=== PATIENT | male | born 1940 | race Caucasian/White ===

== ENCOUNTER 2023-06-26 19:33 | Inpatient (IN) | payer MEDICARE, SELFPAY ==
[2023-06-26] VITALS (10 sets, daily range): BP systolic 122–145; BP diastolic 71–90; BMI 22.6
--- NOTE | 2023-06-26 15:16 | ED.GENMED ---
History of Present Illness
General
Chief Complaint: Weakness
Source: patient
Exam Limitations: none
Time Seen by Provider: 06/26/23 15:05
Travel History
Have you had any contact with someone who has COVID-19?: No
Do you have any symptoms of coronavirus? Fever > 100 degrees, chills, cough, shortness of breath, sore throat, loss of taste or smell, muscle aches, or headache?: No
History of Present Illness
History of Present Illness:
83-year-old male presents from [facility] with generalized weakness. He has chronic indwelling Torres catheter. He is prone to UTIs. He notes some cough as well. No measurable fever. No vomiting. He notes some abdominal pain. No other
complaints at this time
Past History
Past History
ED Past Medical History: HTN
Social History
Tobacco: Non-smoker
Alcohol: None
Drug: None
Phy Exam
Physical Exam
Physical Exam:
General: Well-appearing male no acute respiratory distress
HEENT: Normocephalic atraumatic mucosa moist neck is supple
Heart: Regular rate and rhythm no murmurs
Lungs: Clear no wheeze or rales
Abdomen is somewhat firm tender to the lower abdomen mildly distended no guarding or rebound normal bowel sounds
Extremities: No cyanosis or edema
Course
Orders/Labs/Results
Orders:
Orders
06/26/23 14:49
Electrocardiogram (*1) Urgent
Reason for Study: Fatigue / Weakness
06/26/23 14:50
EKG- Treatment ONCE
06/26/23 15:11
Complete Blood Count/With Diff Urgent
Comprehensive Metabolic Panel Urgent
Creatine Phosphokinase Urgent
Comment: ADD ON
Urinalysis Reflex To Culture Urgent
Date Specimen was Collected: 06/26/23
Time Specimen was Collected: 15:03
Urine Microscopic Reflex Cult Urgent
Urine Culture Urgent
YAQUELIN Source: U
Specimen Description:
Date Specimen was Collected: 06/26/23
Time Specimen was Collected: 15:03
06/26/23 15:52
CT Abd/pel Without Iv Or Oral Urgent
Comment:
Reason For Exam: distended, painful abdomen
Bladder Scan- Treatment ONCE
06/26/23 16:26
Add On- LAB Urgent
Tests Added?: cpk
06/26/23 17:56
Piperacillin/Tazo 3.375 Gram [Zosyn] 3.375 gram in 50 ml IV NOW
Vancomycin [Vancocin] 1,500 mg 0.9% Sodium Chloride [Nss] 20 ml 0.9% Sodium Chloride 250 ml [Nss] 250 ml IV NOW
06/26/23 18:04
0.9% Sodium Chloride 1000 ml [Nss] 1,000 ml IV BOLUS
06/26/23 18:15
Lactic Acid Q4H
Comment: CANCEL 2nd LACTIC ACID IF 1st LACTIC ACID IS LESS THAN 2
Blood Culture Q30M
YAQUELIN Source: Blood/Venous
Specimen Description:
06/26/23 18:45
Blood Culture Q30M
YAQUELIN Source: Blood/Venous
Specimen Description:
06/26/23 22:15
Lactic Acid Q4H
Comment: CANCEL 2nd LACTIC ACID IF 1st LACTIC ACID IS LESS THAN 2
Abnormal Lab Results
06/26/23
15:11
RBC 4.12 L 10^6/uL
(4.70-6.10)
Hgb 11.7 L g/dL
(13.0-18.0)
Hct 35.7 L %
(39.0-52.0)
MCHC 32.8 L g/dL
(33.0-37.0)
Absolute Neuts (auto) 9.8 H 10^3/uL
(1.4-6.5)
Absolute Lymphs (auto) 0.3 L 10^3/uL
(1.2-3.4)
Neutrophils % 93.4 H %
(42.2-75.2)
Lymphocytes % 3.0 L %
(20.5-51.1)
BUN 113 H* mg/dl
(9-20)
Creatinine 3.7 H mg/dL
(0.7-1.3)
Glucose 164 H mg/dl
(70-99)
AST 98 H U/L
(17-59)
ALT 52 H U/L
(0-50)
Ur Occult Blood Reflex 4+ A
(Negative)
Leukocyte Esterase Rfl 2+ A
(Negative)
Urine WBC (Reflex) >100 A /HPF
(0-5)
Urine Albumin (Reflex) 2+ A
(Neg - Trace)
06/26/23 15:11
06/26/23 15:11
Vital Signs
Initial and Last Documented VS:
Initial Vital Signs
Temp Pulse Resp BP
97.8 F 102 22 127/82
06/26/23 14:50 06/26/23 14:50 06/26/23 14:50 06/26/23 14:50
Last Documented Vital Signs
Temp Pulse Resp BP Pulse Ox
97.8 F 98 24 129/83 92
06/26/23 14:50 06/26/23 16:15 06/26/23 16:15 06/26/23 16:00 06/26/23 16:15
MDM/Problems Addressed
Differential Diagnosis Includes:
Generalized weakness abdominal tenderness. Chronic indwelling Torres catheter. Urine looks dirty. Vital signs are stable. Will check labs. Given tenderness and firmness on abdomen, will CT the abdomen
*Critical Care Note
Total Time (30-74mins, 75-104mins- exclusive of procedures): Not Applicable
Update Note
Update Note:
Patient reexamined. Vital signs are still stable. Patient has acute kidney injury with a BUN of 113 creatinine 3.7. Potassium is 3.8. Urinalysis suspicious for UTI. CT reviewed which shows multiple positive findings including inflammation
around the bladder to suggest cystitis, either ileus versus developing small bowel obstruction and bibasilar pneumonia. Fluids ordered vancomycin Zosyn ordered. Will admit to hospital
ED Attending Note
-
Portions of this chart may have been created with voice recognition software.� Occasional wrong word or��sound alike� substitutions may have occurred due to the inherent limitations of voice recognition software.
Discharge Plan
Departure
Patient Disposition: Admit
Date of Disposition: 06/26/23
Time of Disposition: 18:12
Admit to: Telemetry
Presentation/result/management discussed w/ accepting MD/DO: Hospitalist
Discharge Problem:
Cystitis, NABEEL (acute kidney injury)
Prescriptions:
No Action
sennosides [senna] 8.6 mg Tablet
17.2 mg PO DAILY
acetaminophen [Tylenol] 325 mg Tablet
650 mg PO Q4H MDD 3000 mg PRN (Reason: mild pain/temp>100F)
polyethylene glycol 3350 17 gram Powder In Packet
17 g PO DAILY
atorvastatin 10 mg Tablet
10 mg PO HS
thiamine HCl (vitamin B1) 100 mg Tablet
100 mg PO DAILY
magnesium hydroxide [Milk of Magnesia] 400 mg/5 mL Suspension
30 ml PO DAILY PRN (Reason: if no BM in 3 days)
tamsulosin 0.4 mg Capsule
0.4 mg PO DAILY
bisacodyl [Dulcolax (bisacodyl)] 10 mg Suppository
10 mg NH DAILY PRN (Reason: if MOM ineffective after 24 hrs)
Fleet Enema 19-7 gram/118 mL Enema
118 ml NH DAILYPRN PRN (Reason: if dulcolax ineffective after 24 hrs)
folic acid 1 mg Tablet
1 mg PO DAILY
midodrine 2.5 mg Tablet
2.5 mg PO BID
Referrals:
Marquise Youssef I., DO [Family Provider] -
Interventions
Interventions:
*Risk Screen - Suicide Last Done: 06/26/23 14:50
*General Assessment Last Done: 06/26/23 14:50
*Neglect/Abuse Screening Last Done: 06/26/23 14:50
ED- Pulmonary Assessment Last Done: 06/26/23 16:12
ED- Neurological Assessment Last Done: 06/26/23 16:12
ED- Cardiac Assessment Last Done: 06/26/23 16:12
Discharge Date and Time
Print Language: ROMANIAN
[2023-06-26 15:21] LABS: % Basophils 0.3 % (0-2); % Immature Granulocytes 0.4 % (0-0.5); % Monocytes 2.9 % (1.7-9.3); % Neutrophils 93.4 % (42.2-75.2); Absolute Lymphocytes 0.3 10^3/uL (1.2-3.4); Absolute Monocytes 0.3 10^3/uL (0.1-0.6); Absolute Neutrophils 9.8 10^3/uL (1.4-6.5); Hematocrit 35.7 % (39.0-52.0); Hemoglobin 11.7 g/dL (13.0-18.0); Mean Corp Hgb Conc. 32.8 g/dL (33.0-37.0); Mean Corpuscular Hgb 28.4 pg (27.0-31.0); Mean Corpuscular Volume 86.7 fL (80.0-94.0); Mean Platelet Volume 9.9 fL (7.4-10.4); Nucleated Red Blood Cells % 0 % (-); Platelet Count 322 10^3/uL (130-400); Red Blood Cell Count 4.12 10^6/uL (4.70-6.10); Red Cell Dist. Width 13.2 % (11.5-14.5); White Blood Cell Count 10.5 10^3/uL (4.8-10.8)
[2023-06-26 15:24] LABS: Urine Albumin 2+ (Neg - Trace); Urine Bilirubin Negative (Negative); Urine Character Clear (Clear); Urine Color Yellow; Urine Glucose Negative (Negative); Urine Ketone Negative (Negative); Urine Leukocyte 2+ (Negative); Urine Nitrite Negative (Negative); Urine Occult Blood 4+ (Negative); Urine Specific Gravity 1.015 (<1.030); Urine Urobilinogen Negative (Neg - 1+)
[2023-06-26 15:37] LABS: Urine White Cell >100 /HPF (0-5)
[2023-06-26 15:44] LABS: ALT (SGPT) 52 U/L (0-50); AST (SGOT) 98 U/L (17-59); Albumin 3.5 g/dl (3.5-5.0); Alkaline Phosphatase 101 U/L (38-126); Blood Urea Nitrogen 113 mg/dl (9-20); Calcium 9.9 mg/dl (8.4-10.2); Chloride 103 mmol/L (98-107); Glucose 164 mg/dl (70-99); Potassium 3.8 mmol/L (3.5-5.1); Sodium 138 mmol/L (135-145); Total Bilirubin 1.2 mg/dl (0.2-1.3); Total Protein 7.2 g/dl (6.3-8.2); eGFR 15.54
[2023-06-26 15:52] LABS: Carbon Dioxide 22 mmol/L (22-30)
[2023-06-26 18:12] LABS: Creatine Phosphokinase 776 U/L (55-170)
[2023-06-26] MEDS: NSS 1000 IV ×2 (18:18→21:32)
[2023-06-26] MEDS: ZOSYN 50 IV (18:18)
[2023-06-26 18:57] LABS: Lactic Acid 1.1 mmol/L (0.7-2.0)
--- NOTE | 2023-06-26 18:57 | HPS.HSE ---
Addendum entered and electronically signed by Pattie Castro MD 06/26/23 21:11:
Posada catheter to be exchanged, okay with urology.
Original Note:
Family Physician
-
Family Physician: Marquise Youssef
Chief Complaint
-
cough
History of Present Illness
83-year-old male past medical history of hypertension, chronic indwelling Posada catheter, UTIs, presenting from [facility] for generalized weakness. Patient is mediocre historian. He has cough symptoms productive for the past 6 days. He also
complains of intermittent abdominal pain for the past 6 days. He has not had a bowel movement in 6 days. He denies any fevers or chills. No nausea or vomiting. He states he had Posada catheter placed a few months ago but he is not sure about any
further details.
He denies smoking or alcohol use.
Medical History
Past Medical History
Past Medical History: Reports Other (hypertension, chronic indwelling Posada catheter, UTIs)
Past Surgical History: Reports None
Social History
Tobacco: Non-smoker
Alcohol: None
Drug: None
Family History
Family History: Not pertinent
Allergies / Home Medications
Allergies reflects when Allergies were last updated in [employer].
Home Medications with original date entered in [employer]
Allergy/Medication List:
Allergies
Allergy/AdvReac Type Severity Reaction Status Date / Time
Penicillins Allergy Unknown Verified 06/26/23 14:50
Home Medications
acetaminophen 325 mg tablet (Tylenol) 650 mg PO Q4H PRN mild pain/temp>100F 06/26/23
atorvastatin 10 mg tablet 10 mg PO HS 06/26/23
bisacodyl 10 mg rectal suppository (Dulcolax (bisacodyl)) 10 mg WI DAILY PRN if MOM ineffective after 24 hrs 06/26/23
folic acid 1 mg tablet 1 mg PO DAILY 06/26/23
magnesium hydroxide 400 mg/5 mL oral suspension (Milk of Magnesia) 30 ml PO DAILY PRN if no BM in 3 days 06/26/23
midodrine 2.5 mg tablet 2.5 mg PO BID 06/26/23
polyethylene glycol 3350 17 gram oral powder packet 17 g PO DAILY 06/26/23
sennosides 8.6 mg tablet (senna) 17.2 mg PO DAILY 06/26/23
sodium phosphates 19 gram-7 gram/118 mL enema (Fleet Enema) 118 ml WI DAILYPRN PRN if dulcolax ineffective after 24 hrs 06/26/23
tamsulosin 0.4 mg capsule 0.4 mg PO DAILY 06/26/23
thiamine HCl (vitamin B1) 100 mg tablet 100 mg PO DAILY 06/26/23
Review of Systems
-
History Source: Patient
A 12 point ROS was completed and negative except as noted: Yes
Constitutional: Reports No Symptoms
EENT: Reports No Symptoms
Respiratory: Reports See HPI
Cardiac: Reports No Symptoms
Abdomen/GI: Reports See HPI
: Reports No Symptoms
Musculoskeletal: Reports No Symptoms
Skin: Reports No Symptoms
Neurological: Reports No Symptoms
Endocrine: Reports No Symptoms
Hematologic/Lymphatic: Reports No Symptoms
Psych: Reports No Symptoms
Physical Exam
Vital Signs
Vital Signs
Temp Pulse Resp BP Pulse Ox
97.8 F 98 24 129/83 92
06/26/23 14:50 06/26/23 16:15 06/26/23 16:15 06/26/23 16:00 06/26/23 16:15
Physical Exam
General: Well Developed, Well Nourished and No Apparent Distress
HEENT: NormoCephalic, Moist mucous membranes and Atraumatic
Respiratory: Clear
Cardiac: S1/S2 and Regular Rhythm; No Murmur or Rub
GI: Soft, Normal Bowel Sounds, Tender and Distended; No Organomegaly
Rectal: Deferred by Provider
Musculoskeletal: No Clubbing, No Cyanosis and No Edema
Skin: No Rash
Neuro: Nonfocal/grossly intact
Laboratory Results
-
06/26/23 15:11
06/26/23 15:11
Laboratory Results
Lactic Acid 1.1 mmol/L (0.7-2.0) 06/26/23 18:20
Total Bilirubin 1.2 mg/dl (0.2-1.3) 06/26/23 15:11
AST 98 U/L (17-59) H 06/26/23 15:11
ALT 52 U/L (0-50) H 06/26/23 15:11
Alkaline Phosphatase 101 U/L (38-126) 06/26/23 15:11
Data Reviewed
-
Lab Data: Labs Reviewed by me
Old Records: Reviewed
Impression/Plan
-
IMPRESSION:
PLAN:
# Catheter associated urinary tract infection, potential hemorrhage/perforation cannot be excluded
# Chronic Posdaa catheter
-UA shows greater than 100 WBC, +2 leukocyte esterase
-CT scan shows findings concerning for bladder infection, hemorrhagic products cannot be excluded. Bladder perforation cannot be excluded. Mild bilateral hydronephrosis
-Check urine, blood cultures
-Continue tamsulosin
-Urology consulted and recommended to Flush posada to make sure draining
-Unable to reach son to get further history
# Small bowel ileus likely reactive from bladder infection
# History of constipation
-N.p.o.
-IV fluids
-Continue MiraLAX, senna
# Developing pneumonia right lower lung jolley
-check COVID and influenza
-Check sputum culture
-Check strep antigen, Legionella, MRSA
-Vancomycin/cefepime
# Acute kidney injury, likely prerenal
# Uremia
-Posada catheter draining appropriately, then etiology would be prerenal
-IV fluids
-Check I's and O's
# Transaminitis
-Continue to monitor
-Hold statin
Essential hypertension
Full code
DVT prophylaxis-heparin
NPO
--- NOTE | 2023-06-26 20:50 | PTCARENOTE ---
Pt arrived to unit from ED and was a pullover assist x3 from stretcher to bed. Pt is AAOx3 but forgetful - bed alarm in place. VS on admission stable. Pt's Torres catheter is draining cloudy yellow urine. Pt oriented to room, call sol within
reach.
[2023-06-26] MEDS: ProAmatine 2.5 MG PO (21:36)
--- NOTE | 2023-06-26 21:36 | PHA.VAN.IN ---
Assessment
- Assessment
Renal Function: Appears elevated from baseline (06/16/15 SCR = 0.9)
Concomitant Antimicrobials: CEFEPIME
- Previous Dosing Experience
Previous Regimen: NONE
Plan
- Plan
Initial / Loading Dose: 1500MG
Maintenance Regimen: DOSING BY RANDOM LEVELS
Monitoring: RANDOM VANCOMYCIN LEVEL 06/27/23 AM
Pharmacokinetics Vancomycin I
- -
Patient Age: 83
Patient Sex: Male
Vancomycin Day #: 1
Indication: Pulmonary/Respiratory
Requesting Provider: SELINA
Pertinent Antimicrobial Allergies:
Allergies
Penicillins Allergy (Verified 06/26/23 14:50)
Unknown
Height / Weight:
Height 6 ft 1 in
Actual Weight 77.621 kg
Pertinent Past Medical History: CHRONIC WILLS
- Vital Signs / Lab Results
Temp Pulse Resp BP Pulse Ox
99.2 F 98 18 128/85 97
06/26/23 20:50 06/26/23 20:50 06/26/23 20:50 06/26/23 20:50 06/26/23 20:50
Lab Results - Hematology
06/26/23
15:11
WBC 10.5
Lab Results - Chemistry
06/26/23
15:11
BUN 113 H*
Creatinine 3.7 H
Albumin 3.5
06/26/23 06/26/23
18:20 22:15
Lactic Acid 1.1 Cancelled
Lab Results - Urine
06/26/23
15:11
Urine Nitrite (Reflex) Negative
Leukocyte Esterase Rfl 2+ A
Urine WBC (Reflex) >100 A
Microbiology Results
06/26/23 15:11 Legionella Urinary Antigen - Final
Urine Negative for Legionella pneumophila Serogroup 1 antigen.
A negative result does not rule out the possiblity of
Legionella infection due to other serogroups or species of
Legionella. Clinical correlation is recommended.
Streptococcus pneumoniae Antigen (M - Final
Negative for Streptococcus pneumoniae antigen.
A negative result does not exclude infection with
Streptococcus pneumoniae. Clinical correlation is
recommended.
[2023-06-26] MEDS: HEPARIN 5000 UNITS SC (21:42)
[2023-06-26] MEDS: MAXIPIME 1000 MG IV (22:12)
[2023-06-26] MEDS: STERILE WATER FOR INJECTION 10 ML IV (22:13)
[2023-06-26] MEDS: VANCOCIN 300 MG IV (22:42)
[2023-06-26] MEDS: VANCOCIN 300 ML IV (22:42)
--- NOTE | 2023-06-27 01:50 | PTCARENOTE ---
This RN attempted to place 18 Syrian Torres catheter twice with no urine output. Pt agitated but easily calmed and cooperative. 18 Syrian Torres placed a third time, balloon inflated and still no urine output. This RN rechecked Torres catheter one
hour later and found 200 mL of cloudy yellow urine in Torres drainage bag. Pt sleeping without issue. Will continue to monitor.
[2023-06-27 07:55] VITALS: BP 135/72
[2023-06-27] MEDS: NSS 1000 IV (07:57)
[2023-06-27] MEDS: HEPARIN 5000 UNITS SC ×2 (07:58→19:38)
[2023-06-27] MEDS: ProAmatine 2.5 MG PO ×2 (07:59→17:13)
[2023-06-27] MEDS: FOLVITE 1 MG PO (08:00)
[2023-06-27] MEDS: SENOKOT PO ×2 (08:00→08:11)
[2023-06-27] MEDS: VITAMIN B1 100 MG PO (08:00)
[2023-06-27] MEDS: FLOMAX 0.400000000000000022 MG PO (08:00)
[2023-06-27 08:01] LABS: Vancomycin Random 13.9 ug/ml
[2023-06-27] MEDS: MIRALAX PO ×2 (08:01→08:04)
[2023-06-27 08:07] LABS: % Basophils 0.2 % (0-2); % Immature Granulocytes 0.5 % (0-0.5); % Lymphocytes 3.7 % (20.5-51.1); % Monocytes 3.4 % (1.7-9.3); % Neutrophils 92.2 % (42.2-75.2); Absolute Immature Granulocytes 0.1 10^3/uL (0-0.05); Absolute Lymphocytes 0.4 10^3/uL (1.2-3.4); Absolute Monocytes 0.4 10^3/uL (0.1-0.6); Absolute Neutrophils 9.5 10^3/uL (1.4-6.5); Hematocrit 29.6 % (39.0-52.0); Hemoglobin 9.9 g/dL (13.0-18.0); Mean Corp Hgb Conc. 33.4 g/dL (33.0-37.0); Mean Corpuscular Hgb 28.8 pg (27.0-31.0); Mean Platelet Volume 10.3 fL (7.4-10.4); Nucleated Red Blood Cells % 0 % (-); Platelet Count 292 10^3/uL (130-400); Red Blood Cell Count 3.44 10^6/uL (4.70-6.10); Red Cell Dist. Width 13.5 % (11.5-14.5); White Blood Cell Count 10.3 10^3/uL (4.8-10.8)
--- NOTE | 2023-06-27 08:27 | W.PN.HOSP.TC ---
Today's Communication/Plan
-
see bold
Assessment / Plan
Assessment / Plan
HPI: 83-year-old male past medical history of hypertension, chronic indwelling Posada catheter, UTIs, presenting from [facility] for generalized weakness. Patient is mediocre historian. He has cough symptoms productive for the past 6 days. He
also complains of intermittent abdominal pain for the past 6 days. He has not had a bowel movement in 6 days. He denies any fevers or chills. No nausea or vomiting. He states he had Posada catheter placed a few months ago but he is not sure about
any further details.
He denies smoking or alcohol use.
#Gram-negative bacteremia
From UTI, continue IV cefepime, follow-up on cultures
From [facility]
# Catheter associated urinary tract infection, potential hemorrhage/perforation cannot be excluded
# Chronic Posada catheter
UA shows greater than 100 WBC, +[address] scan shows findings concerning for bladder infection, hemorrhagic products cannot be excluded. Bladder perforation cannot be excluded. Mild bilateral hydronephrosis
Appreciate urology input, Posada catheter exchanged on admission, consider CT cystogram
Continue IV cefepime, follow-up on cultures
#Acute kidney injury
Possibly from infection versus obstructive uropathy
Creatinine trending down, continue IV fluids, make sure Posada is draining
# Small bowel ileus likely reactive from bladder infection
# History of constipation
Patient having diarrhea overnight and this morning
Check KUB to assess for fecal impaction causing overflow diarrhea
Possible enema if needed, continue laxatives
# Developing pneumonia right lower lung jolley
Patient is not short of breath, he is not coughing, he is not hypoxic
Monitor
# Transaminitis
Continue to monitor-Hold statin
#History of orthostasis
Continue midodrine
DVT prophylaxis�subcu heparin
Full code
Total time spent to see the patient on the floor, examine the patient, review data and lab results, discuss treatment plan with patient, nursing staff around 51 minutes.
Physical Exam
General: Appears chronically debilitated, no acute distress
HEENT: Normocephalic, Atraumatic, EOMI, MMM
Respiratory: Clear to Auscultation bilaterally
Cardiac: Normal S1/S2, Regular Rate and Rhythm
GI: Soft, Nontender, Nondistended, Normal Bowel Sounds
: +posada
Extremities: No Clubbing, Cyanosis, or Edema
Anticipated Discharge: 24 - 48 hours
Subjective/Interval History
-
Date of Service: June 27, 2023
Patient and nursing reports diarrhea. No fever. No vomiting. No pain.
Objective Data
-
Labs:
Laboratory Results
06/27/23
06:34
WBC 10.3
Hgb 9.9 L
Hct 29.6 L
Plt Count 292
Sodium Pending
Potassium Pending
Chloride Pending
Carbon Dioxide Pending
BUN Pending
Creatinine Pending
Glucose Pending
Calcium Pending
Total Bilirubin Pending
AST Pending
ALT Pending
Alkaline Phosphatase Pending
Vital Signs:
Vital Signs
Temp Pulse Resp BP Pulse Ox
97.5 F 76 16 135/72 95
06/27/23 07:55 06/27/23 07:59 06/27/23 07:55 06/27/23 07:59 06/27/23 07:55
I&O
06/26/23 06/27/23 06/28/23
06:59 06:59 06:59
Intake Total 1240 / 1240
Output Total 1300 / 1300
Balance -60 / -60
--- NOTE | 2023-06-27 08:47 | W.PN.UPDATE ---
Update Note
Progress Note Update
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
Of note, patient was scheduled for outpatient Urology office visit 06/27/23 for 'TURP consultation.'
No prior urologic records or history available.
Has chronic indwelling Torres catheter - placed 'few months ago' but unsure why.
No recent visits to [facility].
Intermittent abdominal pain x6 days.
No bowel movements x6 days.
Denies F/C.
Denies N/V.
CTAP w/o IV contrast => findings concerning for cystitis with air in bladder, infection cannot be excluded, moderate free fluid in pelvis, mild small bowel dilatation, no overt bilateral hydronephrosis noted.
UA => significant WBCs
WBC wnl
Cr 3.7
Torres catheter draining well in ER w/o obvious hematuria
A/P:
cUTI
Chronic urinary retention of unknown etiology
- Torres catheter exchanged on admission
- Maintain Torres catheter to drainage
- IV antibiotics pending UCx S/S
- Trend Cr
- Consider CT cystogram today
D/w Hospitalist
[2023-06-27 09:02] LABS: ALT (SGPT) 45 U/L (0-50); AST (SGOT) 81 U/L (17-59); Albumin 2.7 g/dl (3.5-5.0); Alkaline Phosphatase 92 U/L (38-126); Blood Urea Nitrogen 108 mg/dl (9-20); Calcium 8.7 mg/dl (8.4-10.2); Carbon Dioxide 23 mmol/L (22-30); Chloride 108 mmol/L (98-107); Estimated Creatinine Clearance 21 ml/min; Glucose 120 mg/dl (70-99); Potassium 3.5 mmol/L (3.5-5.1); Sodium 143 mmol/L (135-145); Total Bilirubin 0.9 mg/dl (0.2-1.3); Total Protein 5.7 g/dl (6.3-8.2); eGFR 20.81
[2023-06-27] MEDS: MAXIPIME 1000 MG IV ×2 (10:39→21:50)
[2023-06-27] MEDS: STERILE WATER FOR INJECTION 10 ML IV ×2 (10:39→21:51)
[2023-06-27] MEDS: 0.45% NACL with KCL 20 MEQ 1000 IV (11:46)
--- NOTE | 2023-06-27 15:08 | CM ---
Patient seen bedside, initial assessment completed. Patient confirms he is from [facility], reports he does not think he uses anything to get around. Patient reports his friend was here visiting him earlier, cannot remember if he has family
local to him. CM spoke with admissions at [facility], confirmed patient is LTC resident on a bed hold. Patient ambulates independently. Patients PCP Dr. Youssef, pharmacy [facility] pharmacy. CM will continue to follow for discharge planning
needs.
Plan; Return to [facility] when stable.
--- NOTE | 2023-06-27 15:21 | W.PN.UPDATE ---
Update Note
Progress Note Update
Torres catheter exchanged on admission (06/25).
Urine draining clear yellow today @noon.
NO gross hematuria.
Torres draining well w/o obstruction.
Cr downtrending - 2.9 from 3.7
- Continue IV abx pending Cx S/S
- Maintain Torres catheter to drainage
[2023-06-27 15:28] VITALS: BP 135/60
[2023-06-27 23:25] VITALS: BP 157/80
[2023-06-28] MEDS: 0.45% NACL with KCL 20 MEQ 1000 IV (01:25)
[2023-06-28 07:15] VITALS: BP 153/84
[2023-06-28 07:57] LABS: Hematocrit 32.1 % (39.0-52.0); Hemoglobin 10.7 g/dL (13.0-18.0); Mean Corp Hgb Conc. 33.3 g/dL (33.0-37.0); Mean Corpuscular Hgb 28.5 pg (27.0-31.0); Mean Corpuscular Volume 85.6 fL (80.0-94.0); Mean Platelet Volume 10.1 fL (7.4-10.4); Platelet Count 271 10^3/uL (130-400); Red Blood Cell Count 3.75 10^6/uL (4.70-6.10); Red Cell Dist. Width 13.5 % (11.5-14.5); White Blood Cell Count 9.9 10^3/uL (4.8-10.8)
[2023-06-28 08:35] LABS: ALT (SGPT) 54 U/L (0-50); AST (SGOT) 73 U/L (17-59); Albumin 2.8 g/dl (3.5-5.0); Alkaline Phosphatase 113 U/L (38-126); Blood Urea Nitrogen 94 mg/dl (9-20); Calcium 8.9 mg/dl (8.4-10.2); Carbon Dioxide 23 mmol/L (22-30); Chloride 117 mmol/L (98-107); Estimated Creatinine Clearance 29 ml/min; Glucose 121 mg/dl (70-99); Magnesium 2.3 mg/dl (1.6-2.3); Phosphorus 3.5 mg/dl (2.5-4.5); Potassium 3.4 mmol/L (3.5-5.1); Sodium 146 mmol/L (135-145); Total Protein 6.1 g/dl (6.3-8.2); eGFR 30.66
--- NOTE | 2023-06-28 08:49 | W.PN.HOSP.TC ---
Addendum entered and electronically signed by Zac Saab MD 06/28/23 16:33:
#Sepsis due to Klebsiella UTI and bacteremia
Original Note:
Today's Communication/Plan
-
see bold
Assessment / Plan
Assessment / Plan
HPI: 83-year-old male past medical history of hypertension, chronic indwelling Posada catheter, UTIs, presenting from [facility] for generalized weakness. Patient is mediocre historian. He has cough symptoms productive for the past 6 days. He
also complains of intermittent abdominal pain for the past 6 days. He has not had a bowel movement in 6 days. He denies any fevers or chills. No nausea or vomiting. He states he had Posada catheter placed a few months ago but he is not sure about
any further details.
He denies smoking or alcohol use.
#Klebsiella bacteremia
From UTI, continue IV cefepime, follow-up on cultures
From [facility]
# Catheter associated urinary tract infection, potential hemorrhage/perforation cannot be excluded
# Chronic Posada catheter
UA shows greater than 100 WBC, +[address] scan shows findings concerning for bladder infection, hemorrhagic products cannot be excluded. Bladder perforation cannot be excluded. Mild bilateral hydronephrosis
Appreciate urology input, Posada catheter exchanged on admission, consider CT cystogram
Continue IV cefepime, follow-up on cultures
#Acute kidney injury
Possibly from infection versus obstructive uropathy
Creatinine 2.1 today, was 2.9 yesterday, was 3.7 upon admission
Creatinine trending down, continue IV fluids, make sure Posada is draining
#Hypernatremia
Change IV fluids to D5W with KCl
#Hypokalemia
Replete by p.o.
# Small bowel ileus likely reactive from bladder infection
# History of constipation
KUB negative for fecal impaction, confirms ileus
Tolerating full liquids, repeat KUB today, continue laxatives
# Developing pneumonia right lower lung jolley
Patient is not short of breath, he is not coughing, he is not hypoxic
Monitor
# Transaminitis
Improving, can resume statin
#History of orthostasis
Continue midodrine
DVT prophylaxis�subcu heparin
Full code
Total time spent to see the patient on the floor, examine the patient, review data and lab results, discuss treatment plan with patient, nursing staff around 50 minutes.
Physical Exam
General: Appears chronically debilitated, no acute distress
HEENT: Normocephalic, Atraumatic, EOMI, MMM
Respiratory: Clear to Auscultation bilaterally
Cardiac: Normal S1/S2, Regular Rate and Rhythm
GI: Soft, Nontender, Nondistended, Normal Bowel Sounds
: +posada
Extremities: No Clubbing, Cyanosis, or Edema
Anticipated Discharge: 24 - 48 hours
Subjective/Interval History
-
Date of Service: June 28, 2023
Patient is tolerating his full liquid diet. He is having bowel movements. No fever, no vomiting.
Objective Data
-
Labs:
Laboratory Results
06/28/23 06/28/23
07:05 07:06
WBC 9.9
Hgb 10.7 L
Hct 32.1 L
Plt Count 271
Sodium 146 H
Potassium 3.4 L
Chloride 117 H
Carbon Dioxide 23
BUN 94 H
Creatinine 2.1 H
Glucose 121 H
Calcium 8.9
Total Bilirubin 1.0
AST 73 H
ALT 54 H
Alkaline Phosphatase 113
Vital Signs:
Vital Signs
Temp Pulse Resp BP Pulse Ox
97.8 F 70 16 153/84 97
06/28/23 07:15 06/28/23 07:15 06/28/23 07:15 06/28/23 07:15 06/28/23 07:15
I&O
06/27/23 06/28/23 06/29/23
06:59 06:59 06:59
Intake Total 1240 / 1240 2220 / 2220
Output Total 1300 / 1300 2850 / 2850
Balance -60 / -60 -630 / -630
[2023-06-28] MEDS: FLOMAX 0.400000000000000022 MG PO (09:35)
[2023-06-28] MEDS: HEPARIN 5000 UNITS SC ×2 (09:35→19:30)
[2023-06-28] MEDS: FOLVITE 1 MG PO (09:35)
[2023-06-28] MEDS: MIRALAX 17 GRAMS PO (09:39)
[2023-06-28] MEDS: ProAmatine 2.5 MG PO (09:39)
[2023-06-28] MEDS: VITAMIN B1 100 MG PO (09:44)
[2023-06-28] MEDS: SENOKOT 17.1999999999999993 MG PO (09:44)
[2023-06-28] MEDS: MAXIPIME 1000 MG IV ×2 (09:45→22:25)
[2023-06-28] MEDS: STERILE WATER FOR INJECTION 10 ML IV ×2 (09:45→22:25)
[2023-06-28] MEDS: KCL 40 MEQ PO (11:13)
[2023-06-28] MEDS: D5W with KCL 20 MEQ 1000 IV (11:13)
--- NOTE | 2023-06-28 11:20 | PN.CDI ---
CDI
- -
CDI:
Physician Documentation Request
Admit Date: 06/26/23 19:33
Dear Doctor Do,
Please review the following and provide your response in the progress notes.
Clinical Indicators:
- On 06/25 admission: HR 90-100's, RR 20's
- 5L IVF given
- IV abx Cefepime, Vancocin, Zosyn
- 06/26 PN 'Acute kidney injury'
Please clarify which most accurately describes the patient:
Sepsis due to Klebsiella UTI and bacteremia
Systemic manifestations of infection, with 2 or more SIRS criteria which include:
Fever > 100.4 degrees F or hypothermia < 96.8 degrees F
Leukocytosis - WBC > 12,000 or leukopenia, WBC < 4,000 or > 10% bands
Tachycardia - > 90 beats per minute
Tachypnea - RR > 20 breaths per minute or PaCO2 < 32 mmHg
Source: Merck Manual 2013
SIRS due to a non-infectious source with acute organ dysfunction - NABEEL
Other
Use of terms such as suspected, likely, concern for, or probable (associated with a specific diagnosis that is being evaluated, monitored, or treated as if it exists) are acceptable and can be coded in the inpatient setting, when documented at the
time of discharge.
Thank you,
Chilo Burnham RN
CDI Specialist
Please use your independent medical judgment in providing your response.
--- NOTE | 2023-06-28 12:50 | CM ---
Patient continues on IV anbx.
Await TCB from [facility] status and needs.
Plan: back to [facility] when stable.
[facility]
Report# [phone]
[2023-06-28 15:30] VITALS: BP 157/86
[2023-06-28 16:23] VITALS: BP 155/82; PULSE 80; O2SAT 98
[2023-06-28] MEDS: ProAmatine PO (17:17)
--- NOTE | 2023-06-28 23:00 | PTCARENOTE ---
Pt refused VS to be taken at this time.
[2023-06-29] MEDS: D5W with KCL 20 MEQ 1000 IV (02:59)
[2023-06-29 07:30] VITALS: BP 166/88
--- NOTE | 2023-06-29 07:31 | W.PN.HOSP.TC ---
Addendum entered and electronically signed by Zac Saab MD 06/29/23 11:38:
Chart reports penicillin allergy, will change IV cefepime to Keflex 500 mg 4 times daily instead of augmentin.
Original Note:
Today's Communication/Plan
-
see bold
Assessment / Plan
Assessment / Plan
HPI: 83-year-old male past medical history of hypertension, chronic indwelling Posada catheter, UTIs, presenting from [facility] for generalized weakness. Patient is mediocre historian. He has cough symptoms productive for the past 6 days. He
also complains of intermittent abdominal pain for the past 6 days. He has not had a bowel movement in 6 days. He denies any fevers or chills. No nausea or vomiting. He states he had Posada catheter placed a few months ago but he is not sure about
any further details.
He denies smoking or alcohol use.
#Sepsis due to Klebsiella UTI and bacteremia
#Klebsiella bacteremia
From UTI, sensitivities reviewed, sensitive to Augmentin
Will change from cefepime to Augmentin to complete a 10-day course
From [facility]
# Catheter associated urinary tract infection, potential hemorrhage/perforation cannot be excluded
# Chronic Posada catheter
UA shows greater than 100 WBC, +[address] scan shows findings concerning for bladder infection, hemorrhagic products cannot be excluded. Bladder perforation cannot be excluded. Mild bilateral hydronephrosis
Appreciate urology input, Posada catheter exchanged on admission, consider CT cystogram
Continue IV cefepime, follow-up on cultures
#Acute kidney injury
Possibly from infection versus obstructive uropathy
Creatinine 1.9 today, was 2.1, was 2.9 yesterday, was 3.7 upon admission
Creatinine trending down, continue IV fluids, make sure Posada is draining
#Hypernatremia
Sodium 148 today, was 146
Increase IV fluid rate of D5W to 100 cc/h
#Hypokalemia
Repleted and resolved
# Small bowel ileus likely reactive from bladder infection
# History of constipation
KUB negative for fecal impaction, confirms ileus
Tolerating full liquids, repeat KUB 06/27 shows persistent ileus
Increase MiraLAX to twice a day, sennosides to twice a day
#Chronic anemia
Check iron studies, B12/folic acid
# Developing pneumonia right lower lung jolley
Patient is not short of breath, he is not coughing, he is not hypoxic
Monitor
# Transaminitis
Improving, can resume statin
#History of orthostasis
Continue midodrine with hold parameters
DVT prophylaxis�subcu heparin
Full code
Total time spent to see the patient on the floor, examine the patient, review data and lab results, discuss treatment plan with patient, nursing staff around 51 minutes.
Physical Exam
General: Appears chronically debilitated, no acute distress
HEENT: Normocephalic, Atraumatic, EOMI, MMM
Respiratory: Clear to Auscultation bilaterally
Cardiac: Normal S1/S2, Regular Rate and Rhythm
GI: Soft, Nontender, Nondistended, Normal Bowel Sounds
: +posada
Extremities: No Clubbing, Cyanosis, or Edema
Anticipated Discharge: 24 - 48 hours
Subjective/Interval History
-
Date of Service: June 28, 2023
Patient reports feeling well. No chest pain, no shortness of breath. No nausea, no vomiting. No fever.
Objective Data
-
Labs:
Laboratory Results
06/28/23 06/28/23
07:05 07:06
WBC 9.9
Hgb 10.7 L
Hct 32.1 L
Plt Count 271
Sodium 146 H
Potassium 3.4 L
Chloride 117 H
Carbon Dioxide 23
BUN 94 H
Creatinine 2.1 H
Glucose 121 H
Calcium 8.9
Total Bilirubin 1.0
AST 73 H
ALT 54 H
Alkaline Phosphatase 113
Vital Signs:
Vital Signs
Temp Pulse Resp BP Pulse Ox
97.8 F 70 16 153/84 97
06/28/23 07:15 06/28/23 09:39 06/28/23 07:15 06/28/23 09:39 06/28/23 07:15
I&O
06/27/23 06/28/23 06/29/23
06:59 06:59 06:59
Intake Total 1240 / 1240 2220 / 2220
Output Total 1300 / 1300 2850 / 2850
Balance -60 / -60 -630 / -630
[2023-06-29 08:40] LABS: Hematocrit 33.9 % (39.0-52.0); Hemoglobin 11.1 g/dL (13.0-18.0); Mean Corp Hgb Conc. 32.7 g/dL (33.0-37.0); Mean Corpuscular Hgb 28.5 pg (27.0-31.0); Mean Corpuscular Volume 86.9 fL (80.0-94.0); Platelet Count 301 10^3/uL (130-400); Red Cell Dist. Width 13.8 % (11.5-14.5); White Blood Cell Count 10.3 10^3/uL (4.8-10.8)
[2023-06-29] MEDS: VITAMIN B1 100 MG PO (08:44)
[2023-06-29] MEDS: FLOMAX 0.400000000000000022 MG PO (08:44)
[2023-06-29] MEDS: ProAmatine PO (08:44)
[2023-06-29] MEDS: FOLVITE 1 MG PO (08:45)
[2023-06-29] MEDS: HEPARIN 5000 UNITS SC (08:45)
[2023-06-29] MEDS: SENOKOT 17.1999999999999993 MG PO ×2 (08:45→19:48)
[2023-06-29] MEDS: MIRALAX 17 GRAMS PO ×2 (08:45→19:48)
[2023-06-29 09:18] LABS: ALT (SGPT) 49 U/L (0-50); AST (SGOT) 52 U/L (17-59); Albumin 2.8 g/dl (3.5-5.0); Alkaline Phosphatase 114 U/L (38-126); Blood Urea Nitrogen 80 mg/dl (9-20); Carbon Dioxide 23 mmol/L (22-30); Chloride 118 mmol/L (98-107); Estimated Creatinine Clearance 32 ml/min; Glucose 130 mg/dl (70-99); Magnesium 2.1 mg/dl (1.6-2.3); Sodium 148 mmol/L (135-145); Total Bilirubin 0.9 mg/dl (0.2-1.3); Total Protein 6.2 g/dl (6.3-8.2); eGFR 34.57
[2023-06-29] MEDS: STERILE WATER FOR INJECTION 10 ML IV (09:39)
[2023-06-29] MEDS: MAXIPIME 1000 MG IV (09:39)
[2023-06-29] MEDS: D5W 1000 IV (11:15)
[2023-06-29] MEDS: KEFLEX 500 MG PO ×3 (13:12→19:48)
--- NOTE | 2023-06-29 13:28 | PTCARENOTE ---
06/28- Patient has had 4 episodes of incontinent loose brown-green stools today. Papular rash along feet, lower extremities and lower trunk area/buttox has spread into a maculopapular rash up trunk further. Patient now c/o soreness in the groin and
buttox areas which are red. No open areas or drainage noted. Patient's respirations are WNL with stable vitals; No angioedema or orofacial abnormalities currently observed. No peripheral edema currently observed. Notified Physician. See
further orders.
[2023-06-29 13:30] VITALS: BP 147/94; PULSE 99
[2023-06-29] MEDS: ARISTOCORT/TRIAMCINOLONE 0.1% CREAM 1 APPLIC TOPICAL ×2 (13:55→19:55)
--- NOTE | 2023-06-29 15:05 | CM ---
Patient seen in chair, per chart, now on PO antibiotics. CM will continue to follow for discharge planning needs.
Plan: back to [facility] when stable.
[facility]
Report# [phone]
[2023-06-29] MEDS: ProAmatine 2.5 MG PO (16:55)
[2023-06-29] MEDS: HEPARIN SC ×2 (19:47→19:55)
[2023-06-29 23:33] VITALS: BP 147/78
[2023-06-30] MEDS: D5W 1000 IV (04:58)
[2023-06-30 07:30] VITALS: BP 165/69
[2023-06-30 07:42] LABS: Hematocrit 33.5 % (39.0-52.0); Hemoglobin 10.7 g/dL (13.0-18.0); Mean Corp Hgb Conc. 31.9 g/dL (33.0-37.0); Mean Corpuscular Hgb 28.2 pg (27.0-31.0); Mean Corpuscular Volume 88.2 fL (80.0-94.0); Mean Platelet Volume 10.2 fL (7.4-10.4); Platelet Count 281 10^3/uL (130-400)
--- NOTE | 2023-06-30 07:43 | W.PN.HOSP.TC ---
Today's Communication/Plan
-
see bold
Assessment / Plan
Assessment / Plan
HPI: 83-year-old male past medical history of hypertension, chronic indwelling Posada catheter, UTIs, presenting from [facility] for generalized weakness. Patient is mediocre historian. He has cough symptoms productive for the past 6 days. He
also complains of intermittent abdominal pain for the past 6 days. He has not had a bowel movement in 6 days. He denies any fevers or chills. No nausea or vomiting. He states he had Posada catheter placed a few months ago but he is not sure about
any further details.
He denies smoking or alcohol use.
#Sepsis due to Klebsiella UTI and bacteremia
#Klebsiella bacteremia
From UTI, sensitivities reviewed, sensitive to Augmentin
S/p cefepime, now on keflex to complete a 10-day course
From [facility]
#Catheter associated urinary tract infection, potential hemorrhage/perforation cannot be excluded
#Chronic Posada catheter
UA shows greater than 100 WBC, +[address] scan shows findings concerning for bladder infection, hemorrhagic products cannot be excluded. Bladder perforation cannot be excluded. Mild bilateral hydronephrosis
Appreciate urology input, Posada catheter exchanged on admission, consider CT cystogram
S/p cefepime, now on keflex to complete a 10-day course
#C Diff diarrhea
From antibiotics
Start vancomycin, consult ID
#Acute kidney injury
Possibly from infection versus obstructive uropathy
Creatinine 1.7 today, was 1.9, was 2.1, was 2.9 yesterday, was 3.7 upon admission
Creatinine trending down, continue IV fluids, make sure Posada is draining
#Groin rash
Suspect irritative dermatitis from diarrhea
Start Desitin, Desenex
#Purpura of nose and fingers
Platelet counts normal
Unclear etiology, monitor
#Hypernatremia
Resolved on D5W
#Hypokalemia
Repleted and resolved
# Small bowel ileus likely reactive from bladder infection
# History of constipation
KUB negative for fecal impaction, confirms ileus
Tolerating full liquids, repeat KUB 06/27 shows persistent ileus
Increase MiraLAX to twice a day, sennosides to twice a day
#Chronic anemia
Check iron studies, B12/folic acid
# Developing pneumonia right lower lung jolley
Patient is not short of breath, he is not coughing, he is not hypoxic
Monitor
# Transaminitis
Improving, can resume statin
#History of orthostasis
Continue midodrine with hold parameters
DVT prophylaxis�subcu heparin
Full code
Total time spent to see the patient on the floor, examine the patient, review data and lab results, discuss treatment plan with patient, nursing staff around 52 minutes.
Physical Exam
General: Appears chronically debilitated, no acute distress
HEENT: Normocephalic, Atraumatic, EOMI, MMM
Respiratory: Clear to Auscultation bilaterally
Cardiac: Normal S1/S2, Regular Rate and Rhythm
GI: Soft, Nontender, Nondistended, Normal Bowel Sounds
: +posada
Extremities: No Clubbing, Cyanosis, or Edema
Derm:
Purpura of nose and fingers
Maculopapular rash on groin extending up to lower back
Anticipated Discharge: > 48 hours
Subjective/Interval History
-
Date of Service: June 30, 2023
Patient continues to have diarrhea. No fever, no vomiting.
Objective Data
-
Labs:
Laboratory Results
06/30/23
07:11
WBC Pending
Hgb Pending
Hct Pending
Plt Count Pending
Sodium Pending
Potassium Pending
Chloride Pending
Carbon Dioxide Pending
BUN Pending
Creatinine Pending
Glucose Pending
Calcium Pending
Total Bilirubin Pending
AST Pending
ALT Pending
Alkaline Phosphatase Pending
Vital Signs:
Vital Signs
Temp Pulse Resp BP Pulse Ox
97.3 F 85 18 147/78 97
06/29/23 23:33 06/29/23 23:33 06/29/23 23:33 06/29/23 23:33 06/29/23 23:33
I&O
06/29/23 06/30/23 07/01/23
06:59 06:59 06:59
Intake Total 1460 / 1460 1220 / 1220
Output Total 2300 / 2300 2250 / 2250
Balance -840 / -840 -1030 / -1030
[2023-06-30 08:08] LABS: ALT (SGPT) 37 U/L (0-50); AST (SGOT) 31 U/L (17-59); Albumin 2.5 g/dl (3.5-5.0); Alkaline Phosphatase 92 U/L (38-126); Blood Urea Nitrogen 68 mg/dl (9-20); Calcium 8.5 mg/dl (8.4-10.2); Carbon Dioxide 24 mmol/L (22-30); Chloride 111 mmol/L (98-107); Estimated Creatinine Clearance 36 ml/min; Glucose 127 mg/dl (70-99); Magnesium 1.9 mg/dl (1.6-2.3); Sodium 140 mmol/L (135-145); Total Bilirubin 0.8 mg/dl (0.2-1.3); Total Protein 5.7 g/dl (6.3-8.2); eGFR 39.51
[2023-06-30 08:21] LABS: Potassium 3.8 mmol/L (3.5-5.1)
[2023-06-30] MEDS: SENOKOT PO ×2 (10:08→20:05)
[2023-06-30] MEDS: MIRALAX PO ×2 (10:08→20:05)
[2023-06-30] MEDS: ProAmatine 2.5 MG PO ×2 (10:10→17:04)
[2023-06-30] MEDS: FIRVANQ PO ×2 (10:10→10:13)
[2023-06-30] MEDS: HEPARIN 5000 UNITS SC ×2 (10:12→20:45)
[2023-06-30] MEDS: VITAMIN B1 100 MG PO (10:14)
[2023-06-30] MEDS: FLOMAX 0.400000000000000022 MG PO (10:14)
[2023-06-30] MEDS: KEFLEX 500 MG PO ×3 (10:23→17:04)
[2023-06-30] MEDS: FOLVITE 1 MG PO (10:23)
[2023-06-30] MEDS: ARISTOCORT/TRIAMCINOLONE 0.1% CREAM TOPICAL (10:31)
[2023-06-30] MEDS: FIRVANQ 125 MG PO ×3 (10:31→18:45)
[2023-06-30] MEDS: D5W IV (14:39)
--- NOTE | 2023-06-30 16:02 | CM ---
CM reviewed chart, per Hospitalist note, anticipated discharge >48 hours. CM spoke with Beatriz at [facility], if patient is clear over weekend, facility can accept back. CM will continue to follow for discharge planning needs.
Plan; Return to [facility] when stable.
[facility]
Report# [phone]
[2023-06-30 16:10] VITALS: BP 106/67; PULSE 65
--- NOTE | 2023-06-30 16:12 | CON.ID ---
Consultation
-
Date/Time Consultation Requested: 06/30/23 13:30
Date/Time Consultation Performed: 06/30/23 16:12
Requesting Provider: Dr Saab
Performing Provider: Dr Olson
Reason for Consultation: bacteremia, c diff
Chief Complaint / Past History
Chief Complaint
cough
History of Present Illness
Mr Dalal is an 83 year old male with history of chronic posada with recurrent UTIs who presented here for a productive cough, abdominal pain for 6 days. No BM x6 days. No fevers or chills, nausea or vomiting.
Since arrival here he has been afebrile, bp stable to hypertensive, wbc initially 10.3 now 12, hgb 10.7, plt 281, there was L shift on arrival, na 140, cr 1.7 baseline unknown it was 3.7 on arrival, t bili 0.8, ast 31, alt 37, alk phos 92, ua >100
wbc/hpf, vanc 13.9, ct a/p without IV or oral contrast: possible bladder infection, free fluid in pelvis - cannot rule out perforation, ileus, , bilateral hydronephrosis, C diff positive, 06/25 urine culture 100 K K pneumominae sensitive to
cefazolin. He was initially on cefepime and switched to kefelx 06/28. started oral vancomycin today.
Past History
Additional Past Medical History:
(hypertension, chronic indwelling Posada catheter, UTIs)
Past Surgical History: None
Allergy History:
Penicillins Allergy (Verified 06/26/23 14:50)
Unknown
Medications Reviewed: Yes
Social History
Tobacco: Non-Smoker
Alcohol: None
Drug: None
Family History
Family History: Not Pertinent
Review of Systems
Review of Systems
General: Negative Fever or Chills
All systems: All other systems were reviewed and were negative
Vital Signs
Temp Pulse Resp BP Pulse Ox
97.7 F 73 18 165/69 99
06/30/23 07:30 06/30/23 07:30 06/30/23 07:30 06/30/23 07:30 06/30/23 07:30
Physical Exam
Physical Exam
Constitutional: No Acute Distress
Cardiovascular: Regular Rate and S1/S2; Negative Murmur or Rub
Pulmonary: Clear and Symmetric; Negative Wheezes, Rales or Rhonchi
Gastrointestinal: Soft, Non Tender, Non Distended and Normal Bowel Sounds
Genito-Urinary: Negative Suprapubic Tenderness or CVA Tenderness
Skin: Warm, Dry and Rash (nonblanching purpura - fingers, toes nose; blanching rash on abdomen); Negative Jaundice
Lab / Diagnostic Study Results
06/30/23 07:11
06/30/23 07:11
Abs Immat Gran (auto) 0.1 10^3/uL (0-0.05) H 06/27/23 06:34
Absolute Neuts (auto) 9.5 10^3/uL (1.4-6.5) H 06/27/23 06:34
Absolute Lymphs (auto) 0.4 10^3/uL (1.2-3.4) L 06/27/23 06:34
Absolute Monos (auto) 0.4 10^3/uL (0.1-0.6) 06/27/23 06:34
Absolute Basos (auto) 0.0 10^3/uL (0-0.2) 06/27/23 06:34
Immature Gran % 0.5 % (0-0.5) 06/27/23 06:34
Neutrophils % 92.2 % (42.2-75.2) H 06/27/23 06:34
Lymphocytes % 3.7 % (20.5-51.1) L 06/27/23 06:34
Monocytes % 3.4 % (1.7-9.3) 06/27/23 06:34
Eosinophils % 0.0 % (0-6) 06/27/23 06:34
Basophils % 0.2 % (0-2) 06/27/23 06:34
Lactic Acid Cancelled 06/26/23 22:15
Microbiology Results
Micro:
06/30/23 06:38 Stool Leukocytes - Final
Feces/Stool
06/30/23 06:38 C. difficile GDH Antigen & Toxins - Final
Feces/Stool Toxigenic C.difficile Positive
06/26/23 18:20 Blood Culture - Preliminary
Blood/Venous No Growth in 72 hours- Final report to follow
06/26/23 18:20 Blood Culture - Final
Blood/Venous Klebsiella pneumoniae
Gram Stain - Final
06/26/23 15:11 Urine Culture - Final
Urine Klebsiella pneumoniae
06/27/23 05:28 MRSA Screen - Final
Nose No Methicillin Resistant Staphylococcus aureus isolated.
06/26/23 15:11 Legionella Urinary Antigen - Final
Urine Negative for Legionella pneumophila Serogroup 1 antigen.
A negative result does not rule out the possiblity of
Legionella infection due to other serogroups or species of
Legionella. Clinical correlation is recommended.
Streptococcus pneumoniae Antigen (M - Final
Negative for Streptococcus pneumoniae antigen.
A negative result does not exclude infection with
Streptococcus pneumoniae. Clinical correlation is
recommended.
Assessment / Plan
Leukocytosis
UTI due to Klebsiella
C diff
- follow WBC and renal function
- at some point would be helpful to rule out bladder perforation/developing abscess with the CT cystogram, this would become more urgent if there is progression of leukocytosis new fevers etc, however with renal dysfunction close clinical monitoring
may be prudent for the moment. Second diagnosis of C diff, and third diagnosis of drug rash does complicate assessment and will need to be taken into consideration.
- agree with oral vancomycin
- switched to ciprofloxacin with suspected drug rash
- lab will check sensi for doxycycline which would have less risk of C diff
- would maintain posada
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
- nonblanching rash - fingers, toes and nose; blanching rash on the abdomen; coming from a nursing facility
- most likely a drug reaction - recently had cephalosporins and bactrim - note that resolution is typically slow and can take weeks
- screen for hep C - no risk factors reported; less likely
[2023-06-30] MEDS: NSS with KCL 20 MEQ 1000 IV (16:52)
[2023-06-30] MEDS: DESENEX/MITRAZOL/ZEASORB 1 APPLIC TOPICAL ×2 (16:52→20:46)
[2023-06-30] MEDS: DESITIN MAXIMUM STRENGTH PASTE 1 APPLIC TOPICAL ×2 (16:53→20:46)
--- NOTE | 2023-06-30 16:58 | PTCARENOTE ---
pt transferred from 4w awake and alert, oriented x2-3. denies pain. LCTA on RA. RRR. abd soft nt hyperactive x4, frequent loose BM. IVF NS [id number] IV site left FA flushes with ease. skin intact although diffuse red rash on back and buttock. purple
and red petechia discoloration to finger tips. +PP B/L no edema.CB in reach.
[2023-06-30] MEDS: LIPITOR 10 MG PO (17:04)
[2023-06-30 17:05] VITALS: BP 128/87
[2023-06-30] MEDS: CIPRO 250 MG PO (20:45)
[2023-06-30 23:05] VITALS: BP 131/66
[2023-07-01] MEDS: FIRVANQ 125 MG PO ×4 (01:23→17:03)
[2023-07-01] MEDS: NSS with KCL 20 MEQ 1000 IV ×2 (06:04→18:22)
[2023-07-01 07:00] VITALS: BP 137/68
--- NOTE | 2023-07-01 07:55 | W.PN.HOSP.TC ---
Today's Communication/Plan
-
see bold
Assessment / Plan
Assessment / Plan
HPI: 83-year-old male past medical history of hypertension, chronic indwelling Posada catheter, UTIs, presenting from [facility] for generalized weakness. Patient is mediocre historian. He has cough symptoms productive for the past 6 days. He
also complains of intermittent abdominal pain for the past 6 days. He has not had a bowel movement in 6 days. He denies any fevers or chills. No nausea or vomiting. He states he had Posdaa catheter placed a few months ago but he is not sure about
any further details.
He denies smoking or alcohol use.
#Sepsis due to Klebsiella UTI and bacteremia
#Klebsiella bacteremia
From UTI, sensitivities reviewed, sensitive to Augmentin
Appreciate ID input, s/p cefepime, s/p keflex, now on cipro secondary to suspected drug rash
From [facility]
#Catheter associated urinary tract infection, potential hemorrhage/perforation cannot be excluded
#Chronic Posada catheter
UA shows greater than 100 WBC, +[address] scan shows findings concerning for bladder infection, hemorrhagic products cannot be excluded. Bladder perforation cannot be excluded. Mild bilateral hydronephrosis
Appreciate urology input, Posada catheter exchanged on admission, consider CT cystogram
Appreciate ID input, s/p cefepime, s/p keflex, now on cipro secondary to suspected drug rash
#C Diff diarrhea
From antibiotics
Appreciate ID input, continue p.o. vancomycin day 2
#Acute kidney injury
Possibly from infection versus obstructive uropathy
Creatinine 1.7 yesterday, was 1.9, was 2.1, was 2.9 yesterday, was 3.7 upon admission
Creatinine trending down, continue IV fluids, make sure Posada is draining
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
Purpura of nose and fingers, with diffuse macular papular rash
Appreciate ID, likely from drug reaction�recently has cephalosporins and Bactrim
Resolution is low, take weeks, continue supportive care
#Hypernatremia
Resolved on D5W
#Hypokalemia
Repleted and resolved
# Small bowel ileus likely reactive from bladder infection
# History of constipation
KUB negative for fecal impaction, confirms ileus
Increased MiraLAX to twice a day, sennosides to twice a day
Tolerating full liquids, advance to low residue 06/30, recheck KUB
#Chronic anemia
Ferritin 284, B12/folic acid normal
# Developing pneumonia right lower lung jolley
Patient is not short of breath, he is not coughing, he is not hypoxic
Monitor
# Transaminitis
Ressolved, resumed statin
#History of orthostasis
Continue midodrine with hold parameters
DVT prophylaxis�subcu heparin
Full code
Total time spent to see the patient on the floor, examine the patient, review data and lab results, discuss treatment plan with patient, nursing staff around 51 minutes.
Physical Exam
General: Appears chronically debilitated, no acute distress
HEENT: Normocephalic, Atraumatic, EOMI, MMM
Respiratory: Clear to Auscultation bilaterally
Cardiac: Normal S1/S2, Regular Rate and Rhythm
GI: Soft, Nontender, Nondistended, Normal Bowel Sounds
: +posada
Extremities: No Clubbing, Cyanosis, or Edema
Derm:
Purpura of nose and fingers
Maculopapular rash on groin extending up to lower back and abdomen
Anticipated Discharge: 24 - 48 hours
Subjective/Interval History
-
Date of Service: July 01, 2023
Patient continues to have diarrhea. He is asking for Ensure. No abdominal pain. No fever, no vomiting.
Objective Data
-
Labs:
Laboratory Results
07/01/23
06:00
WBC Pending
Hgb Pending
Hct Pending
Plt Count Pending
Sodium Pending
Potassium Pending
Chloride Pending
Carbon Dioxide Pending
BUN Pending
Creatinine Pending
Glucose Pending
Calcium Pending
Total Bilirubin Pending
AST Pending
ALT Pending
Alkaline Phosphatase Pending
Vital Signs:
Vital Signs
Temp Pulse Resp BP Pulse Ox
97.9 F 78 20 137/68 98
07/01/23 07:00 07/01/23 07:00 07/01/23 07:00 07/01/23 07:00 07/01/23 07:00
I&O
06/30/23 07/01/23 07/02/23
06:59 06:59 06:59
Intake Total 1220 / 1220 3260 / 3260
Output Total 2250 / 2250 2350 / 2350
Balance -1030 / -1030 910 / 910
[2023-07-01 08:07] LABS: Glucose - Point of Care 108 mg/dl (70-99)
[2023-07-01] MEDS: HEPARIN 5000 UNITS SC ×2 (08:45→21:43)
[2023-07-01] MEDS: CIPRO 250 MG PO ×2 (08:45→21:43)
[2023-07-01] MEDS: FOLVITE 1 MG PO (08:45)
[2023-07-01] MEDS: MIRALAX PO ×2 (08:45→21:44)
[2023-07-01 08:46] LABS: Hematocrit 33.5 % (39.0-52.0); Hemoglobin 11.1 g/dL (13.0-18.0); Mean Corp Hgb Conc. 33.1 g/dL (33.0-37.0); Mean Corpuscular Hgb 28.6 pg (27.0-31.0); Mean Corpuscular Volume 86.3 fL (80.0-94.0); Mean Platelet Volume 10.4 fL (7.4-10.4); Platelet Count 291 10^3/uL (130-400); Red Blood Cell Count 3.88 10^6/uL (4.70-6.10); Red Cell Dist. Width 13.7 % (11.5-14.5); White Blood Cell Count 15.5 10^3/uL (4.8-10.8)
[2023-07-01] MEDS: FLOMAX 0.400000000000000022 MG PO (08:46)
[2023-07-01] MEDS: ProAmatine 2.5 MG PO ×2 (08:46→17:04)
[2023-07-01] MEDS: VITAMIN B1 100 MG PO (08:46)
[2023-07-01] MEDS: DESENEX/MITRAZOL/ZEASORB 1 APPLIC TOPICAL ×2 (08:47→21:44)
[2023-07-01] MEDS: DESITIN MAXIMUM STRENGTH PASTE 1 APPLIC TOPICAL ×3 (08:47→21:44)
[2023-07-01] MEDS: SENOKOT PO ×2 (08:47→21:44)
[2023-07-01 10:07] LABS: Folate > 20.0 ng/ml (2.76-20); Vitamin B12 825 pg/ml (239-931)
[2023-07-01 12:26] LABS: Glucose - Point of Care 114 mg/dl (70-99)
[2023-07-01] MEDS: MYLICON 80 MG PO ×3 (14:49→21:43)
[2023-07-01 15:00] VITALS: BP 133/63
[2023-07-01 15:21] LABS: ALT (SGPT) 31 U/L (0-50); AST (SGOT) 35 U/L (17-59); Albumin 2.5 g/dl (3.5-5.0); Alkaline Phosphatase 109 U/L (38-126); Blood Urea Nitrogen 56 mg/dl (9-20); Calcium 8.7 mg/dl (8.4-10.2); Carbon Dioxide 17 mmol/L (22-30); Chloride 115 mmol/L (98-107); Estimated Creatinine Clearance 36 ml/min; Glucose 104 mg/dl (70-99); Iron 60 ug/dl (49-181); Phosphorus 3.6 mg/dl (2.5-4.5); Potassium 4.5 mmol/L (3.5-5.1); Sodium 140 mmol/L (135-145); Total Bilirubin 0.8 mg/dl (0.2-1.3); Total Protein 5.9 g/dl (6.3-8.2); eGFR 39.51
[2023-07-01 15:30] LABS: Percent Saturation 29 % (20-50); Total Iron Binding Capacity 206 ug/dl (261-462)
[2023-07-01 16:53] LABS: Glucose - Point of Care 126 mg/dl (70-99)
[2023-07-01] MEDS: LIPITOR 10 MG PO (17:03)
--- NOTE | 2023-07-01 17:03 | W.PN.ID1 ---
Date of Service
Date of Service: July 01, 2023
Today's Communication
continue current treatments
Assessment / Plan
Leukocytosis
UTI due to Klebsiella
C diff
- follow WBC and renal function
- at some point would be helpful to rule out bladder perforation/developing abscess with the CT cystogram, this would become more urgent if there is progression of leukocytosis new fevers etc, however with renal dysfunction close clinical monitoring
may be prudent for the moment. Second diagnosis of C diff, and third diagnosis of drug rash does complicate assessment and will need to be taken into consideration.
- agree with oral vancomycin
- switched to ciprofloxacin with suspected drug rash
- lab will check sensi for doxycycline which would have less risk of C diff
- would maintain posada
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
- nonblanching rash - fingers, toes and nose; blanching rash on the abdomen; coming from a nursing facility
- most likely a drug reaction - recently had cephalosporins and bactrim - note that resolution is typically slow and can take weeks
- screen for hep C - no risk factors reported; less likely
Chief Complaint
-: Leukocytosis and UTI
Subjective / Review of Systems
aferbile
bp stable
slight progression of leukocytosis
cr stable
awaiting additional sensi
Vital Signs / Physical Exam
Vital Signs
Vital Signs
Temp Pulse Resp BP Pulse Ox
98.0 F 86 16 133/63 99
07/01/23 15:00 07/01/23 15:00 07/01/23 15:00 07/01/23 15:00 07/01/23 15:00
Physical Exam
Constitutional: No Acute Distress
Cardiovascular: Regular Rate and S1/S2; Negative Murmur or Rub
Pulmonary: Clear and Symmetric; Negative Wheezes or Rales
Gastrointestinal: Soft, Non Tender, Non Distended and Normal Bowel Sounds
Skin: Warm and Dry; Negative Rash or Jaundice
Objective Data
Lab Data
Lab Results
07/01/23 08:04
07/01/23 08:04
Estimated Creat Clear 36 ml/min 07/01/23 08:04
Lactic Acid Cancelled 06/26/23 22:15
Total Bilirubin 0.8 mg/dl (0.2-1.3) 07/01/23 08:04
AST 35 U/L (17-59) 07/01/23 08:04
ALT 31 U/L (0-50) 07/01/23 08:04
Alkaline Phosphatase 109 U/L (38-126) 07/01/23 08:04
Most recent labs reviewed.
Micro Results:
06/26/23 18:20 Blood Culture - Preliminary
Blood/Venous No Growth in 4 days- Final report to follow
06/30/23 06:38 Stool Leukocytes - Final
Feces/Stool
06/30/23 06:38 C. difficile GDH Antigen & Toxins - Final
Feces/Stool Toxigenic C.difficile Positive
06/26/23 18:20 Blood Culture - Final
Blood/Venous Klebsiella pneumoniae
Gram Stain - Final
06/26/23 15:11 Urine Culture - Final
Urine Klebsiella pneumoniae
06/27/23 05:28 MRSA Screen - Final
Nose No Methicillin Resistant Staphylococcus aureus isolated.
06/26/23 15:11 Legionella Urinary Antigen - Final
Urine Negative for Legionella pneumophila Serogroup 1 antigen.
A negative result does not rule out the possiblity of
Legionella infection due to other serogroups or species of
Legionella. Clinical correlation is recommended.
Streptococcus pneumoniae Antigen (M - Final
Negative for Streptococcus pneumoniae antigen.
A negative result does not exclude infection with
Streptococcus pneumoniae. Clinical correlation is
recommended.
[2023-07-01 21:32] LABS: Glucose - Point of Care 155 mg/dl (70-99)
[2023-07-01 23:46] VITALS: BP 123/65
[2023-07-02] MEDS: FIRVANQ 125 MG PO ×5 (00:38→22:37)
[2023-07-02 07:00] VITALS: BP 105/52
--- NOTE | 2023-07-02 07:42 | W.PN.HOSP.TC ---
Today's Communication/Plan
-
see bold
Assessment / Plan
Assessment / Plan
HPI: 83-year-old male past medical history of hypertension, chronic indwelling Posada catheter, UTIs, presenting from [facility] for generalized weakness. Patient is mediocre historian. He has cough symptoms productive for the past 6 days. He
also complains of intermittent abdominal pain for the past 6 days. He has not had a bowel movement in 6 days. He denies any fevers or chills. No nausea or vomiting. He states he had Posada catheter placed a few months ago but he is not sure about
any further details.
He denies smoking or alcohol use.
#Sepsis due to Klebsiella UTI and bacteremia
#Klebsiella bacteremia
From UTI, sensitivities reviewed, pansensitive except to ampicillin
Appreciate ID input, s/p cefepime, s/p keflex, now on cipro secondary to suspected drug rash
From [facility]
#Catheter associated urinary tract infection, potential hemorrhage/perforation cannot be excluded
#Chronic Posada catheter
UA shows greater than 100 WBC, +[address] scan shows findings concerning for bladder infection, hemorrhagic products cannot be excluded. Bladder perforation cannot be excluded. Mild bilateral hydronephrosis
Appreciate urology input, Posada catheter exchanged on admission, consider CT cystogram
Appreciate ID input, s/p cefepime, s/p keflex, now on cipro secondary to suspected drug rash
#C Diff diarrhea
From antibiotics
Appreciate ID input, continue p.o. vancomycin day 3
#Acute kidney injury
Possibly from infection versus obstructive uropathy
Creatinine 1.6 today, was 1.7, was 1.9, was 2.1, was 2.9 yesterday, was 3.7 upon admission
Baseline creatinine 0.9 in 2016
Creatinine trending down, continue IV fluids, make sure Posada is draining
# Small bowel ileus likely reactive from bladder infection
# History of constipation
KUB negative for fecal impaction, confirms ileus
Tolerating low residue
Will need to be discharged on laxatives once his c diff diarrhea resolves due to history of constipation
He had no bowel movements for 6 days prior to admission
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
Purpura of nose and fingers, with diffuse macular papular rash
Appreciate ID, likely from drug reaction�recently had cephalosporins and Bactrim
Resolution is slow, takes weeks, continue supportive care
#Hypernatremia
Resolved on D5W
#Hypokalemia
Repleted and resolved
#Chronic anemia due to anemia of chronic disease
Iron studies reviewed
Ferritin 284, B12/folic acid normal
# Developing pneumonia right lower lung jolley
Patient is not short of breath, he is not coughing, he is not hypoxic
Monitor
# Transaminitis
Ressolved, resumed statin
#History of orthostasis
Continue midodrine with hold parameters
DVT prophylaxis�subcu heparin
Full code
Total time spent to see the patient on the floor, examine the patient, review data and lab results, discuss treatment plan with patient, nursing staff around 50 minutes.
Physical Exam
General: Appears chronically debilitated, no acute distress
HEENT: Normocephalic, Atraumatic, EOMI, MMM
Respiratory: Clear to Auscultation bilaterally
Cardiac: Normal S1/S2, Regular Rate and Rhythm
GI: Soft, Nontender, Nondistended, Normal Bowel Sounds
: +posada
Extremities: No Clubbing, Cyanosis, or Edema
Derm:
Purpura of nose and fingers
Maculopapular rash on groin extending up to lower back and abdomen
Anticipated Discharge: 24 - 48 hours
Subjective/Interval History
-
Date of Service: July 02, 2023
Diarrhea improved. Little appetite. No fever, no vomiting. Denies abdominal pain. No chest pain, no shortness of breath.
Objective Data
-
Labs:
Laboratory Results
07/02/23
07:41
WBC Pending
Hgb Pending
Hct Pending
Plt Count Pending
Sodium Pending
Potassium Pending
Chloride Pending
Carbon Dioxide Pending
BUN Pending
Creatinine Pending
Glucose Pending
Calcium Pending
Total Bilirubin Pending
AST Pending
ALT Pending
Alkaline Phosphatase Pending
Vital Signs:
Vital Signs
Temp Pulse Resp BP Pulse Ox
98.0 F 79 16 105/52 97
07/02/23 07:00 07/02/23 07:00 07/02/23 07:00 07/02/23 07:00 07/02/23 07:00
I&O
07/01/23 07/02/23 07/03/23
06:59 06:59 06:59
Intake Total 3260 / 3260 900 / 900
Output Total 2350 / 2350 2200 / 2200
Balance 910 / 910 -1300 / -1300
[2023-07-02 08:19] LABS: Hematocrit 33.3 % (39.0-52.0); Hemoglobin 10.7 g/dL (13.0-18.0); Mean Corp Hgb Conc. 32.1 g/dL (33.0-37.0); Mean Corpuscular Hgb 28.5 pg (27.0-31.0); Mean Corpuscular Volume 88.6 fL (80.0-94.0); Mean Platelet Volume 11.1 fL (7.4-10.4); Platelet Count 272 10^3/uL (130-400); Red Blood Cell Count 3.76 10^6/uL (4.70-6.10); White Blood Cell Count 20.3 10^3/uL (4.8-10.8)
[2023-07-02] MEDS: NSS with KCL 20 MEQ 1000 IV (08:31)
[2023-07-02 09:18] LABS: ALT (SGPT) 29 U/L (0-50); AST (SGOT) 30 U/L (17-59); Albumin 2.3 g/dl (3.5-5.0); Alkaline Phosphatase 114 U/L (38-126); Blood Urea Nitrogen 48 mg/dl (9-20); Calcium 8.6 mg/dl (8.4-10.2); Carbon Dioxide 22 mmol/L (22-30); Chloride 110 mmol/L (98-107); Estimated Creatinine Clearance 38 ml/min; Glucose 109 mg/dl (70-99); Magnesium 1.9 mg/dl (1.6-2.3); Potassium 4.5 mmol/L (3.5-5.1); Sodium 140 mmol/L (135-145); Total Bilirubin 0.8 mg/dl (0.2-1.3); Total Protein 5.6 g/dl (6.3-8.2); eGFR 42.49
[2023-07-02] MEDS: ProAmatine 2.5 MG PO ×2 (09:57→18:31)
[2023-07-02] MEDS: HEPARIN 5000 UNITS SC ×2 (09:57→20:13)
[2023-07-02] MEDS: FLOMAX 0.400000000000000022 MG PO (09:57)
[2023-07-02] MEDS: FOLVITE 1 MG PO (09:57)
[2023-07-02] MEDS: VITAMIN B1 100 MG PO (09:58)
[2023-07-02] MEDS: MIRALAX PO (09:58)
[2023-07-02] MEDS: DESITIN MAXIMUM STRENGTH PASTE 1 APPLIC TOPICAL ×3 (09:58→23:06)
[2023-07-02] MEDS: DESENEX/MITRAZOL/ZEASORB 1 APPLIC TOPICAL ×2 (09:58→20:14)
[2023-07-02] MEDS: SENOKOT PO (09:58)
[2023-07-02] MEDS: CIPRO 250 MG PO ×2 (09:59→20:13)
[2023-07-02] MEDS: MYLICON 80 MG PO ×4 (10:00→22:35)
[2023-07-02 15:00] VITALS: BP 137/61
--- NOTE | 2023-07-02 16:31 | W.PN.ID1 ---
Date of Service
Date of Service: July 02, 2023
Today's Communication
awaiting additional sensitivities on K pneumoniae
Assessment / Plan
Leukocytosis
UTI due to Klebsiella
C diff
- follow WBC and renal function
- at some point would be helpful to rule out bladder perforation/developing abscess with the CT cystogram, this would become more urgent if there is progression of leukocytosis new fevers etc, however with renal dysfunction close clinical monitoring
may be prudent for the moment. Second diagnosis of C diff, and third diagnosis of drug rash does complicate assessment and will need to be taken into consideration.
- agree with oral vancomycin
- switched to ciprofloxacin with suspected drug rash
- lab will check sensi for doxycycline which would have less risk of C diff
- would maintain posada
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
- nonblanching rash - fingers, toes and nose; blanching rash on the abdomen; coming from a nursing facility
- most likely a drug reaction - recently had cephalosporins and bactrim - note that resolution is typically slow and can take weeks
- screen for hep C - no risk factors reported; less likely
Chief Complaint
-: Leukocytosis and UTI
Subjective / Review of Systems
afebrile
bp stable
still with lots of loose stools
increasing leukocytosis
cr stable
additional sensi not yet back
Vital Signs / Physical Exam
Vital Signs
Vital Signs
Temp Pulse Resp BP Pulse Ox
97.9 F 81 16 137/61 99
07/02/23 15:00 07/02/23 15:00 07/02/23 15:00 07/02/23 15:00 07/02/23 15:00
Physical Exam
Constitutional: No Acute Distress
Cardiovascular: Regular Rate and S1/S2; Negative Murmur or Rub
Pulmonary: Clear and Symmetric; Negative Wheezes or Rales
Gastrointestinal: Soft, Non Tender, Non Distended and Other (hyperactive bowel sounds)
Genito-Urinary: Negative Suprapubic Tenderness
Skin: Warm and Dry; Negative Rash or Jaundice
Objective Data
Lab Data
Lab Results
07/02/23 07:41
07/02/23 07:41
Estimated Creat Clear 38 ml/min 07/02/23 07:41
Lactic Acid Cancelled 06/26/23 22:15
Total Bilirubin 0.8 mg/dl (0.2-1.3) 07/02/23 07:41
AST 30 U/L (17-59) 07/02/23 07:41
ALT 29 U/L (0-50) 07/02/23 07:41
Alkaline Phosphatase 114 U/L (38-126) 07/02/23 07:41
Most recent labs reviewed.
Micro Results:
06/26/23 18:20 Blood Culture - Preliminary
Blood/Venous Klebsiella pneumoniae
Gram Stain - Final
06/26/23 18:20 Blood Culture - Final
Blood/Venous No Growth - Final Report
06/30/23 06:38 Stool Leukocytes - Final
Feces/Stool
06/30/23 06:38 C. difficile GDH Antigen & Toxins - Final
Feces/Stool Toxigenic C.difficile Positive
06/26/23 15:11 Urine Culture - Final
Urine Klebsiella pneumoniae
06/27/23 05:28 MRSA Screen - Final
Nose No Methicillin Resistant Staphylococcus aureus isolated.
06/26/23 15:11 Legionella Urinary Antigen - Final
Urine Negative for Legionella pneumophila Serogroup 1 antigen.
A negative result does not rule out the possiblity of
Legionella infection due to other serogroups or species of
Legionella. Clinical correlation is recommended.
Streptococcus pneumoniae Antigen (M - Final
Negative for Streptococcus pneumoniae antigen.
A negative result does not exclude infection with
Streptococcus pneumoniae. Clinical correlation is
recommended.
[2023-07-02] MEDS: 0.45%NACL 1000 IV (17:08)
[2023-07-02] MEDS: FLAGYL 500 MG 100 IV ×2 (17:09→22:34)
[2023-07-02] MEDS: LIPITOR 10 MG PO (18:31)
[2023-07-02 23:00] VITALS: BP 120/68
[2023-07-03 02:06] LABS: Transferrin 133 mg/dL (200-360)
[2023-07-03 05:21] LABS: Hepatitis C Antibody Negative (Negative)
[2023-07-03 05:59] LABS: Hematocrit 31.1 % (39.0-52.0); Hemoglobin 10.2 g/dL (13.0-18.0); Mean Corp Hgb Conc. 32.8 g/dL (33.0-37.0); Mean Corpuscular Hgb 28.3 pg (27.0-31.0); Mean Corpuscular Volume 86.1 fL (80.0-94.0); Mean Platelet Volume 9.9 fL (7.4-10.4); Platelet Count 333 10^3/uL (130-400); Red Blood Cell Count 3.61 10^6/uL (4.70-6.10); Red Cell Dist. Width 13.9 % (11.5-14.5); White Blood Cell Count 21.2 10^3/uL (4.8-10.8)
[2023-07-03] MEDS: FIRVANQ 125 MG PO ×3 (05:59→17:25)
[2023-07-03 07:00] VITALS: BP 109/64
[2023-07-03 07:13] LABS: Blood Urea Nitrogen 42 mg/dl (9-20); Calcium 8.5 mg/dl (8.4-10.2); Carbon Dioxide 22 mmol/L (22-30); Chloride 108 mmol/L (98-107); Estimated Creatinine Clearance 38 ml/min; Glucose 104 mg/dl (70-99); Magnesium 1.8 mg/dl (1.6-2.3); Phosphorus 4.1 mg/dl (2.5-4.5); Potassium 4.4 mmol/L (3.5-5.1); Sodium 138 mmol/L (135-145); eGFR 42.49
[2023-07-03] MEDS: CIPRO 250 MG PO (08:39)
[2023-07-03] MEDS: FLAGYL 500 MG 100 IV ×2 (08:39→16:42)
[2023-07-03] MEDS: FLOMAX 0.400000000000000022 MG PO (08:39)
[2023-07-03] MEDS: ProAmatine 2.5 MG PO ×2 (08:39→17:23)
[2023-07-03] MEDS: FOLVITE 1 MG PO (08:41)
[2023-07-03] MEDS: HEPARIN 5000 UNITS SC ×2 (08:41→19:59)
[2023-07-03] MEDS: VITAMIN B1 100 MG PO (08:41)
[2023-07-03] MEDS: MYLICON 80 MG PO ×4 (08:41→22:04)
[2023-07-03] MEDS: DESENEX/MITRAZOL/ZEASORB 1 APPLIC TOPICAL ×2 (08:46→20:00)
[2023-07-03] MEDS: DESITIN MAXIMUM STRENGTH PASTE 1 APPLIC TOPICAL ×3 (08:47→22:04)
--- NOTE | 2023-07-03 11:06 | W.PN.HOSP.TC ---
Today's Communication/Plan
-
see A/P
Assessment / Plan
Assessment / Plan
HPI: 83-year-old male past medical history of hypertension, chronic indwelling Torres catheter, UTIs, presented from [facility] for generalized weakness. Patient is mediocre historian. He has cough symptoms productive for the past 6 days. He
also complained of intermittent abdominal pain for the past 6 days. He has not had a bowel movement in 6 days. He denies any fevers or chills. No nausea or vomiting. He states he had Torres catheter placed a few months ago but he was not sure about
any further details.
A/P:
# Sepsis POA due to complicated UTI with Klebsiella and Klebsiella bacteremia
# Catheter associated urinary tract infection, potential hemorrhage/perforation cannot be excluded
# Chronic Torres catheter
s/p cefepime, s/p keflex, now on cipro secondary to suspected drug rash
CT scan shows findings concerning for bladder infection, hemorrhagic products cannot be excluded. Bladder perforation cannot be excluded. Mild bilateral hydronephrosis
Torres catheter exchanged on admission
Urology consulted. NO gross hematuria. Torres draining well w/o obstruction. Maintain Torres catheter to drainage
Appreciate ID input, recc CT cystogram to rule out bladder perforation/developing abscess
# C Diff diarrhea, from antibiotics
Appreciate ID input, continue p.o. vancomycin
# Acute kidney injury
Possibly from infection versus obstructive uropathy
Creatinine 1.6 today, was 3.7 upon admission; Baseline creatinine 0.9 in 2016
Creatinine trending down, continue gentle IV fluids, Torres is draining
# Small bowel ileus likely reactive from bladder infection
# History of constipation
KUB negative for fecal impaction, confirmed ileus
Tolerating low residue
Will need to be discharged on laxatives once his C diff diarrhea resolves due to history of constipation
He had no bowel movements for 6 days prior to admission
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
Purpura of nose and fingers, with diffuse macular papular rash
Appreciate ID, likely from drug reaction�recently had cephalosporins and Bactrim
Resolution is slow, takes weeks, continue supportive care
# Hypernatremia
Resolved on D5W
# Hypokalemia
Repleted and resolved
# Chronic anemia due to anemia of chronic disease
Iron studies reviewed
Ferritin 284, B12/folic acid normal
# Developing pneumonia right lower lung jolley
Patient is not short of breath, he is not coughing, he is not hypoxic
Monitor
# Transaminitis
Resolved, resumed statin
# History of orthostasis
Continue midodrine with hold parameters
DVT prophylaxis�subcu heparin
Full code
Total time spent to see the patient on the floor, examine the patient, review data and lab results, discuss treatment plan with patient, nursing staff around 50 minutes.
Anticipated Discharge: 24 - 48 hours
Subjective/Interval History
-
Date of Service: July 03, 2023
Objective Data
-
Labs:
Laboratory Results
07/03/23
05:48
WBC 21.2 H
Hgb 10.2 L
Hct 31.1 L
Plt Count 333 D
Sodium 138
Potassium 4.4
Chloride 108 H
Carbon Dioxide 22
BUN 42 H
Creatinine 1.6 H
Glucose 104 H
Calcium 8.5
Vital Signs:
Vital Signs
Temp Pulse Resp BP Pulse Ox
36.8 C 84 19 109/64 97
07/03/23 07:00 07/03/23 08:39 07/03/23 07:00 07/03/23 08:39 07/03/23 09:43
I&O
07/02/23 07/03/23 07/04/23
06:59 06:59 06:59
Intake Total 900 / 900 600 / 600
Output Total 2200 / 2200 1800 / 1800
Balance -1300 / -1300 -1200 / -1200
Review of Systems
-
All other systems: Reviewed and negative
Physical Exam
-
General: Well Developed, Well Nourished, No Apparent Distress, Comfortable, Conversant and Appears Chronically Ill; Negative Respiratory Distress
HEENT: Normocephalic, Atraumatic, Nose Appears Normal and Ears Appear Normal; Negative Oxygen
Respiratory: Clear to Auscultation and Non Labored Respirations; Negative Accessory Resp Muscle Use
Cardiac: Regular Rhythm and S1/S2
GI: Soft, Nontender, Nondistended and Normal Bowel Sounds
Skin: Warm, Dry and Rash (macular-papular rash finger tips, chest wall, nose )
Neuro: Awake, Alert, Oriented and AO x 3
Psych: Calm and Intact Judgement/Insight
Data Reviewed
-
Labs: Labs Reviewed by me
[2023-07-03] MEDS: NSS 1000 IV (12:13)
[2023-07-03 12:48] VITALS: BMI 22.6
[2023-07-03 14:50] VITALS: BP 128/63; BP 87/53; BP 88/60; PULSE 88
[2023-07-03 15:00] VITALS: BP 128/63
[2023-07-03 15:01] LABS: Glucose - Point of Care 211 mg/dl (70-99)
[2023-07-03 15:08] VITALS: BP 120/50; BP 88/57
--- NOTE | 2023-07-03 15:42 | W.PN.ID1 ---
Date of Service
Date of Service: July 03, 2023
Today's Communication
CT
Assessment / Plan
Leukocytosis
C diff
- continue with oral vancomycin and IV metronidazole
- CT abd with oral contrast and CT cystogram
- would maintain posada
UTI due to Klebsiella
Possible Bladder Perforation
- start doxycycline
- has posada
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
- nonblanching rash - fingers, toes and nose
- most likely to cefepime - improving
- screen for hep C - negative
Chief Complaint
-: Leukocytosis and UTI
Subjective / Review of Systems
afebrile
bp stable
stable leukocytosis
still with abdominal pain
stool becoming formed
rash fading
Vital Signs / Physical Exam
Vital Signs
Vital Signs
Temp Pulse Resp BP Pulse Ox
98.1 F 101 17 128/63 96
07/03/23 15:00 07/03/23 15:00 07/03/23 15:00 07/03/23 15:00 07/03/23 15:00
Physical Exam
Constitutional: No Acute Distress
Cardiovascular: Regular Rate and S1/S2; Negative Murmur or Rub
Pulmonary: Clear and Symmetric; Negative Wheezes or Rales
Gastrointestinal: Soft, Non Tender, Non Distended and Normal Bowel Sounds
Skin: Warm, Dry and Rash (rash fading); Negative Jaundice
Objective Data
Lab Data
Lab Results
07/03/23 05:48
07/03/23 05:48
Estimated Creat Clear 38 ml/min 07/03/23 05:48
Lactic Acid Cancelled 06/26/23 22:15
Total Bilirubin 0.8 mg/dl (0.2-1.3) 07/02/23 07:41
AST 30 U/L (17-59) 07/02/23 07:41
ALT 29 U/L (0-50) 07/02/23 07:41
Alkaline Phosphatase 114 U/L (38-126) 07/02/23 07:41
Most recent labs reviewed.
Micro Results:
06/26/23 18:20 Blood Culture - Final
Blood/Venous Klebsiella pneumoniae
Klebsiella pneumoniae#2
Gram Stain - Final
06/26/23 18:20 Blood Culture - Final
Blood/Venous No Growth - Final Report
06/30/23 06:38 Stool Leukocytes - Final
Feces/Stool
06/30/23 06:38 C. difficile GDH Antigen & Toxins - Final
Feces/Stool Toxigenic C.difficile Positive
06/26/23 15:11 Urine Culture - Final
Urine Klebsiella pneumoniae
06/27/23 05:28 MRSA Screen - Final
Nose No Methicillin Resistant Staphylococcus aureus isolated.
06/26/23 15:11 Legionella Urinary Antigen - Final
Urine Negative for Legionella pneumophila Serogroup 1 antigen.
A negative result does not rule out the possiblity of
Legionella infection due to other serogroups or species of
Legionella. Clinical correlation is recommended.
Streptococcus pneumoniae Antigen (M - Final
Negative for Streptococcus pneumoniae antigen.
A negative result does not exclude infection with
Streptococcus pneumoniae. Clinical correlation is
recommended.
--- NOTE | 2023-07-03 16:18 | CM ---
Patient not medically cleared for discharge. Plan remains back to [facility] when stable.
Plan: Case management will continue to follow and assist with discharge planning. Back to [facility] upon medical clearance.
[2023-07-03] MEDS: LIPITOR 10 MG PO (17:23)
--- NOTE | 2023-07-03 18:16 | PTCARENOTE ---
Pt. worked with PT this afternoon and PT got him in the chair. Pt. When pt. was ready to go back into bed, pt. stood up, said he felt dizzy and fell back into the chair. Pt. never lost consciousness however stated he was dizzy and felt 'wiped out'.
Pt. Bp was 69/40. Got pt. back into bed and took a manual pressure and got 110/60. Pt. stated he felt better laying down. made aware, no new orders at this time. Will continue to monitor patient and maintain safe environment.
[2023-07-03] MEDS: VIBRAMYCIN 100 MG PO (19:59)
[2023-07-03 23:00] VITALS: BP 120/59
[2023-07-04] MEDS: FLAGYL 500 MG 100 IV ×4 (00:57→23:30)
[2023-07-04] MEDS: FIRVANQ 125 MG PO ×5 (00:57→23:30)
[2023-07-04] MEDS: NSS 1000 IV ×2 (03:18→22:15)
[2023-07-04 06:41] LABS: % Basophils 0.2 % (0-2); % Eosinophils 1.8 % (0-6); % Immature Granulocytes 2.6 % (0-0.5); % Lymphocytes 7.7 % (20.5-51.1); % Monocytes 1.5 % (1.7-9.3); % Neutrophils 86.2 % (42.2-75.2); Absolute Basophils 0.1 10^3/uL (0-0.2); Absolute Eosinophils 0.5 10^3/uL (0-0.7); Absolute Immature Granulocytes 0.6 10^3/uL (0-0.05); Absolute Lymphocytes 1.9 10^3/uL (1.2-3.4); Absolute Monocytes 0.4 10^3/uL (0.1-0.6); Absolute Neutrophils 21.5 10^3/uL (1.4-6.5); Hemoglobin 10.2 g/dL (13.0-18.0); Mean Corp Hgb Conc. 31.9 g/dL (33.0-37.0); Mean Corpuscular Hgb 28.3 pg (27.0-31.0); Mean Corpuscular Volume 88.6 fL (80.0-94.0); Mean Platelet Volume 10.2 fL (7.4-10.4); Nucleated Red Blood Cells % 0 % (-); Platelet Count 365 10^3/uL (130-400); Red Blood Cell Count 3.61 10^6/uL (4.70-6.10); Red Cell Dist. Width 14.3 % (11.5-14.5)
[2023-07-04 07:00] VITALS: BP 105/56
[2023-07-04 07:04] LABS: Blood Urea Nitrogen 41 mg/dl (9-20); Calcium 8.1 mg/dl (8.4-10.2); Carbon Dioxide 21 mmol/L (22-30); Chloride 108 mmol/L (98-107); Estimated Creatinine Clearance 36 ml/min; Glucose 106 mg/dl (70-99); Magnesium 1.8 mg/dl (1.6-2.3); Phosphorus 4.2 mg/dl (2.5-4.5); Potassium 4.4 mmol/L (3.5-5.1); Sodium 134 mmol/L (135-145); eGFR 39.51
[2023-07-04] MEDS: OMNIPAQUE 50 ML PO (07:38)
[2023-07-04] MEDS: DESITIN MAXIMUM STRENGTH PASTE 1 APPLIC TOPICAL ×3 (07:39→22:16)
[2023-07-04] MEDS: DESENEX/MITRAZOL/ZEASORB 1 APPLIC TOPICAL ×2 (07:39→19:35)
[2023-07-04] MEDS: VIBRAMYCIN 100 MG PO ×2 (07:40→19:35)
[2023-07-04] MEDS: FLOMAX 0.400000000000000022 MG PO (07:40)
[2023-07-04] MEDS: ProAmatine 2.5 MG PO ×2 (07:40→17:03)
[2023-07-04] MEDS: VITAMIN B1 100 MG PO (07:40)
[2023-07-04] MEDS: HEPARIN 5000 UNITS SC ×2 (07:41→19:34)
[2023-07-04] MEDS: FOLVITE 1 MG PO (07:41)
[2023-07-04] MEDS: MYLICON 80 MG PO ×4 (07:41→22:15)
--- NOTE | 2023-07-04 10:17 | W.PN.HOSP.TC ---
Addendum entered and electronically signed by Diane August MD 07/04/23 11:55:
d/w Uro. Pt will most likely need bladder repair. Keep NPO and timing of surgery TBD
Original Note:
Today's Communication/Plan
-
see A/P
Assessment / Plan
Assessment / Plan
HPI: 83-year-old male past medical history of hypertension, chronic indwelling Torres catheter, UTIs, presented from [facility] for generalized weakness. Patient is mediocre historian. He has cough symptoms productive for the past 6 days. He
also complained of intermittent abdominal pain for the past 6 days. He has not had a bowel movement in 6 days. He denies any fevers or chills. No nausea or vomiting. He states he had Torres catheter placed a few months ago but he was not sure about
any further details.
A/P:
# Sepsis POA due to complicated UTI with Klebsiella and Klebsiella bacteremia
# Catheter associated urinary tract infection, potential hemorrhage/perforation cannot be excluded
# Chronic Torres catheter
s/p cefepime, s/p keflex, now on cipro secondary to suspected drug rash
CT scan shows findings concerning for bladder infection, hemorrhagic products cannot be excluded. Bladder perforation cannot be excluded. Mild bilateral hydronephrosis
Torres catheter exchanged on admission
Urology consulted. NO gross hematuria. Torres draining well w/o obstruction. Maintain Torres catheter to drainage
CT AP noted intraperitoneal bladder rupture, defect in L posterolateral urinary bladder- informed Uro immediately
NPO for now
Appreciate ID input
Uro on board
# C Diff diarrhea, from antibiotics
Appreciate ID input, continue p.o. vancomycin
# Acute kidney injury
Possibly from infection versus obstructive uropathy
Creatinine 1.7 today, was 3.7 upon admission; Baseline creatinine 0.9 in 2016
Creatinine trending down, continue gentle IV fluids, Torres is draining
# Small bowel ileus likely reactive from bladder infection
# History of constipation
KUB negative for fecal impaction, confirmed ileus
Tolerating low residue
Will need to be discharged on laxatives once his C diff diarrhea resolves due to history of constipation
He had no bowel movements for 6 days prior to admission
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
Purpura of nose and fingers, with diffuse macular papular rash
Appreciate ID, likely from drug reaction�recently had cephalosporins and Bactrim
Resolution is slow, takes weeks, continue supportive care
# Hypernatremia
Resolved on D5W
# Hypokalemia
Repleted and resolved
# Chronic anemia due to anemia of chronic disease
Iron studies reviewed
Ferritin 284, B12/folic acid normal
# Developing pneumonia right lower lung jolley
Patient is not short of breath, he is not coughing, he is not hypoxic
Monitor
# Transaminitis
Resolved, resumed statin
# History of orthostasis
Continue midodrine with hold parameters
DVT prophylaxis�subcu heparin
Full code
updated son on the phone
critical care for bladder rupture Mx
Anticipated Discharge: > 48 hours
Subjective/Interval History
-
Date of Service: July 04, 2023
Objective Data
-
Labs:
Laboratory Results
07/04/23
06:14
WBC 25.0 H
Hgb 10.2 L
Hct 32.0 L
Plt Count 365
Sodium 134 L
Potassium 4.4
Chloride 108 H
Carbon Dioxide 21 L
BUN 41 H
Creatinine 1.7 H
Glucose 106 H
Calcium 8.1 L
Vital Signs:
Vital Signs
Temp Pulse Resp BP Pulse Ox
36.5 C 76 17 105/56 99
07/04/23 07:00 07/04/23 07:00 07/04/23 07:00 07/04/23 07:00 07/04/23 07:00
I&O
07/03/23 07/04/23 07/05/23
06:59 06:59 06:59
Intake Total 600 / 600 1450 / 1450
Output Total 1800 / 1800 1225 / 1225
Balance -1200 / -1200 225 / 225
Review of Systems
-
All other systems: Reviewed and negative
Physical Exam
-
General: Well Developed, Well Nourished, No Apparent Distress, Comfortable, Conversant and Appears Chronically Ill; Negative Respiratory Distress
HEENT: Normocephalic, Atraumatic, Nose Appears Normal and Ears Appear Normal; Negative Oxygen
Respiratory: Clear to Auscultation and Non Labored Respirations; Negative Accessory Resp Muscle Use
Cardiac: Regular Rhythm and S1/S2
GI: Soft, Nontender, Nondistended and Normal Bowel Sounds
Skin: Warm, Dry and Rash (macular-papular rash finger tips, chest wall, nose )
Neuro: Awake, Alert, Oriented and AO x 3
Psych: Calm and Intact Judgement/Insight
Data Reviewed
-
Labs: Labs Reviewed by me
--- NOTE | 2023-07-04 11:45 | W.PN.URO.CBU ---
Today's Communication / Plan
-
- CT cystogram reviewed w/ patient
- advised need for urgent cystorrhaphy for repair for intraperitoneal bladder perforation
- NPO now
- Hold SQH after midnight
- To OR tomorrow for robotic (vs. open) cystorrhaphy, pelvic drain placement
- Son informed by hospitalist - will call to discuss surgical plan this afternoon
Reviewed risks, benefits, alternatives, and potential complications of robotic vs. open cystorrhaphy including but not limited to urosepsis, bleeding, damage to bladder/ureters, damage to surrounding nerves/vascular structures/organs, bowel
perforation, DVT/PE, CVA, NE, and .
Discussed w/ patient.
Discussed w/ Hospitalist.
Assessment / Plan
-
Intraperitoneal bladder perforation
Klebsiella cUTI
Klebsiella bacteremia
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
NABEEL - improved since admission
Ileus - likely secondary to intraperitoneal urinoma
06/26: CTAP w/o IV contrast demonstrated air in bladder and cystitis, moderate free fluid in pelvis w/o overt evidence of bladder rupture
CT cystogram initially advised to patient, but deferred at that time
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
07/03: CT cystogram => intraperitoneal bladder rupture with defect in left posterolateral urinary bladder wall, extravasation of instilled contrast
Diagnosis
-
Date of Service: July 04, 2023
-
Patient Diagnosis:
Intraperitoneal bladder perforation
Klebsiella cUTI
Klebsiella bacteremia
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
NABEEL
Ileus
Subjective
-
Ate lunch today.
Torres catheter draining yellow urine - no hematuria since admission.
Denies N/V.
Denies abdominal/suprapubic pain or distention.
Objective
-
Vital Signs
Temp Pulse Resp BP Pulse Ox
97.7 F 76 17 105/56 99
07/04/23 07:00 07/04/23 07:00 07/04/23 07:00 07/04/23 07:00 07/04/23 07:00
Intake and Output
07/03/23 07/04/23 07/05/23
06:59 06:59 06:59
Intake Total 600 / 600 1450 / 1450
Output Total 1800 / 1800 1225 / 1225
Balance -1200 / -1200 225 / 225
Intake:
Oral fluids 600 / 600 730 / 730
IV fluids (Total) 720 / 720
Output:
Urine, Torres 1800 / 1800 1225 / 1225
Other:
Number of unmeasured liquid
stools
Rectum 1
Laboratory Results
07/04/23 06:14
07/04/23 06:14
Physical Exam
-
General - well developed, well nourished, no acute distress
Abdomen - soft, no abdominal/suprapubic distention/tenderness
Genitalia - normal, Torres catheter w/ yellow UOP
Skin - warm & dry with no rash
Neuro - AOx3, no motor deficits
Extremities - no clubbing, no cyanosis, no edema
Care Review
Data Reviewed
Discussed with: Infectious Disease, Hospitalist and Family
CT Scan: Report Pers Reviewed and Image Pers Reviewed
Total Time Spent with Patient (in minutes): 45
--- NOTE | 2023-07-04 11:57 | PN.CDI ---
CDI
- -
CDI:
Physician Documentation Request
Admit Date: 06/26/23 19:33
Dear Doctor Mariangel,
Please review the following and provide your response in the progress notes.
Clinical Indicators:
- RN skin assessments indicate Stage 1 sacrum pressure injury, POA
Physician documentation of the type and location of wounds is required for compliant documentation. Based on the above clinical findings and your assessment, please provide the following in your progress note:
1. Location of the ulcer/wound, including laterality.
2. Type (etiology) of ulcer/wound:
- Diabetic ulcer
- Arterial (ischemic) ulcer
- Traumatic wound
- Venous stasis ulcer
- Pressure (decubitus) ulcer
- Non-healing surgical wound
- Other
- Unable to determine
Use of terms such as suspected, likely, concern for, or probable (associated with a specific diagnosis that is being evaluated, monitored, or treated as if it exists) are acceptable and can be coded in the inpatient setting, when documented at the
time of discharge.
Thank you,
Chilo Burnham RN
CDI Specialist
Please use your independent medical judgment in providing your response.
*Source: National Pressure Ulcer Advisory Panel (NPUAP)
--- NOTE | 2023-07-04 13:02 | W.PN.ID1 ---
Date of Service
Date of Service: July 04, 2023
Today's Communication
see plan
Assessment / Plan
Leukocytosis
C diff
- continue with oral vancomycin and IV metronidazole
- CT cystogram minimal swelling per discussion with reading radiologist
UTI due to Klebsiella
Possible Bladder Perforation
- CT cystogram only done - my order was modified by radiology dept; asked for comments on colon and minimal stranding reported
- for return to the OR
- has posada
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
- nonblanching rash - fingers, toes and nose - markedly improved
- most likely to cefepime - improving
- screen for hep C - negative
Additional Blanching rash
- abdomen and now also arms
- cetirizine and famotidine
Chief Complaint
-: Leukocytosis and UTI
Subjective / Review of Systems
afebrile
bp stable
progression of leukocytosis
some abdominal pain
Vital Signs / Physical Exam
Vital Signs
Vital Signs
Temp Pulse Resp BP Pulse Ox
97.7 F 76 17 105/56 99
07/04/23 07:00 07/04/23 07:00 07/04/23 07:00 07/04/23 07:00 07/04/23 07:00
Physical Exam
Constitutional: No Acute Distress
Cardiovascular: Regular Rate and S1/S2; Negative Murmur or Rub
Pulmonary: Clear and Symmetric; Negative Wheezes or Rales
Gastrointestinal: Soft, Tender (mild), Non Distended and Normal Bowel Sounds
Skin: Warm, Dry and Rash (nonblanching rash nose/fingers/toe markedly improved - fading; blanching coalescing, nonpuritic erythema on abd and arms); Negative Jaundice
Objective Data
Lab Data
Lab Results
07/04/23 06:14
04/16/24 06:14
Estimated Creat Clear 36 ml/min 07/04/23 06:14
Lactic Acid Cancelled 06/26/23 22:15
Total Bilirubin 0.8 mg/dl (0.2-1.3) 07/02/23 07:41
AST 30 U/L (17-59) 07/02/23 07:41
ALT 29 U/L (0-50) 07/02/23 07:41
Alkaline Phosphatase 114 U/L (38-126) 07/02/23 07:41
Most recent labs reviewed.
Micro Results:
06/26/23 18:20 Blood Culture - Final
Blood/Venous Klebsiella pneumoniae
Klebsiella pneumoniae#2
Gram Stain - Final
06/26/23 18:20 Blood Culture - Final
Blood/Venous No Growth - Final Report
06/30/23 06:38 Stool Leukocytes - Final
Feces/Stool
06/30/23 06:38 C. difficile GDH Antigen & Toxins - Final
Feces/Stool Toxigenic C.difficile Positive
06/26/23 15:11 Urine Culture - Final
Urine Klebsiella pneumoniae
06/27/23 05:28 MRSA Screen - Final
Nose No Methicillin Resistant Staphylococcus aureus isolated.
06/26/23 15:11 Legionella Urinary Antigen - Final
Urine Negative for Legionella pneumophila Serogroup 1 antigen.
A negative result does not rule out the possiblity of
Legionella infection due to other serogroups or species of
Legionella. Clinical correlation is recommended.
Streptococcus pneumoniae Antigen (M - Final
Negative for Streptococcus pneumoniae antigen.
A negative result does not exclude infection with
Streptococcus pneumoniae. Clinical correlation is
recommended.
Care Review
Plan reviewed with: Physician (Dr Jarquin - OR)
[2023-07-04 15:18] VITALS: BP 122/58
[2023-07-04] MEDS: LIPITOR 10 MG PO (17:02)
[2023-07-04] MEDS: PEPCID 20 MG PO (17:02)
[2023-07-04] MEDS: ZYRTEC 10 MG PO (17:02)
[2023-07-04 23:02] VITALS: BP 113/51
[2023-07-05] VITALS (13 sets, daily range): BP systolic 40–126; BP diastolic 49–70
--- NOTE | 2023-07-05 04:46 | DOWNTIME ---
There was a [employer] Downtime on 07/05/2023 from 0100 to 07/05/2023 at 0439. Downtime documentation of patient's care, including medication administrations, has been reconciled in the electronic record per guidelines. Refer to the
patient's paper chart under the miscellaneous tab to see printed paper medication records and downtime forms.
[2023-07-05] MEDS: FIRVANQ 125 MG PO ×3 (05:43→19:23)
--- NOTE | 2023-07-05 07:10 | W.SUR.PREOP ---
Pre-Operative Surgical Note
-
I have examined this patient prior to the performance of the scheduled procedure.
The patient's condition is unchanged from the time of the current History and
Physical and the patient is able to undergo the scheduled procedure.
Reviewed risks, benefits, alternatives, and potential complications of planned surgical intervention (robotic cystorrhaphy/possible excision of bladder diverticulum vs. open approach).
These include but not limited to: urosepsis, bleeding, damage to bladder/ureters, damage to surrounding nerves/vascular structures/organs, bowel perforation, DVT/PE, CVA, PR, and .
Plan:
- Continue NPO status
- SQH held last evening
- T+C available for OR
- Surgical/blood consents signed and on chart
- To OR today for robotic cystorrhaphy/possible excision of bladder diverticulum w/ Dr. Villegas/Milka
- Continue IV abx per ID
D/w patient this AM.
Multiple attempts (x3) to reach son (Noble) over last 24 hrs - left detailed VM re: plan.
[2023-07-05 07:15] LABS: % Basophils 0.2 % (0-2); % Eosinophils 1.9 % (0-6); % Immature Granulocytes 2.1 % (0-0.5); % Lymphocytes 9.3 % (20.5-51.1); % Neutrophils 84.5 % (42.2-75.2); Absolute Basophils 0.1 10^3/uL (0-0.2); Absolute Eosinophils 0.4 10^3/uL (0-0.7); Absolute Immature Granulocytes 0.5 10^3/uL (0-0.05); Absolute Lymphocytes 2.1 10^3/uL (1.2-3.4); Absolute Monocytes 0.5 10^3/uL (0.1-0.6); Absolute Neutrophils 19.2 10^3/uL (1.4-6.5); Hematocrit 32.5 % (39.0-52.0); Hemoglobin 10.2 g/dL (13.0-18.0); Mean Corp Hgb Conc. 31.4 g/dL (33.0-37.0); Mean Corpuscular Hgb 28.1 pg (27.0-31.0); Mean Corpuscular Volume 89.5 fL (80.0-94.0); Mean Platelet Volume 10.1 fL (7.4-10.4); Nucleated Red Blood Cells % 0 % (-); Platelet Count 380 10^3/uL (130-400); Red Blood Cell Count 3.63 10^6/uL (4.70-6.10); Red Cell Dist. Width 14.3 % (11.5-14.5); White Blood Cell Count 22.7 10^3/uL (4.8-10.8)
[2023-07-05 07:39] LABS: Blood Urea Nitrogen 37 mg/dl (9-20); Calcium 7.8 mg/dl (8.4-10.2); Carbon Dioxide 19 mmol/L (22-30); Chloride 112 mmol/L (98-107); Estimated Creatinine Clearance 36 ml/min; Glucose 88 mg/dl (70-99); Magnesium 1.7 mg/dl (1.6-2.3); Phosphorus 4.2 mg/dl (2.5-4.5); Potassium 4.2 mmol/L (3.5-5.1); Sodium 135 mmol/L (135-145); eGFR 39.51
[2023-07-05] MEDS: VITAMIN B1 100 MG PO (08:09)
[2023-07-05] MEDS: MYLICON 80 MG PO ×3 (08:09→21:45)
[2023-07-05] MEDS: PEPCID 20 MG PO (08:10)
[2023-07-05] MEDS: ProAmatine 2.5 MG PO ×2 (08:10→18:48)
[2023-07-05] MEDS: FLOMAX 0.400000000000000022 MG PO (08:10)
[2023-07-05] MEDS: VIBRAMYCIN 100 MG PO ×2 (08:10→19:57)
[2023-07-05] MEDS: FOLVITE 1 MG PO (08:10)
[2023-07-05] MEDS: ZYRTEC 10 MG PO (08:11)
[2023-07-05] MEDS: FLAGYL 500 MG 100 IV (08:11)
[2023-07-05] MEDS: DESITIN MAXIMUM STRENGTH PASTE 1 APPLIC TOPICAL ×2 (08:12→21:45)
[2023-07-05] MEDS: DESENEX/MITRAZOL/ZEASORB 1 APPLIC TOPICAL ×2 (08:12→19:58)
--- NOTE | 2023-07-05 12:20 | W.PN.HOSP.TC ---
Addendum entered and electronically signed by Diane August MD 07/05/23 12:26:
correction to below: pt's Abx has been transitioned to IV Flagyl from Cipro
Cont PO Vanc for C diff
Original Note:
Today's Communication/Plan
-
see A/P
for bladder perf repair today
Assessment / Plan
Assessment / Plan
HPI: 83-year-old male past medical history of hypertension, chronic indwelling Torres catheter, UTIs, presented from [facility] for generalized weakness. Patient is mediocre historian. He has cough symptoms productive for the past 6 days. He
also complained of intermittent abdominal pain for the past 6 days. He has not had a bowel movement in 6 days. He denies any fevers or chills. No nausea or vomiting. He states he had Torres catheter placed a few months ago but he was not sure about
any further details.
A/P:
# Sepsis POA due to complicated UTI with Klebsiella and Klebsiella bacteremia
# Catheter associated urinary tract infection, potential hemorrhage/perforation cannot be excluded
# Chronic Torres catheter
s/p cefepime, s/p keflex, now on cipro secondary to suspected drug rash
CT scan shows findings concerning for bladder infection, hemorrhagic products cannot be excluded. Bladder perforation cannot be excluded. Mild bilateral hydronephrosis
Torres catheter exchanged on admission
Urology consulted. NO gross hematuria. Torres draining well w/o obstruction. Maintain Torres catheter to drainage
CT AP noted intraperitoneal bladder rupture, defect in L posterolateral urinary bladder
Uro plan for bladder repair 07/04
Appreciate ID input
Uro on board
# C Diff diarrhea, from antibiotics
Appreciate ID input, continue p.o. vancomycin
# Acute kidney injury
Possibly from infection versus obstructive uropathy
Creatinine 1.7 today, was 3.7 upon admission; Baseline creatinine 0.9 in 2015
Creatinine trending down, continue gentle IV fluids, Torres is draining
# Small bowel ileus likely reactive from bladder infection
# History of constipation
KUB negative for fecal impaction, confirmed ileus
Tolerating low residue
Will need to be discharged on laxatives once his C diff diarrhea resolves due to history of constipation
He had no bowel movements for 6 days prior to admission
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
Purpura of nose and fingers, with diffuse macular papular rash
Appreciate ID, likely from drug reaction�recently had cephalosporins and Bactrim
Resolution is slow, takes weeks, continue supportive care
# Hypernatremia
Resolved on D5W
# Hypokalemia
Repleted and resolved
# Chronic anemia due to anemia of chronic disease
Iron studies reviewed
Ferritin 284, B12/folic acid normal
# Developing pneumonia right lower lung jolley
Patient is not short of breath, he is not coughing, he is not hypoxic
Monitor
# Transaminitis
Resolved, resumed statin
# History of orthostasis
Continue midodrine with hold parameters
DVT prophylaxis�subcu heparin
Full code
DW Uro today
Anticipated Discharge: > 48 hours
Subjective/Interval History
-
Date of Service: July 05, 2023
Objective Data
-
Labs:
Laboratory Results
07/05/23
06:42
WBC 22.7 H
Hgb 10.2 L
Hct 32.5 L
Plt Count 380
Sodium 135
Potassium 4.2
Chloride 112 H
Carbon Dioxide 19 L
BUN 37 H
Creatinine 1.7 H
Glucose 88
Calcium 7.8 L
Vital Signs:
Vital Signs
Temp Pulse Resp BP Pulse Ox
36.4 C 78 18 119/61 99
07/05/23 07:00 07/05/23 07:00 07/05/23 07:00 07/05/23 07:00 07/05/23 07:00
I&O
07/04/23 07/05/23 07/06/23
06:59 06:59 06:59
Intake Total 1450 / 1450 1360 / 1360
Output Total 1225 / 1225 1425 / 1425
Balance 225 / 225 -65 / -65
Review of Systems
-
All other systems: Reviewed and negative
Physical Exam
-
General: Well Developed, Well Nourished, No Apparent Distress, Comfortable, Conversant and Appears Chronically Ill; Negative Respiratory Distress
HEENT: Normocephalic, Atraumatic, Nose Appears Normal and Ears Appear Normal; Negative Oxygen
Respiratory: Clear to Auscultation and Non Labored Respirations; Negative Accessory Resp Muscle Use
Cardiac: Regular Rhythm and S1/S2
GI: Soft, Nontender, Nondistended and Normal Bowel Sounds
Skin: Warm, Dry and Rash (macular-papular rash finger tips, chest wall, nose )
Neuro: Awake, Alert, Oriented and AO x 3
Psych: Calm and Intact Judgement/Insight
Data Reviewed
-
CT Scan: Report Reviewed by me, Discussed with Physician, Discussed with Patient and Discussed with Family
Labs: Labs Reviewed by me
--- NOTE | 2023-07-05 15:48 | W.PN.ID1 ---
Date of Service
Date of Service: July 05, 2023
Today's Communication
continue doxy (kelbsiella)
continue with oral vancomycin and IV metronidazole (C diff)
- hopefully for deescalation in the near futre
rashes also improving
Assessment / Plan
Purulent Peritonitis
UTI due to Klebsiella
Bladder Perforation
repair 07/04: OR findings notable for purulence, s/p washout
- source: bladder rupture, s/p repair 07/04
- 07/04: cultures in progress from the OR: gram stain rare wbcs/no organisms
- continue doxycycline - narrowed the spectrum to target known klebsiella from urine cultures 06/25 given concomittent C diff
- day 10 of at least 15 days of rx
- has posada
C diff
- diagnosed 06/29
- continue with oral vancomycin (day 7) and IV metronidazole (day 5)
- may be able to stop metronidazole in the near future
- would continue oral vancomycin at least 10 days and possibly longer pending course
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
- nonblanching rash - fingers, toes and nose - markedly improved
- most likely to cefepime - improving
Additional Blanching rash
- cetirizine and famotidine
Chief Complaint
-: Leukocytosis and UTI
Subjective / Review of Systems
afebrile
bp stable
declining wbc count
cr stable
OR findings: 'significant bowel adhesions w/ purulence, thickened bladder wall with large-mouthed left posterior wall bladder diverticulum'
cultures sent from the prostate - will follow ; I do not see cultures of the puss however would suspect the kleb pneumoniae from previous cultures as the cause
Vital Signs / Physical Exam
Vital Signs
Vital Signs
Temp Pulse Resp BP Pulse Ox
97.6 F 78 18 119/61 99
07/05/23 07:00 07/05/23 07:00 07/05/23 07:00 07/05/23 07:00 07/05/23 07:00
Physical Exam
Constitutional: No Acute Distress
Cardiovascular: Regular Rate and S1/S2; Negative Murmur or Rub
Pulmonary: Clear and Symmetric; Negative Wheezes or Rales
Gastrointestinal: Soft, Non Tender, Non Distended and Normal Bowel Sounds
Skin: Warm, Dry and Rash (both blanching and nonblanching rashes improving); Negative Jaundice
Objective Data
Lab Data
Lab Results
07/05/23 06:42
07/05/23 06:42
Estimated Creat Clear 36 ml/min 07/05/23 06:42
Lactic Acid Cancelled 06/26/23 22:15
Total Bilirubin 0.8 mg/dl (0.2-1.3) 07/02/23 07:41
AST 30 U/L (17-59) 07/02/23 07:41
ALT 29 U/L (0-50) 07/02/23 07:41
Alkaline Phosphatase 114 U/L (38-126) 07/02/23 07:41
Most recent labs reviewed.
Micro Results:
06/26/23 18:20 Blood Culture - Final
Blood/Venous Klebsiella pneumoniae
Klebsiella pneumoniae#2
Gram Stain - Final
06/26/23 18:20 Blood Culture - Final
Blood/Venous No Growth - Final Report
06/30/23 06:38 Stool Leukocytes - Final
Feces/Stool
06/30/23 06:38 C. difficile GDH Antigen & Toxins - Final
Feces/Stool Toxigenic C.difficile Positive
06/26/23 15:11 Urine Culture - Final
Urine Klebsiella pneumoniae
06/27/23 05:28 MRSA Screen - Final
Nose No Methicillin Resistant Staphylococcus aureus isolated.
06/26/23 15:11 Legionella Urinary Antigen - Final
Urine Negative for Legionella pneumophila Serogroup 1 antigen.
A negative result does not rule out the possiblity of
Legionella infection due to other serogroups or species of
Legionella. Clinical correlation is recommended.
Streptococcus pneumoniae Antigen (M - Final
Negative for Streptococcus pneumoniae antigen.
A negative result does not exclude infection with
Streptococcus pneumoniae. Clinical correlation is
recommended.
Care Review
Plan reviewed with: Physician (Dr Jarquin - yelena)
--- NOTE | 2023-07-05 16:19 | W.IMMPOSTOP ---
Surgical Immed Post Op Note
-
Primary Surgeon: Bakari
Assisting Surgeon: Milka
Pre-op Diagnosis:
1. Intraperitoneal perforation of left posterior bladder wall
2. Bladder diverticulum
Post-op Diagnosis: Same + intraperitoneal adhesions and abscess
Procedure Performed: robotic cystorrhaphy + partial prostatectomy + SEN
Anesthesia Type: GETA
Specimen / Cultures: prostatic median lobe/anaerobic + aerobic fluid cultures
Estimated Blood Loss: 75 cc.
Complications: None
Operative Findings: significant bowel adhesions w/ purulence, thickened bladder wall with large-mouthed left posterior wall bladder diverticulum
[2023-07-05 16:52] LABS: Glucose - Point of Care 115 mg/dl (70-99)
[2023-07-05] MEDS: FLAGYL 500 MG IV (17:02)
[2023-07-05] MEDS: NSS IV (17:10)
[2023-07-05] MEDS: DESITIN MAXIMUM STRENGTH PASTE TOPICAL (17:10)
[2023-07-05] MEDS: NSS 1000 IV (17:57)
[2023-07-05] MEDS: FIRVANQ PO (18:46)
[2023-07-05] MEDS: LIPITOR PO (18:47)
[2023-07-05] MEDS: MYLICON PO ×2 (18:47→19:23)
[2023-07-05] MEDS: LIPITOR 10 MG PO (19:23)
[2023-07-05 19:54] LABS: % Basophils 0.2 % (0-2); % Eosinophils 0.1 % (0-6); % Immature Granulocytes 1.6 % (0-0.5); % Lymphocytes 3.3 % (20.5-51.1); % Monocytes 1.4 % (1.7-9.3); % Neutrophils 93.4 % (42.2-75.2); Absolute Basophils 0.1 10^3/uL (0-0.2); Absolute Immature Granulocytes 0.4 10^3/uL (0-0.05); Absolute Lymphocytes 0.8 10^3/uL (1.2-3.4); Absolute Monocytes 0.4 10^3/uL (0.1-0.6); Hematocrit 33.8 % (39.0-52.0); Hemoglobin 10.5 g/dL (13.0-18.0); Mean Corp Hgb Conc. 31.1 g/dL (33.0-37.0); Mean Corpuscular Hgb 28.4 pg (27.0-31.0); Mean Corpuscular Volume 91.4 fL (80.0-94.0); Mean Platelet Volume 9.7 fL (7.4-10.4); Nucleated Red Blood Cells % 0 % (-); Platelet Count 365 10^3/uL (130-400); Red Cell Dist. Width 14.5 % (11.5-14.5); White Blood Cell Count 25.6 10^3/uL (4.8-10.8)
[2023-07-05 20:14] LABS: Blood Urea Nitrogen 38 mg/dl (9-20); Calcium 7.9 mg/dl (8.4-10.2); Carbon Dioxide 16 mmol/L (22-30); Chloride 106 mmol/L (98-107); Estimated Creatinine Clearance 36 ml/min; Glucose 136 mg/dl (70-99); Potassium 4.5 mmol/L (3.5-5.1); Sodium 135 mmol/L (135-145); eGFR 39.51
[2023-07-06] VITALS (8 sets, daily range): BP systolic 113–135; BP diastolic 55–78; PULSE 85–106; O2SAT 98
[2023-07-06] MEDS: FLAGYL 500 MG 100 IV ×4 (00:59→23:13)
[2023-07-06] MEDS: FIRVANQ 125 MG PO ×5 (00:59→23:14)
[2023-07-06] MEDS: NSS 1000 IV ×2 (04:50→13:00)
[2023-07-06] MEDS: NSS IV (06:24)
[2023-07-06 07:09] LABS: % Basophils 0.1 % (0-2); % Immature Granulocytes 1.4 % (0-0.5); % Lymphocytes 6.7 % (20.5-51.1); % Monocytes 2.1 % (1.7-9.3); % Neutrophils 89.7 % (42.2-75.2); Absolute Immature Granulocytes 0.3 10^3/uL (0-0.05); Absolute Lymphocytes 1.4 10^3/uL (1.2-3.4); Absolute Monocytes 0.4 10^3/uL (0.1-0.6); Absolute Neutrophils 18.1 10^3/uL (1.4-6.5); Hematocrit 26.8 % (39.0-52.0); Hemoglobin 8.6 g/dL (13.0-18.0); Mean Corp Hgb Conc. 32.1 g/dL (33.0-37.0); Mean Corpuscular Hgb 28.1 pg (27.0-31.0); Mean Corpuscular Volume 87.6 fL (80.0-94.0); Nucleated Red Blood Cells % 0 % (-); Platelet Count 394 10^3/uL (130-400); Red Blood Cell Count 3.06 10^6/uL (4.70-6.10); Red Cell Dist. Width 14.6 % (11.5-14.5); White Blood Cell Count 20.2 10^3/uL (4.8-10.8)
[2023-07-06 07:42] LABS: Blood Urea Nitrogen 43 mg/dl (9-20); Calcium 7.7 mg/dl (8.4-10.2); Carbon Dioxide 17 mmol/L (22-30); Chloride 108 mmol/L (98-107); Estimated Creatinine Clearance 32 ml/min; Glucose 157 mg/dl (70-99); Potassium 4.5 mmol/L (3.5-5.1); Sodium 136 mmol/L (135-145); eGFR 34.57
--- NOTE | 2023-07-06 07:55 | W.PN.URO.CBU ---
Today's Communication / Plan
-
Wean CBI today as urine remains clear
OOB and ambulating
Regular diet
Maintain JERICA drain today
Maintain Torres catheter on discharge
Trend AM labs
F/U fluid cultures per ID
Assessment / Plan
-
Intraperitoneal bladder perforation
Left posterior bladder wall diverticulum
BPH w/ obstructing median lobe
Klebsiella cUTI
Klebsiella bacteremia
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
NABEEL on CKD
06/26: CTAP w/o IV contrast demonstrated air in bladder and cystitis, moderate free fluid in pelvis w/o overt evidence of bladder rupture
CT cystogram initially advised to patient, but deferred at that time
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
07/03: CT cystogram => intraperitoneal bladder rupture with defect in left posterolateral urinary bladder wall, extravasation of instilled contrast
07/04: s/p robotic cystorrhaphy + partial prostatectomy
WBC 25.6 => 20.2
Hgb 10.2 => 10.5 (post-op) => 8.6
Cr 1.7 => 1.9
Diagnosis
-
Date of Service: July 06, 2023
-
Patient Diagnosis:
Intraperitoneal bladder perforation
Left posterior bladder wall diverticulum
BPH w/ obstructing median lobe
Klebsiella cUTI
Klebsiella bacteremia
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
NABEEL on CKD
Subjective
-
More alert today and in good spirits.
Tolerating diet.
Notes primarily RLQ abdominal pain.
Urine clear in tubing.
Objective
-
Vital Signs
Temp Pulse Resp BP Pulse Ox
98.2 F 86 18 113/56 99
07/06/23 07:00 07/06/23 07:00 07/06/23 07:00 07/06/23 07:00 07/06/23 07:00
Intake and Output
07/05/23 07/06/23 07/07/23
06:59 06:59 06:59
Intake Total 1360 / 1360 1320 / 1320
Output Total 1425 / 1425 235 / 235 1030 / 1030
Balance -65 / -65 1085 / 1085 -1030 / -1030
Intake:
Oral fluids 600 / 600 120 / 120
IV fluids (Total) 660 / 660 1100 / 1100
Normosol 200 / 200
IV piggybacks 100 / 100 100 / 100
Output:
Drain Output (Total) 385 / 385 180 / 180
Right John-Marroquin 385 / 385 180 / 180
Urine, Torres 1425 / 1425
True Urine Output from CBI -150 / -150 850 / 850
Laboratory Results
07/06/23 06:22
07/06/23 06:22
Physical Exam
-
General - well developed, well nourished, no acute distress
Abdomen - soft, non-distended, mildly tender over trocar incisions, RLQ JERICA drain w/o significant SSF output
Genitalia - normal, 24Fr 3-way catheter w/ clear UOP
Skin - warm & dry with no rash
Neuro - AOx3, no motor deficits
Extremities - no clubbing, no cyanosis, no edema
Incision - clean, dry
Dressing - clean, dry, intact
Counseling
-
D/w patient and son (Noble, via telephone).
Care Review
Data Reviewed
Discussed with: Hospitalist and Family
CT Scan: Report Pers Reviewed and Image Pers Reviewed
Total Time Spent with Patient (in minutes): 35
[2023-07-06] MEDS: PEPCID 20 MG PO (08:28)
[2023-07-06] MEDS: FLOMAX 0.400000000000000022 MG PO (08:28)
[2023-07-06] MEDS: VITAMIN B1 100 MG PO (08:28)
[2023-07-06] MEDS: ZYRTEC 10 MG PO (08:28)
[2023-07-06] MEDS: ProAmatine 2.5 MG PO ×2 (08:28→17:46)
[2023-07-06] MEDS: FOLVITE 1 MG PO (08:28)
[2023-07-06] MEDS: VIBRAMYCIN 100 MG PO ×2 (08:29→20:25)
[2023-07-06] MEDS: MYLICON 80 MG PO ×4 (08:29→23:08)
[2023-07-06] MEDS: ULTRAM 50 MG PO (08:35)
[2023-07-06] MEDS: DESENEX/MITRAZOL/ZEASORB 1 APPLIC TOPICAL ×2 (08:58→20:26)
[2023-07-06] MEDS: DESITIN MAXIMUM STRENGTH PASTE 1 APPLIC TOPICAL ×3 (08:58→23:08)
--- NOTE | 2023-07-06 11:01 | W.PN.HOSP.TC ---
Today's Communication/Plan
-
see A/P
Assessment / Plan
Assessment / Plan
HPI: 83-year-old male past medical history of hypertension, chronic indwelling Torres catheter, UTIs, presented from [facility] for generalized weakness. Patient is mediocre historian. He has cough symptoms productive for the past 6 days. He
also complained of intermittent abdominal pain for the past 6 days. He has not had a bowel movement in 6 days. He denies any fevers or chills. No nausea or vomiting. He states he had Torres catheter placed a few months ago but he was not sure about
any further details.
A/P:
# Sepsis POA due to complicated UTI with Klebsiella and Klebsiella bacteremia
# Catheter associated urinary tract infection, potential hemorrhage/perforation cannot be excluded
# Chronic Torres catheter
s/p cefepime, s/p keflex, then Cipro, now on Flagyl and doxycycline (for possible infected urinomas)
Torres catheter exchanged on admission
Urology consulted. NO gross hematuria. Torres draining well w/o obstruction. Maintain Torres catheter to drainage
repeat CT AP 07/03 noted intraperitoneal bladder rupture, defect in L posterolateral urinary bladder
s/p bladder repair 07/04, cont abdominal drain
Appreciate ID input
Uro on board
# C Diff diarrhea, from antibiotics
Appreciate ID input, continue p.o. vancomycin
# Acute kidney injury
Possibly from infection versus obstructive uropathy
Creatinine 1.9 today, was 3.7 upon admission; Baseline creatinine 0.9 in 2016
Cont gentle IV fluids
Torres is draining
# Small bowel ileus likely reactive from bladder infection
# History of constipation
KUB negative for fecal impaction, confirmed ileus
Tolerating low residue
Will need to be discharged on laxatives once his C diff diarrhea resolves due to history of constipation
He had no bowel movements for 6 days prior to admission
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
Purpura of nose and fingers, with diffuse macular papular rash
Appreciate ID, likely from drug reaction�recently had cephalosporins and Bactrim
Resolution is slow, takes weeks, continue supportive care
# Hypernatremia
Resolved on D5W
# Hypokalemia
Repleted and resolved
# Chronic anemia due to anemia of chronic disease
Iron studies reviewed
Ferritin 284, B12/folic acid normal
# Developing pneumonia right lower lung jolley
Patient is not short of breath, he is not coughing, he is not hypoxic
Monitor
# Transaminitis
Resolved, resumed statin
# History of orthostasis
Continue midodrine with hold parameters
DVT prophylaxis�subcu heparin
Full code
DW ID
Anticipated Discharge: 24 - 48 hours
Subjective/Interval History
-
Date of Service: July 06, 2023
Objective Data
-
Labs:
Laboratory Results
07/06/23
06:22
WBC 20.2 H
Hgb 8.6 L
Hct 26.8 L
Plt Count 394
Sodium 136
Potassium 4.5
Chloride 108 H
Carbon Dioxide 17 L
BUN 43 H
Creatinine 1.9 H
Glucose 157 H
Calcium 7.7 L
Vital Signs:
Vital Signs
Temp Pulse Resp BP Pulse Ox
36.8 C 86 18 113/56 99
07/06/23 07:00 07/06/23 07:00 07/06/23 07:00 07/06/23 07:00 07/06/23 07:00
I&O
07/05/23 07/06/23 07/07/23
06:59 06:59 06:59
Intake Total 1360 / 1360 1320 / 1320
Output Total 1425 / 1425 235 / 235 1030 / 1030
Balance -65 / -65 1085 / 1085 -1030 / -1030
Review of Systems
-
All other systems: Reviewed and negative
Physical Exam
-
General: Well Developed, Well Nourished, No Apparent Distress, Comfortable, Conversant and Appears Chronically Ill; Negative Respiratory Distress
HEENT: Normocephalic, Atraumatic, Nose Appears Normal and Ears Appear Normal; Negative Oxygen
Respiratory: Clear to Auscultation and Non Labored Respirations; Negative Accessory Resp Muscle Use
Cardiac: Regular Rhythm and S1/S2
GI: Soft, Nontender, Nondistended and Normal Bowel Sounds
Skin: Warm, Dry and Rash (macular-papular rash finger tips, chest wall, nose )
Neuro: Awake and Alert
Psych: Calm and Intact Judgement/Insight (somewhat)
Data Reviewed
-
CT Scan: Report Reviewed by me, Discussed with Physician, Discussed with Patient and Discussed with Family
Labs: Labs Reviewed by me
--- NOTE | 2023-07-06 13:48 | WOUNDNOTE ---
[facility] RN NOTE: Reviewed chart, met with patient and RN Markus. Patients sacrum was reported at time of prevalence study. Patient was admitted with stage 1 to sacrum. On assessment, sacral area has friction appearing skin that is dry. Some areas around
sacrum and blanchable and some are not. No open areas noted. Barrier ointment applied and bed tech called for air bed, as patient has poor intake and poor mobility. Heels off-loaded with pillows under calves. Adhesive foam applied to heels during
prevalence assessment today. Will continue to follow as needed.
--- NOTE | 2023-07-06 13:57 | WOUNDNOTE ---
[facility] RN NOTE: Reviewed chart, met with patient and RN Markus. Patients sacrum was reported at time of prevalence study. Patient was admitted with stage 1 to sacrum. Silicone border foam removed and a small amount of sacral skin peeled away with removal
. Please avoid use of silicone dressings on patient. On assessment, sacral area has friction appearing skin that is dry. Some areas around sacrum and blanchable and some are not. No open areas noted. Barrier ointment applied and bed tech called for
air bed, as patient has poor intake and poor mobility. Heels off-loaded with pillows under calves. Adhesive foam applied to heels during prevalence assessment today. Will continue to follow as needed.
[2023-07-06] MEDS: ROXICODONE 5 MG PO (16:34)
[2023-07-06] MEDS: LIPITOR 10 MG PO (17:46)
[2023-07-07 00:26] VITALS: BP 115/55
[2023-07-07] MEDS: NSS 1000 IV ×2 (03:11→20:33)
[2023-07-07] MEDS: FIRVANQ 125 MG PO ×3 (05:50→17:03)
[2023-07-07 06:05] LABS: % Basophils 0.2 % (0-2); % Eosinophils 1.2 % (0-6); % Immature Granulocytes 0.9 % (0-0.5); % Lymphocytes 11.4 % (20.5-51.1); % Monocytes 4.3 % (1.7-9.3); Absolute Eosinophils 0.2 10^3/uL (0-0.7); Absolute Immature Granulocytes 0.1 10^3/uL (0-0.05); Absolute Lymphocytes 1.5 10^3/uL (1.2-3.4); Absolute Monocytes 0.6 10^3/uL (0.1-0.6); Absolute Neutrophils 10.6 10^3/uL (1.4-6.5); Hematocrit 26.6 % (39.0-52.0); Hemoglobin 8.6 g/dL (13.0-18.0); Mean Corp Hgb Conc. 32.3 g/dL (33.0-37.0); Mean Corpuscular Hgb 28.6 pg (27.0-31.0); Mean Corpuscular Volume 88.4 fL (80.0-94.0); Mean Platelet Volume 9.7 fL (7.4-10.4); Nucleated Red Blood Cells % 0 % (-); Platelet Count 308 10^3/uL (130-400); Red Blood Cell Count 3.01 10^6/uL (4.70-6.10); Red Cell Dist. Width 14.7 % (11.5-14.5); White Blood Cell Count 12.9 10^3/uL (4.8-10.8)
[2023-07-07 06:59] LABS: Blood Urea Nitrogen 42 mg/dl (9-20); Calcium 7.8 mg/dl (8.4-10.2); Carbon Dioxide 17 mmol/L (22-30); Chloride 111 mmol/L (98-107); Estimated Creatinine Clearance 28 ml/min; Glucose 104 mg/dl (70-99); Potassium 4.1 mmol/L (3.5-5.1); Sodium 137 mmol/L (135-145); eGFR 28.99
[2023-07-07 07:37] VITALS: BP 121/66
[2023-07-07] MEDS: VIBRAMYCIN 100 MG PO ×2 (07:37→20:32)
[2023-07-07] MEDS: MYLICON 80 MG PO ×4 (07:37→20:32)
[2023-07-07] MEDS: FOLVITE 1 MG PO (07:38)
[2023-07-07] MEDS: ZYRTEC 10 MG PO (07:38)
[2023-07-07] MEDS: ProAmatine 2.5 MG PO (07:38)
[2023-07-07] MEDS: FLAGYL 500 MG 100 IV (07:38)
[2023-07-07] MEDS: PEPCID 20 MG PO (07:38)
[2023-07-07] MEDS: VITAMIN B1 100 MG PO (07:38)
[2023-07-07] MEDS: FLOMAX 0.400000000000000022 MG PO (07:38)
[2023-07-07] MEDS: DESENEX/MITRAZOL/ZEASORB 1 APPLIC TOPICAL ×2 (07:40→20:34)
[2023-07-07] MEDS: DESITIN MAXIMUM STRENGTH PASTE 1 APPLIC TOPICAL ×3 (07:40→20:33)
--- NOTE | 2023-07-07 09:25 | W.PN.UPDATE ---
Update Note
Progress Note Update
Intraperitoneal bladder perforation
Left posterior bladder wall diverticulum
BPH w/ obstructing median lobe
Klebsiella cUTI
Klebsiella bacteremia
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
NABEEL on CKD
06/26: CTAP w/o IV contrast demonstrated air in bladder and cystitis, moderate free fluid in pelvis w/o overt evidence of bladder rupture
CT cystogram initially advised to patient, but deferred at that time
07/03: CT cystogram => intraperitoneal bladder rupture with defect in left posterolateral urinary bladder wall, extravasation of instilled contrast
07/04: s/p robotic cystorrhaphy + partial prostatectomy
WBC 25.6 => 20.2 => 12.9
Hgb 10.2 => 10.5 (post-op) => 8.6 => 8.6
Cr 1.7 => 1.9 => 2.2
- Maintain Torres to catheter drainage
- Send JERICA fluid Cr (ordered)
- CTAP w/o IV contrast this AM (ordered) to assess upper tracts
D/w Hospitalist.
--- NOTE | 2023-07-07 10:05 | PTCARENOTE ---
CBI clamped per Dr. Jarquin. will continue to monitor
[2023-07-07 10:10] LABS: Body Fluid Creatinine 2.4 mg/dl
--- NOTE | 2023-07-07 10:51 | WOUNDNOTE ---
[facility] RN NOTE: Confirmed patient is on a [facility] Air bed.
--- NOTE | 2023-07-07 11:10 | W.PN.HOSP.TC ---
Today's Communication/Plan
-
see A/P
Assessment / Plan
Assessment / Plan
HPI: 83-year-old male past medical history of hypertension, chronic indwelling Torres catheter, UTIs, presented from [facility] for generalized weakness. Patient is mediocre historian. He has cough symptoms productive for the past 6 days. He
also complained of intermittent abdominal pain for the past 6 days. He has not had a bowel movement in 6 days. He denies any fevers or chills. No nausea or vomiting. He states he had Torres catheter placed a few months ago but he was not sure about
any further details.
A/P:
# Sepsis POA due to complicated UTI with Klebsiella and Klebsiella bacteremia
# Catheter associated urinary tract infection, potential hemorrhage/perforation cannot be excluded
# Chronic Torres catheter
s/p cefepime, s/p keflex, then Cipro, now on Flagyl and doxycycline (for possible infected urinomas)
Torres catheter exchanged on admission
Urology consulted. NO gross hematuria. Torres draining well w/o obstruction. Maintain Torres catheter to drainage
repeat CT AP 07/03 noted intraperitoneal bladder rupture, defect in L posterolateral urinary bladder
s/p bladder repair 07/04, cont abdominal drain
Check repeat CT AP ordered today 07/06 to r/o hydro
Appreciate ID input
Uro on board
# C Diff diarrhea, from antibiotics
Appreciate ID input, continue p.o. vancomycin
# Acute kidney injury
Possibly from infection versus obstructive uropathy
Creatinine 2.2 today, was 1.9 yesterday; and at 3.7 upon admission; Baseline creatinine 0.9 in 2016
Cont gentle IV fluids
Torres is draining
Check repeat CT AP ordered today 07/06 to r/o hydro
Uro following
# Small bowel ileus likely reactive from bladder infection
# History of constipation
KUB negative for fecal impaction, confirmed ileus
Tolerating low residue
Will need to be discharged on laxatives once his C diff diarrhea resolves due to history of constipation
He had no bowel movements for 6 days prior to admission
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
Purpura of nose and fingers, with diffuse macular papular rash
Appreciate ID, likely from drug reaction�recently had cephalosporins and Bactrim
Resolution is slow, takes weeks, continue supportive care
# Hypernatremia
Resolved on D5W
# Hypokalemia
Repleted and resolved
# Chronic anemia due to anemia of chronic disease
Iron studies reviewed. Ferritin 284, B12/folic acid normal
# Developing pneumonia right lower lung jolley
Patient is not short of breath, he is not coughing, he is not hypoxic
Monitor clinically
# Transaminitis
Resolved, resumed statin
# History of orthostasis
Continue midodrine with hold parameters
DVT prophylaxis�subcu heparin
Full code
Dispo: PT recc SNF
DW Uro
Anticipated Discharge: 24 - 48 hours
Subjective/Interval History
-
Date of Service: July 07, 2023
Objective Data
-
Labs:
Laboratory Results
07/07/23
05:57
WBC 12.9 H
Hgb 8.6 L
Hct 26.6 L
Plt Count 308 D
Sodium 137
Potassium 4.1
Chloride 111 H
Carbon Dioxide 17 L
BUN 42 H
Creatinine 2.2 H
Glucose 104 H
Calcium 7.8 L
Vital Signs:
Vital Signs
Temp Pulse Resp BP Pulse Ox
36.4 C 78 16 121/66 98
07/07/23 07:37 07/07/23 07:37 07/07/23 07:37 07/07/23 07:37 07/07/23 07:37
I&O
07/06/23 07/07/23 07/08/23
06:59 06:59 06:59
Intake Total 1320 / 1320 240 / 240 880 / 880
Output Total 235 / 235 1103 / 1103 830 / 830
Balance 1085 / 1085 -863 / -863 50 / 50
Review of Systems
-
All other systems: Reviewed and negative
Physical Exam
-
General: Well Developed, No Apparent Distress, Comfortable, Conversant and Appears Chronically Ill; Negative Respiratory Distress
HEENT: Normocephalic, Atraumatic, Nose Appears Normal and Ears Appear Normal; Negative Oxygen
Respiratory: Clear to Auscultation and Non Labored Respirations; Negative Accessory Resp Muscle Use
Cardiac: Regular Rhythm and S1/S2
GI: Soft, Nontender and Other (abdominal drain)
Genito-urinary: Torres
Skin: Warm, Dry and Rash (macular-papular rash finger tips, chest wall, nose )
Neuro: Awake and Alert
Psych: Calm and Intact Judgement/Insight (somewhat)
Data Reviewed
-
CT Scan: Report Reviewed by me, Discussed with Physician, Discussed with Patient and Discussed with Family
Labs: Labs Reviewed by me
--- NOTE | 2023-07-07 13:00 | W.PN.UPDATE ---
Addendum entered and electronically signed by Boaz Jarquin MD 07/07/23 15:43:
D/w Dr. Villegas - given recent closure of diverticulum neck 07/04 w/ healing site and isolated (known) bladder diverticulum, will defer on interrogation/drainage.
JERICA drain Cr nearly seroequivalent (2.4 vs. 2.2).
Plan:
- No plans for IR drain placement
- Maintain pelvic JERICA drain
- Maintain Torres catheter (CBI d/c'd)
- Trend Cr
- Pending progression of NABEEL, will consider bilateral PCN placement in 24-48 hrs
D/w IR.
D/w Hospitalist.
Will touch base w/ son (Noble) to update on plan of care.
Original Note:
Update Note
Progress Note Update
CTAP w/o IV contrast reviewed w/ Dr. Wing (IR)
- severe left hydroureteronephrosis w/ extrinsic compression by pelvic fluid collection vs. urinoma vs. bladder diverticulum.
- Torres catheter within decompressed bladder and post-op changes
- Despite bladder decompression, fluid collection still present => this points to likelihood of isolated bladder diverticulum (known from intraop findings)
Plan:
- IR percutaneous aspiration + drain placement into isolated diverticulum
- Trend Cr post-drainage
- If Cr does not improve, will plan for left PCN placement early next week
- IV abx per ID
D/w Dr. Wing.
D/w Hospitalist.
--- NOTE | 2023-07-07 13:09 | W.PN.ID1 ---
Date of Service
Date of Service: July 07, 2023
Today's Communication
DC metronidazole.
Continue doxy and po Vanco.
Send pelvic fluid collection for culture.
Assessment / Plan
Purulent Peritonitis - source: bladder rupture, s/p repair 07/04
UTI/Bacteremia due to Klebsiella
Bladder Perforation
repair 07/04: OR findings notable for purulence, s/p washout
New severe left >R hydroureteronephrosis with extrinsic compression by fluid collection vs. urinoma vs bladder divericulum
-Leukocytosis trending down
- 07/04: cultures negative to date from the OR: gram stain rare wbcs/no organisms
- continue doxycycline (PCN/cephalosporin allergy)
- Per Urology, plan for IR drainage of fluid collection. Pls send culture.
May need perc neph next week.
- has posada
C diff, improving
- diagnosed 06/29
- continue with oral vancomycin (day 8)
- DC IV metronidazole (day 5)
- would continue oral vancomycin at least 10 days and possibly longer pending course
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
- nonblanching rash - fingers, toes and nose - markedly improved
- most likely to cefepime - improving
Additional Blanching rash
- cetirizine and famotidine
Chief Complaint
-: Leukocytosis, UTI and C-diff
Subjective / Review of Systems
No BM today yet.
Lower abd pain increased today.
Vital Signs / Physical Exam
Vital Signs
Vital Signs
Temp Pulse Resp BP Pulse Ox
97.6 F 78 16 121/66 98
07/07/23 07:37 07/07/23 07:37 07/07/23 07:37 07/07/23 07:37 07/07/23 07:37
Physical Exam
Constitutional: Acutely Ill
Eyes: Sclera Anicteric
Cardiovascular: Regular Rate and S1/S2
Pulmonary: Clear
Gastrointestinal: Soft and Tender (lower abdomen across)
Genito-Urinary: Posada and Clear Urine
Neurological: AO x 3
Objective Data
Lab Data
Lab Results
07/07/23 05:57
07/07/23 05:57
Estimated Creat Clear 28 ml/min 07/07/23 05:57
Lactic Acid Cancelled 06/26/23 22:15
Total Bilirubin 0.8 mg/dl (0.2-1.3) 07/02/23 07:41
AST 30 U/L (17-59) 07/02/23 07:41
ALT 29 U/L (0-50) 07/02/23 07:41
Alkaline Phosphatase 114 U/L (38-126) 07/02/23 07:41
Most recent labs reviewed.
Micro Results:
07/05/23 16:42 Anaerobic Culture - Preliminary
Fistula Culture pending. Anaerobic cultures are examined after 3
days incubation. Additional information to follow.
07/05/23 16:42 Wound Culture - Preliminary
Fistula No growth
Gram Stain - Preliminary
06/26/23 18:20 Blood Culture - Final
Blood/Venous Klebsiella pneumoniae
Klebsiella pneumoniae#2
Gram Stain - Final
06/26/23 18:20 Blood Culture - Final
Blood/Venous No Growth - Final Report
06/30/23 06:38 Stool Leukocytes - Final
Feces/Stool
06/30/23 06:38 C. difficile GDH Antigen & Toxins - Final
Feces/Stool Toxigenic C.difficile Positive
06/26/23 15:11 Urine Culture - Final
Urine Klebsiella pneumoniae
06/27/23 05:28 MRSA Screen - Final
Nose No Methicillin Resistant Staphylococcus aureus isolated.
06/26/23 15:11 Legionella Urinary Antigen - Final
Urine Negative for Legionella pneumophila Serogroup 1 antigen.
A negative result does not rule out the possiblity of
Legionella infection due to other serogroups or species of
Legionella. Clinical correlation is recommended.
Streptococcus pneumoniae Antigen (M - Final
Negative for Streptococcus pneumoniae antigen.
A negative result does not exclude infection with
Streptococcus pneumoniae. Clinical correlation is
recommended.
07/07/23 CT a/p: Severe left greater than right bilateral hydronephrosis and hydroureter. The left ureter may be obstructed by a recurrent/enlarged fluid collection within the left pelvis measuring 5.2 x 5.7 cm in cross-sectional diameter abutting
the bladder, suspicious for urinoma. Bladder decompressed with Posada catheter in place. Surgical drain terminates within the anterior pelvis within the extraperitoneal space. Small amount of ill-defined fluid and gas seen along the superior and
anterior margins of the bladder.
[2023-07-07 15:00] VITALS: BP 152/66
[2023-07-07] MEDS: ProAmatine PO (17:03)
[2023-07-07] MEDS: LIPITOR 10 MG PO (17:03)
--- NOTE | 2023-07-07 17:12 | CM ---
Reviewed chart, patient now being recommended for skilled rehab. WIll f/u with patient and family.
Plan: Case management will continue to follow and assist with discharge planning. SNF is patient agreeable.
[2023-07-07 23:30] VITALS: BP 125/72
[2023-07-08] MEDS: FIRVANQ 125 MG PO ×4 (00:18→17:09)
[2023-07-08 00:30] VITALS: BP 125/72
[2023-07-08 06:37] LABS: % Basophils 0.2 % (0-2); % Eosinophils 2.1 % (0-6); % Immature Granulocytes 0.5 % (0-0.5); % Lymphocytes 10.3 % (20.5-51.1); % Monocytes 6.5 % (1.7-9.3); % Neutrophils 80.4 % (42.2-75.2); Absolute Eosinophils 0.2 10^3/uL (0-0.7); Absolute Immature Granulocytes 0.1 10^3/uL (0-0.05); Absolute Lymphocytes 1.2 10^3/uL (1.2-3.4); Absolute Monocytes 0.8 10^3/uL (0.1-0.6); Absolute Neutrophils 9.4 10^3/uL (1.4-6.5); Hematocrit 27.8 % (39.0-52.0); Mean Corp Hgb Conc. 32.4 g/dL (33.0-37.0); Mean Corpuscular Hgb 28.6 pg (27.0-31.0); Mean Corpuscular Volume 88.3 fL (80.0-94.0); Mean Platelet Volume 9.6 fL (7.4-10.4); Nucleated Red Blood Cells % 0 % (-); Platelet Count 353 10^3/uL (130-400); Red Blood Cell Count 3.15 10^6/uL (4.70-6.10); Red Cell Dist. Width 14.7 % (11.5-14.5); White Blood Cell Count 11.7 10^3/uL (4.8-10.8)
[2023-07-08 07:02] LABS: Blood Urea Nitrogen 39 mg/dl (9-20); Carbon Dioxide 16 mmol/L (22-30); Chloride 114 mmol/L (98-107); Estimated Creatinine Clearance 29 ml/min; Glucose 94 mg/dl (70-99); Potassium 4.1 mmol/L (3.5-5.1); Sodium 137 mmol/L (135-145); eGFR 30.66
[2023-07-08 08:00] VITALS: BP 154/81
[2023-07-08] MEDS: VIBRAMYCIN 100 MG PO ×2 (08:51→21:01)
[2023-07-08] MEDS: PEPCID 20 MG PO (08:51)
[2023-07-08] MEDS: FOLVITE 1 MG PO (08:51)
[2023-07-08] MEDS: VITAMIN B1 100 MG PO (08:51)
[2023-07-08] MEDS: FLOMAX 0.400000000000000022 MG PO (08:52)
[2023-07-08] MEDS: MYLICON 80 MG PO ×4 (08:52→21:01)
[2023-07-08] MEDS: ZYRTEC 10 MG PO (08:52)
--- NOTE | 2023-07-08 09:13 | W.PN.URO.CBU ---
Today's Communication / Plan
-
contiue tonya and posada
UOOB
dulcolax to try and stimulate bowel function
Assessment / Plan
-
Intraperitoneal bladder perforation
Left posterior bladder wall diverticulum
BPH w/ obstructing median lobe
Klebsiella cUTI
Klebsiella bacteremia
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
NABEEL on CKD
now s/p robotic exploration- closure of tic (believed to be source of leak) /resection of median lobe
high drain output and rising cr yesterday prompted check of fluid for cr level (c/w serum) and CT- walled of tic- no sig pelvic fluid collection- increased hydro
pt stable and wbc declining
cr stable- had preop hydro likely from chronic outet obstruction- worse on CT 07/06- but this was believed secondary to edema from surgery and there was not obvious evid of ongoing bladder leak (by cr and tonya fluid cr level)
reviewed with med team
try UOOB/ dulcolax to stimulate bowel activity
observe cr level and tonya output for now- will recheck fluid cr level in am
continue posada
if cr level does not improve or any evid of ongoing bladder leak- plan would be for bilateral nephrostomy tubes
reviewed with med team and nursing
Diagnosis
-
Date of Service: July 08, 2023
-
Patient Diagnosis:
Intraperitoneal bladder perforation
Left posterior bladder wall diverticulum
BPH w/ obstructing median lobe
Klebsiella cUTI
Klebsiella bacteremia
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
NABEEL on CKD
POD#3- robotic SEN, closure of bladder tic median lobectomy
CT scan 07/06 showed persistent bladder tic- did not appear to be communicating with bladder
bilateral hydro progressed
CR sent from high outpt TONYA drainage- c/w serum
Subjective
-
my first time seeing patient
by report- no sig change
? return of bowel function- abd is somewhat distended- but CT showed only bowel dilation- no other sig findings
TONYA remains high output- but cr check yesterday c/w serum- does not appear to be urine
cr stable today
wbc continues to decline
urine is yellow with good output
Objective
-
Vital Signs
Temp Pulse Resp BP Pulse Ox
98.0 F 93 17 125/72 97
07/07/23 23:30 07/07/23 23:30 07/07/23 23:30 07/07/23 23:30 07/07/23 23:30
Intake and Output
07/07/23 07/08/23 07/09/23
06:59 06:59 06:59
Intake Total 240 / 240 1600 / 1600
Output Total 1103 / 1103 3076 / 3076
Balance -863 / -863 -1476 / -1476
Intake:
Oral fluids 240 / 240 120 / 120
IV fluids (Total) 1380 / 1380
IV piggybacks 100 / 100
Output:
Drain Output (Total) 303 / 303 576 / 576
Right John-Marroquin 303 / 303 576 / 576
Urine, Posada 1400 / 1400
True Urine Output from CBI 800 / 800 1100 / 1100
Laboratory Results
07/08/23 06:15
07/08/23 06:15
Review of Systems
-
Respiratory: No Symptoms
Cardiac: No Symptoms
Abdomen/GI: Abdominal Pain
: Other (posada)
Physical Exam
-
General - no acute distress
Abdomen - distended- minimally tender
Genitalia - normal- posada in place
Skin - warm & dry with no rash
Neuro - AOx3, no motor deficits
Incision - clean, dry
[2023-07-08] MEDS: DESITIN MAXIMUM STRENGTH PASTE 1 APPLIC TOPICAL ×3 (09:41→21:02)
[2023-07-08] MEDS: ProAmatine PO (09:41)
[2023-07-08] MEDS: DESENEX/MITRAZOL/ZEASORB 1 APPLIC TOPICAL ×2 (09:42→21:01)
--- NOTE | 2023-07-08 09:51 | W.PN.HOSP.TC ---
Today's Communication/Plan
-
see A/P
Assessment / Plan
Assessment / Plan
HPI: 83-year-old male past medical history of hypertension, chronic indwelling Torres catheter, UTIs, presented from [facility] for generalized weakness. Patient is mediocre historian. He has cough symptoms productive for the past 6 days. He
also complained of intermittent abdominal pain for the past 6 days. He has not had a bowel movement in 6 days. He denies any fevers or chills. No nausea or vomiting. He states he had Torres catheter placed a few months ago but he was not sure about
any further details.
A/P:
# Sepsis POA due to complicated UTI with Klebsiella and Klebsiella bacteremia
# Catheter associated urinary tract infection, potential hemorrhage/perforation cannot be excluded
# Chronic Torres catheter
s/p cefepime, s/p keflex, then Cipro, then Flagyl and doxycycline (for possible infected urinomas), now off metronidazole and on doxy
Torres catheter exchanged on admission
Urology consulted. NO gross hematuria. Torres draining well w/o obstruction. Maintain Torres catheter to drainage
Repeat CT AP 07/03 noted intraperitoneal bladder rupture, defect in L posterolateral urinary bladder
s/p bladder repair 07/04, cont abdominal drain
JERICA drain Cr level was sent, seroequivalent (2.4 vs. 2.2).
Repeat CT AP 07/06 noted Severe left greater than right bilateral hydronephrosis and hydroureter. 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
Uro on board, recc to observe for now given SCr relatively stable (at 2.1), i.e. NO plan for BL PCN yet
ID on board
# C Diff diarrhea, from antibiotics
Appreciate ID input, continue p.o. vancomycin
# Acute kidney injury
Possibly from infection versus obstructive uropathy
Creatinine 2.1 today, stable; was at 3.7 upon admission; Baseline creatinine 0.9 in 2016
observe off gentle IV fluids
Torres is draining
Repeat CT AP 07/06 noted Severe left greater than right bilateral hydronephrosis and hydroureter. 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
Uro following
# Small bowel ileus
# History of constipation
KUB negative for fecal impaction, confirmed ileus
Tolerating low residue
Will need to be discharged on laxatives once his C diff diarrhea resolves due to history of constipation
He had no bowel movements for 6 days prior to admission
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
Purpura of nose and fingers, with diffuse macular papular rash
Appreciate ID, likely from drug reaction�recently had cephalosporins and Bactrim
Resolution is slow, takes weeks, continue supportive care
# Hypernatremia
Resolved on D5W
# Hypokalemia
Repleted and resolved
# Chronic anemia due to anemia of chronic disease
Iron studies reviewed. Ferritin 284, B12/folic acid normal
# Developing pneumonia right lower lung jolley
Patient is not short of breath, he is not coughing, he is not hypoxic
Monitor clinically
# Transaminitis
Resolved, resumed statin
# History of orthostasis
Continue midodrine with hold parameters
DVT prophylaxis�subcu heparin
Full code
Dispo: PT recc SNF
DW Uro
total time spent 51 min
Anticipated Discharge: > 48 hours
Subjective/Interval History
-
Date of Service: July 08, 2023
Objective Data
-
Labs:
Laboratory Results
07/08/23
06:15
WBC 11.7 H
Hgb 9.0 L
Hct 27.8 L
Plt Count 353
Sodium 137
Potassium 4.1
Chloride 114 H
Carbon Dioxide 16 L
BUN 39 H
Creatinine 2.1 H
Glucose 94
Calcium 8.0 L
Vital Signs:
Vital Signs
Temp Pulse Resp BP Pulse Ox
36.9 C 82 20 154/81 99
07/08/23 08:00 07/08/23 08:00 07/08/23 08:00 07/08/23 08:00 07/08/23 08:00
I&O
07/07/23 07/08/23 07/09/23
06:59 06:59 06:59
Intake Total 240 / 240 1600 / 1600
Output Total 1103 / 1103 3076 / 3076
Balance -863 / -863 -1476 / -1476
Review of Systems
-
All other systems: Reviewed and negative
Physical Exam
-
General: Well Developed, No Apparent Distress, Comfortable, Conversant and Appears Chronically Ill; Negative Respiratory Distress
HEENT: Normocephalic, Atraumatic, Nose Appears Normal and Ears Appear Normal; Negative Oxygen
Respiratory: Clear to Auscultation and Non Labored Respirations; Negative Accessory Resp Muscle Use
Cardiac: Regular Rhythm and S1/S2
GI: Soft, Nontender and Other (abdominal drain)
Genito-urinary: Torres
Skin: Warm, Dry and Rash (macular-papular rash finger tips, chest wall, nose )
Neuro: Awake and Alert
Psych: Calm and Intact Judgement/Insight (somewhat)
Data Reviewed
-
CT Scan: Report Reviewed by me, Discussed with Physician, Discussed with Patient and Discussed with Family
Labs: Labs Reviewed by me
[2023-07-08] MEDS: Pyridium 200 MG PO (09:52)
[2023-07-08 15:20] VITALS: BP 134/64
[2023-07-08] MEDS: ProAmatine 2.5 MG PO (17:09)
[2023-07-08] MEDS: LIPITOR 10 MG PO (17:10)
[2023-07-08 23:00] VITALS: BP 121/64
[2023-07-09] MEDS: ULTRAM 50 MG PO (00:47)
[2023-07-09] MEDS: FIRVANQ 125 MG PO ×5 (00:47→23:58)
[2023-07-09 06:16] LABS: % Basophils 0.3 % (0-2); % Eosinophils 1.9 % (0-6); % Immature Granulocytes 0.6 % (0-0.5); % Lymphocytes 13.7 % (20.5-51.1); % Monocytes 7.8 % (1.7-9.3); % Neutrophils 75.7 % (42.2-75.2); Absolute Eosinophils 0.2 10^3/uL (0-0.7); Absolute Immature Granulocytes 0.1 10^3/uL (0-0.05); Absolute Lymphocytes 1.2 10^3/uL (1.2-3.4); Absolute Monocytes 0.7 10^3/uL (0.1-0.6); Absolute Neutrophils 6.6 10^3/uL (1.4-6.5); Hematocrit 25.8 % (39.0-52.0); Hemoglobin 8.4 g/dL (13.0-18.0); Mean Corp Hgb Conc. 32.6 g/dL (33.0-37.0); Mean Corpuscular Hgb 28.3 pg (27.0-31.0); Mean Corpuscular Volume 86.9 fL (80.0-94.0); Mean Platelet Volume 9.8 fL (7.4-10.4); Nucleated Red Blood Cells % 0 % (-); Platelet Count 354 10^3/uL (130-400); Red Blood Cell Count 2.97 10^6/uL (4.70-6.10); White Blood Cell Count 8.8 10^3/uL (4.8-10.8)
[2023-07-09 06:33] LABS: Body Fluid Creatinine 2.4 mg/dl
[2023-07-09 06:46] LABS: Blood Urea Nitrogen 34 mg/dl (9-20); Calcium 7.9 mg/dl (8.4-10.2); Carbon Dioxide 19 mmol/L (22-30); Chloride 115 mmol/L (98-107); Estimated Creatinine Clearance 29 ml/min; Glucose 93 mg/dl (70-99); Potassium 4.4 mmol/L (3.5-5.1); Sodium 137 mmol/L (135-145); eGFR 30.66
[2023-07-09 07:53] VITALS: BP 132/67
[2023-07-09] MEDS: FOLVITE 1 MG PO (08:30)
[2023-07-09] MEDS: VITAMIN B1 100 MG PO (08:30)
[2023-07-09] MEDS: ProAmatine 2.5 MG PO ×2 (08:30→17:18)
[2023-07-09] MEDS: PEPCID 20 MG PO (08:30)
[2023-07-09] MEDS: VIBRAMYCIN 100 MG PO ×2 (08:30→21:17)
[2023-07-09] MEDS: MYLICON 80 MG PO ×4 (08:30→21:17)
[2023-07-09] MEDS: DESITIN MAXIMUM STRENGTH PASTE 1 APPLIC TOPICAL ×3 (08:31→21:17)
[2023-07-09] MEDS: FLOMAX 0.400000000000000022 MG PO (08:31)
[2023-07-09] MEDS: ZYRTEC 10 MG PO (08:31)
[2023-07-09] MEDS: DESENEX/MITRAZOL/ZEASORB 1 APPLIC TOPICAL ×2 (08:31→21:16)
--- NOTE | 2023-07-09 09:35 | W.PN.URO.CBU ---
Today's Communication / Plan
-
continue posada and TONYA
UOOB
monitor renal function
Assessment / Plan
-
Intraperitoneal bladder perforation
Left posterior bladder wall diverticulum
BPH w/ obstructing median lobe
Klebsiella cUTI
Klebsiella bacteremia
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
NABEEL on CKD
now s/p robotic exploration- closure of tic (believed to be source of leak) /resection of median lobe
high drain output and rising cr yesterday prompted check of fluid for cr level (c/w serum) and CT- walled of tic- no sig pelvic fluid collection- increased hydro
pt stable and wbc declining
cr stable- had preop hydro likely from chronic outet obstruction- worse on CT 07/06- but this was believed secondary to edema from surgery and there was not obvious evid of ongoing bladder leak-TONYA OUPUT DECLINING AND RECHECK OF CR LEVEL AGAIN C/W
SERUM
continue to observe with good UO- hopefully will see cr level downtrend in next 24-48hrs- if it does not- then consider percs
continue UOOB/ambulate
abd distended but stable and no rebound are guarding
urine clear- continue posada and tonya
Diagnosis
-
Date of Service: July 09, 2023
-
Patient Diagnosis:
Intraperitoneal bladder perforation
Left posterior bladder wall diverticulum
BPH w/ obstructing median lobe
Klebsiella cUTI
Klebsiella bacteremia
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
NABEEL on CKD
POD#3- robotic SEN, closure of bladder tic median lobectomy
CT scan 07/06 showed persistent bladder tic- did not appear to be communicating with bladder
bilateral hydro progressed
Subjective
-
pt more alert and awkae today
still weak
c/o of abd pressure
drain output declining- again cr level checked- c/w serum
cr stable- wbc normalized
Objective
-
Vital Signs
Temp Pulse Resp BP Pulse Ox
98.6 F 75 16 132/67 99
07/09/23 07:53 07/09/23 08:30 07/09/23 07:53 07/09/23 08:30 07/09/23 07:53
Intake and Output
07/08/23 07/09/23 07/10/23
06:59 06:59 06:59
Intake Total 1600 / 1600 780 / 780 0 / 0
Output Total 3076 / 3076 1650 / 1650 735 / 735
Balance -1476 / -1476 -870 / -870 -735 / -735
Intake:
Oral fluids 120 / 120 780 / 780 0 / 0
IV fluids (Total) 1380 / 1380
IV piggybacks 100 / 100
Output:
Drain Output (Total) 576 / 576 180 / 180 60 / 60
Right John-Marroquin 576 / 576 180 / 180 60 / 60
Urine, Posada 1400 / 1400 1470 / 1470 675 / 675
True Urine Output from CBI 1100 / 1100
Laboratory Results
07/09/23 05:14
07/09/23 05:14
Review of Systems
-
Constitutional: Fatigue
Respiratory: No Symptoms
Cardiac: No Symptoms
Abdomen/GI: Other (abd discomfort)
Physical Exam
-
General - no acute distress
Abdomen - stable distension/ stable tenderness
Genitalia - normal- posada in place
Rectal - normal
Skin - warm & dry with no rash
Neuro - AOx3, no motor deficits
Incision - clean, dry
--- NOTE | 2023-07-09 10:43 | W.PN.ID1 ---
Date of Service
Date of Service: July 09, 2023
Today's Communication
Continue abx.
Assessment / Plan
Purulent Peritonitis - source: bladder rupture, s/p repair 07/04
UTI/Bacteremia due to Klebsiella
Bladder Perforation
repair 07/04: OR findings notable for purulence, s/p washout
New severe left >R hydroureteronephrosis with extrinsic compression by fluid collection vs. urinoma vs bladder divericulum
-Leukocytosis trending down
- 07/04: cultures negative to date from the OR: gram stain rare wbcs/no organisms
- continue doxycycline (PCN/cephalosporin allergy)
- Per Urology, plan for IR drainage of fluid collection. Pls send culture.
May need perc neph next week.
- has posada
C diff, improving
- diagnosed 06/29
- continue with oral vancomycin (day# 10)
- DC IV metronidazole (day 5)
- would continue oral vancomycin > 10 days pending course
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
- nonblanching rash - fingers, toes and nose - markedly improved
- most likely to cefepime - improving
Additional Blanching rash
- cetirizine and famotidine
Chief Complaint
-: Leukocytosis, UTI and C-diff
Subjective / Review of Systems
Review of Systems: No Fever and No Chills
Vital Signs / Physical Exam
Vital Signs
Vital Signs
Temp Pulse Resp BP Pulse Ox
98.6 F 75 16 132/67 99
07/09/23 07:53 07/09/23 08:30 07/09/23 07:53 07/09/23 08:30 07/09/23 07:53
Physical Exam
Constitutional: No Acute Distress, Comfortable, Chronically Ill and Non-toxic
Eyes: Sclera Anicteric
Cardiovascular: S1/S2; Negative S3/S4
Pulmonary: Non Labored
Gastrointestinal: Soft and Non Tender
Neurological: Awake and Alert
Psychological: Calm
Objective Data
Lab Data
Lab Results
07/09/23 05:14
07/09/23 05:14
Estimated Creat Clear 29 ml/min 07/09/23 05:14
Lactic Acid Cancelled 06/26/23 22:15
Total Bilirubin 0.8 mg/dl (0.2-1.3) 07/02/23 07:41
AST 30 U/L (17-59) 07/02/23 07:41
ALT 29 U/L (0-50) 07/02/23 07:41
Alkaline Phosphatase 114 U/L (38-126) 07/02/23 07:41
Most recent labs reviewed.
Micro Results:
07/05/23 16:42 Wound Culture - Preliminary
Fistula Gram negative bacilli
Gram Stain - Preliminary
07/05/23 16:42 Anaerobic Culture - Preliminary
Fistula Culture pending. Anaerobic cultures are examined after 3
days incubation. Additional information to follow.
07/08/23 06:15 Blood Culture - Preliminary
Blood/Venous No Growth in 24 hours- Final report to follow
07/09/23 05:14 Blood Culture - Pending
Blood/Venous
06/26/23 18:20 Blood Culture - Final
Blood/Venous Klebsiella pneumoniae
Klebsiella pneumoniae#2
Gram Stain - Final
06/26/23 18:20 Blood Culture - Final
Blood/Venous No Growth - Final Report
06/30/23 06:38 Stool Leukocytes - Final
Feces/Stool
06/30/23 06:38 C. difficile GDH Antigen & Toxins - Final
Feces/Stool Toxigenic C.difficile Positive
06/26/23 15:11 Urine Culture - Final
Urine Klebsiella pneumoniae
06/27/23 05:28 MRSA Screen - Final
Nose No Methicillin Resistant Staphylococcus aureus isolated.
06/26/23 15:11 Legionella Urinary Antigen - Final
Urine Negative for Legionella pneumophila Serogroup 1 antigen.
A negative result does not rule out the possiblity of
Legionella infection due to other serogroups or species of
Legionella. Clinical correlation is recommended.
Streptococcus pneumoniae Antigen (M - Final
Negative for Streptococcus pneumoniae antigen.
A negative result does not exclude infection with
Streptococcus pneumoniae. Clinical correlation is
recommended.
07/07/23 CT a/p: Severe left greater than right bilateral hydronephrosis and hydroureter. The left ureter may be obstructed by a recurrent/enlarged fluid collection within the left pelvis measuring 5.2 x 5.7 cm in cross-sectional diameter abutting
the bladder, suspicious for urinoma. Bladder decompressed with Posada catheter in place. Surgical drain terminates within the anterior pelvis within the extraperitoneal space. Small amount of ill-defined fluid and gas seen along the superior and
anterior margins of the bladder.
--- NOTE | 2023-07-09 11:15 | W.PN.HOSP.TC ---
Today's Communication/Plan
-
see A/ P
Assessment / Plan
Assessment / Plan
HPI: 83-year-old male past medical history of hypertension, chronic indwelling Torres catheter, UTIs, presented from [facility] for generalized weakness. Patient is mediocre historian. He has cough symptoms productive for the past 6 days. He
also complained of intermittent abdominal pain for the past 6 days. He has not had a bowel movement in 6 days. He denies any fevers or chills. No nausea or vomiting. He states he had Torres catheter placed a few months ago but he was not sure about
any further details.
A/P:
# Sepsis POA due to complicated UTI with Klebsiella and Klebsiella bacteremia
# Catheter associated urinary tract infection, potential hemorrhage/perforation cannot be excluded
# Chronic Torres catheter
s/p cefepime, s/p keflex, then Cipro, then Flagyl and doxycycline (for possible infected urinomas), now off metronidazole , cont doxy
Torres catheter exchanged on admission
Repeat CT AP 07/03 noted intraperitoneal bladder rupture, defect in L posterolateral urinary bladder
s/p bladder repair 07/04, cont abdominal drain
JERICA drain Cr level was sent, seroequivalent (2.4 vs. 2.2).
Repeat CT AP 07/06 noted Severe left greater than right bilateral hydronephrosis and hydroureter. 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
Uro on board, recc to observe for now given SCr relatively stable (at 2.1), i.e. NO plan for BL PCN yet
ID on board
# C Diff diarrhea, from antibiotics
Appreciate ID input, continue p.o. vancomycin
# Acute kidney injury
Possibly from infection versus obstructive uropathy
Creatinine 2.1 today, stable; was at 3.7 upon admission; Baseline creatinine 0.9 in 2015
off gentle IV fluids
Torres is draining
Repeat CT AP 07/06 noted Severe left greater than right bilateral hydronephrosis and hydroureter. 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
Uro following
# Small bowel ileus
# History of constipation
He had no bowel movements for 6 days prior to admission
Will need to be discharged on laxatives once his C diff diarrhea resolves due to history of constipation
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
Purpura of nose and fingers, with diffuse macular papular rash
Appreciate ID, likely from drug reaction�recently had cephalosporins and Bactrim
rash has markedly improved
# Hypernatremia
Resolved on D5W
# Hypokalemia
Repleted and resolved
# Chronic anemia due to anemia of chronic disease
Iron studies reviewed. Ferritin 284, B12/folic acid normal
# Developing pneumonia right lower lung jolley
Patient is not short of breath, he is not coughing, he is not hypoxic
Monitor clinically
# Transaminitis
Resolved, resumed statin
# History of orthostasis
Continue midodrine with hold parameters
DVT prophylaxis�subcu heparin
Full code
Dispo: PT recc SNF
DW Uro
Anticipated Discharge: 24 - 48 hours
Subjective/Interval History
-
Date of Service: July 09, 2023
Objective Data
-
Labs:
Laboratory Results
07/09/23
05:14
WBC 8.8
Hgb 8.4 L
Hct 25.8 L
Plt Count 354
Sodium 137
Potassium 4.4
Chloride 115 H
Carbon Dioxide 19 L
BUN 34 H
Creatinine 2.1 H
Glucose 93
Calcium 7.9 L
Vital Signs:
Vital Signs
Temp Pulse Resp BP Pulse Ox
37.0 C 75 16 132/67 99
07/09/23 07:53 07/09/23 08:30 07/09/23 07:53 07/09/23 08:30 07/09/23 07:53
I&O
07/08/23 07/09/23 07/10/23
06:59 06:59 06:59
Intake Total 1600 / 1600 780 / 780 0 / 0
Output Total 3076 / 3076 1650 / 1650 735 / 735
Balance -1476 / -1476 -870 / -870 -735 / -735
Review of Systems
-
All other systems: Reviewed and negative
Physical Exam
-
General: Well Developed, No Apparent Distress, Comfortable, Conversant and Appears Chronically Ill; Negative Respiratory Distress
HEENT: Normocephalic, Atraumatic, Nose Appears Normal and Ears Appear Normal; Negative Oxygen
Respiratory: Clear to Auscultation and Non Labored Respirations; Negative Accessory Resp Muscle Use
Cardiac: Regular Rhythm and S1/S2
GI: Soft, Nontender and Other (abdominal/pelvic drain)
Genito-urinary: Torres
Skin: Warm, Dry and Rash (macular-papular rash finger tips, chest wall, nose - improving)
Neuro: Awake and Alert
Psych: Calm and Intact Judgement/Insight (somewhat)
Data Reviewed
-
CT Scan: Report Reviewed by me, Discussed with Physician, Discussed with Patient and Discussed with Family
Labs: Labs Reviewed by me
[2023-07-09 15:38] VITALS: BP 129/81
[2023-07-09 16:04] VITALS: BP 129/81
[2023-07-09] MEDS: LIPITOR 10 MG PO (17:17)
[2023-07-09 23:51] VITALS: BP 126/69
[2023-07-10] MEDS: FIRVANQ 125 MG PO ×4 (05:36→23:16)
[2023-07-10 06:30] LABS: % Basophils 0.4 % (0-2); % Eosinophils 2.5 % (0-6); % Immature Granulocytes 0.7 % (0-0.5); % Lymphocytes 15.3 % (20.5-51.1); % Monocytes 5.9 % (1.7-9.3); % Neutrophils 75.2 % (42.2-75.2); Absolute Eosinophils 0.2 10^3/uL (0-0.7); Absolute Immature Granulocytes 0.1 10^3/uL (0-0.05); Absolute Lymphocytes 1.3 10^3/uL (1.2-3.4); Absolute Monocytes 0.5 10^3/uL (0.1-0.6); Absolute Neutrophils 6.4 10^3/uL (1.4-6.5); Hematocrit 29.3 % (39.0-52.0); Hemoglobin 9.4 g/dL (13.0-18.0); Mean Corp Hgb Conc. 32.1 g/dL (33.0-37.0); Mean Corpuscular Hgb 28.2 pg (27.0-31.0); Mean Platelet Volume 9.6 fL (7.4-10.4); Nucleated Red Blood Cells % 0 % (-); Platelet Count 320 10^3/uL (130-400); Red Blood Cell Count 3.33 10^6/uL (4.70-6.10); Red Cell Dist. Width 15.1 % (11.5-14.5); White Blood Cell Count 8.5 10^3/uL (4.8-10.8)
[2023-07-10 07:01] LABS: Blood Urea Nitrogen 32 mg/dl (9-20); Calcium 8.2 mg/dl (8.4-10.2); Carbon Dioxide 23 mmol/L (22-30); Chloride 112 mmol/L (98-107); Estimated Creatinine Clearance 28 ml/min; Glucose 96 mg/dl (70-99); Potassium 4.1 mmol/L (3.5-5.1); Sodium 137 mmol/L (135-145); eGFR 28.99
--- NOTE | 2023-07-10 07:10 | W.PN.URO.CBU ---
Today's Communication / Plan
-
continue posada and tonya
UOOB/PT
will discuss renal function- need for percs today
Assessment / Plan
-
Intraperitoneal bladder perforation
Left posterior bladder wall diverticulum
BPH w/ obstructing median lobe
Klebsiella cUTI
Klebsiella bacteremia
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
NABEEL on CKD
now s/p robotic exploration- closure of tic (believed to be source of leak) /resection of median lobe
high drain output and rising cr yesterday prompted check of fluid for cr level (c/w serum) and CT- walled of tic- no sig pelvic fluid collection- increased hydro
pt stable and wbc declining
cr stable- had preop hydro likely from chronic outet obstruction- worse on CT 07/06- but this was believed secondary to edema from surgery and there was not obvious evid of ongoing bladder leak-TONYA OUPUT DECLINING AND RECHECK OF CR LEVEL AGAIN C/W
SERUM
tonya output decreased sig- leave today- no evid of ongoing leak- continue posada
urine clear
intra-op cx's show gram neg rods- ID following
slow clinical progress- continue to increase activity/mobility/ observe bowel function
in terms of renal function- stable- but not improved- will discuss possible need for percs with dr kramer
Diagnosis
-
Date of Service: July 10, 2023
-
Patient Diagnosis:
Intraperitoneal bladder perforation
Left posterior bladder wall diverticulum
BPH w/ obstructing median lobe
Klebsiella cUTI
Klebsiella bacteremia
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
NABEEL on CKD
POD#3- robotic SEN, closure of bladder tic median lobectomy
CT scan 07/06 showed persistent bladder tic- did not appear to be communicating with bladder
bilateral hydro progressed
Subjective
-
p[t looks a little better today
abd less distended
urine clear
tonya output decreased significantly
cr remains elevated
Objective
-
Vital Signs
Temp Pulse Resp BP Pulse Ox
98.6 F 85 17 126/69 97
07/09/23 23:51 07/09/23 23:51 07/09/23 23:51 07/09/23 23:51 07/09/23 23:51
Intake and Output
07/09/23 07/10/23 07/11/23
06:59 06:59 06:59
Intake Total 780 / 780 1460 / 1460
Output Total 1650 / 1650 2019 / 2019
Balance -870 / -870 -560 / -560
Intake:
Oral fluids 780 / 780 1460 / 1460
Output:
Drain Output (Total) 180 / 180 145 / 145
Right John-Marroquin 180 / 180 145 / 145
Urine, Posada 1470 / 1470 675 / 675
Urine, Voided 1200 / 1200
Other:
Number of unmeasured liquid
stools
Rectum 1
Laboratory Results
07/10/23 06:13
07/10/23 06:13
Physical Exam
-
General - no acute distress
Abdomen - mildly distended- less tender
Genitalia - normal- posada in place
Skin - warm & dry with no rash
Neuro - AOx3, no motor deficits
Extremities - no clubbing, no cyanosis, no edema
Incision - clean, dry
[2023-07-10 07:37] VITALS: BP 153/74
--- NOTE | 2023-07-10 08:08 | W.PN.HOSP.TC ---
Today's Communication/Plan
-
For bilateral PCN placement by IR tomorrow
Assessment / Plan
Assessment / Plan
HPI: 83-year-old male past medical history of hypertension, chronic indwelling Posada catheter, UTIs, presented from [facility] for generalized weakness. Patient is mediocre historian. He has cough symptoms productive for the past 6 days. He
also complained of intermittent abdominal pain for the past 6 days. He has not had a bowel movement in 6 days. He denies any fevers or chills. No nausea or vomiting. He states he had Posada catheter placed a few months ago but he was not sure about
any further details.
A/P:
# Sepsis POA due to complicated UTI with Klebsiella and Klebsiella bacteremia
# Catheter associated urinary tract infection, potential hemorrhage/perforation cannot be excluded
# Chronic Posada catheter
S/p cefepime, s/p keflex, then Cipro, then Flagyl and doxycycline (for possible infected urinomas), now off metronidazole, cont doxycycline
Posada catheter exchanged on admission, Repeat CT AP 07/03 noted intraperitoneal bladder rupture, defect in L posterolateral urinary bladder
S/p bladder repair 07/04, continue abdominal drain
JERICA drain Cr level was sent, seroequivalent (2.4 vs. 2.2).
Repeat CT AP 07/06 noted Severe left greater than right bilateral hydronephrosis and hydroureter. 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
Urology recommends bilateral PCN placement by IR tomorrow
# C Diff diarrhea, from antibiotics
Appreciate ID input, continue p.o. vancomycin D11
# Acute kidney injury
Possibly from infection versus obstructive uropathy
Creatinine 2.2 today, stable; was at 3.7 upon admission; Baseline creatinine 0.9 in 2016
S/p IV fluids. Posada is draining
Repeat CT AP 07/06 noted Severe left greater than right bilateral hydronephrosis and hydroureter. 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
Urology recommends bilateral PCN placement by IR tomorrow
# Small bowel ileus
# History of constipation
He had no bowel movements for 6 days prior to admission
Will need to be discharged on laxatives once his C diff diarrhea resolves due to history of constipation
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
Purpura of nose and fingers, with diffuse macular papular rash
Appreciate ID, likely from drug reaction�recently had cephalosporins and Bactrim
rash has markedly improved
# Hypernatremia
Resolved on D5W
# Hypokalemia
Repleted and resolved
# Chronic anemia due to anemia of chronic disease
Iron studies reviewed. Ferritin 284, B12/folic acid normal
# Developing pneumonia right lower lung jolley
Patient is not short of breath, he is not coughing, he is not hypoxic
Monitor clinically
#Poor oral intake
Vanilla Ensure ordered twice a day, asked nurse to monitor intake
Consider remeron
# Transaminitis
Resolved, resumed statin
# History of orthostasis
Continue midodrine with hold parameters
DVT prophylaxis�subcu heparin
Full code
Dispo: PT recc SNF
Total time spent to see the patient on the floor, examine the patient, review data and lab results, discuss treatment plan with patient, nursing staff around 51 minutes.
Physical Exam
General: Appears chronically debilitated, no acute distress
HEENT: Normocephalic, Atraumatic, EOMI, MMM
Respiratory: Clear to Auscultation bilaterally
Cardiac: Normal S1/S2, Regular Rate and Rhythm
GI: Soft, appropriate yair-incisional tenderness, jamie intact, incisions clean/dry/intact, drain in place
: +posada
Extremities: No Clubbing, Cyanosis, or Edema
Derm:
Resolved purpura of nose and fingers
Resolved maculopapular rash on groin extending up to lower back and abdomen
Anticipated Discharge: > 48 hours
Subjective/Interval History
-
Date of Service: July 10, 2023
Patient reports his abdominal pain is tolerable. No shortness of breath, no chest pain, no coughing. No fever, no vomiting.
Objective Data
-
Labs:
Laboratory Results
07/10/23
06:13
WBC 8.5
Hgb 9.4 L
Hct 29.3 L
Plt Count 320
Sodium 137
Potassium 4.1
Chloride 112 H
Carbon Dioxide 23
BUN 32 H
Creatinine 2.2 H
Glucose 96
Calcium 8.2 L
Vital Signs:
Vital Signs
Temp Pulse Resp BP Pulse Ox
98.3 F 81 16 153/74 99
07/10/23 07:37 07/10/23 07:37 07/10/23 07:37 07/10/23 07:37 07/10/23 07:37
I&O
07/09/23 07/10/23 07/11/23
06:59 06:59 06:59
Intake Total 780 / 780 1460 / 1460
Output Total 1650 / 1650 2019 / 2019
Balance -870 / -870 -560 / -560
[2023-07-10] MEDS: ProAmatine PO (08:15)
[2023-07-10] MEDS: MYLICON 80 MG PO ×4 (08:15→21:03)
[2023-07-10] MEDS: FOLVITE 1 MG PO (08:16)
[2023-07-10] MEDS: ZYRTEC 10 MG PO (08:16)
[2023-07-10] MEDS: VIBRAMYCIN 100 MG PO ×2 (08:16→20:13)
[2023-07-10] MEDS: FLOMAX 0.400000000000000022 MG PO (08:16)
[2023-07-10] MEDS: VITAMIN B1 100 MG PO (08:16)
[2023-07-10] MEDS: PEPCID 20 MG PO (08:16)
[2023-07-10] MEDS: DESENEX/MITRAZOL/ZEASORB 1 APPLIC TOPICAL ×2 (08:21→20:13)
[2023-07-10] MEDS: DESITIN MAXIMUM STRENGTH PASTE 1 APPLIC TOPICAL ×3 (08:21→21:03)
--- NOTE | 2023-07-10 09:38 | W.PN.UPDATE ---
Update Note
Progress Note Update
Cr 2.2 over 48-72 hrs w/o improvement in renal function.
Cr 1.7 post-op.
Torres draining clear UOP (CBI discontinued 07/06).
JERICA output decreased over last 24-48 hrs.
Plan
- Trend Cr
- To IR tomorrow AM for bilateral PCNs/antegrade nephrostograms (d/w IR).
- NPO@[facility] (ordered)
D/w Dr. Hatch.
D/w Dr. Saab.
--- NOTE | 2023-07-10 12:25 | CM ---
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 Patient's son agreeable to that and would like for him to stay at [facility].
Plan: Case management will continue to follow and assist with discharge planning. SNF when stable.
--- NOTE | 2023-07-10 12:41 | CM ---
Reviewed chart, placed a call to patient's son to discuss indication of PT prior to patient returning back to his ltc. Patient's son answered and stated that the preference would be to keep patient at [facility] for SNF. Referral sent. Will await
determination.
Plan: Case management will continue to follow and assist with discharge planning . SNF hopefully at [facility] when stable. Will await determination.
--- NOTE | 2023-07-10 14:46 | W.PN.ID1 ---
Date of Service
Date of Service: July 10, 2023
Today's Communication
continue vancomycin and doxycycline
Assessment / Plan
Purulent Peritonitis - source: bladder rupture, s/p repair 07/04
UTI/Bacteremia due to Klebsiella
Bladder Perforation
repair 07/04: OR findings notable for purulence, s/p washout
New severe left >R hydroureteronephrosis with extrinsic compression by bladder divericulum
-Leukocytosis resolved
- 07/04: cultures k pneumoniae from broth only
- continue doxycycline (PCN/cephalosporin allergy) currently day 5 post op
- Per Urology, plan for IR PCN tubes tomorrow
- has posada
C diff, improving
- diagnosed 06/29
- continue with oral vancomycin (day# 11)
- will continue oral vancomycin while on doxycycline
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
- nonblanching rash - fingers, toes and nose - markedly improved
- most likely to cefepime - improving
Additional Blanching rash
- cetirizine and famotidine
Chief Complaint
-: Leukocytosis, UTI and C-diff
Subjective / Review of Systems
note addendum from 07/[address] 'Imaging reviewed with Dr. Wing of IR. Upon further review and comparison with a series from the CT cystogram from 07/04/23, the left pelvic collection is favored to represent a large bladder diverticulum rather
than a urinoma. Dr Beck'
afebrile
bp stable
leukocytosis resolved x48 hrs
L shift resolved today
cr 2.2
fistulae culture K pneumoniae
Vital Signs / Physical Exam
Vital Signs
Vital Signs
Temp Pulse Resp BP Pulse Ox
98.3 F 81 16 153/74 99
07/10/23 07:37 07/10/23 08:15 07/10/23 07:37 07/10/23 08:15 07/10/23 07:37
Physical Exam
Constitutional: No Acute Distress and Chronically Ill
Cardiovascular: Regular Rate and S1/S2; Negative Murmur or Rub
Pulmonary: Clear and Symmetric; Negative Wheezes or Rales
Gastrointestinal: Soft, Non Tender, Non Distended and Normal Bowel Sounds
Skin: Warm, Dry, Rash and Other (jamie in place - no erythema dehiscence or drainage); Negative Jaundice
Neurological: Awake
Objective Data
Lab Data
Lab Results
07/10/23 06:13
07/10/23 06:13
Estimated Creat Clear 28 ml/min 07/10/23 06:13
Lactic Acid Cancelled 06/26/23 22:15
Total Bilirubin 0.8 mg/dl (0.2-1.3) 07/02/23 07:41
AST 30 U/L (17-59) 07/02/23 07:41
ALT 29 U/L (0-50) 07/02/23 07:41
Alkaline Phosphatase 114 U/L (38-126) 07/02/23 07:41
Most recent labs reviewed.
Micro Results:
07/05/23 16:42 Wound Culture - Final
Fistula Klebsiella pneumoniae
Gram Stain - Final
07/05/23 16:42 Anaerobic Culture - Final
Fistula NO ANAEROBES ISOLATED
07/08/23 06:15 Blood Culture - Preliminary
Blood/Venous No Growth in 48 hours- Final report to follow
07/09/23 05:14 Blood Culture - Preliminary
Blood/Venous No Growth in 24 hours- Final report to follow
06/26/23 18:20 Blood Culture - Final
Blood/Venous Klebsiella pneumoniae
Klebsiella pneumoniae#2
Gram Stain - Final
06/26/23 18:20 Blood Culture - Final
Blood/Venous No Growth - Final Report
06/30/23 06:38 Stool Leukocytes - Final
Feces/Stool
06/30/23 06:38 C. difficile GDH Antigen & Toxins - Final
Feces/Stool Toxigenic C.difficile Positive
06/26/23 15:11 Urine Culture - Final
Urine Klebsiella pneumoniae
06/27/23 05:28 MRSA Screen - Final
Nose No Methicillin Resistant Staphylococcus aureus isolated.
06/26/23 15:11 Legionella Urinary Antigen - Final
Urine Negative for Legionella pneumophila Serogroup 1 antigen.
A negative result does not rule out the possiblity of
Legionella infection due to other serogroups or species of
Legionella. Clinical correlation is recommended.
Streptococcus pneumoniae Antigen (M - Final
Negative for Streptococcus pneumoniae antigen.
A negative result does not exclude infection with
Streptococcus pneumoniae. Clinical correlation is
recommended.
07/07/23 CT a/p: Severe left greater than right bilateral hydronephrosis and hydroureter. The left ureter may be obstructed by a recurrent/enlarged fluid collection within the left pelvis measuring 5.2 x 5.7 cm in cross-sectional diameter abutting
the bladder, suspicious for urinoma. Bladder decompressed with Posada catheter in place. Surgical drain terminates within the anterior pelvis within the extraperitoneal space. Small amount of ill-defined fluid and gas seen along the superior and
anterior margins of the bladder.
[2023-07-10 15:22] VITALS: BP 135/71
[2023-07-10] MEDS: LIPITOR 10 MG PO (17:29)
[2023-07-10] MEDS: ProAmatine 2.5 MG PO (17:33)
[2023-07-10 23:30] VITALS: BP 127/64
[2023-07-11] MEDS: FIRVANQ 125 MG PO ×4 (06:14→23:26)
[2023-07-11 06:26] LABS: Hematocrit 26.3 % (39.0-52.0); Hemoglobin 8.4 g/dL (13.0-18.0); Mean Corp Hgb Conc. 31.9 g/dL (33.0-37.0); Mean Corpuscular Hgb 27.8 pg (27.0-31.0); Mean Corpuscular Volume 87.1 fL (80.0-94.0); Mean Platelet Volume 9.6 fL (7.4-10.4); Platelet Count 354 10^3/uL (130-400); Red Blood Cell Count 3.02 10^6/uL (4.70-6.10); Red Cell Dist. Width 14.9 % (11.5-14.5)
[2023-07-11 06:47] LABS: INR 1.35; PT 16.5 Sec (11.4-14.6)
[2023-07-11 06:58] LABS: Blood Urea Nitrogen 34 mg/dl (9-20); Calcium 8.4 mg/dl (8.4-10.2); Carbon Dioxide 24 mmol/L (22-30); Chloride 111 mmol/L (98-107); Estimated Creatinine Clearance 28 ml/min; Glucose 111 mg/dl (70-99); Magnesium 1.8 mg/dl (1.6-2.3); Phosphorus 4.2 mg/dl (2.5-4.5); Potassium 4.1 mmol/L (3.5-5.1); Prealbumin (Transthyretin) 7.8 mg/dl (17.6-36.0); Sodium 138 mmol/L (135-145); eGFR 28.99
[2023-07-11 07:00] VITALS: BP 151/74
--- NOTE | 2023-07-11 08:16 | W.PN.HOSP.TC ---
Addendum entered and electronically signed by Zac Saab MD 07/11/23 14:09:
# Stage 1 sacrum pressure injury, POA
Wound care, turn every 2 hours
Original Note:
Today's Communication/Plan
-
For PCN tubes today
Check KUB
Assessment / Plan
Assessment / Plan
HPI: 83-year-old male past medical history of hypertension, chronic indwelling Posada catheter, UTIs, presented from [facility] for generalized weakness. Patient is mediocre historian. He has cough symptoms productive for the past 6 days. He
also complained of intermittent abdominal pain for the past 6 days. He has not had a bowel movement in 6 days. He denies any fevers or chills. No nausea or vomiting. He states he had Posada catheter placed a few months ago but he was not sure about
any further details.
A/P:
# Sepsis POA due to complicated UTI with Klebsiella and Klebsiella bacteremia
# Catheter associated urinary tract infection, potential hemorrhage/perforation cannot be excluded
# Chronic Posada catheter
S/p cefepime, s/p keflex, then Cipro, then Flagyl and doxycycline (for possible infected urinomas), now off metronidazole, continue doxycycline
Posada catheter exchanged on admission, Repeat CT AP 07/03 noted intraperitoneal bladder rupture, defect in L posterolateral urinary bladder
S/p bladder repair 07/04, continue abdominal drain
JERICA drain Cr level was sent, seroequivalent (2.4 vs. 2.2).
Repeat CT AP 07/06 noted Severe left greater than right bilateral hydronephrosis and hydroureter. 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
Urology recommends bilateral PCN placement by IR today
# C Diff diarrhea, from antibiotics
Appreciate ID input, continue p.o. vancomycin D12
# Acute kidney injury
Possibly from infection versus obstructive uropathy
Creatinine 2.2 today, stable; was at 3.7 upon admission; Baseline creatinine 0.9 in 2016
S/p IV fluids. Posada is draining
Repeat CT AP 07/06 noted Severe left greater than right bilateral hydronephrosis and hydroureter. 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
Urology recommends bilateral PCN placement by IR today
# Small bowel ileus
# History of constipation
He had no bowel movements for 6 days prior to admission
Will need to be discharged on laxatives once his C diff diarrhea resolves due to history of constipation
07/10 abdomen more distended, check KUB
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
Purpura of nose and fingers, with diffuse macular papular rash
Appreciate ID, likely from drug reaction�recently had cephalosporins and Bactrim
rash has markedly improved
# Hypernatremia
Resolved on D5W
# Hypokalemia
Repleted and resolved
# Chronic anemia due to anemia of chronic disease
Iron studies reviewed. Ferritin 284, B12/folic acid normal
# Developing pneumonia right lower lung jolley
Patient is not short of breath, he is not coughing, he is not hypoxic
Monitor clinically
#Poor oral intake
Vanilla Ensure ordered twice a day, asked nurse to monitor intake
Consider remeron
# Transaminitis
Resolved, resumed statin
# History of orthostasis
Continue midodrine with hold parameters
DVT prophylaxis�subcu heparin
Full code
Dispo: PT recc SNF
Total time spent to see the patient on the floor, examine the patient, review data and lab results, discuss treatment plan with patient, nursing staff around 51 minutes.
Physical Exam
General: Appears chronically debilitated, no acute distress
HEENT: Normocephalic, Atraumatic, EOMI, MMM
Respiratory: Clear to Auscultation bilaterally
Cardiac: Normal S1/S2, Regular Rate and Rhythm
GI: Soft, distended, tympanic, appropriate yair-incisional tenderness, jamie intact, incisions clean/dry/intact, drain in place
: +posada
Extremities: No Clubbing, Cyanosis, or Edema
Derm:
Resolved purpura of nose and fingers
Resolved maculopapular rash on groin extending up to lower back and abdomen
Anticipated Discharge: > 48 hours
Subjective/Interval History
-
Date of Service: July 11, 2023
Patient had 3 small loose stools overnight. No fever, no vomiting.
Objective Data
-
Labs:
Laboratory Results
07/11/23
05:46
WBC 8.0
Hgb 8.4 L
Hct 26.3 L
Plt Count 354
PT 16.5 H
INR 1.35
Sodium 138
Potassium 4.1
Chloride 111 H
Carbon Dioxide 24
BUN 34 H
Creatinine 2.2 H
Glucose 111 H
Calcium 8.4
Vital Signs:
Vital Signs
Temp Pulse Resp BP Pulse Ox
98.4 F 82 16 127/64 98
07/10/23 23:30 07/10/23 23:30 07/10/23 23:30 07/10/23 23:30 07/10/23 23:30
I&O
07/10/23 07/11/23 07/12/23
06:59 06:59 06:59
Intake Total 1460 / 1460
Output Total 2019 / 1764
Balance -560 / -560 -176 / -1764
[2023-07-11] MEDS: VITAMIN B1 100 MG PO (08:23)
[2023-07-11] MEDS: FLOMAX 0.400000000000000022 MG PO (08:23)
[2023-07-11] MEDS: VIBRAMYCIN 100 MG PO ×2 (08:23→19:18)
[2023-07-11] MEDS: ProAmatine PO ×2 (08:23→17:35)
[2023-07-11] MEDS: PEPCID 20 MG PO (08:24)
[2023-07-11] MEDS: MYLICON 80 MG PO ×4 (08:24→21:27)
[2023-07-11] MEDS: ZYRTEC 10 MG PO (08:24)
[2023-07-11] MEDS: FOLVITE 1 MG PO (08:24)
[2023-07-11] MEDS: DESITIN MAXIMUM STRENGTH PASTE 1 APPLIC TOPICAL ×2 (08:35→21:27)
[2023-07-11] MEDS: DESENEX/MITRAZOL/ZEASORB 1 APPLIC TOPICAL ×2 (08:36→19:18)
--- NOTE | 2023-07-11 12:06 | W.PN.ID1 ---
Date of Service
Date of Service: July 11, 2023
Today's Communication
for PCN tube placement today and culture
duration of antibiotics pending those cultures
Assessment / Plan
Purulent Peritonitis - source: bladder rupture, s/p repair 07/04
UTI/Bacteremia due to Klebsiella
Bladder Perforation
repair 07/04: OR findings notable for purulence, s/p washout
New severe left >R hydroureteronephrosis with extrinsic compression by bladder divericulum
- 07/04: cultures k pneumoniae from broth only
- continue doxycycline (PCN/cephalosporin allergy) currently day 6 post op - final duration pending culture results from PCN tubes
- plan for IR PCN tubes today
- cultures from both tube ordered
- has posada
C diff, improving
- diagnosed 06/29
- continue with oral vancomycin (day# 11)
- will continue oral vancomycin while on doxycycline
Resolved Leukocytoclastic Vasculitis
- most likely to cefepime - added to allergy list
Additional Blanching rash - resolved
- stopped cetirizine and famotidine
Chief Complaint
-: Leukocytosis, C-diff and Other (peritonitis)
Subjective / Review of Systems
remains afebrile
bp stable
without leukocytosis
cr stable
IR procedure pending
complaining of flank pain today - new
Vital Signs / Physical Exam
Vital Signs
Vital Signs
Temp Pulse Resp BP Pulse Ox
98.0 F 77 16 151/74 95
07/11/23 07:00 07/11/23 08:23 07/11/23 07:00 07/11/23 08:23 07/11/23 07:00
Physical Exam
Constitutional: No Acute Distress
Cardiovascular: Regular Rate and S1/S2; Negative Murmur or Rub
Pulmonary: Clear and Symmetric; Negative Wheezes or Rales
Gastrointestinal: Soft, Non Tender, Non Distended and Normal Bowel Sounds
Skin: Warm and Dry; Negative Rash or Jaundice
Objective Data
Lab Data
Lab Results
07/11/23 05:46
07/11/23 05:46
PT 16.5 Sec (11.4-14.6) H 07/11/23 05:46
INR 1.35 07/11/23 05:46
Estimated Creat Clear 28 ml/min 07/11/23 05:46
Lactic Acid Cancelled 06/26/23 22:15
Total Bilirubin 0.8 mg/dl (0.2-1.3) 07/02/23 07:41
AST 30 U/L (17-59) 07/02/23 07:41
ALT 29 U/L (0-50) 07/02/23 07:41
Alkaline Phosphatase 114 U/L (38-126) 07/02/23 07:41
Most recent labs reviewed.
Micro Results:
07/08/23 06:15 Blood Culture - Preliminary
Blood/Venous No Growth in 72 hours- Final report to follow
07/09/23 05:14 Blood Culture - Preliminary
Blood/Venous No Growth in 48 hours- Final report to follow
07/05/23 16:42 Wound Culture - Final
Fistula Klebsiella pneumoniae
Gram Stain - Final
07/05/23 16:42 Anaerobic Culture - Final
Fistula NO ANAEROBES ISOLATED
06/26/23 18:20 Blood Culture - Final
Blood/Venous Klebsiella pneumoniae
Klebsiella pneumoniae#2
Gram Stain - Final
06/26/23 18:20 Blood Culture - Final
Blood/Venous No Growth - Final Report
06/30/23 06:38 Stool Leukocytes - Final
Feces/Stool
06/30/23 06:38 C. difficile GDH Antigen & Toxins - Final
Feces/Stool Toxigenic C.difficile Positive
06/26/23 15:11 Urine Culture - Final
Urine Klebsiella pneumoniae
06/27/23 05:28 MRSA Screen - Final
Nose No Methicillin Resistant Staphylococcus aureus isolated.
06/26/23 15:11 Legionella Urinary Antigen - Final
Urine Negative for Legionella pneumophila Serogroup 1 antigen.
A negative result does not rule out the possiblity of
Legionella infection due to other serogroups or species of
Legionella. Clinical correlation is recommended.
Streptococcus pneumoniae Antigen (M - Final
Negative for Streptococcus pneumoniae antigen.
A negative result does not exclude infection with
Streptococcus pneumoniae. Clinical correlation is
recommended.
07/07/23 CT a/p: Severe left greater than right bilateral hydronephrosis and hydroureter. The left ureter may be obstructed by a recurrent/enlarged fluid collection within the left pelvis measuring 5.2 x 5.7 cm in cross-sectional diameter abutting
the bladder, suspicious for urinoma. Bladder decompressed with Posada catheter in place. Surgical drain terminates within the anterior pelvis within the extraperitoneal space. Small amount of ill-defined fluid and gas seen along the superior and
anterior margins of the bladder.
Care Review
Plan reviewed with: Physician (Dr Nicholson and Dr Wing - n culture)
--- NOTE | 2023-07-11 14:10 | W.PN.HOSP.TC ---
Today's Communication/Plan
-
see bold
Assessment / Plan
Assessment / Plan
HPI: 83-year-old male past medical history of hypertension, chronic indwelling Posada catheter, UTIs, presented from [facility] for generalized weakness. Patient is mediocre historian. He has cough symptoms productive for the past 6 days. He
also complained of intermittent abdominal pain for the past 6 days. He has not had a bowel movement in 6 days. He denies any fevers or chills. No nausea or vomiting. He states he had Posada catheter placed a few months ago but he was not sure about
any further details.
A/P:
# Sepsis POA due to complicated UTI with Klebsiella and Klebsiella bacteremia
# Catheter associated urinary tract infection, potential hemorrhage/perforation cannot be excluded
# Chronic Posada catheter
S/p cefepime, s/p keflex, then Cipro, then Flagyl and doxycycline (for possible infected urinomas), now off metronidazole, continue doxycycline
Posada catheter exchanged on admission, Repeat CT AP 07/03 noted intraperitoneal bladder rupture, defect in L posterolateral urinary bladder
S/p bladder repair 07/04, continue abdominal drain
JERICA drain Cr level was sent, seroequivalent (2.4 vs. 2.2).
Repeat CT AP 07/06 noted Severe left greater than right bilateral hydronephrosis and hydroureter. 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
S/p bilateral PCN placement by IR 07/10
Maintain bilateral PCNs + Posada catheter
Plan for outpatient antegrade nephrostograms + cystogram in ~2 weeks w/ IR
# C Diff diarrhea, from antibiotics
Appreciate ID input, continue p.o. vancomycin D12
# Acute kidney injury
Possibly from infection versus obstructive uropathy
Creatinine 2.2 today, stable; was at 3.7 upon admission; Baseline creatinine 0.9 in 2016
S/p IV fluids. Posada is draining
Repeat CT AP 07/06 noted Severe left greater than right bilateral hydronephrosis and hydroureter. 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
S/p bilateral PCN placement by IR 07/10
#Acute blood loss anemia from surgery superimposed on anemia of chronic disease
Monitor hemoglobin
# Small bowel ileus
# History of constipation
He had no bowel movements for 6 days prior to admission
Will need to be discharged on laxatives once his C diff diarrhea resolves due to history of constipation
07/10 KUB shows resolving ileus
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
Purpura of nose and fingers, with diffuse macular papular rash
Appreciate ID, likely from drug reaction w/ cefepime, not added to allergy list
rash has markedly improved
# Hypernatremia
Resolved on D5W
# Hypokalemia
Repleted and resolved
# Chronic anemia due to anemia of chronic disease
Iron studies reviewed. Ferritin 284, B12/folic acid normal
# Developing pneumonia right lower lung jolley
Patient is not short of breath, he is not coughing, he is not hypoxic
Monitor clinically
#Poor oral intake
Vanilla Ensure ordered twice a day, nurse reports patient is drinking
# Transaminitis
Resolved, resumed statin
# Stage 1 sacrum pressure injury, POA
Wound care, turn every 2 hours
# History of orthostasis
Continue midodrine with hold parameters
DVT prophylaxis�subcu heparin
Full code
Dispo: PT recc SNF
Physical Exam
General: Appears chronically debilitated, no acute distress
HEENT: Normocephalic, Atraumatic, EOMI, MMM
Respiratory: Clear to Auscultation bilaterally
Cardiac: Normal S1/S2, Regular Rate and Rhythm
GI: Soft, distended, tympanic, appropriate yair-incisional tenderness, jamie intact, incisions clean/dry/intact, drain in place
: +posada
Extremities: No Clubbing, Cyanosis, or Edema
Derm:
Resolved purpura of nose and fingers
Resolved maculopapular rash on groin extending up to lower back and abdomen
Anticipated Discharge: 24 - 48 hours
Subjective/Interval History
-
Date of Service: July 11, 2023
Patient having small amounts of loose stool. No fever, no vomiting.
Objective Data
-
Labs:
Laboratory Results
07/11/23
05:46
WBC 8.0
Hgb 8.4 L
Hct 26.3 L
Plt Count 354
PT 16.5 H
INR 1.35
Sodium 138
Potassium 4.1
Chloride 111 H
Carbon Dioxide 24
BUN 34 H
Creatinine 2.2 H
Glucose 111 H
Calcium 8.4
Vital Signs:
Vital Signs
Temp Pulse Resp BP Pulse Ox
98.0 F 77 16 151/74 95
07/11/23 07:00 07/11/23 08:23 07/11/23 07:00 07/11/23 08:23 07/11/23 07:00
I&O
07/10/23 07/11/23 07/12/23
06:59 06:59 06:59
Intake Total 1460 / 1460
Output Total 2019 1765 / 176
Balance -560 / -560 -1765 / -1765
[2023-07-11 15:19] VITALS: BP 147/77; BP_SYST 76
[2023-07-11] MEDS: DESITIN MAXIMUM STRENGTH PASTE TOPICAL (16:42)
[2023-07-11 17:00] VITALS: BP 142/77
[2023-07-11 17:28] VITALS: BP 153/74
--- NOTE | 2023-07-11 17:31 | PTCARENOTE ---
Pt returned from IR via stretcher and transfered to bed with assist of three staff. Left and right PC drain with dressing clean dry and intact Blood drainage drained from left PC tube. Right without any drainage at this time. Pt vss. Personal
items within reach. Bed in lowest position with call light in reach. All needs met.
[2023-07-11] MEDS: LIPITOR 10 MG PO (17:35)
[2023-07-11 23:00] VITALS: BP 115/63
[2023-07-12] VITALS (7 sets, daily range): BP systolic 85–138; BP diastolic 64–99; PULSE 90
--- NOTE | 2023-07-12 00:02 | PTCARENOTE ---
pt has b/l PCN placed 07/10 in IR. L draining blood tinged urine, R not draining. clots present in tubing with no drainage in PCN bag. Dr Wing notified of situation- converter operator IR , no new orders, dr stated he will be in tomorrow to see pt. pt has
no complaints of pain. call sol within reach.
[2023-07-12 05:50] LABS: Hematocrit 26.6 % (39.0-52.0); Hemoglobin 8.5 g/dL (13.0-18.0); Mean Corpuscular Hgb 28.1 pg (27.0-31.0); Mean Corpuscular Volume 87.8 fL (80.0-94.0); Mean Platelet Volume 9.4 fL (7.4-10.4); Platelet Count 331 10^3/uL (130-400); Red Blood Cell Count 3.03 10^6/uL (4.70-6.10); White Blood Cell Count 7.1 10^3/uL (4.8-10.8)
[2023-07-12 06:02] LABS: Blood Urea Nitrogen 29 mg/dl (9-20); Calcium 8.4 mg/dl (8.4-10.2); Carbon Dioxide 25 mmol/L (22-30); Chloride 111 mmol/L (98-107); Estimated Creatinine Clearance 31 ml/min; Glucose 98 mg/dl (70-99); Magnesium 1.7 mg/dl (1.6-2.3); Phosphorus 4.4 mg/dl (2.5-4.5); Potassium 4.1 mmol/L (3.5-5.1); Sodium 138 mmol/L (135-145); eGFR 32.51
[2023-07-12] MEDS: FIRVANQ 125 MG PO ×2 (06:07→11:43)
[2023-07-12] MEDS: VITAMIN B1 100 MG PO (07:55)
[2023-07-12] MEDS: FOLVITE 1 MG PO (07:56)
[2023-07-12] MEDS: ProAmatine 2.5 MG PO ×2 (07:56→17:44)
[2023-07-12] MEDS: VIBRAMYCIN 100 MG PO (07:57)
[2023-07-12] MEDS: MYLICON 80 MG PO ×4 (07:57→21:03)
[2023-07-12] MEDS: FLOMAX 0.400000000000000022 MG PO (07:57)
[2023-07-12] MEDS: DESITIN MAXIMUM STRENGTH PASTE 1 APPLIC TOPICAL ×3 (08:00→21:01)
[2023-07-12] MEDS: DESENEX/MITRAZOL/ZEASORB 1 APPLIC TOPICAL ×2 (08:01→21:00)
--- NOTE | 2023-07-12 08:08 | W.PN.UPDATE ---
Addendum entered and electronically signed by Boaz Jarquin MD 07/12/23 12:53:
Scant drain output per JERICA drain 48-72 hrs.
UCx left PCN =>NG
UCx right PCN => pending
Wound (intraop) Cx => Klebsiella
Will plan for potential JERICA drain removal prior to discharge to rehab
Maintain bilateral PCNs + Torres catheter
Plan for outpatient antegrade nephrostograms + cystogram in ~2 weeks w/ IR
D/w patient.
D/w patient's son via telephone (Noble Dalal).
Original Note:
Update Note
Progress Note Update
07/10: s/p bilateral PCN placement by IR
Of note - antegrade nephrostograms demonstrates hydroureteronephrosis down to bladder.
There is minimal contrast entering the bladder WITHOUT evidence of extraureteral/extravesical contrast.
Cr responsive to 2.0 (from 2.2 pre-PCN)
Plan:
- Maintain all drains
- Maintain bilateral PCNs to drainage
- Trend Cr
Will update son (Noble) today on plan.
--- NOTE | 2023-07-12 12:20 | CM ---
Reviewed chart, spoke with Beatriz in admissions at [facility] who confirmed bed availability for patient upon medical clearance.
Plan: Case management will continue to follow and assist with discharge planning. [facility] when patient is medically stable.
--- NOTE | 2023-07-12 12:20 | PTOTSP ---
Speech Therapy Swallowing Assessment
Oral/pharyngeal swallow deemed within functional limits without overt signs of aspiration. Mastication efforts successful though with increased processing time due to near-edentulous status. Patient reports preferance for soft foods.
Recommend
1. IDDSI Level 6 (soft/bite-sized) and Thin Liquids
2. Upright with intake
3. If patient has difficulty managing solids can further downgrade to IDDSI Level 5 (minced/moist) but this significantly restricts choices.
ST will follow briefly to ensure diet tolerance, and/or need for further modifications, or patient/family education.
--- NOTE | 2023-07-12 14:34 | W.PN.ID1 ---
Date of Service
Date of Service: July 12, 2023
Today's Communication
stop doxycycline and oral vancomycin
follow clinically
Assessment / Plan
Purulent Peritonitis - source: bladder rupture, s/p repair 07/04
UTI/Bacteremia due to Klebsiella
Bladder Perforation
repair 07/04: OR findings notable for purulence, s/p washout
- 07/10 urine cultures x2: no growth
- 07/04: cultures k pneumoniae from broth only
- stop doxycycline and follow clinically
- posada per urology
C diff, resolved
- diagnosed 06/29
- has completed adequate course of oral vancomycin - stopped
Chief Complaint
-: Leukocytosis, C-diff and Other (peritonitis)
Subjective / Review of Systems
afebrile
bp stable
without leukocytosis
cr small improvement
crcl now 31
urine culture x2 no growth
no complaints
Vital Signs / Physical Exam
Vital Signs
Vital Signs
Temp Pulse Resp BP Pulse Ox
98.2 F 91 20 138/99 99
07/12/23 14:02 07/12/23 14:33 07/12/23 14:33 07/12/23 14:33 07/12/23 14:02
Physical Exam
Constitutional: No Acute Distress
Cardiovascular: Regular Rate and S1/S2; Negative Murmur or Rub
Pulmonary: Clear and Symmetric; Negative Wheezes or Rales
Gastrointestinal: Soft, Non Tender, Non Distended and Normal Bowel Sounds
Skin: Warm and Dry; Negative Rash or Jaundice
Wound: Other (surgical sites clean, dry, no erythema, warth or drainage)
Objective Data
Lab Data
Lab Results
07/12/23 05:25
07/12/23 05:25
PT 16.5 Sec (11.4-14.6) H 07/11/23 05:46
INR 1.35 07/11/23 05:46
Estimated Creat Clear 31 ml/min 07/12/23 05:25
Lactic Acid Cancelled 06/26/23 22:15
Total Bilirubin 0.8 mg/dl (0.2-1.3) 07/02/23 07:41
AST 30 U/L (17-59) 07/02/23 07:41
ALT 29 U/L (0-50) 07/02/23 07:41
Alkaline Phosphatase 114 U/L (38-126) 07/02/23 07:41
Most recent labs reviewed.
Micro Results:
07/11/23 16:39 Urine Culture - Preliminary
Urine NO GROWTH
07/11/23 16:26 Urine Culture - Preliminary
Urine NO GROWTH
07/08/23 06:15 Blood Culture - Preliminary
Blood/Venous No Growth in 4 days- Final report to follow
07/09/23 05:14 Blood Culture - Preliminary
Blood/Venous No Growth in 72 hours- Final report to follow
07/05/23 16:42 Wound Culture - Final
Fistula Klebsiella pneumoniae
Gram Stain - Final
07/05/23 16:42 Anaerobic Culture - Final
Fistula NO ANAEROBES ISOLATED
06/26/23 18:20 Blood Culture - Final
Blood/Venous Klebsiella pneumoniae
Klebsiella pneumoniae#2
Gram Stain - Final
06/26/23 18:20 Blood Culture - Final
Blood/Venous No Growth - Final Report
06/30/23 06:38 Stool Leukocytes - Final
Feces/Stool
06/30/23 06:38 C. difficile GDH Antigen & Toxins - Final
Feces/Stool Toxigenic C.difficile Positive
06/26/23 15:11 Urine Culture - Final
Urine Klebsiella pneumoniae
06/27/23 05:28 MRSA Screen - Final
Nose No Methicillin Resistant Staphylococcus aureus isolated.
06/26/23 15:11 Legionella Urinary Antigen - Final
Urine Negative for Legionella pneumophila Serogroup 1 antigen.
A negative result does not rule out the possiblity of
Legionella infection due to other serogroups or species of
Legionella. Clinical correlation is recommended.
Streptococcus pneumoniae Antigen (M - Final
Negative for Streptococcus pneumoniae antigen.
A negative result does not exclude infection with
Streptococcus pneumoniae. Clinical correlation is
recommended.
07/07/23 CT a/p: Severe left greater than right bilateral hydronephrosis and hydroureter. The left ureter may be obstructed by a recurrent/enlarged fluid collection within the left pelvis measuring 5.2 x 5.7 cm in cross-sectional diameter abutting
the bladder, suspicious for urinoma. Bladder decompressed with Posada catheter in place. Surgical drain terminates within the anterior pelvis within the extraperitoneal space. Small amount of ill-defined fluid and gas seen along the superior and
anterior margins of the bladder.
Care Review
Plan reviewed with: Nurse (abx)
--- NOTE | 2023-07-12 15:54 | W.PN.HOSP.TC ---
Today's Communication/Plan
-
Hopeful for discharge to short-term rehab on Monday if cleared by urology and ID
Assessment / Plan
Assessment / Plan
HPI: 83-year-old male past medical history of hypertension, chronic indwelling Posada catheter, UTIs, presented from [facility] for generalized weakness. Patient is mediocre historian. He has cough symptoms productive for the past 6 days. He
also complained of intermittent abdominal pain for the past 6 days. He has not had a bowel movement in 6 days. He denies any fevers or chills. No nausea or vomiting. He states he had Posada catheter placed a few months ago but he was not sure about
any further details.
A/P:
# Sepsis POA due to complicated UTI with Klebsiella and Klebsiella bacteremia
# Catheter associated urinary tract infection, potential hemorrhage/perforation cannot be excluded
# Chronic Posada catheter
S/p cefepime, s/p keflex, then Cipro, then Flagyl and doxycycline (for possible infected urinomas), now off metronidazole, continue doxycycline
Posada catheter exchanged on admission, Repeat CT AP 07/03 noted intraperitoneal bladder rupture, defect in L posterolateral urinary bladder
S/p bladder repair 07/04, continue abdominal drain
EJRICA drain Cr level was sent, seroequivalent (2.4 vs. 2.2).
Repeat CT AP 07/06 noted Severe left greater than right bilateral hydronephrosis and hydroureter. 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
S/p bilateral PCN placement by IR 07/10
Maintain bilateral PCNs + Posada catheter
Plan for outpatient antegrade nephrostograms + cystogram in ~2 weeks w/ IR
# C Diff diarrhea, from antibiotics
Appreciate ID input, continue p.o. vancomycin D12
# Acute kidney injury
Possibly from infection versus obstructive uropathy
Creatinine 2.2 today, stable; was at 3.7 upon admission; Baseline creatinine 0.9 in 2015
S/p IV fluids. Posada is draining
Repeat CT AP 07/06 noted Severe left greater than right bilateral hydronephrosis and hydroureter. 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
S/p bilateral PCN placement by IR 07/10
#Acute blood loss anemia from surgery superimposed on anemia of chronic disease
Monitor hemoglobin
# Small bowel ileus
# History of constipation
He had no bowel movements for 6 days prior to admission
Will need to be discharged on laxatives once his C diff diarrhea resolves due to history of constipation
07/10 KUB shows resolving ileus
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
Purpura of nose and fingers, with diffuse macular papular rash
Appreciate ID, likely from drug reaction w/ cefepime, not added to allergy list
rash has markedly improved
# Hypernatremia
Resolved on D5W
# Hypokalemia
Repleted and resolved
# Chronic anemia due to anemia of chronic disease
Iron studies reviewed. Ferritin 284, B12/folic acid normal
# Developing pneumonia right lower lung jolley
Patient is not short of breath, he is not coughing, he is not hypoxic
Monitor clinically
#Poor oral intake
Vanilla Ensure ordered twice a day, nurse reports patient is drinking
# Transaminitis
Resolved, resumed statin
# Stage 1 sacrum pressure injury, POA
Wound care, turn every 2 hours
# History of orthostasis
Continue midodrine with hold parameters
DVT prophylaxis�subcu heparin
Full code
Dispo: PT recc SNF
Updated son on phone 07/11
Physical Exam
General: Appears chronically debilitated, no acute distress
HEENT: Normocephalic, Atraumatic, EOMI, MMM
Respiratory: Clear to Auscultation bilaterally
Cardiac: Normal S1/S2, Regular Rate and Rhythm
GI: Soft, distended, tympanic, appropriate yair-incisional tenderness, jamie intact, incisions clean/dry/intact, drain in place
: +posada
Extremities: No Clubbing, Cyanosis, or Edema
Derm:
Resolved purpura of nose and fingers
Resolved maculopapular rash on groin extending up to lower back and abdomen
Anticipated Discharge: 24 - 48 hours
Subjective/Interval History
-
Date of Service: July 12, 2023
Patient having small amounts of loose stool. No fever, no vomiting.
Objective Data
-
Labs:
Laboratory Results
07/12/23
05:25
WBC 7.1
Hgb 8.5 L
Hct 26.6 L
Plt Count 331
Sodium 138
Potassium 4.1
Chloride 111 H
Carbon Dioxide 25
BUN 29 H
Creatinine 2.0 H
Glucose 98
Calcium 8.4
Vital Signs:
Vital Signs
Temp Pulse Resp BP Pulse Ox
98.2 F 91 20 138/99 99
07/12/23 14:02 07/12/23 14:33 07/12/23 14:33 07/12/23 14:33 07/12/23 14:02
I&O
07/11/23 07/12/23 07/13/23
06:59 06:59 06:59
Output Total 1765 / 1765 705 / 705
Balance -1765 / -1765 -705 / -705
[2023-07-12] MEDS: LIPITOR 10 MG PO (17:41)
[2023-07-13 06:48] LABS: Hematocrit 26.3 % (39.0-52.0); Hemoglobin 8.6 g/dL (13.0-18.0); Mean Corp Hgb Conc. 32.7 g/dL (33.0-37.0); Mean Corpuscular Hgb 28.6 pg (27.0-31.0); Mean Corpuscular Volume 87.4 fL (80.0-94.0); Mean Platelet Volume 9.4 fL (7.4-10.4); Platelet Count 319 10^3/uL (130-400); Red Blood Cell Count 3.01 10^6/uL (4.70-6.10); Red Cell Dist. Width 14.7 % (11.5-14.5); White Blood Cell Count 6.5 10^3/uL (4.8-10.8)
[2023-07-13 07:16] LABS: Blood Urea Nitrogen 29 mg/dl (9-20); Calcium 8.6 mg/dl (8.4-10.2); Carbon Dioxide 27 mmol/L (22-30); Chloride 110 mmol/L (98-107); Estimated Creatinine Clearance 34 ml/min; Glucose 105 mg/dl (70-99); Magnesium 1.7 mg/dl (1.6-2.3); Phosphorus 3.9 mg/dl (2.5-4.5); Potassium 4.1 mmol/L (3.5-5.1); Sodium 139 mmol/L (135-145); eGFR 36.89
[2023-07-13 07:33] VITALS: BP 140/76
[2023-07-13] MEDS: FLOMAX 0.400000000000000022 MG PO (07:56)
[2023-07-13] MEDS: FOLVITE 1 MG PO (07:56)
[2023-07-13] MEDS: VITAMIN B1 100 MG PO (07:56)
[2023-07-13] MEDS: MYLICON 80 MG PO ×4 (07:56→21:00)
[2023-07-13] MEDS: ProAmatine PO (07:57)
[2023-07-13] MEDS: DESENEX/MITRAZOL/ZEASORB 1 APPLIC TOPICAL ×2 (08:00→20:56)
[2023-07-13] MEDS: DESITIN MAXIMUM STRENGTH PASTE 1 APPLIC TOPICAL ×3 (08:00→20:57)
--- NOTE | 2023-07-13 08:59 | W.PN.HOSP.TC ---
Today's Communication/Plan
-
Plan for discharge to short-term rehab tomorrow
Assessment / Plan
Assessment / Plan
HPI: 83-year-old male past medical history of hypertension, chronic indwelling Posada catheter, UTIs, presented from [facility] for generalized weakness. Patient is mediocre historian. He has cough symptoms productive for the past 6 days. He
also complained of intermittent abdominal pain for the past 6 days. He has not had a bowel movement in 6 days. He denies any fevers or chills. No nausea or vomiting. He states he had Posada catheter placed a few months ago but he was not sure about
any further details.
A/P:
# Sepsis POA due to complicated UTI with Klebsiella and Klebsiella bacteremia
# Catheter associated urinary tract infection, potential hemorrhage/perforation cannot be excluded
# Chronic Posada catheter
S/p cefepime, s/p keflex, then Cipro, then Flagyl and doxycycline (for possible infected urinomas), now off metronidazole, status post course of doxycycline
Posada catheter exchanged on admission, Repeat CT AP 07/03 noted intraperitoneal bladder rupture, defect in L posterolateral urinary bladder
S/p bladder repair 07/04, continue abdominal drain
JERICA drain Cr level was sent, seroequivalent (2.4 vs. 2.2).
Repeat CT AP 07/06 noted Severe left greater than right bilateral hydronephrosis and hydroureter. 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
S/p bilateral PCN placement by IR 07/10
Maintain bilateral PCNs + Posada catheter
Plan for outpatient antegrade nephrostograms + cystogram in ~2 weeks w/ IR
Plan for discharge to short-term rehab tomorrow
# C Diff diarrhea, from antibiotics
Appreciate ID input, status post full course of oral vancomycin
# Acute kidney injury
Possibly from infection versus obstructive uropathy
Creatinine 1.8 today, was 2.0, 2.2 today, stable; was at 3.7 upon admission; Baseline creatinine 0.9 in 2016
S/p IV fluids. Posada is draining
Repeat CT AP 07/06 noted Severe left greater than right bilateral hydronephrosis and hydroureter. 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
S/p bilateral PCN placement by IR 07/10
#Acute blood loss anemia from surgery superimposed on anemia of chronic disease
Monitor hemoglobin
# Small bowel ileus
# History of constipation
He had no bowel movements for 6 days prior to admission
Will need to be discharged on laxatives once his C diff diarrhea resolves due to history of constipation
07/10 KUB shows resolving ileus
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
Purpura of nose and fingers, with diffuse macular papular rash
Appreciate ID, likely from drug reaction w/ cefepime, not added to allergy list
rash has markedly improved
# Hypernatremia
Resolved on D5W
# Hypokalemia
Repleted and resolved
# Chronic anemia due to anemia of chronic disease
Iron studies reviewed. Ferritin 284, B12/folic acid normal
# Developing pneumonia right lower lung jolley
Patient is not short of breath, he is not coughing, he is not hypoxic
Monitor clinically
#Poor oral intake
Vanilla Ensure ordered twice a day, nurse reports patient is drinking
# Transaminitis
Resolved, resumed statin
# Stage 1 sacrum pressure injury, POA
Wound care, turn every 2 hours
# History of orthostasis
Continue midodrine with hold parameters
DVT prophylaxis�subcu heparin
Full code
Dispo: PT recc SNF
Updated son on phone 07/11
Total time spent to see the patient on the floor, examine the patient, review data and lab results, discuss treatment plan with patient, nursing staff around 35 minutes.
Physical Exam
General: Appears chronically debilitated, no acute distress
HEENT: Normocephalic, Atraumatic, EOMI, MMM
Respiratory: Clear to Auscultation bilaterally
Cardiac: Normal S1/S2, Regular Rate and Rhythm
GI: Soft, distended, tympanic, appropriate yair-incisional tenderness, jamie intact, incisions clean/dry/intact, drain in place
: +posada
Extremities: No Clubbing, Cyanosis, or Edema
Derm:
Resolved purpura of nose and fingers
Resolved maculopapular rash on groin extending up to lower back and abdomen
Anticipated Discharge: Within 24 hours
Subjective/Interval History
-
Date of Service: July 13, 2023
Patient having small liquid bowel movements. No fever, no vomiting.
Objective Data
-
Labs:
Laboratory Results
07/13/23
06:22
WBC 6.5
Hgb 8.6 L
Hct 26.3 L
Plt Count 319
Sodium 139
Potassium 4.1
Chloride 110 H
Carbon Dioxide 27
BUN 29 H
Creatinine 1.8 H
Glucose 105 H
Calcium 8.6
Vital Signs:
Vital Signs
Temp Pulse Resp BP Pulse Ox
97.6 F 73 17 140/76 98
07/13/23 07:33 07/13/23 07:57 07/13/23 07:33 07/13/23 07:57 07/13/23 07:33
I&O
07/12/23 07/13/23 07/14/23
06:59 06:59 06:59
Intake Total 240 / 240
Output Total 705 / 705 5 / 216
Balance -705 / -705 -5 / -1924
--- NOTE | 2023-07-13 13:50 | W.PN.ID1 ---
Date of Service
Date of Service: July 13, 2023
Today's Communication
stable for dc from ID perspective
ID service will no longer actively follow this patient please recall for further questions
Assessment / Plan
Purulent Peritonitis - source: bladder rupture, s/p repair 07/04 - resolved
UTI/Bacteremia due to Klebsiella - resolved
Bladder Perforation
repair 07/04: OR findings notable for purulence, s/p washout
- 07/10 urine cultures x2: no growth
- 07/04: cultures k pneumoniae from broth only
- remains well off of antibiotics
- posada per urology
- follow up with PCP
C diff, resolved
- diagnosed 06/29
- has completed adequate course of oral vancomycin - stopped
ID service will no longer actively follow this patient please recall for further questions
Chief Complaint
-: Other (peritonitis)
Subjective / Review of Systems
afebrile
bp stable
without leukocytosis
cr further improved
urine cultures now finalized no growth
Vital Signs / Physical Exam
Vital Signs
Vital Signs
Temp Pulse Resp BP Pulse Ox
97.6 F 73 17 140/76 98
07/13/23 07:33 07/13/23 07:57 07/13/23 07:33 07/13/23 07:57 07/13/23 07:33
Physical Exam
Constitutional: No Acute Distress
Cardiovascular: Regular Rate and S1/S2; Negative Murmur or Rub
Pulmonary: Clear and Symmetric; Negative Wheezes or Rales
Gastrointestinal: Soft, Non Tender, Non Distended and Normal Bowel Sounds
Genito-Urinary: Negative Suprapubic Tenderness
Skin: Warm and Dry; Negative Rash or Jaundice
Wound: Other (surgical sites clean, no erythema, no warmth, no drainage )
Objective Data
Lab Data
Lab Results
07/13/23 06:22
07/13/23 06:22
PT 16.5 Sec (11.4-14.6) H 07/11/23 05:46
INR 1.35 07/11/23 05:46
Estimated Creat Clear 34 ml/min 07/13/23 06:22
Lactic Acid Cancelled 06/26/23 22:15
Total Bilirubin 0.8 mg/dl (0.2-1.3) 07/02/23 07:41
AST 30 U/L (17-59) 07/02/23 07:41
ALT 29 U/L (0-50) 07/02/23 07:41
Alkaline Phosphatase 114 U/L (38-126) 07/02/23 07:41
Most recent labs reviewed.
Micro Results:
07/11/23 16:39 Urine Culture - Final
Urine NO GROWTH
07/11/23 16:26 Urine Culture - Final
Urine NO GROWTH
07/08/23 06:15 Blood Culture - Final
Blood/Venous No Growth - Final Report
07/09/23 05:14 Blood Culture - Preliminary
Blood/Venous No Growth in 4 days- Final report to follow
07/05/23 16:42 Wound Culture - Final
Fistula Klebsiella pneumoniae
Gram Stain - Final
07/05/23 16:42 Anaerobic Culture - Final
Fistula NO ANAEROBES ISOLATED
06/26/23 18:20 Blood Culture - Final
Blood/Venous Klebsiella pneumoniae
Klebsiella pneumoniae#2
Gram Stain - Final
06/26/23 18:20 Blood Culture - Final
Blood/Venous No Growth - Final Report
06/30/23 06:38 Stool Leukocytes - Final
Feces/Stool
06/30/23 06:38 C. difficile GDH Antigen & Toxins - Final
Feces/Stool Toxigenic C.difficile Positive
06/26/23 15:11 Urine Culture - Final
Urine Klebsiella pneumoniae
06/27/23 05:28 MRSA Screen - Final
Nose No Methicillin Resistant Staphylococcus aureus isolated.
06/26/23 15:11 Legionella Urinary Antigen - Final
Urine Negative for Legionella pneumophila Serogroup 1 antigen.
A negative result does not rule out the possiblity of
Legionella infection due to other serogroups or species of
Legionella. Clinical correlation is recommended.
Streptococcus pneumoniae Antigen (M - Final
Negative for Streptococcus pneumoniae antigen.
A negative result does not exclude infection with
Streptococcus pneumoniae. Clinical correlation is
recommended.
07/07/23 CT a/p: Severe left greater than right bilateral hydronephrosis and hydroureter. The left ureter may be obstructed by a recurrent/enlarged fluid collection within the left pelvis measuring 5.2 x 5.7 cm in cross-sectional diameter abutting
the bladder, suspicious for urinoma. Bladder decompressed with Posada catheter in place. Surgical drain terminates within the anterior pelvis within the extraperitoneal space. Small amount of ill-defined fluid and gas seen along the superior and
anterior margins of the bladder.
[2023-07-13 15:09] VITALS: BP 121/61
[2023-07-13 15:48] VITALS: BP 103/68; PULSE 82
[2023-07-13] MEDS: ProAmatine 2.5 MG PO (17:22)
[2023-07-13] MEDS: LIPITOR 10 MG PO (17:22)
[2023-07-13 23:34] VITALS: BP 117/62
[2023-07-14 06:51] LABS: Hemoglobin 8.6 g/dL (13.0-18.0); Mean Corp Hgb Conc. 31.9 g/dL (33.0-37.0); Mean Corpuscular Hgb 28.2 pg (27.0-31.0); Mean Corpuscular Volume 88.5 fL (80.0-94.0); Mean Platelet Volume 9.6 fL (7.4-10.4); Platelet Count 318 10^3/uL (130-400); Red Blood Cell Count 3.05 10^6/uL (4.70-6.10); Red Cell Dist. Width 14.7 % (11.5-14.5); White Blood Cell Count 6.3 10^3/uL (4.8-10.8)
[2023-07-14] MEDS: MYLICON 80 MG PO ×2 (07:15→13:20)
[2023-07-14] MEDS: VITAMIN B1 100 MG PO (07:15)
[2023-07-14] MEDS: ProAmatine 2.5 MG PO (07:15)
[2023-07-14] MEDS: FOLVITE 1 MG PO (07:15)
[2023-07-14] MEDS: FLOMAX 0.400000000000000022 MG PO (07:15)
[2023-07-14] MEDS: DESITIN MAXIMUM STRENGTH PASTE 1 APPLIC TOPICAL ×2 (07:20→15:59)
[2023-07-14] MEDS: DESENEX/MITRAZOL/ZEASORB 1 APPLIC TOPICAL (07:20)
[2023-07-14 07:23] LABS: Blood Urea Nitrogen 26 mg/dl (9-20); Calcium 8.9 mg/dl (8.4-10.2); Carbon Dioxide 27 mmol/L (22-30); Chloride 106 mmol/L (98-107); Estimated Creatinine Clearance 36 ml/min; Glucose 111 mg/dl (70-99); Magnesium 1.7 mg/dl (1.6-2.3); Phosphorus 4.1 mg/dl (2.5-4.5); Potassium 4.1 mmol/L (3.5-5.1); Sodium 138 mmol/L (135-145); eGFR 39.51
[2023-07-14 07:30] VITALS: BP 114/59
--- NOTE | 2023-07-14 07:40 | W.PN.URO.CBU ---
Today's Communication / Plan
-
JERICA drain removed at bedside this AM
Surgical jamie removed at bedside this AM
Maintain bilateral PCNs w/ daily flushing (10 cc NS) @rehab
Maintain Torres catheter to drainage
Will coordinate outpatient antegrade nephrostograms and cystogram by IR in 2-3 weeks
F/U with Dr. Jarquin in 3 weeks
Assessment / Plan
-
Intraperitoneal bladder perforation
Left posterior bladder wall diverticulum
BPH w/ obstructing median lobe
Klebsiella cUTI
Klebsiella bacteremia
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
NABEEL on CKD
07/04: s/p robotic SEN, closure of bladder tic, median lobectomy
07/10: s/p bilateral PCN placement by IR
CT scan 07/06 showed persistent bladder tic - did not appear to be communicating with bladder
bilateral hydro progressed w/ worsening NABEEL
Renal function improving w/ bilateral PCN placement
Diagnosis
-
Date of Service: July 14, 2023
-
Patient Diagnosis:
Intraperitoneal bladder perforation
Left posterior bladder wall diverticulum
BPH w/ obstructing median lobe
Klebsiella cUTI
Klebsiella bacteremia
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
NABEEL on CKD
07/04: s/p robotic SEN, closure of bladder tic, median lobectomy
07/10: s/p bilateral PCN placement by IR
Subjective
-
No complaints of significant pain.
Tolerating diet.
+flatus/BMs.
Afebrile.
Objective
-
Vital Signs
Temp Pulse Resp BP Pulse Ox
98.1 F 75 16 114/59 98
07/14/23 07:30 07/14/23 07:30 07/14/23 07:30 07/14/23 07:30 07/14/23 07:30
Intake and Output
07/13/23 07/14/23 07/15/23
06:59 06:59 06:59
Intake Total 240 / 240 440 / 440
Output Total 2165 / 2165 1630 / 1630
Balance -1925 / -1925 -1190 / -1190
Intake:
Oral fluids 240 / 240 440 / 440
Output:
Drain Output (Total)
Right John-Marroquin
Urinary Drain Output (Total) 1400 / 1400 1125 / 1125
Left Nephrostomy A 950 / 950 525 / 525
Right Nephrostomy B 450 / 450 600 / 600
Urine, Torres 750 / 750 500 / 500
Laboratory Results
07/14/23 06:14
07/14/23 06:14
Physical Exam
-
General - well developed, well nourished, no acute distress
Abdomen - soft, non-tender, no incisional pain or distention, bilateral PCNs w/ clear UOP
Genitalia - normal, Torres catheter w/ clear UOP
Skin - warm & dry with no rash
Neuro - AOx3, no motor deficits
Extremities - no clubbing, no cyanosis, no edema
Care Review
Data Reviewed
Discussed with: Hospitalist and Nursing
CT Scan: Report Pers Reviewed and Image Pers Reviewed
--- NOTE | 2023-07-14 08:24 | W.PN.HOSP.TC ---
Today's Communication/Plan
-
Discharge today
Assessment / Plan
Assessment / Plan
HPI: 83-year-old male past medical history of hypertension, chronic indwelling Posada catheter, UTIs, presented from [facility] for generalized weakness. Patient is mediocre historian. He has cough symptoms productive for the past 6 days. He
also complained of intermittent abdominal pain for the past 6 days. He has not had a bowel movement in 6 days. He denies any fevers or chills. No nausea or vomiting. He states he had Posada catheter placed a few months ago but he was not sure about
any further details.
A/P:
# Sepsis POA due to complicated UTI with Klebsiella and Klebsiella bacteremia
# Catheter associated urinary tract infection, potential hemorrhage/perforation cannot be excluded
# Chronic Posada catheter
S/p cefepime, s/p keflex, then Cipro, then Flagyl and doxycycline (for possible infected urinomas), now off metronidazole, status post course of doxycycline
Posada catheter exchanged on admission, Repeat CT AP 07/03 noted intraperitoneal bladder rupture, defect in L posterolateral urinary bladder
S/p bladder repair 07/04, continue abdominal drain
JERICA drain Cr level was sent, seroequivalent (2.4 vs. 2.2).
Repeat CT AP 07/06 noted Severe left greater than right bilateral hydronephrosis and hydroureter. 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
S/p bilateral PCN placement by IR 07/10
Maintain bilateral PCNs + Posada catheter
Plan for outpatient antegrade nephrostograms + cystogram in ~2 weeks w/ IR
JERICA drain removed 07/13, medically stable and cleared by urology and ID for discharge to nursing facility today
# C Diff diarrhea, from antibiotics
Appreciate ID input, status post full course of oral vancomycin
# Acute kidney injury
Possibly from infection versus obstructive uropathy
Creatinine 1.7 today, was 1.8, was 2.0, 2.2 today, stable; was at 3.7 upon admission; Baseline creatinine 0.9 in 2016
S/p IV fluids. Posada is draining
Repeat CT AP 07/06 noted Severe left greater than right bilateral hydronephrosis and hydroureter. 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
S/p bilateral PCN placement by IR 07/10
#Acute blood loss anemia from surgery superimposed on anemia of chronic disease
Monitor hemoglobin
# Small bowel ileus
# History of constipation
He had no bowel movements for 6 days prior to admission
Will need to be discharged on laxatives once his C diff diarrhea resolves due to history of constipation
07/10 KUB shows resolving ileus
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
Purpura of nose and fingers, with diffuse macular papular rash
Appreciate ID, likely from drug reaction w/ cefepime, was added to patient's allergy list
rash has markedly improved
# Hypernatremia
Resolved on D5W
# Hypokalemia
Repleted and resolved
# Chronic anemia due to anemia of chronic disease
Iron studies reviewed. Ferritin 284, B12/folic acid normal
# Developing pneumonia right lower lung jolley
Patient is not short of breath, he is not coughing, he is not hypoxic
Monitor clinically
#Poor oral intake
#Poor dentition
SPL recommends soft and bite sized diet �continue upon discharge
Vanilla Ensure ordered twice a day, nurse reports patient is drinking -continue upon discharge
# Transaminitis
Resolved, resumed statin
# Stage 1 sacrum pressure injury, POA
Wound care, turn every 2 hours
# History of orthostasis
Continue midodrine with hold parameters
DVT prophylaxis�subcu heparin
Full code
Dispo: PT recc SNF
Updated son on phone 07/11
Total time spent to see the patient on the floor, examine the patient, review data and lab results, discuss treatment plan with patient, nursing staff around 50 minutes.
Physical Exam
General: Appears chronically debilitated, no acute distress
HEENT: Normocephalic, Atraumatic, EOMI, MMM
Respiratory: Clear to Auscultation bilaterally
Cardiac: Normal S1/S2, Regular Rate and Rhythm
GI: Soft, distended, tympanic, appropriate yair-incisional tenderness, jamie intact, incisions clean/dry/intact, drain in place
: +posada
Extremities: No Clubbing, Cyanosis, or Edema
Derm:
Resolved purpura of nose and fingers
Resolved maculopapular rash on groin extending up to lower back and abdomen
Anticipated Discharge: Today
Subjective/Interval History
-
Date of Service: July 14, 2023
Patient reports that his abdominal pain is tolerable. He is tolerating his diet. No chest pain, no shortness of breath. No fever, no vomiting.
Objective Data
-
Labs:
Laboratory Results
07/14/23
06:14
WBC 6.3
Hgb 8.6 L
Hct 27.0 L
Plt Count 318
Sodium 138
Potassium 4.1
Chloride 106
Carbon Dioxide 27
BUN 26 H
Creatinine 1.7 H
Glucose 111 H
Calcium 8.9
Vital Signs:
Vital Signs
Temp Pulse Resp BP Pulse Ox
98.4 F 75 22 114/59 98
07/13/23 23:34 07/14/23 07:15 07/13/23 23:34 07/14/23 07:15 07/13/23 23:34
I&O
07/13/23 07/14/23 07/15/23
06:59 06:59 06:59
Intake Total 240 / 240 440 / 440
Output Total 2165 / 2165 1630 / 1630
Balance -1925 / -192 -1190 / -1190
--- NOTE | 2023-07-14 11:38 | W.DCSUMMARY ---
Discharge Summary
Discharge Data
Date of Admission: 06/26/23
Date of Discharge: 07/14/23
-
Pending Results: No
Hospital Course
Discharge diagnosis:
Sepsis, present upon admission, resolved
Klebsiella urinary tract infection with bacteremia
Catheter associated urinary tract infection
Bladder rupture status post surgery
C. difficile diarrhea
Acute kidney injury
Acute blood loss anemia from surgery superimposed on anemia of chronic disease
Small bowel ileus
History of constipation
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
Hyponatremia
Hypokalemia
Poor oral intake secondary to poor dentition
Stage I sacral decubitus ulcer, present upon admission
History of orthostasis
Transaminitis
Consults: Urology, ID
Procedures:
07/05/2023
Robotic cystorrhaphy + partial prostatectomy + SEN
07/11/2023
Bilateral nephrostomy tube placement
07/04/2023 CT abdomen pelvis:
Intraperitoneal bladder rupture with a defect in the left posterolateral urinary bladder wall. Extravasation of the instilled urinary bladder contrast. Marked urinary bladder wall thickening and surrounding fluid, inflammation, and extraluminal free
air.
Hospital course:
83-year-old male past medical history of hypertension, chronic indwelling Torres catheter, and UTIs was sent from [facility] for generalized weakness and constipation for 6 days. He had a Torres catheter placed a few months ago.
Patient was found to have sepsis secondary to Torres catheter associated urinary tract infection. CT of the abdomen and pelvis was concerning for bladder infection and possible bladder perforation. Patient was seen in conjunction with urology, his
Torres catheter was exchanged on this admission. He was treated with IV cefepime. Urine cultures grew out Klebsiella, and he was changed to Keflex. Afterwards, he was changed to doxycycline.
Patient's hospital course was complicated by C. difficile diarrhea. He was seen in conjunction with ID, and treated with a full course of oral vancomycin.
He also had purpura of his nose and fingers, as well as a maculopapular rash on his body. This is likely leukocytoclastic vasculitis from the cefepime. Cefepime was added to his allergy list.
Repeat CT of his abdomen and pelvis on 07/03 does confirm a bladder rupture. He underwent surgical repair on 07/04. He was stable postoperatively.
He had acute kidney injury. Despite having a Torres, his creatinine remained elevated at 2.2. He had bilateral PCN tube placement on 07/10. His creatinine improved to 1.7 on the day of discharge. Urology recommends maintaining the Torres and
bilateral PCN tubes upon discharge. Urology recommends outpatient anterograde nephrostograms and cystogram with interventional radiology in 2 weeks.
Patient's cultures from his surgery on 07/04 were negative. He completed a full course of oral vancomycin for his C. difficile. He also completed a full course of antibiotics for his urinary tract infection.
Patient has poor oral intake due to poor dentition. He was seen by [facility], who recommends a soft and bite-size diet.
Patient's multiple medical conditions have been optimized. He is medically stable for discharge back to his nursing facility.
Disposition: [facility]
Discharge planning: Required 50 minutes
Discharge Plan
-
Patient Disposition: [facility]/SNF
Discharge Diagnosis/Procedures: Sepsis secondary to complicated urinary tract infection, catheter associated urinary tract infection, perforated bladder status post surgery, acute kidney injury, cefepime induced rash, stage I sacral decubitus ulcer,
present upon admission, hypernatremia, hypokalemia, chronic anemia, small bowel ileus
Condition: Fair
Diet: Chop all food
Additional Diets: Vanilla Ensure twice a day
Activity: As tolerated
Activity Restrictions/Additional Instructions:
Urology recommends maintaining your Torres catheter as well as bilateral percutaneous nephrostomy tubes.
Plan for outpatient retrograde nephrostograms + cystogram in ~2 weeks with interventional radiology.
Avoid all sfnj-zsk-hfexvfi NSAID medications, such as ibuprofen, naproxen, Aleve, Motrin, Advil.
These medications will worsen his kidney function.
Follow-up with your primary care doctor in 3 days.
Referrals:
Marquise Youssef DO [Family Provider] - in one week
Boaz Jarquin MD [Active] - in one to two weeks
Prescriptions:
New
miconazole nitrate [Miconazorb AF] 2 % Powder
1 applic topical BID Qty: 0 0RF
simethicone 80 mg Tablet,Chewable
80 mg PO QID Qty: 0 0RF
Continued
sennosides [senna] 8.6 mg Tablet
17.2 mg PO DAILY
acetaminophen [Tylenol] 325 mg Tablet
650 mg PO Q4H MDD 3000 mg PRN (Reason: mild pain/temp>100F)
polyethylene glycol 3350 17 gram Powder In Packet
17 g PO DAILY
atorvastatin 10 mg Tablet
10 mg PO HS
thiamine HCl (vitamin B1) 100 mg Tablet
100 mg PO DAILY
magnesium hydroxide [Milk of Magnesia] 400 mg/5 mL Suspension
30 ml PO DAILY PRN (Reason: if no BM in 3 days)
tamsulosin 0.4 mg Capsule
0.4 mg PO DAILY
bisacodyl [Dulcolax (bisacodyl)] 10 mg Suppository
10 mg GA DAILY PRN (Reason: if MOM ineffective after 24 hrs)
Fleet Enema 19-7 gram/118 mL Enema
118 ml GA DAILYPRN PRN (Reason: if dulcolax ineffective after 24 hrs)
folic acid 1 mg Tablet
1 mg PO DAILY
midodrine 2.5 mg Tablet
2.5 mg PO BID
Discharge Orders:
Discharge Patient (As Directed); Ordered 07/14/23
Ordered By: Zac Saab
Discharge Date and Time
Print Language: LAO
--- NOTE | 2023-07-14 14:12 | CM ---
Received notification from attending that patient is medically cleared for discharge. Spoke with Beatriz in admissions at [facility] who stated that she can offer a bed for patient today.
# For report [phone]
Plan: Case management will continue to follow and assist with discharge planning. [facility].
[2023-07-14 15:45] VITALS: BP 143/70
== END 2023-07-14 17:00 | DRG 653 ==
LOC: 3 WEST ACU 19:33
PROVIDERS: Emergency Medicine; Internal Medicine; Physician Assistant; Radiology Vascular & Interventional Radiology; Specialist; Surgery; ADMITTING PHYSICIAN Hospitalist; ATTENDING PHYSICIAN Family Medicine; CONSULT PHYSICIAN Student in an Organized Health Care Education/Training Program; EMERGENCY PHYSICIAN Emergency Medicine; FAMILY PHYSICIAN Internal Medicine
PROC: 0DNW4ZZ Release Peritoneum, Percutaneous Endoscopic Approach (ICD-10-PCS; 2023-07-11)
PROC: 0TQB4ZZ Repair Bladder, Percutaneous Endoscopic Approach (ICD-10-PCS; 2023-07-11)
PROC: 0VB04ZZ Excision of Prostate, Percutaneous Endoscopic Approach (ICD-10-PCS; 2023-07-11)
PROC: 0T9030Z Drainage of Right Kidney with Drainage Device, Percutaneous Approach (ICD-10-PCS; 2023-07-11)
PROC: 0T9130Z Drainage of Left Kidney with Drainage Device, Percutaneous Approach (ICD-10-PCS; 2023-07-11)
PROC: BT111ZZ Fluoroscopy of Right Kidney using Low Osmolar Contrast (ICD-10-PCS; 2023-07-12)
DX: T83.518A Infection and inflammatory reaction due to other urinary catheter, initial encounter (principal); A41.59 Other Gram-negative sepsis; K65.9 Peritonitis, unspecified; K56.7 Ileus, unspecified; N13.6 Pyonephrosis; N17.9 Acute kidney failure, unspecified; A04.72 Enterocolitis due to Clostridium difficile, not specified as recurrent; D62 Acute posthemorrhagic anemia; E87.1 Hypo-osmolality and hyponatremia; M31.0 Hypersensitivity angiitis; E87.0 Hyperosmolality and hypernatremia; I10 Essential (primary) hypertension; Y84.6 Urinary catheterization as the cause of abnormal reaction of the patient, or of later complication, without mention of misadventure at the time of the procedure; R33.8 Other retention of urine; N32.3 Diverticulum of bladder; K66.0 Peritoneal adhesions (postprocedural) (postinfection); N40.1 Benign prostatic hyperplasia with lower urinary tract symptoms; L89.151 Pressure ulcer of sacral region, stage 1; D63.8 Anemia in other chronic diseases classified elsewhere; E87.6 Hypokalemia; T36.1X5A Adverse effect of cephalosporins and other beta-lactam antibiotics, initial encounter; D69.2 Other nonthrombocytopenic purpura; N32.89 Other specified disorders of bladder; N18.9 Chronic kidney disease, unspecified; K59.00 Constipation, unspecified; Z79.899 Other long term (current) drug therapy; Z87.440 Personal history of urinary (tract) infections
CPT/HCPCS: 88307; 50431; 50432; 51798; 74018; 74176; 80048; 80053; 80202; 81003; 81015; 82550; 82570; 82607; 82728; 82746; 82962; 83540; 83550; 83605; 83735; 84100; 84134; 84466; 85025; 85027; 85610; 86803; 86850; 86900; 86901; 87040; 87070; 87075; 87077; 87086; 87149; 87186; 87205; 87324; 87449; 87899; 89055; 92526; 92610; 93005; 96365; 97116; 97162; 97167; 97530; 97535; 99152; 99153; 99285; C1729; C1769; J3480; P9045

== ENCOUNTER 2023-08-11 18:24 | Emergency (ER) | payer MEDICARE, OTHER, SELFPAY ==
[2023-08-11 18:28] VITALS: BP 94/57
--- NOTE | 2023-08-11 18:52 | ED.GENMED ---
History of Present Illness
General
Chief Complaint: Catheter/Tube Problem
Source: records and ambulance crew
Time Seen by Provider: 08/11/23 18:37
Travel History
Have you had any contact with someone who has COVID-19?: Unable to Answer
Do you have any symptoms of coronavirus? Fever > 100 degrees, chills, cough, shortness of breath, sore throat, loss of taste or smell, muscle aches, or headache?: Unable to Answer
History of Present Illness
History of Present Illness:
83-year-old male with past medical history of hypertension, status post UTI with bacteremia and acute kidney injury, status post bilateral nephrostomy tube and chronic Torres catheter placement presenting to the emergency department from [facility] after patient reportedly accidentally removed his catheter as well as the tubing on the right-sided nephrostomy became dislodged however at time of arrival to the emergency department there is no tubing at all on the right-sided
nephrostomy. Patient is noted to be confused at baseline but he is able to tell us his name but not able to state where he is or the year.
Past History
Past History
ED Past Medical History: HTN and Other (UTI with bacteremia)
ED Past Surgical History: None
Social History
Tobacco: Non-smoker
Alcohol: None
Drug: None
Personal:
Living: prison
Review of Systems
Review of Systems
All Other Systems: ROS reviewed and negative except as documented in HPI and ROS
Phy Exam
Physical Exam
Physical Exam:
GENERAL: Sleepy but easily arousable to voice, in no apparent distress
Head: Normocephalic atraumatic
EYE: conjunctiva clear
NECK: Supple
ENT: o/p clr, mmm.
CARDIAC: Regular rate and rhythm
LUNGS: Clear breath sounds bilaterally, no acute respiratory distress, no wheezes/rales/rhonchi
Back: Left-sided nephrostomy with tubing intact. Right-sided nephrostomy catheter is in place but with no tubing identified
Genitourinary: New Torres catheter had been replaced with pyuria in the tubing
NEUROLOGICAL: Alert and oriented
SKIN: Warm and dry, skin intact.
MUSCULOSKELETAL: well perfused.
PSYCH: Normal and appropriate interaction.
Scores
Heart Failure Risk
Heart Failure Risk Score: Not Applicable
Heart Score for Chest Pain Patients
STEMI patient?: Not applicable
Withdrawal Assessment of Alcohol
Withdrawal Assessment Completed?: Not applicable
Course
Vital Signs
Initial and Last Documented VS:
Initial Vital Signs
Temp Pulse Resp BP Pulse Ox
98.5 F 75 18 94/57 100
08/11/23 18:28 08/11/23 18:28 08/11/23 18:28 08/11/23 18:28 08/11/23 18:28
Last Documented Vital Signs
Temp Pulse Resp BP Pulse Ox
98.5 F 75 18 94/57 100
08/11/23 18:28 08/11/23 18:28 08/11/23 18:28 08/11/23 18:28 08/11/23 18:28
MDM/Problems Addressed
Differential Diagnosis Includes:
Mechanical dysfunction of medical devices
MDM/Problems Addressed:
83-year-old male presenting the emergency department for evaluation of accidentally removing his chronic indwelling Torres catheter as well as at some point his right-sided nephrostomy tubing becoming dislodged however the catheter remains in place.
Torres catheter was easily replaced by nursing. Pyuria was noted. Will discuss with interventional radiology on how to replace tubing of the right-sided nephrostomy
*Critical Care Note
Total Time (30-74mins, 75-104mins- exclusive of procedures): Not Applicable
Patient Management
Discussion with other providers: Deaf/Hard Of Hearing Specialist
Escalation/DeEscalation of care consider admission/obs:
IR sent to being down to the emergency department. Nephrostomy bag/tubing was replaced without any difficulty. Patient stable for [facility] back to [facility].
ED Attending Note
-
Portions of this chart may have been created with voice recognition software.� Occasional wrong word or��sound alike� substitutions may have occurred due to the inherent limitations of voice recognition software.
Discharge Plan
Departure
Patient Disposition: Jail/SNF
Date of Disposition: 08/11/23
Time of Disposition: 19:44
Patient with high blood pressure during this ER visit?: No
Discharge Problem:
Dislodged Torres catheter, Attention to nephrostomy
Prescriptions:
No Action
sennosides [senna] 8.6 mg Tablet
17.2 mg PO DAILY
acetaminophen [Tylenol] 325 mg Tablet
650 mg PO Q4H MDD 3000 mg PRN (Reason: mild pain/temp>100F)
polyethylene glycol 3350 17 gram Powder In Packet
17 g PO DAILY
atorvastatin 10 mg Tablet
10 mg PO HS
thiamine HCl (vitamin B1) 100 mg Tablet
100 mg PO DAILY
magnesium hydroxide [Milk of Magnesia] 400 mg/5 mL Suspension
30 ml PO DAILY PRN (Reason: if no BM in 3 days)
tamsulosin 0.4 mg Capsule
0.4 mg PO DAILY
bisacodyl [Dulcolax (bisacodyl)] 10 mg Suppository
10 mg CO DAILY PRN (Reason: if MOM ineffective after 24 hrs)
Fleet Enema 19-7 gram/118 mL Enema
118 ml CO DAILYPRN PRN (Reason: if dulcolax ineffective after 24 hrs)
folic acid 1 mg Tablet
1 mg PO DAILY
midodrine 2.5 mg Tablet
2.5 mg PO BID
miconazole nitrate [Miconazorb AF] 2 % Powder
1 applic topical BID Qty: 0 0RF
simethicone 80 mg Tablet,Chewable
80 mg PO QID Qty: 0 0RF
Referrals:
Marquise Youssef I., DO [Family Provider] -
Interventions
Interventions:
*Risk Screen - Suicide Last Done: 08/11/23 18:29
*General Assessment Last Done: 08/11/23 18:29
*Neglect/Abuse Screening Last Done: 08/11/23 18:29
*ED COVID-19 Vaccine History Last Done: 08/11/23 18:29
CL-Tabmzr-Uqfuziqeov Assessment Last Done: 08/11/23 18:30
ED-Male Genitourinary Assessment Last Done: 08/11/23 18:30
Discharge Date and Time
Print Language: KOREAN
== END 2023-08-11 19:55 ==
LOC: EMR 18:24
PROVIDERS: EMERGENCY PHYSICIAN Emergency Medicine; FAMILY PHYSICIAN Internal Medicine
DX: T83.021A Displacement of indwelling urethral catheter, initial encounter (principal); Y84.6 Urinary catheterization as the cause of abnormal reaction of the patient, or of later complication, without mention of misadventure at the time of the procedure; Y73.1 Therapeutic (nonsurgical) and rehabilitative gastroenterology and urology devices associated with adverse incidents; Z43.6 Encounter for attention to other artificial openings of urinary tract; I10 Essential (primary) hypertension; Z87.440 Personal history of urinary (tract) infections
CPT/HCPCS: 99283; 51702

== ENCOUNTER → 2023-08-21 08:31 | Outpatient (REF) | payer MEDICARE, OTHER, SELFPAY ==
[2023-08-21 09:01] VITALS: BP 119/70; BP_SYST 78
== END ==
LOC: RADI 08:31
PROVIDERS: ATTENDING PHYSICIAN Internal Medicine
DX: Z43.6 Encounter for attention to other artificial openings of urinary tract (principal); N13.6 Pyonephrosis
CPT/HCPCS: 50431; 51600; 74430

== ENCOUNTER 2023-08-31 11:08 | Emergency (ER) | payer MEDICARE, OTHER, SELFPAY ==
[2023-08-31 11:13] VITALS: BP 112/59
[2023-08-31 11:14] VITALS: BMI 21.8
--- NOTE | 2023-08-31 12:08 | ED.GENMED ---
History of Present Illness
General
Chief Complaint: Catheter/Tube Problem
Source: records and ambulance crew
Time Seen by Provider: 08/31/23 12:03
Travel History
Have you had any contact with someone who has COVID-19?: No
Do you have any symptoms of coronavirus? Fever > 100 degrees, chills, cough, shortness of breath, sore throat, loss of taste or smell, muscle aches, or headache?: No
History of Present Illness
History of Present Illness:
83-year-old male with past medical history of chronic UTIs, hypertension, status post bilateral nephrostomy tubes presenting to the ER from [facility] after his right-sided nephrostomy became dislodged. Patient is without any complaints at
this time. No reported fevers or change in mental status by EMS. History is otherwise somewhat limited due to baseline mental status.
Past History
Past History
ED Past Medical History: HTN and Other (UTI with bacteremia)
ED Past Surgical History: None
Social History
Tobacco: Non-smoker
Alcohol: None
Drug: None
Personal:
Living: [facility]
Review of Systems
Review of Systems
All Other Systems: ROS reviewed and negative except as documented in HPI and ROS
Phy Exam
Physical Exam
Physical Exam:
GENERAL: Alert , in no apparent distress
EYE: conjunctiva clear
Head: Normocephalic atraumatic
NECK: Supple,
ENT: mmm.
LUNGS: no acute respiratory distress
NEUROLOGICAL: Alert and oriented to self only
SKIN: Warm and dry, bilateral nephrostomy tubes noted. Nephrostomy tubing on the right dislodged by about 7 cm. No surrounding erythema
MUSCULOSKELETAL: well perfused.
PSYCH: Normal and appropriate interaction.
Scores
Heart Failure Risk
Heart Failure Risk Score: Not Applicable
Heart Score for Chest Pain Patients
STEMI patient?: Not applicable
Withdrawal Assessment of Alcohol
Withdrawal Assessment Completed?: Not applicable
Course
Orders/Labs/Results
Orders:
Orders
08/31/23 12:13
[facility] CONSULT Urgent
Consulting Provider: Marco Beck
Was physician already notified: Yes
Reason for Consult/Procedure: nephrostomy eval
Acknowledgement that appropriate orders are entered: Yes
Vital Signs
Initial and Last Documented VS:
Initial Vital Signs
Temp Pulse Resp BP Pulse Ox
98.2 F 59 18 112/59 100
08/31/23 11:13 08/31/23 11:13 08/31/23 11:13 08/31/23 11:13 08/31/23 11:13
Last Documented Vital Signs
Temp Pulse Resp BP Pulse Ox
97.7 F 59 16 136/74 100
08/31/23 15:40 08/31/23 16:36 08/31/23 15:40 08/31/23 16:36 08/31/23 15:40
MDM/Problems Addressed
MDM/Problems Addressed:
83-year-old male presenting emergency department for evaluation of his right-sided nephrostomy tube becoming partially dislodged. Patient is without complaints. I notified interventional radiology who will evaluate patient's nephrostomies.
Patient is otherwise resting comfortably in no acute distress.
*Pulse Oximetry
Patient hypoxic: no
*Critical Care Note
Total Time (30-74mins, 75-104mins- exclusive of procedures): Not Applicable
Data Reviewed
Review of Other/Old Records Reveals: Records and Discharge Summary
Source: records and ambulance crew
Patient Management
Escalation/DeEscalation of care consider admission/obs:
Patient returned from IR without complications. Stable for discharge back to [facility]. Will arrange for transportation
ED Attending Note
-
Portions of this chart may have been created with voice recognition software.� Occasional wrong word or��sound alike� substitutions may have occurred due to the inherent limitations of voice recognition software.
Discharge Plan
Departure
Patient Disposition: Alf/SNF
Date of Disposition: 08/31/23
Time of Disposition: 16:38
Discharge Problem:
Nephrostomy tube displaced
Prescriptions:
No Action
sennosides [senna] 8.6 mg Tablet
17.2 mg PO DAILY
acetaminophen [Tylenol] 325 mg Tablet
650 mg PO Q4HPRN MDD 3000 mg PRN (Reason: mild pain/temp>100F)
polyethylene glycol 3350 17 gram Powder In Packet
17 g PO DAILY
atorvastatin 10 mg Tablet
10 mg PO HS
thiamine HCl (vitamin B1) 100 mg Tablet
100 mg PO DAILY
magnesium hydroxide [Milk of Magnesia] 400 mg/5 mL Suspension
30 ml PO DAILYPRN PRN (Reason: if no BM In 3 days)
tamsulosin 0.4 mg Capsule
0.4 mg PO DAILY
bisacodyl [Dulcolax (bisacodyl)] 10 mg Suppository
10 mg ND DAILYPRN PRN (Reason: if MOM ineffective after 24 hrs)
Fleet Enema 19-7 gram/118 mL Enema
118 ml ND DAILYPRN PRN (Reason: if dulcolax ineffective after 24 hrs)
folic acid 1 mg Tablet
1 mg PO DAILY
midodrine 2.5 mg Tablet
2.5 mg PO BID
simethicone 80 mg Tablet,Chewable
80 mg PO QID Qty: 0 0RF
mirtazapine 7.5 mg Tablet
7.5 mg PO HS
Referrals:
Marquise Youssef I., DO [Family Provider] -
Interventions
Interventions:
*Risk Screen - Suicide Last Done: 08/31/23 11:23
*General Assessment Last Done: 08/31/23 11:15
*Neglect/Abuse Screening Last Done: 08/31/23 11:23
ED- Fall Risk Assessment Last Done: 08/31/23 11:24
*ED COVID-19 Vaccine History Last Done: 08/31/23 11:15
GP-Hmydvi-Ouvnivfput Assessment Last Done: 08/31/23 11:23
ED-Male Genitourinary Assessment Last Done: 08/31/23 11:23
Discharge Date and Time
Print Language: YEMENI
--- NOTE | 2023-08-31 15:38 | PTCARENOTE ---
emptied 300ml cludwy yellow urine from left nephrostomy bag. right nephrostomy bag empty. right nephrostomy tube stitch popped with catheter pulled bag. tube curled up under dressing.
[2023-08-31 15:40] VITALS: BP 111/67; BP_SYST 58
[2023-08-31 16:36] VITALS: BP 136/74
[2023-08-31 17:58] VITALS: BP 130/65
== END 2023-08-31 20:28 ==
LOC: EMR 11:08
PROVIDERS: CONSULT PHYSICIAN Radiology Diagnostic Radiology; EMERGENCY PHYSICIAN Emergency Medicine; FAMILY PHYSICIAN Internal Medicine
DX: T83.022A Displacement of nephrostomy catheter, initial encounter (principal); I10 Essential (primary) hypertension; Z87.440 Personal history of urinary (tract) infections; Z88.1 Allergy status to other antibiotic agents; Z88.0 Allergy status to penicillin
CPT/HCPCS: 99283; 50435; C1729; C1769

== ENCOUNTER 2023-09-09 17:49 | Emergency (ER) | payer MEDICARE, OTHER, SELFPAY ==
[2023-09-09 18:01] VITALS: BP 116/69
[2023-09-09 18:05] VITALS: BMI 21.0
--- NOTE | 2023-09-09 18:43 | ED.GENMED ---
History of Present Illness
General
Chief Complaint: Catheter/Tube Problem
Source: records
Exam Limitations: clinical condition
Time Seen by Provider: 09/09/23 18:18
History of Present Illness
History of Present Illness:
83-year-old male sent in for a dislodged left nephrostomy tube. Unsure when the tube came out. Patient has a right nephrostomy tube and a Torres catheter that are functioning. Patient does not know why he is here and he has no complaints.
Past History
Past History
ED Past Medical History: HTN and Other (UTI with bacteremia. Renal insufficiency)
ED Past Surgical History: None and Urological
Social History
Tobacco: Non-smoker
Alcohol: None
Drug: None
Personal:
Living: alf
Review of Systems
Review of Systems
All Other Systems: Not applicable
Phy Exam
Physical Exam
Physical Exam:
GENERAL: Alert. No distress. Unsure why he is here however. Watching the fillets play.
EYE: Orbits normal.
NECK: Supple
CARDIAC: Regular rate and rhythm without any obvious murmurs.
LUNGS: Clear breath sounds,normal
ABDOMEN: Soft, without focal tenderness or distention. Right nephrostomy tube in place and functioning. Left nephrostomy tube out. Torres in place and functioning
NEUROLOGICAL: Alert and oriented , grossly non-focal
SKIN: Warm and dry, no rash or lesion, no discoloration, skin intact.
MUSCULOSKELETAL: No edema,no deformity.Good color
PSYCH: Normal and appropriate interaction.
Course
Orders/Labs/Results
Orders:
Orders
09/09/23 18:40
IV Insert/Care/Rem.- Treatment PRN
09/09/23 19:04
Basic Metabolic Panel Urgent
Complete Blood Count/With Diff Urgent
09/09/23 19:34
Consult Interventional Radiology [[facility] CONSULT] Urgent
Consulting Provider: Jose Alejandro Wing
Was physician already notified: Yes
Reason for Consult/Procedure: Dislodged left nephrostomy tube
Acknowledgement that appropriate orders are entered: Yes
09/09/23 19:48
Lidocaine 2% [Xylocaine 2% Mdv] 20 ml .ROUTE .STK-MED ONE
Abnormal Lab Results
09/09/23
19:04
RBC 3.16 L 10^6/uL
(4.70-6.10)
Hgb 8.8 L g/dL
(13.0-18.0)
Hct 26.8 L %
(39.0-52.0)
MCHC 32.8 L g/dL
(33.0-37.0)
RDW 15.5 H %
(11.5-14.5)
BUN 39 H mg/dl
(9-20)
Creatinine 2.0 H mg/dL
(0.7-1.3)
09/09/23 19:04
09/09/23 19:04
Vital Signs
Initial and Last Documented VS:
Initial Vital Signs
Temp Pulse Resp BP Pulse Ox
99.1 F 73 16 116/69 97
09/09/23 18:01 09/09/23 18:01 09/09/23 18:01 09/09/23 18:01 09/09/23 18:01
Last Documented Vital Signs
Temp Pulse Resp BP Pulse Ox
98.0 F 72 16 121/71 97
09/09/23 19:54 09/09/23 19:54 09/09/23 19:54 09/09/23 19:54 09/09/23 19:54
MDM/Problems Addressed
Differential Diagnosis Includes:
Displaced left nephrostomy tube in a nontoxic patient with no symptoms. Previous records were reviewed. Has a history of sepsis Klebsiella UTI. Will review with nephrology urology and interventional radiology as to the best time to replace this
tube.
*Critical Care Note
Total Time (30-74mins, 75-104mins- exclusive of procedures): Not Applicable
Data Reviewed
Review of Other/Old Records Reveals: Labs, Operative Reports and Testing
Update Note
Update Note:
Tube was replaced by nephrology without difficulty. Family updated. Lab studies stable.
ED Attending Note
-
Portions of this chart may have been created with voice recognition software.� Occasional wrong word or��sound alike� substitutions may have occurred due to the inherent limitations of voice recognition software.
Discharge Plan
Departure
Patient Disposition: Home (Routine Discharge)
Date of Disposition: 09/09/23
Time of Disposition: 20:47
Patient with high blood pressure during this ER visit?: No
Discharge Problem:
Dislodged left nephrostomy tube, Chronic anemia, Chronic renal insufficiency
Prescriptions:
No Action
sennosides [senna] 8.6 mg Tablet
17.2 mg PO DAILY
acetaminophen [Tylenol] 325 mg Tablet
650 mg PO Q4HPRN MDD 3000 mg PRN (Reason: mild pain/temp>100F)
polyethylene glycol 3350 17 gram Powder In Packet
17 g PO DAILY
atorvastatin 10 mg Tablet
10 mg PO HS
thiamine HCl (vitamin B1) 100 mg Tablet
100 mg PO DAILY
magnesium hydroxide [Milk of Magnesia] 400 mg/5 mL Suspension
30 ml PO DAILYPRN PRN (Reason: if no BM In 3 days)
tamsulosin 0.4 mg Capsule
0.4 mg PO DAILY
bisacodyl [Dulcolax (bisacodyl)] 10 mg Suppository
10 mg ME DAILYPRN PRN (Reason: if MOM ineffective after 24 hrs)
Fleet Enema 19-7 gram/118 mL Enema
118 ml ME DAILYPRN PRN (Reason: if dulcolax ineffective after 24 hrs)
folic acid 1 mg Tablet
1 mg PO DAILY
midodrine 2.5 mg Tablet
2.5 mg PO BID
simethicone 80 mg Tablet,Chewable
80 mg PO QID Qty: 0 0RF
mirtazapine 7.5 mg Tablet
7.5 mg PO HS
Referrals:
Marquise Youssef I., DO [Family Provider] - Follow up in 2-3 days
Activity Restrictions/Additional Instructions:
Continue current care. The nephrostomy tube was replaced without difficulty. Return with any issues including a dislodged tube, fever nonfunctioning tube or any other concerning symptoms
Interventions
Interventions:
*Risk Screen - Suicide Last Done: 09/09/23 18:06
*General Assessment Last Done: 09/09/23 18:07
*Neglect/Abuse Screening Last Done: 09/09/23 18:06
*ED COVID-19 Vaccine History Last Done: 09/09/23 18:04
EU-Otvkrb-Zprbdwyxcy Assessment Last Done: 09/09/23 18:06
ED-Male Genitourinary Assessment Last Done: 09/09/23 18:06
Discharge Date and Time
Print Language: LAO
[2023-09-09 19:00] VITALS: BP 131/76
[2023-09-09 19:10] LABS: % Basophils 0.3 % (0-2); % Eosinophils 2.6 % (0-6); % Immature Granulocytes 0.2 % (0-0.5); % Monocytes 7.4 % (1.7-9.3); % Neutrophils 64.5 % (42.2-75.2); Absolute Eosinophils 0.2 10^3/uL (0-0.7); Absolute Lymphocytes 1.7 10^3/uL (1.2-3.4); Absolute Monocytes 0.5 10^3/uL (0.1-0.6); Absolute Neutrophils 4.3 10^3/uL (1.4-6.5); Hematocrit 26.8 % (39.0-52.0); Hemoglobin 8.8 g/dL (13.0-18.0); Mean Corp Hgb Conc. 32.8 g/dL (33.0-37.0); Mean Corpuscular Hgb 27.8 pg (27.0-31.0); Mean Corpuscular Volume 84.8 fL (80.0-94.0); Mean Platelet Volume 9.3 fL (7.4-10.4); Nucleated Red Blood Cells % 0 % (-); Platelet Count 250 10^3/uL (130-400); Red Blood Cell Count 3.16 10^6/uL (4.70-6.10); Red Cell Dist. Width 15.5 % (11.5-14.5); White Blood Cell Count 6.6 10^3/uL (4.8-10.8)
[2023-09-09 19:32] LABS: Blood Urea Nitrogen 39 mg/dl (9-20); Calcium 9.6 mg/dl (8.4-10.2); Carbon Dioxide 26 mmol/L (22-30); Chloride 102 mmol/L (98-107); Estimated Creatinine Clearance 29 ml/min; Glucose 93 mg/dl (70-99); Potassium 4.6 mmol/L (3.5-5.1); Sodium 137 mmol/L (135-145); eGFR 32.51
[2023-09-09 19:51] VITALS: BP 121/71
[2023-09-09 19:54] VITALS: BP 121/71; BP_SYST 72
[2023-09-09 21:14] VITALS: BP 104/53
[2023-09-09 22:00] VITALS: BP 117/61
== END 2023-09-09 23:37 | disposition home or self-care (01) ==
LOC: EMR 17:49
PROVIDERS: CONSULT PHYSICIAN Radiology Vascular & Interventional Radiology; EMERGENCY PHYSICIAN Emergency Medicine; FAMILY PHYSICIAN Internal Medicine
DX: T83.022A Displacement of nephrostomy catheter, initial encounter (principal); Y83.8 Other surgical procedures as the cause of abnormal reaction of the patient, or of later complication, without mention of misadventure at the time of the procedure; D64.9 Anemia, unspecified; I12.9 Hypertensive chronic kidney disease with stage 1 through stage 4 chronic kidney disease, or unspecified chronic kidney disease; N18.9 Chronic kidney disease, unspecified; Z87.440 Personal history of urinary (tract) infections; Z88.0 Allergy status to penicillin
CPT/HCPCS: 99283; 50432; 80048; 85025; C1729; C1769

== ENCOUNTER 2023-09-18 10:39 | Emergency (ER) | payer MEDICARE, OTHER, SELFPAY ==
[2023-09-18 10:50] VITALS: BMI 21.8
--- NOTE | 2023-09-18 12:59 | ED.GENMED ---
History of Present Illness
General
Chief Complaint: Catheter/Tube Problem
Source: patient and intermediate records
Exam Limitations: none
Time Seen by Provider: 09/18/23 11:03
Nursing documentation reviewed up to this point in time: agreed with
History of Present Illness
History of Present Illness:
83-year-old male sent from a local nursing facility due to possibly displaced nephrostomy tubes third bilateral, unsure when they are place apparently has Torres as well, sutures are loose on the right tube is almost out on the left patient without
any vomiting or fever
Past History
Past History
ED Past Medical History: HTN and Other (UTI with bacteremia. Renal insufficiency)
ED Past Surgical History: None and Urological
Social History
Tobacco: Non-smoker
Alcohol: None
Drug: None
Personal:
Living: intermediate
Employment: Not employed
Review of Systems
Review of Systems
Constitutional: Denies fever or chills
Respiratory: Denies trouble breathing
ABD/GI: Denies abdominal pain or vomiting
Phy Exam
Physical Exam
Physical Exam:
Physical Exam
General: Chronically ill male nontoxic
Neck: No jaundice
Heart: Regular
Lungs: no acute respiratory distress.
Abdomen: Soft nontender loose sutures on the right nephrostomy tube left nephrostomy tube almost displaced
Neuro: alert and oriented. no focal neurological deficits
Skin: no rash
Psychiatric: cooperative
Extremities: No edema
Course
Orders/Labs/Results
Orders:
Orders
09/18/23 12:03
Consult Interventional Radiology [[facility] CONSULT] Routine
Consulting Provider: Tripp Hatch
Was physician already notified: Yes
Reason for Consult/Procedure: nephrosomty ube out
Acknowledgement that appropriate orders are entered: N/A
Vital Signs
Initial and Last Documented VS:
Initial Vital Signs
Temp Pulse Resp Pulse Ox
98.0 F 60 18 95
09/18/23 10:45 09/18/23 10:45 09/18/23 10:45 09/18/23 10:45
Last Documented Vital Signs
Temp Pulse Resp Pulse Ox
98.0 F 60 18 95
09/18/23 10:45 09/18/23 10:45 09/18/23 10:45 09/18/23 10:45
MDM/Problems Addressed
Differential Diagnosis Includes:
Displaced tube
MDM/Problems Addressed:
Displaced the proximal
Chronic conditions affecting care:
Nephrostomy tube
Chronic conditions affecting care: Neurological disorder and Kidney disease
Acute Exacerbation and/or Progression of Chronic Illness: Neurological disorder and Kidney disease
*Pulse Oximetry
Patient hypoxic: no
*Critical Care Note
Total Time (30-74mins, 75-104mins- exclusive of procedures): Not Applicable
Update Note
Update Note:
Patient is nontoxic afebrile here, have requested nonurgent consult from IR to evaluate his tubes
ED Attending Note
-
Portions of this chart may have been created with voice recognition software.� Occasional wrong word or��sound alike� substitutions may have occurred due to the inherent limitations of voice recognition software.
Discharge Plan
Departure
Patient with high blood pressure during this ER visit?: No
Condition: Good
Prescriptions:
No Action
sennosides [senna] 8.6 mg Tablet
17.2 mg PO DAILY
acetaminophen [Tylenol] 325 mg Tablet
650 mg PO Q4HPRN MDD 3000 mg PRN (Reason: mild pain/temp>100F)
polyethylene glycol 3350 17 gram Powder In Packet
17 g PO DAILY
atorvastatin 10 mg Tablet
10 mg PO HS
thiamine HCl (vitamin B1) 100 mg Tablet
100 mg PO DAILY
magnesium hydroxide [Milk of Magnesia] 400 mg/5 mL Suspension
30 ml PO DAILYPRN PRN (Reason: if no BM In 3 days)
tamsulosin 0.4 mg Capsule
0.4 mg PO DAILY
bisacodyl [Dulcolax (bisacodyl)] 10 mg Suppository
10 mg DC DAILYPRN PRN (Reason: if MOM ineffective after 24 hrs)
Fleet Enema 19-7 gram/118 mL Enema
118 ml [place] DAILYPRN PRN (Reason: if dulcolax ineffective after 24 hrs)
folic acid 1 mg Tablet
1 mg PO DAILY
midodrine 2.5 mg Tablet
2.5 mg PO BID
simethicone 80 mg Tablet,Chewable
80 mg PO QID Qty: 0 0RF
mirtazapine 7.5 mg Tablet
7.5 mg PO HS
Referrals:
Marquise Youssef I., DO [Family Provider] -
Interventions
Interventions:
*Risk Screen - Suicide Last Done: 09/18/23 10:45
*General Assessment Last Done: 09/18/23 10:45
*Neglect/Abuse Screening Last Done: 09/18/23 10:45
ED- Fall Risk Assessment Last Done: 09/18/23 10:51
BF-Odgulz-Acaamvxeuv Assessment Last Done: 09/18/23 10:51
ED-Male Genitourinary Assessment Last Done: 09/18/23 10:51
Discharge Date and Time
Print Language: CITIZEN [place]
[2023-09-18 15:36] VITALS: BP 122/67; BP_SYST 55
[2023-09-18 17:10] VITALS: BP 135/61; BP_SYST 62
[2023-09-18 17:11] VITALS: BP 135/61
[2023-09-18 18:39] VITALS: BP 135/61
== END 2023-09-18 18:41 ==
LOC: EMR 10:39
PROVIDERS: CONSULT PHYSICIAN Radiology Vascular & Interventional Radiology; EMERGENCY PHYSICIAN Emergency Medicine; FAMILY PHYSICIAN Internal Medicine
DX: Z43.6 Encounter for attention to other artificial openings of urinary tract (principal); I10 Essential (primary) hypertension; N28.9 Disorder of kidney and ureter, unspecified; Z93.6 Other artificial openings of urinary tract status; Z87.440 Personal history of urinary (tract) infections; Z87.01 Personal history of pneumonia (recurrent); Z88.1 Allergy status to other antibiotic agents; Z88.0 Allergy status to penicillin
CPT/HCPCS: 99283; 50431; 50435; C1729; C1769

== ENCOUNTER → 2023-10-13 09:00 | Outpatient (REF) | payer MEDICARE, OTHER, SELFPAY ==
[2023-10-13 09:39] VITALS: BP 136/65; BP_SYST 58
[2023-10-13] MEDS: VANCOCIN 200 IV (09:49)
[2023-10-13 11:31] VITALS: BP 133/70; BP_SYST 55
[2023-10-13 11:47] VITALS: BP 125/73
== END ==
LOC: RADI 09:00
PROVIDERS: ATTENDING PHYSICIAN Surgery; FAMILY PHYSICIAN Internal Medicine
DX: Z43.6 Encounter for attention to other artificial openings of urinary tract (principal); N13.6 Pyonephrosis
CPT/HCPCS: 50434; 99152; C1729; C1769

== ENCOUNTER → 2023-12-26 09:45 | Outpatient (REF) | payer MEDICARE, OTHER, SELFPAY ==
[2023-12-26 10:00] VITALS: BP 119/64; BP_SYST 69
[2023-12-26 10:40] VITALS: BP 107/61; BP_SYST 64
[2023-12-26 11:16] VITALS: BP 107/61
--- NOTE | 2023-12-26 11:17 | PTCARENOTE ---
[facility] note: Patient arrived from nursing facility for evaluation of right PCNU leaking. Upon arrival, fount patient was missing Cap at the end of PCNU on right side or neither attached to drainage bag. Patient had right PCNU exchanged under Fluro.
tolerated procedure well. Right PCNU Capped and covered under dressing. called [facility] and report given to regional property manager Josephine regarding above finding and interventions done today. also notified that patient will be coming with extra drainage
bag just incase Right PCNU needs to connect to bag for drainage. teaching done regarding importance of keeping PCNU capped/covered. Josephine ( regional property manager) verbalized understanding. Patient discharged back to [facility]. picked up by wheelchair
advanced research programs director.
== END ==
LOC: RADI 09:45
PROVIDERS: ATTENDING PHYSICIAN Surgery; FAMILY PHYSICIAN Internal Medicine
DX: T83.193A Other mechanical complication of other urinary stent, initial encounter (principal); Y83.8 Other surgical procedures as the cause of abnormal reaction of the patient, or of later complication, without mention of misadventure at the time of the procedure; N13.6 Pyonephrosis
CPT/HCPCS: 50387; C1769; C2625

== ENCOUNTER → 2024-02-20 15:04 | Outpatient (REF) | payer MEDICARE, OTHER, SELFPAY | LOC: RAD 15:04 | PROVIDERS: ATTENDING PHYSICIAN Surgery; FAMILY PHYSICIAN Internal Medicine | DX: N13.30 Unspecified hydronephrosis (principal); R33.9 Retention of urine, unspecified | CPT/HCPCS: 74176 ==

== ENCOUNTER 2024-03-18 17:58 | Emergency (ER) | payer MEDICARE, OTHER, SELFPAY ==
[2024-03-18 18:12] VITALS: BP 119/63
[2024-03-18 18:24] VITALS: BMI 26.9
[2024-03-18 18:36] LABS: % Basophils 0.1 % (0-2); % Eosinophils 0.6 % (0-6); % Immature Granulocytes 0.5 % (0-0.5); % Lymphocytes 14.9 % (20.5-51.1); % Monocytes 5.5 % (1.7-9.3); % Neutrophils 78.4 % (42.2-75.2); Absolute Eosinophils 0.1 10^3/uL (0-0.7); Absolute Lymphocytes 1.2 10^3/uL (1.2-3.4); Absolute Monocytes 0.4 10^3/uL (0.1-0.6); Absolute Neutrophils 6.1 10^3/uL (1.4-6.5); Hematocrit 32.3 % (39.0-52.0); Hemoglobin 10.4 g/dL (13.0-18.0); Mean Corp Hgb Conc. 32.2 g/dL (33.0-37.0); Mean Corpuscular Hgb 27.6 pg (27.0-31.0); Mean Corpuscular Volume 85.7 fL (80.0-94.0); Mean Platelet Volume 10.1 fL (7.4-10.4); Nucleated Red Blood Cells % 0 % (-); Platelet Count 210 10^3/uL (130-400); Red Blood Cell Count 3.77 10^6/uL (4.70-6.10); Red Cell Dist. Width 14.7 % (11.5-14.5); Urine Albumin 2+ (Neg - Trace); Urine Bilirubin Negative (Negative); Urine Character Very Cloudy (Clear); Urine Color Yellow; Urine Glucose Negative (Negative); Urine Ketone Negative (Negative); Urine Leukocyte 2+ (Negative); Urine Nitrite Positive (Negative); Urine Occult Blood 3+ (Negative); Urine Urobilinogen Negative (Neg - 1+); White Blood Cell Count 7.8 10^3/uL (4.8-10.8)
[2024-03-18 18:49] LABS: ALT (SGPT) 57 U/L (0-50); AST (SGOT) 115 U/L (17-59); Albumin 3.6 g/dl (3.5-5.0); Alkaline Phosphatase 123 U/L (38-126); Blood Urea Nitrogen 60 mg/dl (9-20); Calcium 9.1 mg/dl (8.4-10.2); Carbon Dioxide 24 mmol/L (22-30); Chloride 105 mmol/L (98-107); Estimated Creatinine Clearance 24 ml/min; Glucose 124 mg/dl (70-99); Potassium 3.9 mmol/L (3.5-5.1); Sodium 139 mmol/L (135-145); Total Bilirubin 0.7 mg/dl (0.2-1.3); Total Protein 7.1 g/dl (6.3-8.2); eGFR 24.72
[2024-03-18 19:08] LABS: Urine Squamous Cell 0-2 /LPF (Few)
[2024-03-18 19:09] LABS: Urine Bacteria Many (Negative); Urine White Cell 50-60 /HPF (0-5)
--- NOTE | 2024-03-18 20:15 | ED.GENMED ---
History of Present Illness
General
Chief Complaint: Abnormal Lab Value
Source: patient and other (Triage note)
Exam Limitations: none
Time Seen by Provider: 03/18/24 19:16
History of Present Illness
History of Present Illness:
This is a 84 year old male that is brought in by ambulance with concern for Nephrostomy tube blocked. Patient was unsure why he was sent in. States that the blocked Nephrostomy sounds right. Patient also has a chronic indwelling posada catheter.
Denies any fever, chills, chest pain, SOB, abd pain, nausea, vomiting, diarrhea, headache, dizziness.
Past History
Past History
ED Past Medical History: HTN, Hypercholesterolemia, Psychiatric (Depression) and Other (UTI with bacteremia. Renal insufficiency, Back pain, UTI, Chronic indwelling posada catheter, Thrombocytopenia)
ED Past Surgical History: Urological (Right Nephrostomy tube) and Other (Cataracts)
Social History
Tobacco: Non-smoker
Alcohol: None
Drug: None
Personal: Single
Living: halfway ([facility])
Employment: Not employed
Review of Systems
Review of Systems
All Other Systems: ROS reviewed and negative except as documented in HPI and ROS
Constitutional: Reports no symptoms; Denies fever or chills
EENT: Reports no symptoms
Respiratory: Reports no symptoms; Denies cough or trouble breathing
Cardiac: Reports no symptoms; Denies chest pain
ABD/GI: Reports no symptoms; Denies abdominal pain, nausea, vomiting or diarrhea
: Reports other (Chronic indwelling posada, Nephrostomy tube right)
Musculoskeletal: Reports no symptoms
Skin: Reports no symptoms
Neurological: Reports no symptoms; Denies dizzy or headache
Psychiatric: Reports no symptoms
Phy Exam
General Physical Exam
General Presentation: no apparent distress
General age: appears stated age
General Skin: warm and dry
General Habitus: elderly
General Mental: usual mental status
General Hydration: dry mucous membranes
ENT Exam
ENT Exam: TM's normal, pharynx normal and neck supple
Cardiovascular Exam
Cardiovascular Exam: regular rate/rhythm, no edema and normal peripheral pulses
Pulmonary Exam
Pulmonary Exam: no respiratory distress, chest non tender, no rhonchi, no wheezing, no cough and other (Fine crackles at bases)
Gastrointestinal Exam
Gastrointestinal Exam: normal bowel sounds, non tender, soft, no organomegaly, no pulsatile mass and non distended
Musculoskeletal Exam
Musculoskeletal Exam: full ROM and no edema
Skin Exam
Skin Exam: normal color, warm/dry, no rash and no petechia
Psychiatric Exam
Psychiatric Exam: normal mood/affect
Course
Orders/Labs/Results
Orders:
Orders
03/18/24 18:26
Complete Blood Count/With Diff Urgent
Comprehensive Metabolic Panel Urgent
Urinalysis Reflex To Culture Urgent
Date Specimen was Collected: 03/18/24
Time Specimen was Collected: 18:12
Urine Microscopic Reflex Cult Urgent
Urine Culture Urgent
YAQUELIN Source: U
Specimen Description:
Date Specimen was Collected: 03/18/24
Time Specimen was Collected: 18:12
03/18/24 20:13
CT Abd/pel Without Iv Or Oral Urgent
Comment:
Reason For Exam: Right nephrostomy tube not draining
Posada Placement- Treatment ONCE
Reason for insertion: Chronic Posada on Admit
0.9% Sodium Chloride 1000 ml [Nss] 1,000 ml IV BOLUS
03/18/24 21:14
Urinalysis Reflex To Culture Urgent
Date Specimen was Collected: 03/18/24
Time Specimen was Collected: 20:15
Urine Microscopic Reflex Cult Urgent
Urine Culture Urgent
YAQUELIN Source: U
Specimen Description:
Date Specimen was Collected: 03/18/24
Time Specimen was Collected: 20:15
Abnormal Lab Results
03/18/24 03/18/24
18:26 21:14
RBC 3.77 L 10^6/uL
(4.70-6.10)
Hgb 10.4 L g/dL
(13.0-18.0)
Hct 32.3 L %
(39.0-52.0)
MCHC 32.2 L g/dL
(33.0-37.0)
RDW 14.7 H %
(11.5-14.5)
Neutrophils % 78.4 H %
(42.2-75.2)
Lymphocytes % 14.9 L %
(20.5-51.1)
BUN 60 H mg/dl
(9-20)
Creatinine 2.5 H mg/dL
(0.7-1.3)
Glucose 124 H mg/dl
(70-99)
AST 115 H U/L
(17-59)
ALT 57 H U/L
(0-50)
Ur Occult Blood Reflex 3+ A 3+ A
(Negative) (Negative)
Urine Nitrite (Reflex) Positive A Positive A
(Negative) (Negative)
Leukocyte Esterase Rfl 2+ A 2+ A
(Negative) (Negative)
Urine RBC 3-6 A /HPF 3-6 A /HPF
(0-2) (0-2)
Urine WBC (Reflex) 50-60 A /HPF 16-20 A /HPF
(0-5) (0-5)
Urine Bacteria (Reflex) Many A Many A
(Negative) (Negative)
Urine Albumin (Reflex) 2+ A 1+ A
(Neg - Trace) (Neg - Trace)
03/18/24 18:26
03/18/24 18:26
H/H low but improved from prior labs, Dehydration with chronic renal insufficiency, Glucose nonfasting, AST/ALT elevation. Repeat urine is questionable for infection.
Vital Signs
Initial and Last Documented VS:
Initial Vital Signs
Temp Pulse Resp BP Pulse Ox
98.3 F 76 20 119/63 96
03/18/24 18:12 03/18/24 18:12 03/18/24 18:12 03/18/24 18:12 03/18/24 18:12
Last Documented Vital Signs
Temp Pulse Resp BP Pulse Ox
98.3 F 59 20 118/60 100
03/18/24 18:12 03/18/24 21:30 03/18/24 21:30 03/18/24 21:00 03/18/24 21:00
Project Financial Analyst consulted with Physician
Project Financial Analyst consulted with physician?: Yes
Name of Physician Consulted: Dr. Lagunas
MDM/Problems Addressed
Differential Diagnosis Includes:
UTI, Blocked Nephrostomy tube.
MDM/Problems Addressed:
This is a 84 year old male that is brought in by ambulance from [facility]. States that they were concerned that his nephrostomy tube was blocked.
Will get labs and CT scan to check for Hydronephrosis and placement of the Nephrostomy tube. Will also give IV fluids, change posada catheter and sent repeat urine.
CT shows that the nephrostomy tube is in place and there is no hydronephrosis. Posada catheter was changed and repeat urine was sent. Urine is questionable infected but would wait for culture to treat. Will discharge patient back to the nursing
home.
Chronic conditions affecting care: Kidney disease
Acute Exacerbation and/or Progression of Chronic Illness: Kidney disease
*Radiology
Radiology exam reviewed: radiology read reviewed (CT-Right Percutaneous nephrostoy tube both internal and external drainage in satisfactory position with no hydronephrosis. Concentric thickening of the wall of the urinary bladder which may in part
be secondary to incomplete distention, however, I suspect there is also a component of chronic partial) and all reviewed NAD by ED Provider (CT cont-bladder outlet obstruction as there is a 4.5cm left-sided posterior bladder diverticulum.
Diverticuli are present in the colon with no CT evidence of diverticulitis. Multilevel lumbar degenerative disc disease. )
*Pulse Oximetry
Patient hypoxic: no
*EKG
Interpreted by ED Provider?: NA
Rate: EKG- N/A
*Plant Security Guard Interpretation
Rate: normal
Heart Rate: 64
Rhythm: sinus
*Critical Care Note
Total Time (30-74mins, 75-104mins- exclusive of procedures): Not Applicable
ED Attending Note
-
Portions of this chart may have been created with voice recognition software.� Occasional wrong word or��sound alike� substitutions may have occurred due to the inherent limitations of voice recognition software.
Discharge Plan
Departure
Patient Disposition: Home (Routine Discharge)
Date of Disposition: 03/18/24
Time of Disposition: 22:57
Patient with high blood pressure during this ER visit?: No
Condition: Good
Covid-19: Not Applicable
Discharge Problem:
Nephrostomy tube check, Urinary catheter (Posada) change required, Dehydration
Instructions: Dehydration, Adult (DC), How to Care for Your Posada Catheter, Male
Prescriptions:
No Action
sennosides [senna] 8.6 mg Tablet
17.2 mg PO DAILY
acetaminophen [Tylenol] 325 mg Tablet
650 mg PO Q4HPRN MDD 3000 mg PRN (Reason: mild pain/temp>100F)
polyethylene glycol 3350 17 gram Powder In Packet
17 g PO DAILY
atorvastatin 10 mg Tablet
10 mg PO HS
thiamine HCl (vitamin B1) 100 mg Tablet
100 mg PO DAILY
magnesium hydroxide [Milk of Magnesia] 400 mg/5 mL Suspension
30 ml PO DAILYPRN PRN (Reason: if no BM In 3 days)
tamsulosin 0.4 mg Capsule
0.4 mg PO DAILY
bisacodyl [Dulcolax (bisacodyl)] 10 mg Suppository
10 mg DC DAILYPRN PRN (Reason: if MOM ineffective after 24 hrs)
Fleet Enema 19-7 gram/118 mL Enema
118 ml DC DAILYPRN PRN (Reason: if dulcolax ineffective after 24 hrs)
folic acid 1 mg Tablet
1 mg PO DAILY
midodrine 2.5 mg Tablet
2.5 mg PO BID
simethicone 80 mg Tablet,Chewable
80 mg PO QID Qty: 0 0RF
mirtazapine 7.5 mg Tablet
7.5 mg PO HS
Referrals:
UNKNOWN,NO INTERVIEW [Family Provider] -
Activity Restrictions/Additional Instructions:
As discussed, patient had a CT scan that shows that his nephrostomy tube is in place. There is no Hydronephrosis. Posada catheter was changed and patient is dehydrated. PLEASE INCREASE PATIENT WATER INTAKE TO 8-8OZ GLASSES DAILY. Urine is
questionable for infection but would wait for culture to treat. If this would come back positive you will be called and patient will be started on an antibiotic. Please have patient follow up with the family doctor and the Urologist/Hat Model for
further evaluation. IF PATIENT HAS FEVER, PAIN, OR YOU HAVE ANY OTHER CONCERNS PLEASE RETURN TO THE EMERGENCY ROOM.
Interventions
Interventions:
*Risk Screen - Suicide Last Done: 03/18/24 18:12
*General Assessment Last Done: 03/18/24 18:23
*Neglect/Abuse Screening Last Done: 03/18/24 18:23
ED- Fall Risk Assessment Last Done: 03/18/24 18:24
*ED COVID-19 Vaccine History Last Done: 03/18/24 18:21
Discharge Date and Time
Print Language: [place]
[2024-03-18] MEDS: NSS 1000 IV (20:39)
[2024-03-18 20:40] VITALS: BP 140/69
[2024-03-18 21:00] VITALS: BP 118/60
[2024-03-18 21:22] LABS: Urine Albumin 1+ (Neg - Trace); Urine Bilirubin Negative (Negative); Urine Character Clear (Clear); Urine Color Yellow; Urine Glucose Negative (Negative); Urine Ketone Negative (Negative); Urine Leukocyte 2+ (Negative); Urine Nitrite Positive (Negative); Urine Occult Blood 3+ (Negative); Urine Urobilinogen Negative (Neg - 1+)
[2024-03-18 21:34] LABS: Urine Squamous Cell 0-2 /LPF (Few)
[2024-03-18 21:37] LABS: Urine Bacteria Many (Negative); Urine White Cell 16-20 /HPF (0-5)
[2024-03-18 22:00] VITALS: BP 137/68
[2024-03-19 03:54] VITALS: BP 122/77
== END 2024-03-19 05:14 | disposition home or self-care (01) ==
LOC: EMR 17:58
PROVIDERS: Clinical Nurse Specialist Family Health; Student in an Organized Health Care Education/Training Program; EMERGENCY PHYSICIAN Emergency Medicine
DX: Z43.6 Encounter for attention to other artificial openings of urinary tract (principal); E86.0 Dehydration; N32.0 Bladder-neck obstruction; N32.3 Diverticulum of bladder; M51.369 Other intervertebral disc degeneration, lumbar region without mention of lumbar back pain or lower extremity pain; I12.9 Hypertensive chronic kidney disease with stage 1 through stage 4 chronic kidney disease, or unspecified chronic kidney disease; N18.9 Chronic kidney disease, unspecified; E78.00 Pure hypercholesterolemia, unspecified; F32.A Depression, unspecified; Z87.440 Personal history of urinary (tract) infections; Z88.1 Allergy status to other antibiotic agents; Z88.0 Allergy status to penicillin
CPT/HCPCS: 99284; 96360; 51702; 74176; 80053; 81003; 81015; 85025; 87086

== ENCOUNTER 2024-03-25 14:41 | Emergency (ER) | payer MEDICARE, OTHER, SELFPAY ==
[2024-03-25 14:50] VITALS: BP 128/64
[2024-03-25 15:34] LABS: % Basophils 0.4 % (0-2); % Eosinophils 4.1 % (0-6); % Immature Granulocytes 1.2 % (0-0.5); % Lymphocytes 21.9 % (20.5-51.1); % Monocytes 5.6 % (1.7-9.3); % Neutrophils 66.8 % (42.2-75.2); Absolute Eosinophils 0.3 10^3/uL (0-0.7); Absolute Immature Granulocytes 0.1 10^3/uL (0-0.05); Absolute Lymphocytes 1.8 10^3/uL (1.2-3.4); Absolute Monocytes 0.5 10^3/uL (0.1-0.6); Absolute Neutrophils 5.4 10^3/uL (1.4-6.5); Hematocrit 32.6 % (39.0-52.0); Hemoglobin 10.4 g/dL (13.0-18.0); Mean Corp Hgb Conc. 31.9 g/dL (33.0-37.0); Mean Corpuscular Hgb 27.7 pg (27.0-31.0); Mean Corpuscular Volume 86.7 fL (80.0-94.0); Mean Platelet Volume 9.8 fL (7.4-10.4); Nucleated Red Blood Cells % 0 % (-); Platelet Count 381 10^3/uL (130-400); Red Blood Cell Count 3.76 10^6/uL (4.70-6.10); Red Cell Dist. Width 14.6 % (11.5-14.5); White Blood Cell Count 8.1 10^3/uL (4.8-10.8)
--- NOTE | 2024-03-25 15:46 | ED.GENMED ---
History of Present Illness
General
Chief Complaint: Change in Mental Status
Source: patient, intermediate records and previous hospital records
Exam Limitations: altered mental status
Time Seen by Provider: 03/25/24 15:01
Nursing documentation reviewed up to this point in time: agreed with
History of Present Illness
History of Present Illness:
84-year-old male presents from his care facility apparently was agitated today had abnormal labs, details of which are unclear baseline not agitated, nursing tells me with a tried to insert an IV to get blood he required a few staff members to keep
him calm, my evaluation he is calm, asking not to be bothered no report of fever, no report of trauma he has an indwelling catheter
Past History
Past History
ED Past Medical History: HTN, Hypercholesterolemia, Psychiatric (Depression) and Other (UTI with bacteremia. Renal insufficiency, Back pain, UTI, Chronic indwelling posada catheter, Thrombocytopenia)
ED Past Surgical History: Urological (Right Nephrostomy tube) and Other (Cataracts)
Social History
Tobacco: Non-smoker
Alcohol: None
Drug: None
Personal: Single
Living: intermediate ([facility])
Employment: Not employed
Phy Exam
Physical Exam
Physical Exam:
Physical Exam
General: Elderly male, afebrile
Neck: No tongue bite lips are moist
Heart: s1/s2 regular rate and rhythm, no murmur. equal radial pulses.
Lungs: no acute respiratory distress.
Abdomen: Soft nontender Posada draining some dark urine
Neuro: Oriented to person
Skin: no rash
Psychiatric: cooperative
Extremities: no edema.
Course
Orders/Labs/Results
Orders:
Orders
03/25/24 15:00
Electrocardiogram (*1) Urgent
Reason for Study: Other
Other Reason for Exam: sepsis
EKG- Treatment ONCE
03/25/24 15:22
Complete Blood Count/With Diff Urgent
Comprehensive Metabolic Panel Urgent
Urinalysis Reflex To Culture Urgent
Date Specimen was Collected: 03/25/24
Time Specimen was Collected: 15:21
Urine Microscopic Reflex Cult Urgent
Urine Culture Urgent
YAQUELIN Source: U
Specimen Description:
Date Specimen was Collected: 03/25/24
Time Specimen was Collected: 15:21
03/25/24 15:23
CT Head W/o Iv Contrast Urgent
Comment:
Reason For Exam: pt angry
03/25/24 15:51
0.9% Sodium Chloride 500 ml [Nss] 500 ml IV BOLUS
Abnormal Lab Results
03/25/24
15:22
RBC 3.76 L 10^6/uL
(4.70-6.10)
Hgb 10.4 L g/dL
(13.0-18.0)
Hct 32.6 L %
(39.0-52.0)
MCHC 31.9 L g/dL
(33.0-37.0)
RDW 14.6 H %
(11.5-14.5)
Abs Immat Gran (auto) 0.1 H 10^3/uL
(0-0.05)
Immature Gran % 1.2 H %
(0-0.5)
Potassium 5.2 H mmol/L
(3.5-5.1)
BUN 51 H mg/dl
(9-20)
Creatinine 2.3 H mg/dL
(0.7-1.3)
Glucose 100 H mg/dl
(70-99)
Ur Occult Blood Reflex 2+ A
(Negative)
Urine Nitrite (Reflex) Positive A
(Negative)
Leukocyte Esterase Rfl 2+ A
(Negative)
Urine RBC 7-10 A /HPF
(0-2)
Urine WBC (Reflex) >100 A /HPF
(0-5)
Urine Bacteria (Reflex) Many A
(Negative)
Urine Albumin (Reflex) 1+ A
(Neg - Trace)
03/25/24 15:22
03/25/24 15:22
Vital Signs
Initial and Last Documented VS:
Initial Vital Signs
Temp Pulse Resp BP Pulse Ox
97.6 F 62 18 128/64 96
03/25/24 14:50 03/25/24 14:50 03/25/24 14:50 03/25/24 14:50 03/25/24 14:50
Last Documented Vital Signs
Temp Pulse Resp BP Pulse Ox
97.6 F 62 18 128/72 97
03/25/24 14:50 03/25/24 14:50 03/25/24 14:50 03/25/24 16:04 03/25/24 16:19
MDM/Problems Addressed
Differential Diagnosis Includes:
Dehydration UTI delirium stroke occult head trauma
MDM/Problems Addressed:
Mental status
Chronic conditions affecting care:
Hypotension prostate cholesterol
Chronic conditions affecting care: Kidney disease
Acute Exacerbation and/or Progression of Chronic Illness:
Hypertension prostate cholesterol
Acute Exacerbation and/or Progression of Chronic Illness: Kidney disease
*Radiology
Radiology exam reviewed: preliminary read by ED provider
*Pulse Oximetry
Patient hypoxic: no
*Associate Professor Of Law Interpretation
Rate: normal
Interpretation: normal
Heart Rate: 78
Rhythm: sinus
*Critical Care Note
Total Time (30-74mins, 75-104mins- exclusive of procedures): Not Applicable
Data Reviewed
Review of Other/Old Records Reveals: Labs
Source: records
Update Note
Update Note:
Update patient appears calm vital signs are stable labs are noted essentially at his baseline we will give some saline, check urine CT of the head with an eye towards discharge back to his facility
CT head noted urinalysis coming back at his indwelling catheter
ED Attending Note
-
Portions of this chart may have been created with voice recognition software.� Occasional wrong word or��sound alike� substitutions may have occurred due to the inherent limitations of voice recognition software.
Discharge Plan
Departure
Patient Disposition: Home (Routine Discharge)
Date of Disposition: 03/25/24
Time of Disposition: 16:57
Patient with high blood pressure during this ER visit?: No
Condition: Good
Covid-19: Not Applicable
Discharge Problem:
Mental status change
Instructions: Altered Mental Status (DC), Dementia (DC)
Prescriptions:
No Action
sennosides [senna] 8.6 mg Tablet
17.2 mg PO DAILY
acetaminophen [Tylenol] 325 mg Tablet
650 mg PO Q4HPRN MDD 3000 mg PRN (Reason: mild pain/temp>100F)
polyethylene glycol 3350 17 gram Powder In Packet
17 g PO DAILY
atorvastatin 10 mg Tablet
10 mg PO HS
thiamine HCl (vitamin B1) 100 mg Tablet
100 mg PO DAILY
magnesium hydroxide [Milk of Magnesia] 400 mg/5 mL Suspension
30 ml PO DAILYPRN PRN (Reason: if no BM In 3 days)
tamsulosin 0.4 mg Capsule
0.4 mg PO DAILY
bisacodyl [Dulcolax (bisacodyl)] 10 mg Suppository
10 mg [place] DAILYPRN PRN (Reason: if MOM ineffective after 24 hrs)
Fleet Enema 19-7 gram/118 mL Enema
118 ml [place] DAILYPRN PRN (Reason: if dulcolax ineffective after 24 hrs)
folic acid 1 mg Tablet
1 mg PO DAILY
midodrine 2.5 mg Tablet
2.5 mg PO BID
simethicone 80 mg Tablet,Chewable
80 mg PO QID Qty: 0 0RF
mirtazapine 7.5 mg Tablet
7.5 mg PO HS
Interventions
Interventions:
*Risk Screen - Suicide Last Done: 03/25/24 14:50
*General Assessment Last Done: 03/25/24 14:50
*Neglect/Abuse Screening Last Done: 03/25/24 14:50
*ED COVID-19 Vaccine History Last Done: 03/25/24 16:26
ED- Neurological Assessment Last Done: 03/25/24 16:28
Discharge Date and Time
Print Language: ROMANSH
[2024-03-25 15:48] LABS: ALT (SGPT) 28 U/L (0-50); AST (SGOT) 26 U/L (17-59); Albumin 3.8 g/dl (3.5-5.0); Alkaline Phosphatase 122 U/L (38-126); Blood Urea Nitrogen 51 mg/dl (9-20); Calcium 9.1 mg/dl (8.4-10.2); Carbon Dioxide 27 mmol/L (22-30); Chloride 102 mmol/L (98-107); Glucose 100 mg/dl (70-99); Potassium 5.2 mmol/L (3.5-5.1); Sodium 140 mmol/L (135-145); Total Bilirubin 0.6 mg/dl (0.2-1.3); Total Protein 7.5 g/dl (6.3-8.2); eGFR 27.32
[2024-03-25 15:58] LABS: Urine Albumin 1+ (Neg - Trace); Urine Bilirubin Negative (Negative); Urine Character Very Cloudy (Clear); Urine Color Yellow; Urine Glucose Negative (Negative); Urine Ketone Negative (Negative); Urine Leukocyte 2+ (Negative); Urine Nitrite Positive (Negative); Urine Occult Blood 2+ (Negative); Urine Urobilinogen Negative (Neg - 1+)
[2024-03-25 16:04] VITALS: BP 128/72
[2024-03-25] MEDS: NSS 500 IV (16:24)
[2024-03-25 16:25] VITALS: BMI 26.2
[2024-03-25 16:48] LABS: Urine Bacteria Many (Negative); Urine White Cell >100 /HPF (0-5)
[2024-03-25 17:00] VITALS: BP 101/55
[2024-03-25 18:00] VITALS: BP 98/56
[2024-03-25 19:19] VITALS: BP 129/63
== END 2024-03-25 19:47 | disposition home or self-care (01) ==
LOC: EMR 14:41
PROVIDERS: EMERGENCY PHYSICIAN Emergency Medicine; FAMILY PHYSICIAN Internal Medicine
DX: R41.82 Altered mental status, unspecified (principal); I10 Essential (primary) hypertension; E78.00 Pure hypercholesterolemia, unspecified; F32.A Depression, unspecified; Z87.440 Personal history of urinary (tract) infections
CPT/HCPCS: 99285; 70450; 80053; 81003; 81015; 85025; 87086; 93005

== ENCOUNTER 2024-04-08 17:49 | Emergency (ER) | payer MEDICARE, OTHER, SELFPAY ==
[2024-04-08 17:50] VITALS: BP 139/66
--- NOTE | 2024-04-08 19:57 | ED.GENMED ---
History of Present Illness
General
Chief Complaint: Catheter/Tube Problem
Source: records
Exam Limitations: dementia
Time Seen by Provider: 04/08/24 19:51
History of Present Illness
History of Present Illness:
Patient apparently pulled out his Posada. He does not recall doing this. However after being reminded he states this may have been what happened. Denies current symptoms. Denies fever chills nausea vomiting etc.
Past History
Past History
ED Past Medical History: HTN, Hypercholesterolemia, Psychiatric (Depression) and Other (UTI with bacteremia. Renal insufficiency, Back pain, UTI, Chronic indwelling posada catheter, Thrombocytopenia)
ED Past Surgical History: Urological (Right Nephrostomy tube) and Other (Cataracts)
Social History
Tobacco: Non-smoker
Alcohol: None
Drug: None
Personal: Single
[facility]: [facility] ([facility])
Employment: Not employed
Review of Systems
Review of Systems
Unable to obtain full review of systems at this time due to: dementia
All Other Systems: Not applicable
Phy Exam
Physical Exam
Physical Exam:
GENERAL: Alert and oriented to name. Knows he is 87 years old. Chronically ill-appearing
EYE: Orbits normal.
NECK: Supple
CARDIAC: Regular rate and rhythm without any obvious murmurs.
LUNGS: Clear breath sounds,normal
ABDOMEN: Soft, without focal tenderness or distention.
: Genitalia normal. Hypospadias. Small amount of blood in the diaper. No active bleeding from the urethra
NEUROLOGICAL: Alert. Grossly nonfocal
SKIN: Warm and dry, no rash or lesion, no discoloration, skin intact.
MUSCULOSKELETAL: No edema,no deformity.Good color
PSYCH: Cooperative
Course
Orders/Labs/Results
Orders:
Orders
04/08/24 19:56
Posada Placement- Treatment ONCE
Reason for insertion: Outlet obstruction
Vital Signs
Initial and Last Documented VS:
Initial Vital Signs
Temp Pulse Resp BP Pulse Ox
97.5 F 71 18 139/66 100
04/08/24 17:50 04/08/24 17:50 04/08/24 17:50 04/08/24 17:50 04/08/24 17:50
Last Documented Vital Signs
Temp Pulse Resp BP Pulse Ox
97.5 F 71 18 139/66 100
04/08/24 17:50 04/08/24 17:50 04/08/24 17:50 04/08/24 17:50 04/08/24 17:50
MDM/Problems Addressed
Differential Diagnosis Includes:
Dislodged Posada catheter. Will replace the Posada. No infectious issues. No indication for urine culture or labs at this time.
*Pulse Oximetry
Patient hypoxic: no
*Critical Care Note
Total Time (30-74mins, 75-104mins- exclusive of procedures): Not Applicable
Data Reviewed
Review of Other/Old Records Reveals: Labs, Records and Testing
Update Note
Update Note:
Posada replaced by RN without difficulty. Nothing to support infectious issue. Stable for discharge
Message left with son
ED Attending Note
-
Portions of this chart may have been created with voice recognition software.� Occasional wrong word or��sound alike� substitutions may have occurred due to the inherent limitations of voice recognition software.
Discharge Plan
Departure
Patient Disposition: Home (Routine Discharge)
Date of Disposition: 04/08/24
Time of Disposition: 20:53
Patient with high blood pressure during this ER visit?: Yes
Discharge Problem:
Dislodged Posada catheter
Instructions: How to Care for Your Posada Catheter, Male, BLOOD PRESSURE
Prescriptions:
No Action
sennosides [senna] 8.6 mg Tablet
17.2 mg PO DAILY
acetaminophen [Tylenol] 325 mg Tablet
650 mg PO Q4HPRN MDD 3000 mg PRN (Reason: mild pain/temp>100F)
polyethylene glycol 3350 17 gram Powder In Packet
17 g PO DAILY
atorvastatin 10 mg Tablet
10 mg PO HS
thiamine HCl (vitamin B1) 100 mg Tablet
100 mg PO DAILY
magnesium hydroxide [Milk of Magnesia] 400 mg/5 mL Suspension
30 ml PO DAILYPRN PRN (Reason: if no BM In 3 days)
tamsulosin 0.4 mg Capsule
0.4 mg PO DAILY
bisacodyl [Dulcolax (bisacodyl)] 10 mg Suppository
10 mg LA DAILYPRN PRN (Reason: if MOM ineffective after 24 hrs)
Fleet Enema 19-7 gram/118 mL Enema
118 ml LA DAILYPRN PRN (Reason: if dulcolax ineffective after 24 hrs)
folic acid 1 mg Tablet
1 mg PO DAILY
midodrine 2.5 mg Tablet
2.5 mg PO BID
simethicone 80 mg Tablet,Chewable
80 mg PO QID Qty: 0 0RF
mirtazapine 7.5 mg Tablet
7.5 mg PO HS
Referrals:
Marquise Youssef I., DO [Family Provider] - Follow up in 2-3 days
Interventions
Interventions:
*Risk Screen - Suicide Last Done: 04/08/24 17:50
*General Assessment Last Done: 04/08/24 17:50
*ED COVID-19 Vaccine History Last Done: 04/08/24 17:50
PD-Symyzh-Ykksxrkyqy Assessment Last Done: 04/08/24 20:38
Discharge Date and Time
Print Language: BRUNEIAN
[2024-04-08 21:43] VITALS: BP 119/103
== END 2024-04-08 21:59 | disposition home or self-care (01) ==
LOC: EMR 17:49
PROVIDERS: EMERGENCY PHYSICIAN Emergency Medicine; FAMILY PHYSICIAN Internal Medicine
DX: T83.021A Displacement of indwelling urethral catheter, initial encounter (principal); Y92.9 Unspecified place or not applicable; F03.93 Unspecified dementia, unspecified severity, with mood disturbance; E78.00 Pure hypercholesterolemia, unspecified; I10 Essential (primary) hypertension; F32.A Depression, unspecified; Z87.440 Personal history of urinary (tract) infections
CPT/HCPCS: 99282; 51702

== ENCOUNTER 2024-05-22 18:46 | Emergency (ER) | payer MEDICARE, OTHER, SELFPAY ==
[2024-05-22 18:49] VITALS: BP 120/58; BMI 25.8
[2024-05-22 19:00] VITALS: BP 120/58
[2024-05-22 19:18] LABS: % Basophils 0.2 % (0-2); % Eosinophils 4.4 % (0-6); % Immature Granulocytes 0.2 % (0-0.5); % Lymphocytes 21.8 % (20.5-51.1); % Monocytes 8.5 % (1.7-9.3); % Neutrophils 64.9 % (42.2-75.2); Absolute Eosinophils 0.3 10^3/uL (0-0.7); Absolute Lymphocytes 1.2 10^3/uL (1.2-3.4); Absolute Monocytes 0.5 10^3/uL (0.1-0.6); Absolute Neutrophils 3.7 10^3/uL (1.4-6.5); Hematocrit 28.7 % (39.0-52.0); Hemoglobin 9.2 g/dL (13.0-18.0); Mean Corp Hgb Conc. 32.1 g/dL (33.0-37.0); Mean Corpuscular Volume 87.2 fL (80.0-94.0); Mean Platelet Volume 10.1 fL (7.4-10.4); Nucleated Red Blood Cells % 0 % (-); Platelet Count 232 10^3/uL (130-400); Red Blood Cell Count 3.29 10^6/uL (4.70-6.10); Red Cell Dist. Width 15.6 % (11.5-14.5); White Blood Cell Count 5.6 10^3/uL (4.8-10.8)
--- NOTE | 2024-05-22 19:23 | ED.GENMED ---
History of Present Illness
General
Chief Complaint: Weakness
Source: patient
Exam Limitations: dementia
Time Seen by Provider: 05/22/24 19:02
Nursing documentation reviewed up to this point in time: agreed with
History of Present Illness
History of Present Illness:
84-year-old male from a local residential presents with weakness
Onset unclear he is no fever has a mild cough no nausea or vomiting no chest pain no dysuria no frequency looks to be confused he knows he is at the hospital unsure of the year moves all extremities
Past History
Past History
ED Past Medical History: HTN, Hypercholesterolemia, Psychiatric (Depression) and Other (UTI with bacteremia. Renal insufficiency, Back pain, UTI, Chronic indwelling posada catheter, Thrombocytopenia)
ED Past Surgical History: Urological (Right Nephrostomy tube) and Other (Cataracts)
Social History
Tobacco: Non-smoker
Alcohol: None
Drug: None
Personal: Single
Living: residential ([facility])
Employment: Not employed
Review of Systems
Review of Systems
Unable to obtain full review of systems at this time due to: dementia
All Other Systems: Not applicable
Respiratory: Reports cough
Cardiac: Reports no symptoms
ABD/GI: Reports no symptoms
: Reports no symptoms
Phy Exam
Physical Exam
Physical Exam:
Physical Exam
General: 84 male looks pale nontoxic occasional dry cough
Neck: No jaundice
Heart: s1/s2 regular rate and rhythm, no murmur. equal radial pulses.
Lungs: No wheeze
Abdomen: Not tender
Neuro: alert and oriented. Pleasantly confused moves all extremities clear speech no facial
Skin: no rash
Psychiatric: Flat affect cooperative
Extremities: no edema
Course
Orders/Labs/Results
Orders:
Orders
05/22/24 19:09
Complete Blood Count/With Diff Urgent
Comprehensive Metabolic Panel Urgent
05/22/24 19:15
CR Chest - 2 Views Urgent
Comment:
Reason For Exam: cough
05/22/24 19:33
Influenza A+B Rapid Molecular Urgent
YAQUELIN Source: Nasal Swab
Specimen Description:
05/22/24 21:12
Urinalysis Reflex To Culture Urgent
Date Specimen was Collected: 05/22/24
Time Specimen was Collected: 19:19
Abnormal Lab Results
05/22/24
19:09
RBC 3.29 L 10^6/uL
(4.70-6.10)
Hgb 9.2 L g/dL
(13.0-18.0)
Hct 28.7 L %
(39.0-52.0)
MCHC 32.1 L g/dL
(33.0-37.0)
RDW 15.6 H %
(11.5-14.5)
BUN 49 H mg/dl
(9-20)
Creatinine 2.0 H mg/dL
(0.7-1.3)
Glucose 159 H mg/dl
(70-99)
05/22/24 19:09
05/22/24 19:09
Vital Signs
Initial and Last Documented VS:
Initial Vital Signs
Temp Pulse Resp BP Pulse Ox
98.2 F 66 12 120/58 99
05/22/24 18:49 05/22/24 18:49 05/22/24 18:49 05/22/24 18:49 05/22/24 18:49
Last Documented Vital Signs
Temp Pulse Resp BP Pulse Ox
98.2 F 53 16 104/54 100
05/22/24 18:49 05/22/24 20:45 05/22/24 20:45 05/22/24 20:00 05/22/24 20:45
MDM/Problems Addressed
Differential Diagnosis Includes:
UTI electrolyte abnormality anemia pneumonia influenza
MDM/Problems Addressed:
Weakness
Chronic conditions affecting care: HTN, Neurological disorder and Kidney disease
Acute Exacerbation and/or Progression of Chronic Illness: HTN, Neurological disorder and Kidney disease
*Radiology
Radiology exam reviewed: preliminary read by ED provider
*Pulse Oximetry
Patient hypoxic: no
*Manager Immunology Interpretation
Rate: normal
Interpretation: normal
Rhythm: sinus
*Critical Care Note
Total Time (30-74mins, 75-104mins- exclusive of procedures): Not Applicable
Data Reviewed
Review of Other/Old Records Reveals: Labs
Source: patient
Update Note
Update Note:
8 PM labs are abnormal old records reviewed very similar to prior records, negative flu, chest x-ray and urine are pending patient is hemodynamically stable
9:30 PM patient hemodynamically stable has not provided a urine
ED Attending Note
-
Portions of this chart may have been created with voice recognition software.� Occasional wrong word or��sound alike� substitutions may have occurred due to the inherent limitations of voice recognition software.
Discharge Plan
Departure
Patient Disposition: [facility]/SNF
Date of Disposition: 05/22/24
Time of Disposition: 21:27
Patient with high blood pressure during this ER visit?: No
Condition: Good
Covid-19: Not Applicable
Discharge Problem:
Weakness
Instructions: Generalized Weakness (DC)
Prescriptions:
No Action
sennosides [senna] 8.6 mg Tablet
17.2 mg PO DAILY
acetaminophen [Tylenol] 325 mg Tablet
650 mg PO Q4HPRN MDD 3000 mg PRN (Reason: mild pain/temp>100F)
polyethylene glycol 3350 17 gram Powder In Packet
17 g PO DAILY
atorvastatin 10 mg Tablet
10 mg PO HS
thiamine HCl (vitamin B1) 100 mg Tablet
100 mg PO DAILY
magnesium hydroxide [Milk of Magnesia] 400 mg/5 mL Suspension
30 ml PO DAILYPRN PRN (Reason: if no BM In 3 days)
tamsulosin 0.4 mg Capsule
0.4 mg PO DAILY
bisacodyl [Dulcolax (bisacodyl)] 10 mg Suppository
10 mg IA DAILYPRN PRN (Reason: if MOM ineffective after 24 hrs)
Fleet Enema 19-7 gram/118 mL Enema
118 ml IA DAILYPRN PRN (Reason: if dulcolax ineffective after 24 hrs)
folic acid 1 mg Tablet
1 mg PO DAILY
midodrine 2.5 mg Tablet
2.5 mg PO BID
simethicone 80 mg Tablet,Chewable
80 mg PO QID Qty: 0 0RF
mirtazapine 7.5 mg Tablet
7.5 mg PO HS
Referrals:
Marquise Youssef I., DO [Family Provider] -
Interventions
Interventions:
*Risk Screen - Suicide Last Done: 05/22/24 18:49
*General Assessment Last Done: 05/22/24 18:49
*Neglect/Abuse Screening Last Done: 05/22/24 18:49
*ED- Fall Risk Assessment Last Done: 05/22/24 18:49
*ED COVID-19 Vaccine History Last Done: 05/22/24 18:49
ED- Cardiac Assessment Last Done: 05/22/24 19:01
ED- Neurological Assessment Last Done: 05/22/24 19:01
ED- Pulmonary Assessment Last Done: 05/22/24 19:01
Discharge Date and Time
Print Language: SINHALA
[2024-05-22 19:30] LABS: ALT (SGPT) 30 U/L (0-50); AST (SGOT) 39 U/L (17-59); Albumin 3.7 g/dl (3.5-5.0); Alkaline Phosphatase 101 U/L (38-126); Blood Urea Nitrogen 49 mg/dl (9-20); Carbon Dioxide 25 mmol/L (22-30); Chloride 101 mmol/L (98-107); Estimated Creatinine Clearance 32 ml/min; Glucose 159 mg/dl (70-99); Potassium 4.1 mmol/L (3.5-5.1); Sodium 137 mmol/L (135-145); Total Bilirubin 0.9 mg/dl (0.2-1.3)
[2024-05-22 20:00] VITALS: BP 104/54
[2024-05-22 21:00] VITALS: BP 116/64
[2024-05-22 22:00] VITALS: BP 125/66
== END 2024-05-22 23:19 ==
LOC: EMR 18:46
PROVIDERS: EMERGENCY PHYSICIAN Emergency Medicine; FAMILY PHYSICIAN Internal Medicine
DX: R53.1 Weakness (principal); F03.90 Unspecified dementia, unspecified severity, without behavioral disturbance, psychotic disturbance, mood disturbance, and anxiety; I10 Essential (primary) hypertension; E78.00 Pure hypercholesterolemia, unspecified; Z96.0 Presence of urogenital implants
CPT/HCPCS: 99284; 71046; 80053; 85025; 87502

== ENCOUNTER → 2024-06-06 14:08 | Outpatient (REF) | payer MEDICARE, OTHER, SELFPAY ==
[2024-06-06 18:53] LABS: Urine Albumin 3+ (Neg - Trace); Urine Bilirubin Negative (Negative); Urine Character Cloudy (Clear); Urine Color Yellow; Urine Glucose Negative (Negative); Urine Ketone Negative (Negative); Urine Leukocyte 3+ (Negative); Urine Nitrite Negative (Negative); Urine Occult Blood 4+ (Negative); Urine Specific Gravity 1.015 (<1.030); Urine Urobilinogen Negative (Neg - 1+)
[2024-06-06 19:05] LABS: Urine Bacteria Many (Negative); Urine Squamous Cell 0-2 /LPF (Few); Urine White Cell 90-100 /HPF (0-5)
== END ==
LOC: CLAB 14:08
PROVIDERS: ATTENDING PHYSICIAN Surgery
DX: R39.9 Unspecified symptoms and signs involving the genitourinary system (principal)
CPT/HCPCS: 81003; 81015; 87086; 87088; 87186

== ENCOUNTER → 2024-09-30 10:21 | Outpatient (REF) | payer MEDICARE, OTHER, SELFPAY ==
[2024-09-30 10:40] VITALS: BP 122/62; BP_SYST 59
[2024-09-30 11:37] VITALS: BP 135/66; BP_SYST 64
[2024-09-30 12:16] VITALS: BP 135/66
== END ==
LOC: RADI 10:21
PROVIDERS: ATTENDING PHYSICIAN Surgery; FAMILY PHYSICIAN Internal Medicine
DX: Z43.6 Encounter for attention to other artificial openings of urinary tract (principal); N13.1 Hydronephrosis with ureteral stricture, not elsewhere classified
CPT/HCPCS: 50387; C1769

== ENCOUNTER 2024-10-08 21:18 | Inpatient (IN) | payer MEDICARE, OTHER, SELFPAY ==
[2024-10-08] VITALS (16 sets, daily range): BP systolic 54–151; BP diastolic 56–98; BMI 26.5; BMI 26.7
--- NOTE | 2024-10-08 09:39 | ED.GENMED ---
History of Present Illness
<YUNIOR Zaman - Last Filed: 10/12/24 20:14>
General
Chief Complaint: Catheter/Tube Problem
Source: [facility]
Exam Limitations: dementia
Time Seen by Provider: 10/08/24 09:15
Nursing documentation reviewed up to this point in time: agreed with
History of Present Illness
History of Present Illness:
Patient is a an 84-year-old male from [facility] sent for evaluation. Patient was found today with his nephrostomy tube out of place.
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 In addition patient's past medical history includes acute kidney injury, anemia ileus constipation
hyponatremia hypokalemia UTI sepsis. Patient had an exchange of his right percutaneous nephrostomy catheter September 30 here in IR.
He is awake alert has no complaints, baseline confusion.
Past History
<YUNIOR Zaman - Last Filed: 10/12/24 20:14>
Past History
ED Past Medical History: HTN, Hypercholesterolemia, Psychiatric (Depression) and Other (UTI with bacteremia. Renal insufficiency, Back pain, UTI, Chronic indwelling posada catheter, Thrombocytopenia)
ED Past Surgical History: Urological (Right Nephrostomy tube) and Other (Cataracts)
Social History
Tobacco: Non-smoker
Alcohol: None
Drug: None
Personal: Single
Living: prison ([facility])
Employment: Not employed
Phy Exam
<YUNIOR Zaman - Last Filed: 10/12/24 20:14>
General Physical Exam
General Presentation: no apparent distress
General age: appears stated age
General Skin: warm and dry
General Habitus: normal
General Mental: confused
Neurological Exam
Neurological Exam: alert and oriented x3
Musculoskeletal Exam
Musculoskeletal Exam: other (right flank with open region at site of previous nephrostomy tube no bleeding no purulent drainage )
Skin Exam
Skin Exam: normal color and warm/dry
Psychiatric Exam
Psychiatric Exam: normal mood/affect
Course
<YUNIOR Zaman - Last Filed: 10/12/24 20:14>
Orders/Labs/Results
Orders:
Orders
10/08/24 11:11
[facility] CONSULT Urgent
Consulting Provider: Marco Beck
Was physician already notified: Yes
Procedure being ordered, including laterality if applicable: right nephrostomy tube placement
Acknowledgement that appropriate orders are entered: Yes
10/08/24 Dinner
NPO
Allow oral meds: Yes
Allow clear liquids: No
NPO with Ice Chips: No
10/08/24 15:57
CT Abd/pel Without Iv Or Oral Urgent
Comment:
Reason For Exam: abd pain s/p nephsotomy tube insertion
Ondansetron Injectable [Zofran] 4 mg IV NOW STA
10/08/24 15:58
0.9% Sodium Chloride 1000 ml [Nss] 1,000 ml IV BOLUS
10/08/24 16:07
Complete Blood Count/With Diff Urgent
Comprehensive Metabolic Panel Urgent
10/08/24 16:29
Urinalysis Reflex To Culture Urgent
Date Specimen was Collected: 10/08/24
Time Specimen was Collected: 16:08
Urine Microscopic Reflex Cult Urgent
Urine Culture Urgent
YAQUELIN Source: U
Specimen Description:
Date Specimen was Collected: 10/08/24
Time Specimen was Collected: 16:08
10/08/24 19:03
Aztreonam [Azactam] 1,000 mg IV NOW STA
10/08/24 19:04
Sterile Water [Sterile Water For Injection] 10 ml IV NOW STA
10/08/24 20:54
Admit/Transfer Patient As Directed
Co-Sign Provider:
Level of Care: Inpatient admission
Assign to:: Medical/Surgical
Physician / Group: fabiola wallace
Diagnosis: R nephrostomy tube change with intraparenchymal hemorrhage, pyuria
Reason for Hospitalization: R nephrostomy tube change with intraparenchymal hemorrhage, pyuria
Expected length of stay greater than two midnights?: Yes
ELOS- Estimated Length of Stay in days: 3
I certify the patient meets the requirements for IP care: Yes
10/08/24 20:57
Code Status As Directed
Resuscitation Status: Full Code
10/08/24 21:00
PRN Pain Medication Management As Directed
May give lesser potent ordered pain med per pt: Yes
preference::
Protocol:: Medication orders for pain may be administered in a
manner that supports deferring to patient preference
when the pt is:
- Requesting an ordered lesser potent pain medication.
Least to most potent pain medications are defined
as: acetaminophen < NSAID < tramadol < opioids
(morphine, oxycodone, hydromorphone).
- Requesting a lesser dose of the same medication IF
ORDERED.
- Requesting a less intrusive route of administration
if both routes are prescribed by the provider (PO <
IV).
10/08/24 21:43
0.9% Sodium Chloride 1000 ml [Nss] 1,000 ml IV 60 mls/hr
Acetaminophen [Tylenol] 650 mg PO Q4HPRN PRN mild pain/temp>100F
Magnesium Hydroxide [Milk of Magnesia] 30 ml PO [id number] PRN if no BM In 3 days
Phosphate Enema [Fleet Phosphate Enema-Adult] 118 ml RECTAL DAILYPRN PRN if dulcolax ineffective after 24 hrs
10/08/24 21:43
UROLOGY CONSULT Routine
Consulting Provider: Boaz Jarquin
Was physician already notified: Yes
Comment: Right nephrostomy tube with perinephric parenchymal hemorrhage
Activity As Directed
Activity Level: With Assistance
Intake/ Output As Directed
Frequency: Per unit guidelines
Pneumatic Compression Sleeves As Directed
Type: Knee high
Vital Signs As Directed
Frequency: q4h
Pt Eval And Treat Routine
Activity Level: With Assistance
DX Deep Vein Thrombosis Video Routine
10/08/24 22:00
Atorvastatin [Lipitor] 10 mg PO HS
Mirtazapine [Remeron] 7.5 mg PO HS
Simethicone [Mylicon] 80 mg PO QID
10/08/24 22:41
Type+Screen Urgent
H&H Urgent
10/09/24 07:36
Complete Blood Count/With Diff IN AM
Comprehensive Metabolic Panel IN AM
10/09/24 08:00
Aztreonam [Azactam] 500 mg IV Q12H
FOLic ACID [Folvite] 1 mg PO DAILY
Finasteride [Proscar] 5 mg PO DAILY
Midodrine [ProAmatine] 2.5 mg PO BID AT 0800,1700
Polyethylene Glycol Powder [Miralax] 17 grams PO DAILY
Sennosides [Senokot] 17.2 mg PO DAILY
Tamsulosin [Flomax] 0.4 mg PO DAILY
Thiamine HCl [Vitamin B1] 100 mg PO DAILY
10/09/24 20:56
Ferrous Sulfate [Feosol] 325 mg PO MOWEFR
Abnormal Lab Results
10/08/24 10/08/24
16:07 16:29
RBC 3.45 L 10^6/uL
(4.70-6.10)
Hgb 9.6 L g/dL
(13.0-18.0)
Hct 30.5 L %
(39.0-52.0)
MCHC 31.5 L g/dL
(33.0-37.0)
Chloride 109 H mmol/L
(98-107)
BUN 35 H mg/dl
(9-20)
Creatinine 2.1 H mg/dL
(0.7-1.3)
Glucose 118 H mg/dl
(70-99)
Ur Occult Blood Reflex 4+ A
(Negative)
Leukocyte Esterase Rfl 3+ A
(Negative)
Urine RBC >100 A /HPF
(0-2)
Urine WBC (Reflex) 80-90 A /HPF
(0-5)
Urine Bacteria (Reflex) Moderate A
(Negative)
Urine Albumin (Reflex) 4+ A
(Neg - Trace)
10/08/24 16:07
10/08/24 16:07
Vital Signs
Initial and Last Documented VS:
Initial Vital Signs
Pulse Resp
75 22
10/08/24 09:18 10/08/24 09:18
Last Documented Vital Signs
Temp Pulse Resp BP Pulse Ox
97.7 F 65 16 128/64 96
10/12/24 15:00 10/12/24 16:51 10/12/24 15:00 10/12/24 16:51 10/12/24 15:00
<Fabio Sierra, - Last Filed: 10/08/24 18:30>
Orders/Labs/Results
Orders:
Orders
10/08/24 11:11
IR[facility] CONSULT Urgent
Consulting Provider: Marco Beck
Was physician already notified: Yes
Procedure being ordered, including laterality if applicable: right nephrostomy tube placement
Acknowledgement that appropriate orders are entered: Yes
10/08/24 Dinner
NPO
Allow oral meds: Yes
Allow clear liquids: No
NPO with Ice Chips: No
10/08/24 15:57
CT Abd/pel Without Iv Or Oral Urgent
Comment:
Reason For Exam: abd pain s/p nephsotomy tube insertion
Ondansetron Injectable [Zofran] 4 mg IV NOW STA
10/08/24 15:58
0.9% Sodium Chloride 1000 ml [Nss] 1,000 ml IV BOLUS
10/08/24 16:07
Complete Blood Count/With Diff Urgent
Comprehensive Metabolic Panel Urgent
10/08/24 16:29
Urinalysis Reflex To Culture Urgent
Date Specimen was Collected: 10/08/24
Time Specimen was Collected: 16:08
Urine Microscopic Reflex Cult Urgent
Urine Culture Urgent
YAQUELIN Source: U
Specimen Description:
Date Specimen was Collected: 10/08/24
Time Specimen was Collected: 16:08
10/08/24 19:03
Aztreonam [Azactam] 1,000 mg IV NOW STA
10/08/24 19:04
Sterile Water [Sterile Water For Injection] 10 ml IV NOW STA
10/08/24 20:54
Admit/Transfer Patient As Directed
Co-Sign Provider:
Level of Care: Inpatient admission
Assign to:: Medical/Surgical
Physician / Group: fabiola wallace
Diagnosis: R nephrostomy tube change with intraparenchymal hemorrhage, pyuria
Reason for Hospitalization: R nephrostomy tube change with intraparenchymal hemorrhage, pyuria
Expected length of stay greater than two midnights?: Yes
ELOS- Estimated Length of Stay in days: 3
I certify the patient meets the requirements for IP care: Yes
10/08/24 20:57
Code Status As Directed
Resuscitation Status: Full Code
10/08/24 21:00
PRN Pain Medication Management As Directed
May give lesser potent ordered pain med per pt: Yes
preference::
Protocol:: Medication orders for pain may be administered in a
manner that supports deferring to patient preference
when the pt is:
- Requesting an ordered lesser potent pain medication.
Least to most potent pain medications are defined
as: acetaminophen < NSAID < tramadol < opioids
(morphine, oxycodone, hydromorphone).
- Requesting a lesser dose of the same medication IF
ORDERED.
- Requesting a less intrusive route of administration
if both routes are prescribed by the provider (PO <
IV).
10/08/24 21:43
0.9% Sodium Chloride 1000 ml [Nss] 1,000 ml IV 60 mls/hr
Acetaminophen [Tylenol] 650 mg PO Q4HPRN PRN mild pain/temp>100F
Magnesium Hydroxide [Milk of Magnesia] 30 ml PO [id number] PRN if no BM In 3 days
Phosphate Enema [Fleet Phosphate Enema-Adult] 118 ml RECTAL DAILYPRN PRN if dulcolax ineffective after 24 hrs
10/08/24 21:43
UROLOGY CONSULT Routine
Consulting Provider: Boaz Jarquin
Was physician already notified: Yes
Comment: Right nephrostomy tube with perinephric parenchymal hemorrhage
Activity As Directed
Activity Level: With Assistance
Intake/ Output As Directed
Frequency: Per unit guidelines
Pneumatic Compression Sleeves As Directed
Type: Knee high
Vital Signs As Directed
Frequency: q4h
Pt Eval And Treat Routine
Activity Level: With Assistance
DX Deep Vein Thrombosis Video Routine
10/08/24 22:00
Atorvastatin [Lipitor] 10 mg PO HS
Mirtazapine [Remeron] 7.5 mg PO HS
Simethicone [Mylicon] 80 mg PO QID
10/08/24 22:41
Type+Screen Urgent
H&H Urgent
10/09/24 07:36
Complete Blood Count/With Diff IN AM
Comprehensive Metabolic Panel IN AM
10/09/24 08:00
Aztreonam [Azactam] 500 mg IV Q12H
FOLic ACID [Folvite] 1 mg PO DAILY
Finasteride [Proscar] 5 mg PO DAILY
Midodrine [ProAmatine] 2.5 mg PO BID AT 0800,1700
Polyethylene Glycol Powder [Miralax] 17 grams PO DAILY
Sennosides [Senokot] 17.2 mg PO DAILY
Tamsulosin [Flomax] 0.4 mg PO DAILY
Thiamine HCl [Vitamin B1] 100 mg PO DAILY
10/09/24 20:56
Ferrous Sulfate [Feosol] 325 mg PO MOWEFR
Abnormal Lab Results
10/08/24 10/08/24
16:07 16:29
RBC 3.45 L 10^6/uL
(4.70-6.10)
Hgb 9.6 L g/dL
(13.0-18.0)
Hct 30.5 L %
(39.0-52.0)
MCHC 31.5 L g/dL
(33.0-37.0)
Chloride 109 H mmol/L
(98-107)
BUN 35 H mg/dl
(9-20)
Creatinine 2.1 H mg/dL
(0.7-1.3)
Glucose 118 H mg/dl
(70-99)
Ur Occult Blood Reflex 4+ A
(Negative)
Leukocyte Esterase Rfl 3+ A
(Negative)
Urine RBC >100 A /HPF
(0-2)
Urine WBC (Reflex) 80-90 A /HPF
(0-5)
Urine Bacteria (Reflex) Moderate A
(Negative)
Urine Albumin (Reflex) 4+ A
(Neg - Trace)
10/08/24 16:07
10/08/24 16:07
Vital Signs
Initial and Last Documented VS:
Initial Vital Signs
Pulse Resp
75 22
10/08/24 09:18 10/08/24 09:18
Last Documented Vital Signs
Temp Pulse Resp BP Pulse Ox
97.7 F 65 16 128/64 96
10/12/24 15:00 10/12/24 16:51 10/12/24 15:00 10/12/24 16:51 10/12/24 15:00
<YUNIOR Zaman - Last Filed: 10/12/24 20:14>
MDM/Problems Addressed
MDM/Problems Addressed:
Patient was sent to the ER as his nephrostomy tube was found to be out of place. I spoke to nursing facility they realized this around 5 AM this morning. He is confused baseline and unable to give history. Nursing reports no other complaints.
Patient has history of incontinence of stool. He is afebrile. He has no complaints. I did speak with intervention radiology and they were able to replace the nephrostomy tube successfully. Patient is stable for discharge home
1550: Called by the nurse that patient started to complain of abdominal pain. Nurse emptied 450 cc of urine however patient was very tender to lower abdomen. On my exam he is tender to the right lower quadrant and lower abdomen as well.
Will check labs and ct .
Patient in addition is dry heaving, will order Zofran and fluids. Blood pressure recheck 142/87 pulse 59 he is afebrile 97.6.
<YUNIOR Zaman - Last Filed: 10/12/24 20:14>
*Pulse Oximetry
SaO2: 98
Oxygen Mode of Delivery: Room air
Patient hypoxic: no
*Critical Care Note
Total Time (30-74mins, 75-104mins- exclusive of procedures): Not Applicable
<Fabio Sierra DO - Last Filed: 10/08/24 18:30>
*Critical Care Note
Total Time (30-74mins, 75-104mins- exclusive of procedures): 35 minutes
<Fabio Sierra DO - Last Filed: 10/08/24 18:30>
Patient Management
Discussion with other providers: Hospitalist, Detective [place] and Radiologist
<Fabio Sierra DO - Last Filed: 10/08/24 18:30>
Update Note
Update Note:
Patient received in signout after percutaneous nephrostomy tube placement. Patient began to complain of pain and nausea taken urgently to CT scan
1829 Case discussed with interventional radiology, radiologist and urology. For now she is requires monitoring in IR and urology will follow in AM. Urology recommends covering him with antibiotics. Patient unfortunate has a penicillin and
cephalosporin allergy and after previous cultures reviewed will cover with Azactam. Hemodynamically stable. admit
ED Attending Note
<YUNIOR Zaman - Last Filed: 10/12/24 20:14>
-
Portions of this chart may have been created with voice recognition software.� Occasional wrong word or��sound alike� substitutions may have occurred due to the inherent limitations of voice recognition software.
<Fabio Sierra DO - Last Filed: 10/08/24 18:30>
ED Attending Note
Patient seen and examined by attending physician: Yes
I performed the substantive portion of visit, reviewed & personally made and approve the management plan that is documented in note by myself or CHARLIE.: Yes
ED Attending Note:
84-year-old man with nephrostomy tube and ureteral stent who presented for evaluation of nephrostomy tube because it was out of place. Sent to IR and upon return was complaining of nausea and pain. Sent to CT scan. Concern for perinephric
stranding and hemorrhage interventional radiologist evaluating CT now. Patient remains hemodynamically stable. Control symptoms for now will consult urology
Discharge Plan
Departure
Patient Disposition: Admit
Date of Disposition: 10/08/24
Time of Disposition: 17:55
Admit to: Med/Surg
Presentation/result/management discussed w/ accepting MD/DO: Hospitalist
Patient with high blood pressure during this ER visit?: Yes
Condition: Fair
Covid-19: Not Applicable
Discharge Problem:
encounter for nephrostomy tube replaceme, parenchymal hemorrhage of the kidney
Interventions
Interventions:
*Risk Screen - Suicide Last Done: 10/08/24 09:32
*General Assessment Last Done: 10/08/24 09:32
*Neglect/Abuse Screening Last Done: 10/08/24 09:32
*ED- Fall Risk Assessment Last Done: 10/08/24 09:32
*ED COVID-19 Vaccine History Last Done: 10/08/24 09:32
*Nursing Disposition Last Done: 10/08/24 21:38
LO-Fzoabl-Uupfffdsnn Assessment Last Done: 10/08/24 09:51
ED-Male Genitourinary Assessment Last Done: 10/08/24 09:51
Discharge Date and Time
Discharge Date/Time: 10/08/24 21:39
[2024-10-08] MEDS: NSS 1000 IV ×2 (16:15→22:34)
[2024-10-08 16:17] LABS: Hematocrit 30.5 % (39.0-52.0); Hemoglobin 9.6 g/dL (13.0-18.0); Mean Corp Hgb Conc. 31.5 g/dL (33.0-37.0); Mean Corpuscular Volume 88.4 fL (80.0-94.0); Nucleated Red Blood Cells % 0 % (-); Platelet Count 226 10^3/uL (130-400); Red Cell Dist. Width 14.1 % (11.5-14.5)
[2024-10-08] MEDS: ZOFRAN 4 MG IV (16:17)
[2024-10-08 16:38] LABS: ALT (SGPT) < 10 U/L (0-50); AST (SGOT) 19 U/L (17-59); Albumin 3.5 g/dl (3.5-5.0); Alkaline Phosphatase 108 U/L (38-126); Blood Urea Nitrogen 35 mg/dl (9-20); Calcium 8.8 mg/dl (8.4-10.2); Carbon Dioxide 29 mmol/L (22-30); Chloride 109 mmol/L (98-107); Estimated Creatinine Clearance 30 ml/min; Glucose 118 mg/dl (70-99); Potassium 4.3 mmol/L (3.5-5.1); Sodium 142 mmol/L (135-145); Total Protein 7.1 g/dl (6.3-8.2); eGFR 30.47
[2024-10-08 16:41] LABS: Urine Character Cloudy (Clear)
[2024-10-08 16:58] LABS: Urine Squamous Cell 0-2 /LPF (Few)
[2024-10-08 16:59] LABS: Urine Red Blood Cell >100 /HPF (0-2); Urine White Cell 80-90 /HPF (0-5)
[2024-10-08] MEDS: AZACTAM 1000 MG IV (19:29)
[2024-10-08] MEDS: STERILE WATER FOR INJECTION 10 ML IV (19:29)
--- NOTE | 2024-10-08 20:13 | HPS.HSE ---
Family Physician
-
Family Physician: Marquise Youssef
Chief Complaint
-
Status post right nephrostomy tube change
History of Present Illness
84-year-old male from [facility] who was sent today for displaced nephrostomy tube. 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 He
had exchange of his right percutaneous nephrostomy catheter September 30 here by IR. He denies fever, chills, chest pain, palpitations, cough, abdominal pain, nausea, vomiting, diarrhea. He has past medical history of intraperitoneal bladder rupture,
defect left posterior lateral urinary bladder 07/03/2024, status post bladder repair status post bilateral PCN placement 07/10/2024 ? dementia, CKD 3B�4A, anemia of chronic disease, C. difficile diarrhea 07/13/2023 treated with oral
vancomycin, history of orthostasis, hypertension, hyperlipidemia, UTI/sepsis, small bowel ileus,/constipation, hyponatremia, hypokalemia, thrombocytopenia, depression
Medical History
Past Medical History
Past Medical History: Reports Other
Additional Past Medical History:
intraperitoneal bladder rupture, defect left posterior lateral urinary bladder 07/03/2024
status post bladder repair status post bilateral PCN placement 07/10/2024
? dementia
CKD 3B�4A
anemia of chronic disease
C. difficile diarrhea 07/13/2023 treated with oral vancomycin
history of orthostasis/hypertension
hyperlipidemia
UTI/sepsis-Klebsiella cUTI, Klebsiella bacteremia June 2024
small bowel ileus/constipation
hyponatremia
hypokalemia
thrombocytopenia
depression
Past Surgical History: Reports Other
Additional Past Surgical History:
intraperitoneal bladder rupture, defect left posterior lateral urinary bladder 07/03/2024
status post bladder repair status post bilateral PCN placement 07/10/2024
Social History
Tobacco: Non-smoker
Alcohol: None
Drug: None
Personal: Single
Living: Longterm ([facility])
Family History
Family History: Unable to Obtain
Allergies / Home Medications
Allergies reflects when Allergies were last updated in [employer]
Home Medications with original date entered in [employer]
Allergy/Medication List:
Allergies
Allergy/AdvReac Type Severity Reaction Status Date / Time
cefepime Allergy leukocytoclastic Verified 10/08/24 09:31
vasculitis
Penicillins Allergy Unknown Verified 10/08/24 09:31
Home Medications
acetaminophen 325 mg tablet (Tylenol) 650 mg PO Q4HPRN PRN mild pain/temp>100F 06/26/23
atorvastatin 10 mg tablet 10 mg PO HS High Cholesterol 06/26/23
bisacodyl 10 mg rectal suppository (Dulcolax (bisacodyl)) 10 mg NC DAILYPRN PRN if MOM ineffective after 24 hrs 06/26/23
folic acid 1 mg tablet 1 mg PO DAILY Supplement 06/26/23
magnesium hydroxide 400 mg/5 mL oral suspension (Milk of Magnesia) 30 ml PO [id number] PRN if no BM In 3 days 06/26/23
midodrine 2.5 mg tablet 2.5 mg PO BID Blood Pressure 06/26/23
polyethylene glycol 3350 17 gram oral powder packet 17 g PO DAILY Constipation 06/26/23
sennosides 8.6 mg tablet (senna) 17.2 mg PO DAILY Constipation 06/26/23
sodium phosphates 19 gram-7 gram/118 mL enema (Fleet Enema) 118 ml NC DAILYPRN PRN if dulcolax ineffective after 24 hrs 06/26/23
tamsulosin 0.4 mg capsule 0.4 mg PO DAILY Urinary Issue 06/26/23
thiamine HCl (vitamin B1) 100 mg tablet 100 mg PO DAILY Supplement 06/26/23
simethicone 80 mg chewable tablet 80 mg PO QID #0 tabs 07/14/23
clindamycin HCl 300 mg capsule 600 mg PO DAILYPRN PRN prophalactic abx 10/08/24
ferrous sulfate 325 mg (65 mg iron) tablet 325 mg PO MOWEFR 10/08/24
finasteride 5 mg tablet 5 mg PO DAILY 10/08/24
mirtazapine 15 mg tablet (Remeron) 7.5 mg PO HS 10/08/24
Review of Systems
-
History Source: Physician and Other (ER record)
A 12 point ROS was completed and negative except as noted: Yes
Constitutional: Denies Fever
EENT: Denies Sore Throat or Runny Nose
Respiratory: Denies Cough or Trouble Breathing
Cardiac: Denies Chest Pain, Palpitations or Syncope
Abdomen/GI: Denies Abdominal Pain, Nausea, Vomiting or Diarrhea
: Reports Other (Right nephrostomy tube draining yellow in color no surrounding ecchymosis to flank or abdomen no tenderness to flank or abdomen)
Musculoskeletal: Denies Joint Pain or Edema
Skin: Denies Itching or Rash
Neurological: Denies Dizzy or Headache
Endocrine: Reports No Symptoms
Hematologic/Lymphatic: Reports No Symptoms
Psych: Reports Calm
Physical Exam
Vital Signs
Vital Signs
Temp Pulse Resp BP Pulse Ox
97.4 F 65 16 120/64 95
10/08/24 15:52 10/08/24 18:45 10/08/24 18:45 10/08/24 18:00 10/08/24 15:52
Physical Exam
General: Comfortable and Conversant; No Slurred Speech
HEENT: NormoCephalic, Anicteric, Moist mucous membranes, PERRLA, [place] Conjunctivae and No Ptosis
Respiratory: Clear; No Wheezes, Rales or Rhonchi
Cardiac: S1/S2 and Regular Rhythm; No Murmur, Rub or Gallop
GI: Soft, Non Tender, Non Distended and Normal Bowel Sounds
Rectal: Deferred by Provider
Genito-urinary: Nephrostomy Tubes (Right nephrostomy tube draining yellow in color no surrounding ecchymosis to flank or abdomen no tenderness to flank or abdomen)
Musculoskeletal: No Clubbing, No Cyanosis and No Edema
Skin: Warm and Dry; No Rash
Neuro: Awake, Alert, Oriented (To name place only tends to ramble on and sentences question dementia) and No Sensory Deficits; No Slurred Speech, Facial Droop, Tremors or Sedated
Psych: Calm
Laboratory Results
-
10/08/24 16:07
10/08/24 16:07
Laboratory Results
Total Bilirubin 0.7 mg/dl (0.2-1.3) 10/08/24 16:07
AST 19 U/L (17-59) 10/08/24 16:07
ALT < 10 U/L (0-50) 10/08/24 16:07
Alkaline Phosphatase 108 U/L (38-126) 10/08/24 16:07
Impression/Plan
-
Impression/plan:
Admit to MedSurg
#Right percutaneous tube replacement with subcapsular, parenchymal and perinephric hemorrhage
#Pyuria history of Klebsiella and E. coli)
- Right nephrostomy tube replaced today by interventional radiology at 1509 p.m.
#History of intraperitoneal bladder rupture, defect left posterior lateral urinary bladder 07/03/2024
#status post bladder repair 07/05/2023 status post bilateral PCN placement 07/11/2023
currently only right nephrostomy tube in place
-Hgb 9.6 appears near baseline
Nephrostomy tube draining yellow in color
- Monitor H&H at 2200 and am
- Consult urology
- IV Azactam(per urology) renal dose
- IV NSS
- Continue finasteride 5 mg daily
- Blood consent obtained via phone from patient's son in [place] Noble Dalal [phone]
CT abdomen pelvis without IV or oral contrast:
1. Right percutaneous nephroureteral stent in place. Findings are most in keeping with subcapsular, parenchymal and perinephric hemorrhage.
No overt evidence for active bleeding or definite collecting system injury/rupture, although not excluded. Close clinical and imaging
follow-up recommended.
2. Questionable mural-based soft tissue lesion within the posterior aspect of the left posterior urinary bladder diverticulum.
Neoplasm not excluded. Consider direct visualization when the patient is able.
3. Trace bilateral pleural effusions.
#Cognitive impairment suspect underlying dementia
Oriented to name only rambles in a tangent
Lives at [facility]
- I spoke with patient's son Noble Dalal who states his father does have dementia
#CKD 3B�4A
Creat 2.1 appears baseline
- Follow BMP
#Anemia of chronic disease
Hgb 9.6 appears baseline but will monitor given perinephric parenchymal hemorrhage
-Continue folic acid 1 mg p.o. daily, ferrous sulfate 325 mg Monday
#C. difficile diarrhea 07/13/2023 treated with oral vancomycin
#History of orthostasis/ hypertension
- Continue midodrine 2.5 mg p.o. twice daily
#Hyperlipidemia
- Continue atorvastatin 10 mg at bedtime
#History small bowel ileus,/constipation
-monitor bowel movements
- Dulcolax 10 mg daily as needed if milk of mag ineffective
- Milk of magnesia 30 mL every 72 hours as needed if no bowel movement 3 days
- Continue senna 17.2 mg daily
#Depression
- Continue Remeron 7.5 mg at bedtime
Other PMH:
UTI/sepsis June 2024
hyponatremia Hx�NA stable 142
hypokalemia Hx K4.3
DVT prophylaxis
SCDs
Full code
--- NOTE | 2024-10-08 20:54 | W.PN.UPDATE ---
Update Note
Progress Note Update
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 I agree at findings imaging and physical. I concur with assessment and plan unless stated otherwise.
Briefly, disease is a 84-year-old with past medical history significant for orthostatic hypotension, BPH, hyperlipidemia, renal insufficiency with a baseline creatinine of around 2.2, history of bladder rupture status post robotic closure of median
lobectomy and has nephrostomy tubes in place for that reason presented to the emergency department with dislodged right percutaneous nephrostomy tube status post fluoroscopically guided replacement of right percutaneous nephroureteral catheter this
afternoon. At around 3pm patient started to complain of abdominal pain. Nurse emptied 450 cc of urine however patient was very tender to lower abdomen. ED noted he is tender to the right lower quadrant and lower abdomen as well. A CT scan was
obtained showing subcapsular, parenchymal and perinephric hemorrhage. No overt evidence for active bleeding or definite collecting system injury/rupture, although not excluded. Close clinical and imaging follow-up recommended.
He is afebrile with a temp of 97.4, blood pressure stable at 120/60 with a pulse of 65 and satting 96% on room air.
Hemoglobin is 9.6 with a normal platelet count. His electrolytes are stable. BUN and creatinine is stable at dietary and 2.1. UA is consistent with hematuria with moderate bacteria and leukocytosis. Unclear the source of the urine.
Assessment plan
84-year-old with history of nephrostomy tube status post replacement this afternoon complicated by development of right parenchymal and perinephric hemorrhage without clear evidence of collecting system injury or rupture. He is afebrile. He did
have pain earlier but now resolved. He is hemodynamically stable and his hemoglobin is unchanged at 9.6. In the setting of apparent stability may be managed conservatively with close monitoring.
- admit to med/surg
- urine cultures sent
- IV abx recommended by urology
- trend H&H, type and screen
- vitals q4h
- no thinners
- urology consultation
- NPO for now
- maintenance fluids
DVT PPX - SCDs
Code status - Full code
[2024-10-08] MEDS: LIPITOR 10 MG PO (22:35)
[2024-10-08] MEDS: REMERON 7.5 MG PO (22:35)
[2024-10-08] MEDS: MYLICON 80 MG PO (22:35)
[2024-10-08 22:57] LABS: Hematocrit 29.1 % (39.0-52.0); Hemoglobin 9.1 g/dL (13.0-18.0)
[2024-10-09 07:20] VITALS: BP 103/57
[2024-10-09 07:25] VITALS: BP 125/58
--- NOTE | 2024-10-09 07:51 | W.PN.UPDATE ---
Update Note
Progress Note Update
Patient well-known to me with h/o
[facility] staff noted right nephrostomy tube dislodged yesterday morning by patient - advised to come to ER for IR evaluation and replacement.
10/09: s/p right PCNU exchange by IR.
Noted to have flank pain and nausea after procedure.
CTAP w/o IV contrast => right percutaneous nephroureteral stent in place. Findings are most in keeping with subcapsular, parenchymal and perinephric hemorrhage. No overt evidence for active bleeding or definite collecting system injury/rupture,
although not excluded.
Complicated prior urologic history:
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
- most recently maintained w/ right PCNU only (left PCNU removed)
Subcapsular/parenchymal/perinephric right renal hemorrhage secondary to displaced right PCNU and s/p right PCNU exchange
H/o cUTI
H/o BPH w/ DELGADO
- Continue IV antibiotics pending UCx
- Maintain right PCNU to drainage (clear yellow)
- Continue tamsulosin + finasteride
- Trend H/H and Cr to ensure no active renal bleeding
D/w Hospitalist.
D/w IR.
[2024-10-09 07:57] LABS: Hematocrit 26.7 % (39.0-52.0); Hemoglobin 8.4 g/dL (13.0-18.0); Mean Corp Hgb Conc. 31.5 g/dL (33.0-37.0); Mean Corpuscular Volume 89.0 fL (80.0-94.0); Nucleated Red Blood Cells % 0 % (-); Platelet Count 214 10^3/uL (130-400); Red Cell Dist. Width 14.2 % (11.5-14.5)
--- NOTE | 2024-10-09 08:04 | W.PN.GENERIC ---
Assessment / Plan
-
84 yo male sent to ER for dislodged PCNU. Replacement in IR yesterday was unremarkable. Pt had abdominal after procedure, CT scan show perinephric hematoma without active extravasation. No pain today.
Continue to trend H&H if stable if stable can be discharged
Physician Progress Note
Subjective
This is an 84-year-old male from [facility] who was sent today for displaced nephroureteral tube. The patient had history of bladder rupture status post robotic closure of median lobectomy has nephrostomy tubes in place for
that reason. He had PCNU replacement yesterday in IR. Immediately afterwards her developed abdominal pain, nausea and fever. He had a CT which showed perinephric hemtoma. This morning he denies fever, chills, chest pain, palpitations, cough,
abdominal pain, flank pain, nausea, vomiting, diarrhea.
Past Medical History:
dementia
CKD 3B�4A
anemia of chronic disease
C. difficile diarrhea 07/13/2023 treated with oral vancomycin
history of orthostasis/hypertension
hyperlipidemia
UTI/sepsis-Klebsiella cUTI, Klebsiella bacteremia June 2024
small bowel ileus/constipation
hyponatremia
hypokalemia
thrombocytopenia
depression
Past Surgical History:
intraperitoneal bladder rupture, defect left posterior lateral urinary bladder 07/03/2024
status post bladder repair status post bilateral PCN placement 07/10/2024
Social History
Tobacco: Non-smoker
Living: Snf ([facility])
Allergies
Allergy/AdvReac Type Severity Reaction Status Date / Time
cefepime Allergy leukocytoclastic Verified 10/08/24 09:31
vasculitis
Penicillins Allergy Unknown Verified 10/08/24 09:31
Home Medications- Current medications were documented and reviewed including name, dosage, frequency and route of administration
acetaminophen 325 mg tablet (Tylenol) 650 mg PO Q4HPRN PRN mild pain/temp>100F 06/26/23 atorvastatin 10 mg tablet 10 mg PO HS High Cholesterol 06/26/23 bisacodyl 10 mg rectal suppository (Dulcolax (bisacodyl)) 10 mg [place] DAILYPRN PRN if MOM
ineffective after 24 hrs 06/26/23 folic acid 1 mg tablet 1 mg PO DAILY Supplement 06/26/23 magnesium hydroxide 400 mg/5 mL oral suspension (Milk of Magnesia) 30 ml PO [id number] PRN if no BM In 3 days 06/26/23 midodrine 2.5 mg tablet 2.5 mg PO BID
Blood Pressure 06/26/23 polyethylene glycol 3350 17 gram oral powder packet 17 g PO DAILY Constipation 06/26/23 sennosides 8.6 mg tablet (senna) 17.2 mg PO DAILY Constipation 06/26/23 sodium phosphates 19 gram-7 gram/118 mL enema (Fleet Enema) 118
ml [place] DAILYPRN PRN if dulcolax ineffective after 24 hrs 06/26/23 tamsulosin 0.4 mg capsule 0.4 mg PO DAILY Urinary Issue 06/26/23 thiamine HCl (vitamin B1) 100 mg tablet 100 mg PO DAILY Supplement 06/26/23 simethicone 80 mg chewable tablet 80 mg PO
QID #0 tabs 07/14/23 clindamycin HCl 300 mg capsule 600 mg PO DAILYPRN PRN prophalactic abx 10/08/24 ferrous sulfate 325 mg (65 mg iron) tablet 325 mg PO MOWEFR 10/08/24 finasteride 5 mg tablet 5 mg PO DAILY 10/08/24 mirtazapine 15 mg tablet
(Remeron) 7.5 mg PO HS 10/08/24
Objective
Vital Signs
Temp Pulse Resp BP Pulse Ox
98.3 F 71 18 125/72 97
10/08/24 23:50 10/08/24 23:50 10/08/24 23:50 10/08/24 23:50 10/08/24 23:50
Lab Results
10/09/24 07:36
WNWD 84 yo male in NAD lying in bed. Color is good Skin warm and dry. Heasart rergular. Lungs are CTA. Abdomne is soft and nontender with bowel sounds present. No flank garsia or hematoma. Right neph tube in place. Dressing is CDI. Draing clear
yellow urine.
[2024-10-09 08:28] LABS: ALT (SGPT) < 10 U/L (0-50); AST (SGOT) 20 U/L (17-59); Albumin 3.2 g/dl (3.5-5.0); Alkaline Phosphatase 96 U/L (38-126); Blood Urea Nitrogen 32 mg/dl (9-20); Calcium 8.3 mg/dl (8.4-10.2); Carbon Dioxide 26 mmol/L (22-30); Estimated Creatinine Clearance 30 ml/min; Glucose 92 mg/dl (70-99); Potassium 4.4 mmol/L (3.5-5.1); Sodium 142 mmol/L (135-145); Total Protein 6.3 g/dl (6.3-8.2); eGFR 30.47
[2024-10-09] MEDS: MIRALAX 17 GRAMS PO (08:59)
[2024-10-09] MEDS: SENOKOT 17.2 MG PO (08:59)
[2024-10-09] MEDS: VITAMIN B1 100 MG PO (08:59)
[2024-10-09] MEDS: FLOMAX 0.4 MG PO (08:59)
[2024-10-09] MEDS: PROSCAR 5 MG PO (08:59)
[2024-10-09] MEDS: MYLICON 80 MG PO ×4 (08:59→22:24)
[2024-10-09] MEDS: FOLVITE 1 MG PO (08:59)
[2024-10-09] MEDS: AZACTAM 500 MG IV ×2 (09:00→19:51)
[2024-10-09] MEDS: STERILE WATER FOR INJECTION 10 ML IV ×2 (09:00→19:51)
[2024-10-09] MEDS: DESENEX/MITRAZOL/ZEASORB 1 APPLIC TOPICAL ×2 (09:03→19:55)
--- NOTE | 2024-10-09 10:07 | W.PN.HOSP.TC ---
Today's Communication/Plan
-
empiric Azactam
IVF
will order diet
follow Hgb
Assessment / Plan
Assessment / Plan
#Right percutaneous tube replacement on 10/[address] Beck with CT scan: 1. Right percutaneous nephroureteral stent in place. Findings are most in keeping with subcapsular, parenchymal and perinephric hemorrhage. No overt evidence for active
bleeding or definite collecting system injury/rupture, although not excluded. Close clinical and imaging follow-up recommended.
2. Questionable mural-based soft tissue lesion within the posterior aspect of the left posterior urinary bladder diverticulum. Neoplasm not excluded. Consider direct visualization when the patient is able.
3. Trace bilateral pleural effusions.
#Pyuria history of Klebsiella and E. coli)
#History of intraperitoneal bladder rupture, defect left posterior lateral urinary bladder 07/03/2024
#status post bladder repair 07/05/2023 status post bilateral PCN placement 07/11/2023
currently only right nephrostomy tube in place
-Hgb 9.6-->9.1-->8.4
Nephrostomy tube draining yellow in color
- Consult urology, discussed with Dr. Jarquin
- IV Azactam(per urology) renal dose
Ur cx results pending, continue Azactam for now, consider ID consult once current sensitivies known
- IV NSS
- Continue finasteride 5 mg daily
- Blood consent obtained via phone from patient's son in [place] Noble Dalal [phone]
#Cognitive impairment suspect underlying dementia
Oriented to name only rambles in a tangent
Lives at [facility]
- admitting spoke with patient's son Noble Dalal who states his father does have dementia
#CKD 3B�4A
Creat 2.1 appears baseline
- Follow BMP
#Anemia of chronic disease
Hgb 9.6 appears baseline but will monitor given perinephric parenchymal hemorrhage
-Continue folic acid 1 mg p.o. daily, ferrous sulfate 325 mg Monday
#C. difficile diarrhea 07/13/2023 treated with oral vancomycin
#History of orthostasis/ hypertension
- Continue midodrine 2.5 mg p.o. twice daily
with hold parameters
#Hyperlipidemia
- Continue atorvastatin 10 mg at bedtime
#History small bowel ileus,/constipation
-monitor bowel movements
- Dulcolax 10 mg daily as needed if milk of mag ineffective
- Milk of magnesia 30 mL every 72 hours as needed if no bowel movement 3 days
- Continue senna 17.2 mg daily
#Depression
- Continue Remeron 7.5 mg at bedtime
Other PMH:
UTI/sepsis June 2024
hyponatremia Hx�NA stable 142
hypokalemia Hx K4.3
DVT prophylaxis
SCDs
attempted to call son to update 10/09, call went to [email or web address], did not leave message
Pt is NPO, will resume Pureed diet and request Speech evaluation
continue IVF for now, consider stopping if taking adequate po
Full code
Anticipated Discharge: > 48 hours
Subjective/Interval History
-
Date of Service: October 09, 2024
Awake, alert, answering basic questions
Objective Data
-
Labs:
Laboratory Results
10/08/24 10/09/24
22:41 07:36
WBC 7.7
Hgb 9.1 L 8.4 L
Hct 29.1 L 26.7 L
Plt Count 214
Sodium 142
Potassium 4.4
Chloride Pending
Carbon Dioxide 26
BUN 32 H
Creatinine 2.1 H
Glucose 92
Calcium 8.3 L
Total Bilirubin 0.6
AST 20
ALT < 10
Alkaline Phosphatase 96
Vital Signs:
Vital Signs
Temp Pulse Resp BP Pulse Ox
98.4 F 63 16 125/58 96
10/09/24 07:25 10/09/24 07:25 10/09/24 07:25 10/09/24 07:25 10/09/24 07:25
I&O
10/08/24 10/09/24 10/10/24
06:59 06:59 06:59
Output Total 600 / 600
Balance -600 / -600
Review of Systems
-
Unable to obtain full review of systems at this time due to: Dementia
History Source: Patient and Coordinated Provider
Constitutional: Denies Fever
EENT: Reports No Symptoms Reported
Respiratory: Reports No Symptoms; Denies Cough
Cardiac: Reports No Symptoms; Denies Chest Pain
Abdomen/GI: Reports No Symptoms
Physical Exam
-
General: Well Developed, Well Nourished and No Apparent Distress
HEENT: Normocephalic, Atraumatic and Moist Mucous Membranes
Respiratory: Clear to Auscultation; Negative Wheezes, Rales or Rhonchi
Cardiac: Regular Rhythm and S1/S2
GI: Soft, Nontender, Nondistended and Normal Bowel Sounds
Musculoskeletal: No Clubbing, No Cyanosis and No Edema
Neuro: Awake and Alert
Psych: Calm
[2024-10-09 10:44] VITALS: BP 131/59; O2SAT 96
[2024-10-09 11:24] LABS: Chloride 113 mmol/L (98-107)
--- NOTE | 2024-10-09 12:13 | CM ---
Chart reviewed. Attempted to meet with pt but he was too somnolent. Currently LTC at [facility]. He is s/p nephrostomy tube placement.
Baseline status obtained from [facility]: Independent with ADLs. Uses wheelchair to travel around facility. Continues on IV ABX.
Plan: Return to [facility]
[2024-10-09] MEDS: NSS 1000 IV (15:06)
--- NOTE | 2024-10-09 15:57 | PTOTSP ---
Dysphagia Evaluation
Patient is at an acute elevated risk for dysphagia given acute (i.e., AMS and lethargy, dependence for feeding) on chronic factors (i.e., dementia). Patient is on a mechanical soft diet at baseline due to his edentulous status. He is not yet
appropriate to advance to this diet given current mentation/SEN contributing to signs of mild oral dysphagia.
Recommend:
1. IDDSI 4 Puree, Thin Liquids
2. Medications: in puree, crushed if medically cleared
3. Strategies: PO only when awake/alert, full supervision, full assistance, small sips/bites, slow rate
4. Oral care 3x daily
5. Dysphagia therapy f/u to determine if/when diet advancement towards baseline is appropriate
[2024-10-09] MEDS: REMERON 7.5 MG PO (22:24)
[2024-10-09] MEDS: FEOSOL 325 MG PO (22:24)
[2024-10-09] MEDS: LIPITOR 10 MG PO (22:24)
[2024-10-09 23:17] VITALS: BP 116/56
[2024-10-10] VITALS (7 sets, daily range): BP systolic 99–122; BP diastolic 50–59
[2024-10-10] MEDS: NSS 1000 IV (05:54)
[2024-10-10] MEDS: MIRALAX 17 GRAMS PO (08:49)
[2024-10-10] MEDS: FOLVITE 1 MG PO (08:49)
[2024-10-10] MEDS: FLOMAX 0.4 MG PO (08:49)
[2024-10-10] MEDS: AZACTAM 500 MG IV (08:49)
[2024-10-10] MEDS: VITAMIN B1 100 MG PO (08:49)
[2024-10-10] MEDS: STERILE WATER FOR INJECTION 10 ML IV ×2 (08:49→17:27)
[2024-10-10] MEDS: SENOKOT 17.2 MG PO (08:50)
[2024-10-10] MEDS: PROSCAR 5 MG PO (08:50)
[2024-10-10] MEDS: DESENEX/MITRAZOL/ZEASORB 1 APPLIC TOPICAL ×2 (08:50→20:36)
[2024-10-10] MEDS: MYLICON 80 MG PO ×4 (08:50→20:33)
[2024-10-10 10:35] LABS: Hematocrit 22.8 % (39.0-52.0); Hemoglobin 7.2 g/dL (13.0-18.0); Mean Corp Hgb Conc. 31.6 g/dL (33.0-37.0); Mean Corpuscular Volume 87.7 fL (80.0-94.0); Nucleated Red Blood Cells % 0 % (-); Platelet Count 172 10^3/uL (130-400); Red Cell Dist. Width 13.9 % (11.5-14.5)
[2024-10-10 11:25] LABS: Blood Urea Nitrogen 34 mg/dl (9-20); Calcium 8.1 mg/dl (8.4-10.2); Carbon Dioxide 26 mmol/L (22-30); Chloride 111 mmol/L (98-107); Estimated Creatinine Clearance 30 ml/min; Glucose 146 mg/dl (70-99); Potassium 4.1 mmol/L (3.5-5.1); Sodium 140 mmol/L (135-145); eGFR 30.47
--- NOTE | 2024-10-10 11:42 | W.PN.HOSP.TC ---
Today's Communication/Plan
-
Transfuse
stop IVF
follow labs
Assessment / Plan
Assessment / Plan
#Right percutaneous tube replacement on 10/[address] with CT scan: 1. Right percutaneous nephroureteral stent in place. Findings are most in keeping with subcapsular, parenchymal and perinephric hemorrhage. No overt evidence for active
bleeding or definite collecting system injury/rupture, although not excluded. Close clinical and imaging follow-up recommended.
2. Questionable mural-based soft tissue lesion within the posterior aspect of the left posterior urinary bladder diverticulum. Neoplasm not excluded. Consider direct visualization when the patient is able.
3. Trace bilateral pleural effusions.
#Pyuria history of Klebsiella and E. coli
#History of intraperitoneal bladder rupture, defect left posterior lateral urinary bladder 07/03/2024
#status post bladder repair 07/05/2023 status post bilateral PCN placement 07/11/2023
currently only right nephrostomy tube in place
-Hgb 9.6-->9.1-->8.4-->7.2
Nephrostomy tube draining yellow in color
- Consult urology, discussed with Dr. Jarquin
- IV Azactam(per urology) renal dose
Ur cx results pending, continue Azactam for now, ID consult regarding Gm neg bacilli. Enteroccocus
- IV NSS
- Continue finasteride 5 mg daily
- Blood consent obtained via phone from patient's son in [place] Noble Dalal [phone]
#Cognitive impairment suspect underlying dementia
Oriented to name only rambles in a tangent
Lives at [facility] home
- admitting spoke with patient's son Noble Dalal who states his father does have dementia
#CKD 3B�4A
Creat 2.1 appears baseline
- Follow BMP
#Anemia of chronic disease
Hgb 9.6 appears baseline but will monitor given perinephric parenchymal hemorrhage
9.6-->9.1-->8.4-->7.2
will transfuse
-Continue folic acid 1 mg p.o. daily, ferrous sulfate 325 mg Monday
#C. difficile diarrhea 07/13/2023 treated with oral vancomycin
#History of orthostasis/ hypertension
- Continue midodrine 2.5 mg p.o. twice daily
with hold parameters
#Hyperlipidemia
- Continue atorvastatin 10 mg at bedtime
#History small bowel ileus,/constipation
-monitor bowel movements
- Dulcolax 10 mg daily as needed if milk of mag ineffective
- Milk of magnesia 30 mL every 72 hours as needed if no bowel movement 3 days
- Continue senna 17.2 mg daily
#Depression
- Continue Remeron 7.5 mg at bedtime
Other PMH:
UTI/sepsis June 2024
hyponatremia Hx�NA stable 142
hypokalemia Hx K4.3
DVT prophylaxis
SCDs
attempted to call son to update 10/09, call went to voicemail, did not leave message. Attempted again 10/10, issue with phone system, will try later
Pureed diet has been resumed and request Speech evaluation, nursing states is tolerating
will stop IVF
Full code
Anticipated Discharge: 24 - 48 hours
Subjective/Interval History
-
Date of Service: October 10, 2024
Asper nursing, has been more alert
Objective Data
-
Labs:
Laboratory Results
10/10/24
10:27
WBC 6.1
Hgb 7.2 L
Hct 22.8 L
Plt Count 172
Sodium 140
Potassium 4.1
Chloride 111 H
Carbon Dioxide 26
BUN 34 H
Creatinine 2.1 H
Glucose 146 H
Calcium 8.1 L
Vital Signs:
Vital Signs
Temp Pulse Resp BP Pulse Ox
97.7 F 64 16 122/58 96
10/10/24 07:10 10/10/24 07:10 10/10/24 07:10 10/10/24 07:10 10/10/24 11:13
I&O
10/09/24 10/10/24 10/11/24
06:59 06:59 06:59
Intake Total 240 / 240
Output Total 600 / 600 1025 / 1025
Balance -600 / -600 -785 / -785
Review of Systems
-
Unable to obtain full review of systems at this time due to: Dementia
History Source: Patient and Coordinated Provider
Constitutional: Denies Fever
EENT: Reports No Symptoms Reported
Respiratory: Reports No Symptoms; Denies Cough
Cardiac: Reports No Symptoms; Denies Chest Pain
Abdomen/GI: Reports No Symptoms
Physical Exam
-
General: Well Developed, Well Nourished and No Apparent Distress
HEENT: Normocephalic, Atraumatic and Moist Mucous Membranes
Respiratory: Clear to Auscultation; Negative Wheezes, Rales or Rhonchi
Cardiac: Regular Rhythm and S1/S2
GI: Soft, Nontender, Nondistended and Normal Bowel Sounds
Musculoskeletal: No Clubbing, No Cyanosis and No Edema
Neuro: Awake and Alert
Psych: Calm
--- NOTE | 2024-10-10 13:00 | PTCARENOTE ---
Pt hgb this AM 7.2. Notified MD. 1 unit PRBC's ordered and initiated. See TAR. Running through #22 R FA. Pt tolerating, denies any symptoms of reaction. VSS. Pt resting comfortably in bed, no complaints at this time.
--- NOTE | 2024-10-10 13:43 | CM ---
Patient seen bedside.
Continues on IV anbx.
Patient sleeping while CM in room.
PT recommending skilled rehab.
Plan; back to [facility] once stable.
[facility]
phone# [phone]
fax# [phone]
--- NOTE | 2024-10-10 15:22 | CON.ID ---
Consultation
-
Date/Time Consultation Requested: 10/10/2024 1157
Date/Time Consultation Performed: 10/10/2024 1520
Requesting Provider: Dr. Gonzales Reyes
Performing Provider: Dr. Johanna Quintero
Reason for Consultation: UTI, abx allergies
Chief Complaint / Past History
Chief Complaint
Flank pain
History of Present Illness
History obtained from review of medical records since patient is very poor historian from dementia. He is a 84-year-old male history of bladder rupture status post repair June 2023, chronic obstructive uropathy with chronic right percutaneous
nephroureteral stent who presented from retirement October 08 due to dislodged PCNU. The nephro ureteral stent was was placed on October 08. However postprocedure he developed acute right abdominal/flank pain. CAT scan of the abdomen and pelvis
showed right subcapsular, parenchymal, perinephric hemorrhage. Urine analysis 3+ leukocyte esterase, 80-98 white blood cells, urine culture with Enterococcus and gram-negative rods. Patient has history of penicillin allergy and cefepime allergy
with leukocytoclastic vasculitis.
Past History
Additional Past Medical History:
Dementia
Hx Intraperitoneal bladder rupture, defect left posterior lateral urinary bladder status post bladder repair 07/05/2023
Chronic right percutaneous nephroureteral stent
CKD 3
HLD
Orthostatic hypotension
C. difficile June 2023
Depression
Allergy History:
cefepime Allergy (Verified 10/08/24 09:31)
leukocytoclastic vasculitis
Penicillins Allergy (Verified 10/08/24 09:31)
Unknown
Medications Reviewed: Yes
Current Antibiotics:
Aztreonam day 3
Social History
Tobacco: Non-Smoker
Alcohol: None
Drug: None
Living: Long-Term ([facility])
Family History
Family History: Not Pertinent
Review of Systems
Review of Systems
Unable to obtain as patient with dementia.
Vital Signs
Temp Pulse Resp BP Pulse Ox
98.6 F 57 16 109/54 96
10/10/24 15:04 10/10/24 15:04 10/10/24 15:04 10/10/24 15:04 10/10/24 15:04
Physical Exam
Physical Exam
Constitutional: Chronically Ill
Eyes: No Conjunctival Hemorrhage and Sclera Anicteric
Cardiovascular: Regular Rate and S1/S2
Pulmonary: Clear
Gastrointestinal: Soft, Non Tender, Non Distended and Normal Bowel Sounds
Genito-Urinary: Clear Urine (Right PCNU)
Extremities: Negative Edema
Neurological: Awake and Alert
Psychological: Calm and Confused
Lab / Diagnostic Study Results
10/10/24 10:27
10/10/24 10:27
Abs Immat Gran (auto) 0.0 10^3/uL (0-0.05) 10/10/24 10:27
Absolute Neuts (auto) 3.6 10^3/uL (1.4-6.5) 10/10/24 10:27
Absolute Lymphs (auto) 1.6 10^3/uL (1.2-3.4) 10/10/24 10:27
Absolute Monos (auto) 0.4 10^3/uL (0.1-0.6) 10/10/24 10:27
Absolute Basos (auto) 0.0 10^3/uL (0-0.2) 10/10/24 10:27
Immature Gran % 0.2 % (0-0.5) 10/10/24 10:27
Neutrophils % 58.5 % (42.2-75.2) 10/10/24 10:27
Lymphocytes % 26.9 % (20.5-51.1) 10/10/24 10:27
Monocytes % 6.7 % (1.7-9.3) 10/10/24 10:27
Eosinophils % 7.2 % (0-6) H 10/10/24 10:27
Basophils % 0.5 % (0-2) 10/10/24 10:27
Ur Squamous Epith Cells 0-2 /LPF (Few) 10/08/24 16:29
Microbiology Results
Micro:
10/08/24 16:29 Urine Culture - Preliminary
Urine Gram negative bacilli
Enterococcus species
10/09/24 06:06 MRSA Screen - Final
Nose Staph aureus MRSA
10/08/24 CT a/p: Right percutaneous nephroureteral stent in place. Findings are most in keeping with subcapsular, parenchymal and perinephric hemorrhage. No overt evidence for active bleeding or definite collecting system injury/rupture
Assessment / Plan
# GNR, Enterococcus complicated UTI
# Dislodged R PCNU s/p replacement 10/08
# Post-procedure R renal subcapsular hemorrhage
# Allergies: cefepime - leukocytoclastic vasculitis; PCN -unknown reaction
- DC aztreonam (d3)
- Start meropenem 500mg IV q8h, renally dosed.
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
Dementia
Hx Intraperitoneal bladder rupture, defect left posterior lateral urinary bladder status post bladder repair 07/05/2023
Chronic right percutaneous nephroureteral stent
CKD 3
HLD
Orthostatic hypotension
C. difficile June 2023
Depression
[2024-10-10] MEDS: MERREM 500 MG IV (17:27)
[2024-10-10] MEDS: LIPITOR 10 MG PO (20:33)
[2024-10-10] MEDS: REMERON 7.5 MG PO (20:33)
[2024-10-11] MEDS: MERREM 500 MG IV ×3 (01:24→18:22)
[2024-10-11] MEDS: STERILE WATER FOR INJECTION 10 ML IV ×3 (01:25→18:21)
[2024-10-11 07:39] VITALS: BP 115/66
[2024-10-11] MEDS: DESENEX/MITRAZOL/ZEASORB 1 APPLIC TOPICAL ×2 (08:21→20:08)
[2024-10-11] MEDS: MIRALAX 17 GRAMS PO (08:22)
[2024-10-11] MEDS: FOLVITE 1 MG PO (08:22)
[2024-10-11] MEDS: VITAMIN B1 100 MG PO (08:22)
[2024-10-11] MEDS: MYLICON 80 MG PO ×3 (08:22→20:09)
[2024-10-11] MEDS: FLOMAX 0.4 MG PO (08:22)
[2024-10-11] MEDS: PROSCAR 5 MG PO (08:22)
[2024-10-11] MEDS: SENOKOT 17.2 MG PO (08:26)
[2024-10-11 08:43] LABS: Hematocrit 26.1 % (39.0-52.0); Hemoglobin 8.2 g/dL (13.0-18.0); Mean Corp Hgb Conc. 31.4 g/dL (33.0-37.0); Mean Corpuscular Volume 88.8 fL (80.0-94.0); Nucleated Red Blood Cells % 0 % (-); Platelet Count 192 10^3/uL (130-400); Red Cell Dist. Width 14.1 % (11.5-14.5)
[2024-10-11 09:22] LABS: Blood Urea Nitrogen 34 mg/dl (9-20); Calcium 8.6 mg/dl (8.4-10.2); Carbon Dioxide 27 mmol/L (22-30); Chloride 112 mmol/L (98-107); Estimated Creatinine Clearance 28 ml/min; Glucose 83 mg/dl (70-99); Potassium 4.2 mmol/L (3.5-5.1); Sodium 141 mmol/L (135-145); eGFR 28.81
--- NOTE | 2024-10-11 11:35 | W.PN.ID1 ---
Date of Service
Date of Service: October 11, 2024
Today's Communication
Continue meropenem.
See below.
Assessment / Plan
# Pseudomonas, Enterococcus complicated UTI
# Dislodged R PCNU s/p replacement 10/08
# Post-procedure R renal subcapsular hemorrhage
# Allergies: cefepime - leukocytoclastic vasculitis; PCN -unknown reaction
- Meropenem 500mg IV q8h through 10/20/24.
- CBC, CMP qMonday while on IV abx.
- Ordered midline.
- Infusion sheet submitted to case manager specialist.
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
Dementia
Hx Intraperitoneal bladder rupture, defect left posterior lateral urinary bladder status post bladder repair 07/05/2023
Chronic right percutaneous nephroureteral stent
CKD 3
HLD
Orthostatic hypotension
C. difficile June 2023
Depression
Chief Complaint
-: UTI
Vital Signs / Physical Exam
Vital Signs
Vital Signs
Temp Pulse Resp BP Pulse Ox
98.2 F 57 20 115/66 94
10/11/24 07:39 10/11/24 08:25 10/11/24 07:39 10/11/24 08:25 10/11/24 07:39
Physical Exam
Constitutional: Chronically Ill
Cardiovascular: Regular Rate and S1/S2
Pulmonary: Clear
Gastrointestinal: Soft, Non Tender and Non Distended
Genito-Urinary: Clear Urine (R PCNU)
Psychological: Confused
Objective Data
Lab Data
Lab Results
10/11/24 07:50
10/11/24 07:50
Estimated Creat Clear 28 ml/min 10/11/24 07:50
Total Bilirubin 0.6 mg/dl (0.2-1.3) 10/09/24 07:36
AST 20 U/L (17-59) 10/09/24 07:36
ALT < 10 U/L (0-50) 10/09/24 07:36
Alkaline Phosphatase 96 U/L (38-126) 10/09/24 07:36
Most recent labs reviewed.
Micro Results:
10/08/24 16:29 Urine Culture - Final
Urine Pseudomonas aeruginosa
Enterococcus faecalis
10/09/24 06:06 MRSA Screen - Final
Nose Staph aureus MRSA
10/08/24 CT a/p: Right percutaneous nephroureteral stent in place. Findings are most in keeping with subcapsular, parenchymal and perinephric hemorrhage. No overt evidence for active bleeding or definite collecting system injury/rupture
--- NOTE | 2024-10-11 12:26 | CM ---
manager servicing reviewed patient's chart and met with patient and patient to return to [facility] where patient is a [place] resident when stable. Patient will be on IV ABX till 10/20/24 per ID notes, facility made aware and they will be able to
provide IV ABX for patient.
[facility]
Report [phone]
fax [phone]
[2024-10-11] MEDS: MYLICON PO (13:31)
--- NOTE | 2024-10-11 15:00 | W.PN.HOSP.TC ---
Today's Communication/Plan
-
follow Hgb
continue Meropenem
Assessment / Plan
Assessment / Plan
#Right percutaneous tube replacement on 10/[address] with CT scan: 1. Right percutaneous nephroureteral stent in place. Findings are most in keeping with subcapsular, parenchymal and perinephric hemorrhage. No overt evidence for active
bleeding or definite collecting system injury/rupture, although not excluded. Close clinical and imaging follow-up recommended.
2. Questionable mural-based soft tissue lesion within the posterior aspect of the left posterior urinary bladder diverticulum. Neoplasm not excluded. Consider direct visualization when the patient is able.
3. Trace bilateral pleural effusions.
#Pyuria history of Klebsiella and E. coli
#History of intraperitoneal bladder rupture, defect left posterior lateral urinary bladder 07/03/2024
#status post bladder repair 07/05/2023 status post bilateral PCN placement 07/11/2023
currently only right nephrostomy tube in place
-Hgb 9.6-->9.1-->8.4-->7.2
Nephrostomy tube draining yellow in color
- Consult urology, discussed with Dr. Jarquin
- IV Azactam(per urology) renal dose
Ur cx results pending, continue Azactam for now, ID consult regarding Gm neg bacilli. Enteroccocus
- IV NSS
- Continue finasteride 5 mg daily
- Blood consent obtained via phone from patient's son in [place] Noble Dalal [phone]
#Cognitive impairment suspect underlying dementia
Oriented to name only rambles in a tangent
Lives at [facility] long term
- admitting spoke with patient's son Noble Dalal who states his father does have dementia
as per nurse ate ~50% of Pureed lunch
#CKD 3B�4A
Creat 2.1 appears baseline
- Follow BMP
#Anemia of chronic disease
Hgb 9.6 appears baseline but will monitor given perinephric parenchymal hemorrhage
9.6-->9.1-->8.4-->7.2-->8.2
will transfuse
-Continue folic acid 1 mg p.o. daily, ferrous sulfate 325 mg Monday
#C. difficile diarrhea 07/13/2023 treated with oral vancomycin
#History of orthostasis/ hypertension
- Continue midodrine 2.5 mg p.o. twice daily
with hold parameters
#Hyperlipidemia
- Continue atorvastatin 10 mg at bedtime
#History small bowel ileus,/constipation
-monitor bowel movements
- Dulcolax 10 mg daily as needed if milk of mag ineffective
- Milk of magnesia 30 mL every 72 hours as needed if no bowel movement 3 days
- Continue senna 17.2 mg daily
#Depression
- Continue Remeron 7.5 mg at bedtime
Other PMH:
UTI/sepsis June 2024
hyponatremia Hx�NA stable 142
hypokalemia Hx K4.3
DVT prophylaxis
SCDs
attempted to call son to update 10/09, call went to voicemail, did not leave message. Attempted again 10/10, issue with phone system, will try later
Pureed diet has been resumed and Speech evaluation recommended IDDSI 6 with thin liquids, nursing states is tolerating Pureed
stopped IVF
discussed with sonNoble 10/11, pt is a DNR
Anticipated Discharge: 24 - 48 hours
Subjective/Interval History
-
Date of Service: October 11, 2024
Appears comfortable
Objective Data
-
Labs:
Laboratory Results
10/11/24
07:50
WBC 6.3
Hgb 8.2 L
Hct 26.1 L
Plt Count 192
Sodium 141
Potassium 4.2
Chloride 112 H
Carbon Dioxide 27
BUN 34 H
Creatinine 2.2 H
Glucose 83
Calcium 8.6
Vital Signs:
Vital Signs
Temp Pulse Resp BP Pulse Ox
98.2 F 57 20 115/66 94
10/11/24 07:39 10/11/24 08:25 10/11/24 07:39 10/11/24 08:25 10/11/24 07:39
I&O
10/10/24 10/11/24 10/12/24
06:59 06:59 06:59
Intake Total 240 / 240 250 / 250
Output Total 1025 / 1025 1250 / 1250
Balance -785 / -785 -1000 / -1000
Review of Systems
-
Unable to obtain full review of systems at this time due to: Dementia
History Source: Patient and Coordinated Provider
Constitutional: Denies Fever
EENT: Reports No Symptoms Reported
Respiratory: Reports No Symptoms; Denies Cough
Cardiac: Reports No Symptoms; Denies Chest Pain
Abdomen/GI: Reports No Symptoms
Physical Exam
-
General: Well Developed, Well Nourished and No Apparent Distress
HEENT: Normocephalic, Atraumatic and Moist Mucous Membranes
Respiratory: Clear to Auscultation; Negative Wheezes, Rales or Rhonchi
Cardiac: Regular Rhythm and S1/S2
GI: Soft, Nontender, Nondistended and Normal Bowel Sounds
Musculoskeletal: No Clubbing, No Cyanosis and No Edema
Neuro: Awake; Negative Alert or Oriented
Psych: Calm
[2024-10-11 15:01] VITALS: BP 119/69
--- NOTE | 2024-10-11 15:49 | PTOTSP ---
Dysphagia Therapy
Impression: Improvement in sustained bite/mastication compared to initial evaluation. Reduced SEN persists. Dysphagia risk factors include acutely reduced SEN, dementia, combined with lack of dentition. Patient is appropriate to advance diet to
minced with improvement in oral skills.
Recommend:
1. IDDSI 5 Minced/Moist, Thin Liquids
2. Medications: in puree, crushed if medically cleared
3. Strategies: PO only when awake/alert, full supervision, full assistance, small sips/bites, slow rate
4. Oral care 3x daily
5. Dysphagia therapy f/u to determine if/when diet advancement towards baseline is appropriate
[2024-10-11 16:13] VITALS: BP 119/69; PULSE 83; O2SAT 97
[2024-10-11] MEDS: LIPITOR 10 MG PO (20:09)
[2024-10-11] MEDS: REMERON 7.5 MG PO (20:09)
[2024-10-11] MEDS: FEOSOL 325 MG PO (20:13)
[2024-10-11 23:14] VITALS: BP 120/57
[2024-10-12] MEDS: MERREM 500 MG IV ×3 (01:04→18:41)
[2024-10-12] MEDS: STERILE WATER FOR INJECTION 10 ML IV ×3 (01:04→18:41)
[2024-10-12 03:50] LABS: Hematocrit 26.3 % (39.0-52.0); Hemoglobin 8.4 g/dL (13.0-18.0); Mean Corp Hgb Conc. 31.9 g/dL (33.0-37.0); Mean Corpuscular Volume 87.7 fL (80.0-94.0); Nucleated Red Blood Cells % 0 % (-); Platelet Count 190 10^3/uL (130-400); Red Cell Dist. Width 14.2 % (11.5-14.5)
[2024-10-12 07:00] VITALS: BP 130/68
[2024-10-12] MEDS: DESENEX/MITRAZOL/ZEASORB 1 APPLIC TOPICAL ×2 (08:11→20:42)
[2024-10-12] MEDS: FOLVITE 1 MG PO (08:12)
[2024-10-12] MEDS: MYLICON 80 MG PO ×3 (08:12→20:43)
[2024-10-12] MEDS: MIRALAX 17 GRAMS PO (08:12)
[2024-10-12] MEDS: FLOMAX 0.4 MG PO (08:12)
[2024-10-12] MEDS: SENOKOT 17.2 MG PO (08:12)
[2024-10-12] MEDS: PROSCAR 5 MG PO (08:12)
[2024-10-12] MEDS: VITAMIN B1 100 MG PO (08:13)
[2024-10-12] MEDS: MYLICON PO (14:51)
[2024-10-12 15:00] VITALS: BP 125/57
--- NOTE | 2024-10-12 15:01 | W.PN.HOSP.TC ---
Today's Communication/Plan
-
recheck HGB in AM, if stable/improving potential dc to follow
Assessment / Plan
Assessment / Plan
#Right percutaneous tube replacement on 10/[address] with CT scan: 1. Right percutaneous nephroureteral stent in place. Findings are most in keeping with subcapsular, parenchymal and perinephric hemorrhage. No overt evidence for active
bleeding or definite collecting system injury/rupture, although not excluded. Close clinical and imaging follow-up recommended.
2. Questionable mural-based soft tissue lesion within the posterior aspect of the left posterior urinary bladder diverticulum. Neoplasm not excluded. Consider direct visualization when the patient is able.
3. Trace bilateral pleural effusions.
#Pyuria history of Klebsiella and E. coli
#History of intraperitoneal bladder rupture, defect left posterior lateral urinary bladder 07/03/2024
#status post bladder repair 07/05/2023 status post bilateral PCN placement 07/11/2023
currently only right nephrostomy tube in place
-Hgb 9.6-->9.1-->8.4-->7.2-transfused 1 unit-->8.4
Nephrostomy tube draining yellow in color
- Consult urology, discussed with Dr. Jarquin
- IV Azactam has been changed to Meropenem
Ur cx results pending, continue Azactam for now, ID consult regarding Gm neg bacilli. Enteroccocus
- IV NSS stopped
- Continue finasteride 5 mg daily
- Blood consent obtained via phone from patient's son in [place] Noble Dalal [phone]
#Cognitive impairment with known history of underlying dementia
Oriented to name only rambles in a tangent
Lives at [facility]
- spoke with patient's son Noble Dalal who confirmed his father does have dementia
as per nurse ate >50% of Pureed lunch
#CKD 3B�4A
Creat 2.1 appears baseline
- Follow BMP
#Anemia of chronic disease
Hgb 9.6 appears baseline but will monitor given perinephric parenchymal hemorrhage
-Continue folic acid 1 mg p.o. daily, ferrous sulfate 325 mg Monday
#C. difficile diarrhea 07/13/2023 treated with oral vancomycin
#History of orthostasis/ hypertension
- Continue midodrine 2.5 mg p.o. twice daily
with hold parameters
#Hyperlipidemia
- Continue atorvastatin 10 mg at bedtime
#History small bowel ileus,/constipation
-monitor bowel movements
- Dulcolax 10 mg daily as needed if milk of mag ineffective
- Milk of magnesia 30 mL every 72 hours as needed if no bowel movement 3 days
- Continue senna 17.2 mg daily
#Depression
- Continue Remeron 7.5 mg at bedtime
Other PMH:
UTI/sepsis June 2024
hyponatremia Hx�NA stable 142
hypokalemia Hx K4.3
DVT prophylaxis
SCDs
Discussed with Dontae GALINDO, who confirmed pt could be dc tomorrow and abx has been set up
discussed with son, Noble 10/11, pt is a DNR
Anticipated Discharge: Within 24 hours
Subjective/Interval History
-
Date of Service: October 12, 2024
Appears comfortable. Nursing states has been eating well
Objective Data
-
Labs:
Laboratory Results
10/12/24
03:41
WBC 6.0
Hgb 8.4 L
Hct 26.3 L
Plt Count 190
Vital Signs:
Vital Signs
Temp Pulse Resp BP Pulse Ox
98.6 F 68 16 130/68 95
10/12/24 07:00 10/12/24 08:14 10/12/24 07:00 10/12/24 08:14 10/12/24 07:00
I&O
10/11/24 10/12/24 10/13/24
06:59 06:59 06:59
Intake Total 250 / 250
Output Total 1250 / 1250 1350 / 1350
Balance -1000 / -1000 -1350 / -1350
Review of Systems
-
Unable to obtain full review of systems at this time due to: Dementia
History Source: Patient and Coordinated Provider
Constitutional: Denies Fever
EENT: Reports No Symptoms Reported
Respiratory: Reports No Symptoms; Denies Cough
Cardiac: Reports No Symptoms; Denies Chest Pain
Abdomen/GI: Reports No Symptoms
Physical Exam
-
General: Well Developed, Well Nourished and No Apparent Distress
HEENT: Normocephalic, Atraumatic and Moist Mucous Membranes
Respiratory: Clear to Auscultation; Negative Wheezes, Rales or Rhonchi
Cardiac: Regular Rhythm and S1/S2
GI: Soft, Nontender, Nondistended and Normal Bowel Sounds
Musculoskeletal: No Clubbing, No Cyanosis and No Edema
Neuro: Awake; Negative Alert or Oriented
Psych: Calm
[2024-10-12] MEDS: REMERON 7.5 MG PO (20:42)
[2024-10-12] MEDS: LIPITOR 10 MG PO (20:42)
[2024-10-12 23:22] VITALS: BP 109/59
[2024-10-13] MEDS: MERREM 500 MG IV ×2 (01:37→09:46)
[2024-10-13] MEDS: STERILE WATER FOR INJECTION 10 ML IV ×2 (01:38→09:46)
[2024-10-13 08:30] LABS: Hematocrit 27.9 % (39.0-52.0); Hemoglobin 8.9 g/dL (13.0-18.0); Mean Corp Hgb Conc. 31.9 g/dL (33.0-37.0); Mean Corpuscular Volume 88.6 fL (80.0-94.0); Nucleated Red Blood Cells % 0 % (-); Platelet Count 218 10^3/uL (130-400); Red Cell Dist. Width 14.2 % (11.5-14.5)
[2024-10-13] MEDS: SENOKOT 17.2 MG PO (08:54)
[2024-10-13] MEDS: FOLVITE 1 MG PO (08:54)
[2024-10-13] MEDS: MYLICON 80 MG PO ×2 (08:54→12:27)
[2024-10-13] MEDS: VITAMIN B1 100 MG PO (08:54)
[2024-10-13] MEDS: FLOMAX 0.4 MG PO (08:54)
[2024-10-13 08:55] VITALS: BP 143/69
[2024-10-13] MEDS: MIRALAX 17 GRAMS PO (08:55)
[2024-10-13] MEDS: DESENEX/MITRAZOL/ZEASORB 1 APPLIC TOPICAL (08:55)
[2024-10-13] MEDS: PROSCAR 5 MG PO (08:55)
--- NOTE | 2024-10-13 09:10 | W.PN.UPDATE ---
Update Note
Progress Note Update
s/p replacement of displaced right PCNU by IR - w/ subsequent right subcapsular/perinephric hemorrhage.
H/H stabilized
Satisfactory UOP and drainage per right PCNU
F/U with Dr. Jarquin in 2 mo
PO antibiotic course for cUTI
--- NOTE | 2024-10-13 12:58 | CM ---
Discussed w/ hospitalist, patient will return to [facility] today. Patient will cont w/ IV abx, [facility] admissions aware.
Will need ambulance transport, forms on chart
Updated clinicals and midline report sent in [facility]
IMM on chart
[facility]
Report: [phone]

Plan: Return to [facility] today
--- NOTE | 2024-10-13 15:24 | W.PN.HOSP.TC ---
Today's Communication/Plan
-
dc to SNF
Assessment / Plan
Assessment / Plan
#Right percutaneous tube replacement on 10/[address] with CT scan: 1. Right percutaneous nephroureteral stent in place. Findings are most in keeping with subcapsular, parenchymal and perinephric hemorrhage. No overt evidence for active
bleeding or definite collecting system injury/rupture, although not excluded. Close clinical and imaging follow-up recommended.
2. Questionable mural-based soft tissue lesion within the posterior aspect of the left posterior urinary bladder diverticulum. Neoplasm not excluded. Consider direct visualization when the patient is able.
3. Trace bilateral pleural effusions.
#Pyuria history of Klebsiella and E. coli
#History of intraperitoneal bladder rupture, defect left posterior lateral urinary bladder 07/03/2024
#status post bladder repair 07/05/2023 status post bilateral PCN placement 07/11/2023
currently only right nephrostomy tube in place
-Hgb 9.6-->9.1-->8.4-->7.2-transfused 1 unit-->8.4-->8.9
improving Hgb
Nephrostomy tube draining yellow in color
- Consult urology, discussed with Dr. Jarquin
- IV Azactam has been changed to Meropenem
Ur cx results pending, continue Azactam for now, ID consult regarding Gm neg bacilli. Enteroccocus
- IV NSS stopped
- Continue finasteride 5 mg daily
- Blood consent obtained via phone from patient's son in [place] Noble Dalal [phone]
#Cognitive impairment with known history of underlying dementia
Oriented to name only rambles in a tangent
Lives at [facility]
- spoke with patient's son Noble Dalal who confirmed his father does have dementia
as per nurse ate >50% of Pureed lunch
#CKD 3B�4A
Creat 2.1 appears baseline
- Follow BMP
#Anemia of chronic disease
Hgb 9.6 appears baseline but will monitor given perinephric parenchymal hemorrhage
-Continue folic acid 1 mg p.o. daily, ferrous sulfate 325 mg Monday
#C. difficile diarrhea 07/13/2023 treated with oral vancomycin
#History of orthostasis/ hypertension
- Continue midodrine 2.5 mg p.o. twice daily
with hold parameters
#Hyperlipidemia
- Continue atorvastatin 10 mg at bedtime
#History small bowel ileus,/constipation
-monitor bowel movements
- Dulcolax 10 mg daily as needed if milk of mag ineffective
- Milk of magnesia 30 mL every 72 hours as needed if no bowel movement 3 days
- Continue senna 17.2 mg daily
#Depression
- Continue Remeron 7.5 mg at bedtime
Other PMH:
UTI/sepsis June 2024
hyponatremia Hx�NA stable 142
hypokalemia Hx K4.3
DVT prophylaxis
SCDs
Discussed with Dontae GALINDO, who confirmed pt could be dc today and abx has been set up
discussed with son, Noble 10/13, pt is a DNR
More than 30 minutes spent in discharge including
Final examination of the patient
Summarizing hospital stay
Instructions for continuing care to all relevant caregivers
Preparation of discharge records, prescriptions, and referral forms
Total time spent (in minutes): 45
Anticipated Discharge: Today
Subjective/Interval History
-
Date of Service: October 13, 2024
more alert today and looks comfortable
Objective Data
-
Labs:
Laboratory Results
10/13/24
08:05
WBC 6.6
Hgb 8.9 L
Hct 27.9 L
Plt Count 218
Vital Signs:
Vital Signs
Temp Pulse Resp BP Pulse Ox
97.6 F 57 20 143/69 98
10/13/24 08:55 10/13/24 08:55 10/13/24 08:55 10/13/24 08:55 10/13/24 08:55
I&O
10/12/24 10/13/24 10/14/24
06:59 06:59 06:59
Output Total 1350 / 1350 1175 / 1175 275 / 275
Balance -1350 / -1350 -1175 / -1175 -275 / -275
Review of Systems
-
Unable to obtain full review of systems at this time due to: Dementia
History Source: Patient and Coordinated Provider
Constitutional: Denies Fever
EENT: Reports No Symptoms Reported
Respiratory: Reports No Symptoms; Denies Cough
Cardiac: Reports No Symptoms; Denies Chest Pain
Abdomen/GI: Reports No Symptoms
Physical Exam
-
General: Well Developed, Well Nourished and No Apparent Distress
HEENT: Normocephalic, Atraumatic and Moist Mucous Membranes
Respiratory: Clear to Auscultation; Negative Wheezes, Rales or Rhonchi
Cardiac: Regular Rhythm and S1/S2
GI: Soft, Nontender, Nondistended and Normal Bowel Sounds
Musculoskeletal: No Clubbing, No Cyanosis and No Edema
Neuro: Awake and Alert (more alert than prior); Negative Oriented
Psych: Calm
--- NOTE | 2024-10-13 16:23 | W.DS.TRANS ---
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
-
Discharge Instructions:
Discharge Diagnosis/Procedures displaced rt PCNU by IRAD with resultant anemia
and UTI, dementia
Diet Grind all food
Activity With assistance
Driving Restrictions No driving
Bathing Restrictions None
Blood Work CBC, CMP every Monday while on abx forward
results to Dr. Cagle, recheck UA with C&S 1 week
after abx completed
Instructions:
Stand-Alone Forms:
Changes to Home Medications: Yes
Discharge Medications:
DC Medications w/original date entered in [employer]
acetaminophen 325 mg tablet (Tylenol) 650 mg PO Q4HPRN PRN mild pain/temp>100F 06/26/23
atorvastatin 10 mg tablet 10 mg PO HS High Cholesterol 06/26/23
bisacodyl 10 mg rectal suppository (Dulcolax (bisacodyl)) 10 mg GA DAILYPRN PRN if MOM ineffective after 24 hrs 06/26/23
folic acid 1 mg tablet 1 mg PO DAILY Supplement 06/26/23
magnesium hydroxide 400 mg/5 mL oral suspension (Milk of Magnesia) 30 ml PO [id number] PRN if no BM In 3 days 06/26/23
midodrine 2.5 mg tablet 2.5 mg PO BID Blood Pressure 06/26/23
polyethylene glycol 3350 17 gram oral powder packet 17 g PO DAILY Constipation 06/26/23
sennosides 8.6 mg tablet (senna) 17.2 mg PO DAILY Constipation 06/26/23
sodium phosphates 19 gram-7 gram/118 mL enema (Fleet Enema) 118 ml GA DAILYPRN PRN if dulcolax ineffective after 24 hrs 06/26/23
tamsulosin 0.4 mg capsule 0.4 mg PO DAILY Urinary Issue 06/26/23
thiamine HCl (vitamin B1) 100 mg tablet 100 mg PO DAILY Supplement 06/26/23
simethicone 80 mg chewable tablet 80 mg PO QID #0 tabs 07/14/23
clindamycin HCl 300 mg capsule 600 mg PO DAILYPRN PRN prophalactic abx 10/08/24
ferrous sulfate 325 mg (65 mg iron) tablet 325 mg PO MOWEFR Supplement 10/08/24
finasteride 5 mg tablet 5 mg PO DAILY Urinary Issue 10/08/24
mirtazapine 15 mg tablet (Remeron) 7.5 mg PO HS Mental Health/Anxiety 10/08/24
meropenem 500 mg intravenous solution 500 mg IV Q8H #25 ea 10/13/24
Home Medication Changes
Meropenem to complete on 10/20/24
Pending Results: No
[2024-10-13 16:48] VITALS: BP 127/66
== END 2024-10-13 18:00 | DRG 920 ==
LOC: 4 WEST ACU 21:18
PROVIDERS: Clinical Nurse Specialist Family Health; Nurse Practitioner; Radiology Diagnostic Radiology; ADMITTING PHYSICIAN Internal Medicine; ATTENDING PHYSICIAN Internal Medicine; EMERGENCY PHYSICIAN Emergency Medicine; FAMILY PHYSICIAN Internal Medicine; OTHER PHYSICIAN Internal Medicine Infectious Disease
PROC: 0T25X0Z Change Drainage Device in Kidney, External Approach (ICD-10-PCS; 2024-10-08)
PROC: 30233N1 Transfusion of Nonautologous Red Blood Cells into Peripheral Vein, Percutaneous Approach (ICD-10-PCS; 2024-10-10)
DX: N99.820 Postprocedural hemorrhage of a genitourinary system organ or structure following a genitourinary system procedure (principal); A04.72 Enterocolitis due to Clostridium difficile, not specified as recurrent; F03.93 Unspecified dementia, unspecified severity, with mood disturbance; N39.0 Urinary tract infection, site not specified; K56.7 Ileus, unspecified; E87.1 Hypo-osmolality and hyponatremia; D62 Acute posthemorrhagic anemia; T83.022A Displacement of nephrostomy catheter, initial encounter; Y73.2 Prosthetic and other implants, materials and accessory gastroenterology and urology devices associated with adverse incidents; B96.5 Pseudomonas (aeruginosa) (mallei) (pseudomallei) as the cause of diseases classified elsewhere; B95.2 Enterococcus as the cause of diseases classified elsewhere; F32.A Depression, unspecified; I95.1 Orthostatic hypotension; I12.9 Hypertensive chronic kidney disease with stage 1 through stage 4 chronic kidney disease, or unspecified chronic kidney disease; D63.1 Anemia in chronic kidney disease; N18.32 Chronic kidney disease, stage 3b; E87.6 Hypokalemia; D69.6 Thrombocytopenia, unspecified; E78.00 Pure hypercholesterolemia, unspecified; H26.9 Unspecified cataract; Z79.899 Other long term (current) drug therapy; Z88.0 Allergy status to penicillin
CPT/HCPCS: 50387; 51798; 74176; 77001; 80048; 80053; 81003; 81015; 85014; 85018; 85025; 86850; 86900; 86901; 86920; 87070; 87077; 87086; 87147; 87186; 92526; 92610; 96374; 96375; 97116; 97163; 97530; 99291; C1769; P9016

== ENCOUNTER 2024-10-29 19:40 | Emergency (ER) | payer MEDICARE, OTHER, SELFPAY ==
[2024-10-29 19:42] VITALS: BP 121/67
[2024-10-29 19:43] VITALS: BP 121/67
[2024-10-29 20:00] VITALS: BP 102/65
--- NOTE | 2024-10-29 20:15 | ED.GENMED ---
History of Present Illness
General
Chief Complaint: Fall
Time Seen by Provider: 10/29/24 19:45
History of Present Illness
History of Present Illness:
Patient is an 84-year-old male with a history of dementia and right-sided nephrostomy tube. He presented after a fall. He lives at [facility]. This fall was unwitnessed. Shortly afterwards they noted him to have blood in the right
nephrostomy bag and sent him to the emergency department for evaluation. Patient denies any pain or complaints at this time though he does not provide reliable history.
Past History
Past History
ED Past Medical History: HTN, Hypercholesterolemia, Psychiatric (Depression) and Other (UTI with bacteremia. Renal insufficiency, Back pain, UTI, Chronic indwelling posada catheter, Thrombocytopenia)
ED Past Surgical History: Urological (Right Nephrostomy tube) and Other (Cataracts)
Social History
Tobacco: Non-smoker
Alcohol: None
Drug: None
Personal: Single
Living: fdc ([facility])
Employment: Not employed
Phy Exam
Physical Exam
Physical Exam:
GENERAL APPEARANCE: NAD, well developed/ well nourished
EYES lids/conjunctiva normal
EARS/NOSE/THROAT Mucous membranes moist, uvula midline without oral pharyngeal erythema, exudate or swelling
HEAD/NECK normocephalic atraumatic, neck is supple.
RESPIRATORY respiratory effort normal, speaks in full sentences, no accessory muscle use. Lungs clear to auscultation without rhonchi, wheezes, rales
CARDIAC Regular rate and rhythm, no edema.
ABDOMINAL Soft, ND/NT.
BACK nephrostomy site on the right back is clean dry and intact without any bleeding. There is some hematuria in the bag noted however current urine coming out of tube is clear and yellow
MUSCLES/EXTREMITIES No abnormal range of motion, no swelling, no tenderness
SKIN Warm, pink and dry. No rashes
NEUROLOGICAL Speech is clear, pleasantly confused. Moving all extremities equally. No facial droop.
PSYCH Normal mood and affect. Judgement/competence is appropriate
Course
Orders/Labs/Results
Orders:
Orders
10/29/24 20:14
Electrocardiogram (*1) Urgent
Reason for Study: Other
Other Reason for Exam: fall, unwitnessed
CT Abd/pel Without Iv Or Oral Urgent
Reason For Exam: hematuria in R nephrostomy after fall
10/29/24 20:27
Complete Blood Count/With Diff Urgent
Comprehensive Metabolic Panel Urgent
PTT Urgent
Prothrombin Time Urgent
10/29/24 20:53
Urinalysis Reflex To Culture Urgent
Date Specimen was Collected: 10/29/24
Time Specimen was Collected: 20:36
Urine Microscopic Reflex Cult Urgent
Urine Culture Urgent
YAQUELIN Source: U
Specimen Description:
Date Specimen was Collected: 10/29/24
Time Specimen was Collected: 20:36
Abnormal Lab Results
10/29/24 10/29/24
20:27 20:53
RBC 3.31 L 10^6/uL
(4.70-6.10)
Hgb 9.3 L g/dL
(13.0-18.0)
Hct 28.8 L %
(39.0-52.0)
MCHC 32.3 L g/dL
(33.0-37.0)
Eosinophils % 8.3 H %
(0-6)
BUN 29 H mg/dl
(9-20)
Creatinine 2.2 H mg/dL
(0.7-1.3)
Glucose 149 H mg/dl
(70-99)
Calcium 8.3 L mg/dl
(8.4-10.2)
Albumin 3.3 L g/dl
(3.5-5.0)
Ur Occult Blood Reflex 4+ A
(Negative)
Leukocyte Esterase Rfl 3+ A
(Negative)
Urine RBC >100 A /HPF
(0-2)
Urine Albumin (Reflex) 3+ A
(Neg - Trace)
10/29/24 20:27
10/29/24 20:27
Vital Signs
Initial and Last Documented VS:
Initial Vital Signs
Temp Pulse Resp BP Pulse Ox
98.0 F 67 12 121/67 98
10/29/24 19:42 10/29/24 19:42 10/29/24 19:42 10/29/24 19:42 10/29/24 19:42
Last Documented Vital Signs
Temp Pulse Resp BP Pulse Ox
98.0 F 95 16 122/66 97
10/29/24 19:42 10/29/24 20:45 10/29/24 20:45 10/29/24 20:24 10/29/24 20:45
*Pulse Oximetry
SaO2: 98
Oxygen Mode of Delivery: Room air
Patient hypoxic: no
*Critical Care Note
Total Time (30-74mins, 75-104mins- exclusive of procedures): Not Applicable
ED Attending Note
ED Attending Note
ED Attending Note:
Patient presents with hematuria from nephrostomy after presumed fall when he was found on the ground. He is at his baseline his hemoglobin is 9.3 which is increased from discharge. CT scan demonstrating improvement in his perirenal hematoma.
While in the emergency department his urine did clear. He has no fever or leukocytosis to infection and he was just treated with a course of meropenem. Will send urine for culture and hold off on antibiotics at this time.
-
Portions of this chart may have been created with voice recognition software.� Occasional wrong word or��sound alike� substitutions may have occurred due to the inherent limitations of voice recognition software.
Discharge Plan
Departure
Patient Disposition: Long-Term/SNF
Date of Disposition: 10/29/24
Time of Disposition: 22:12
Discharge Problem:
Hematuria, Hematoma of kidney
Prescriptions:
No Action
sennosides [senna] 8.6 mg Tablet
17.2 mg PO DAILY
acetaminophen [Tylenol] 325 mg Tablet
650 mg PO Q4HPRN MDD 3000 mg PRN (Reason: mild pain/temp>100F)
polyethylene glycol 3350 17 gram Powder In Packet
17 g PO DAILY
atorvastatin 10 mg Tablet
10 mg PO HS
thiamine HCl (vitamin B1) 100 mg Tablet
100 mg PO DAILY
magnesium hydroxide [Milk of Magnesia] 400 mg/5 mL Suspension
30 ml PO [id number] PRN (Reason: if no BM In 3 days)
tamsulosin 0.4 mg Capsule
0.4 mg PO DAILY
bisacodyl [Dulcolax (bisacodyl)] 10 mg Suppository
10 mg NM DAILYPRN PRN (Reason: if MOM ineffective after 24 hrs)
Fleet Enema 19-7 gram/118 mL Enema
118 ml NM DAILYPRN PRN (Reason: if dulcolax ineffective after 24 hrs)
folic acid 1 mg Tablet
1 mg PO DAILY
midodrine 2.5 mg Tablet
2.5 mg PO BID
simethicone 80 mg Tablet,Chewable
80 mg PO QID Qty: 0 0RF
clindamycin HCl 300 mg Capsule
600 mg PO DAILYPRN PRN (Reason: prophalactic abx)
Patient Comments:
10/08/2024, 1 hr before dental procedures.
ferrous sulfate 325 mg (65 mg iron) Tablet
325 mg PO MOWEFR
mirtazapine [Remeron] 15 mg Tablet
7.5 mg PO HS
finasteride 5 mg Tablet
5 mg PO DAILY
Referrals:
Marquise Youssef DO [Family Provider, Internal Medicine]
Activity Restrictions/Additional Instructions:
Please follow-up with your primary care doctor in the next few days for recheck. Return to the emergency department with new or worsening symptoms.
Interventions
Interventions:
*Risk Screen - Suicide Last Done: 10/29/24 19:45
*General Assessment Last Done: 10/29/24 19:45
*Neglect/Abuse Screening Last Done: 10/29/24 19:45
*ED- Fall Risk Assessment Last Done: 10/29/24 19:45
*ED COVID-19 Vaccine History Last Done: 10/29/24 19:45
ED-Musculoskeletal Assessment Last Done: 10/29/24 19:59
ED- Neurological Assessment Last Done: 10/29/24 19:59
ED-Skin Assessment Last Done: 10/29/24 19:59
Discharge Date and Time
Print Language: SINHALA
[2024-10-29 20:24] VITALS: BP 122/66
[2024-10-29 20:39] LABS: Hematocrit 28.8 % (39.0-52.0); Hemoglobin 9.3 g/dL (13.0-18.0); Mean Corp Hgb Conc. 32.3 g/dL (33.0-37.0); Mean Corpuscular Volume 87.0 fL (80.0-94.0); Nucleated Red Blood Cells % 0 % (-); Platelet Count 277 10^3/uL (130-400); Red Cell Dist. Width 13.8 % (11.5-14.5)
[2024-10-29 20:44] LABS: INR 1.11; PT 14.6 Sec (11.4-14.6)
[2024-10-29 20:45] LABS: APTT 33.3 Sec (23.4-35.0)
[2024-10-29 20:58] LABS: ALT (SGPT) 11 U/L (0-50); AST (SGOT) 22 U/L (17-59); Albumin 3.3 g/dl (3.5-5.0); Alkaline Phosphatase 105 U/L (38-126); Blood Urea Nitrogen 29 mg/dl (9-20); Calcium 8.3 mg/dl (8.4-10.2); Carbon Dioxide 28 mmol/L (22-30); Chloride 106 mmol/L (98-107); Glucose 149 mg/dl (70-99); Potassium 4.4 mmol/L (3.5-5.1); Sodium 137 mmol/L (135-145); Total Protein 6.8 g/dl (6.3-8.2); eGFR 28.81
[2024-10-29 21:00] VITALS: BP 101/55
[2024-10-29 21:06] LABS: Urine Character Slightly Cloudy (Clear)
[2024-10-29 21:49] LABS: Urine Red Blood Cell >100 /HPF (0-2); Urine Squamous Cell 0-2 /LPF (Few)
[2024-10-29 22:03] VITALS: BP 113/60
== END 2024-10-29 23:00 ==
LOC: EMR 19:40
PROVIDERS: EMERGENCY PHYSICIAN Emergency Medicine; FAMILY PHYSICIAN Internal Medicine
DX: S37.011A Minor contusion of right kidney, initial encounter (principal); W19.XXXA Unspecified fall, initial encounter; Y92.129 Unspecified place in nursing home as the place of occurrence of the external cause; F03.93 Unspecified dementia, unspecified severity, with mood disturbance; I10 Essential (primary) hypertension; E78.00 Pure hypercholesterolemia, unspecified; N28.9 Disorder of kidney and ureter, unspecified; F32.A Depression, unspecified; Z93.6 Other artificial openings of urinary tract status
CPT/HCPCS: 99284; 74176; 80053; 81003; 81015; 85025; 85610; 85730; 87077; 87086; 87186; 93005

== ENCOUNTER 2024-11-14 11:45 | Emergency (ER) | payer MEDICARE, OTHER, SELFPAY ==
[2024-11-14] VITALS (8 sets, daily range): BP systolic 102–131; BP diastolic 58–68
[2024-11-14 12:08] LABS: Hematocrit 30.5 % (39.0-52.0); Hemoglobin 9.6 g/dL (13.0-18.0); Mean Corp Hgb Conc. 31.5 g/dL (33.0-37.0); Mean Corpuscular Volume 86.9 fL (80.0-94.0); Nucleated Red Blood Cells % 0 % (-); Platelet Count 379 10^3/uL (130-400); Red Cell Dist. Width 14.2 % (11.5-14.5)
[2024-11-14 12:34] LABS: ALT (SGPT) 150 U/L (0-50); AST (SGOT) 187 U/L (17-59); Albumin 3.2 g/dl (3.5-5.0); Alkaline Phosphatase 319 U/L (38-126); Blood Urea Nitrogen 38 mg/dl (9-20); Calcium 8.6 mg/dl (8.4-10.2); Carbon Dioxide 27 mmol/L (22-30); Chloride 108 mmol/L (98-107); Glucose 171 mg/dl (70-99); Lipase 58 U/L (23-300); Potassium 4.4 mmol/L (3.5-5.1); Sodium 141 mmol/L (135-145); Total Protein 7.0 g/dl (6.3-8.2); eGFR 27.32
--- NOTE | 2024-11-14 13:18 | ED.GENMED ---
History of Present Illness
General
Chief Complaint: Abnormal Lab Value
Source: patient and records (Labs sent by custodial)
Time Seen by Provider: 11/14/24 13:08
History of Present Illness
History of Present Illness:
84-year-old male sent to the emergency room from [facility] because outpatient testing showed elevation in LFTs. Patient has dementia and does not know why he is here. He denies any abdominal pain. He denies any nausea vomiting. Patient was
recently hospitalized here at [facility] for a perinephric hematoma after a fall at. There is a nephrostomy tube in the region. He was also recently hospitalized requiring replacement of the nephrostomy tube. Looking back at patient's previous
hospitalizations he has had a couple episodes of transaminitis without clear etiology but that did resolve after couple days.
Past History
Past History
ED Past Medical History: HTN, Hypercholesterolemia, Psychiatric (Depression) and Other (UTI with bacteremia. Renal insufficiency, Back pain, UTI, Chronic indwelling posada catheter, Thrombocytopenia)
ED Past Surgical History: Urological (Right Nephrostomy tube) and Other (Cataracts)
Social History
Tobacco: Non-smoker
Alcohol: None
Drug: None
Personal: Single
Living: custodial ([facility])
Employment: Not employed
Phy Exam
Physical Exam
Physical Exam:
General: Awake, Alert, Oriented X1. Pleasant but clearly confused
Vitals: unremarkable
Head: Atraumatic
Eyes: Pupils equal, EOMI
Throat: Airway intact, no exudates, dry mucosa
Neck: Trachea midline
Lungs: Clear and equal b/l
Heart: Regular rate, no murmurs
Abd: Soft, Nontender, No pulsatile mass
Neuro: Nonfocal
Skin: Warm, dry, no rash
Extremities: pulses equal b/l, no edema
Course
Orders/Labs/Results
Orders:
Orders
11/14/24 12:02
Complete Blood Count/With Diff Urgent
Comprehensive Metabolic Panel Urgent
Lipase Urgent
11/14/24 13:17
0.9% Sodium Chloride 500 ml [Nss] 500 ml IV BOLUS
US Abdomen Complete/Upper Urgent
Comment:
Reason For Exam: elevated lft's
Abnormal Lab Results
11/14/24
12:02
RBC 3.51 L 10^6/uL
(4.70-6.10)
Hgb 9.6 L g/dL
(13.0-18.0)
Hct 30.5 L %
(39.0-52.0)
MCHC 31.5 L g/dL
(33.0-37.0)
Absolute Lymphs (auto) 1.1 L 10^3/uL
(1.2-3.4)
Lymphocytes % 15.0 L %
(20.5-51.1)
Chloride 108 H mmol/L
(98-107)
BUN 38 H mg/dl
(9-20)
Creatinine 2.3 H mg/dL
(0.7-1.3)
Glucose 171 H mg/dl
(70-99)
AST 187 H U/L
(17-59)
ALT 150 H U/L
(0-50)
Alkaline Phosphatase 319 H U/L
(38-126)
Albumin 3.2 L g/dl
(3.5-5.0)
11/14/24 12:02
11/14/24 12:02
Vital Signs
Initial and Last Documented VS:
Initial Vital Signs
Temp Pulse Resp BP Pulse Ox
98.6 F 75 16 131/68 97
11/14/24 11:46 11/14/24 11:46 11/14/24 11:46 11/14/24 11:46 11/14/24 11:46
Last Documented Vital Signs
Temp Pulse Resp BP Pulse Ox
98.6 F 75 16 122/61 98
11/14/24 11:46 11/14/24 11:46 11/14/24 11:46 11/14/24 13:00 11/14/24 13:20
MDM/Problems Addressed
Differential Diagnosis Includes:
Fatty liver, choledocholithiasis, medication effect
MDM/Problems Addressed:
Patient presents from custodial where he resides due to dementia because his LFTs were mildly elevated on outpatient testing. Patient offers no complaints. Physical exam is benign. AST is 187 and ALT is 150. Ultrasound of the abdomen shows
common bile duct is within normal limits. There is some fatty liver. No evidence of an acute or unstable process requiring hospitalization. Patient stable for discharge back to his facility where they can trend his LFTs and perform an outpatient
workup. Of note the patient has had a couple episodes of similarly elevated LFTs which are self-limited
*Radiology
Radiology exam reviewed: radiology read reviewed
*Pulse Oximetry
SaO2: 98
Oxygen Mode of Delivery: Room air
Patient hypoxic: no
*Critical Care Note
Total Time (30-74mins, 75-104mins- exclusive of procedures): Not Applicable
Data Reviewed
Review of Other/Old Records Reveals: Labs
ED Attending Note
-
Portions of this chart may have been created with voice recognition software.� Occasional wrong word or��sound alike� substitutions may have occurred due to the inherent limitations of voice recognition software.
Discharge Plan
Departure
Patient Disposition: [facility]/S[facility]
Date of Disposition: 11/14/24
Time of Disposition: 16:28
Condition: Good
Discharge Problem:
Abnormal transaminases, Fatty liver
Instructions: BLOOD PRESSURE
Prescriptions:
No Action
sennosides [senna] 8.6 mg Tablet
17.2 mg PO DAILY
acetaminophen [Tylenol] 325 mg Tablet
650 mg PO Q4HPRN MDD 3000 mg PRN (Reason: mild pain/temp>100F)
polyethylene glycol 3350 17 gram Powder In Packet
17 g PO DAILY
atorvastatin 10 mg Tablet
10 mg PO HS
thiamine HCl (vitamin B1) 100 mg Tablet
100 mg PO DAILY
magnesium hydroxide [Milk of Magnesia] 400 mg/5 mL Suspension
30 ml PO [id number] PRN (Reason: if no BM In 3 days)
tamsulosin 0.4 mg Capsule
0.4 mg PO DAILY
bisacodyl [Dulcolax (bisacodyl)] 10 mg Suppository
10 mg IN DAILYPRN PRN (Reason: if MOM ineffective after 24 hrs)
Fleet Enema 19-7 gram/118 mL Enema
118 ml IN DAILYPRN PRN (Reason: if dulcolax ineffective after 24 hrs)
folic acid 1 mg Tablet
1 mg PO DAILY
midodrine 2.5 mg Tablet
2.5 mg PO BID
ferrous sulfate 325 mg (65 mg iron) Tablet
325 mg PO MOWEFR
mirtazapine [Remeron] 15 mg Tablet
7.5 mg PO HS
finasteride 5 mg Tablet
5 mg PO DAILY
simethicone 80 mg tablet,chewable
80 mg PO QID
Referrals:
Marquise Youssef I., DO [Family Provider, Internal Medicine]
Activity Restrictions/Additional Instructions:
LFT's are very mildly elevated. U/S of liver shows some fatty infiltration which may explain the test results. No indication for admission. Trend as an outpatient. Alex has had occasional similar elevations of LFT's in the past which normalized
quickly.
Interventions
Interventions:
*Risk Screen - Suicide Last Done: 11/14/24 11:46
*General Assessment Last Done: 11/14/24 11:46
*Neglect/Abuse Screening Last Done: 11/14/24 11:46
Discharge Date and Time
Print Language: FAROESE
[2024-11-14] MEDS: NSS 500 IV (13:30)
== END 2024-11-14 18:58 ==
LOC: EMR 11:45
PROVIDERS: Emergency Medicine; EMERGENCY PHYSICIAN Emergency Medicine; FAMILY PHYSICIAN Internal Medicine
DX: R74.01 Elevation of levels of liver transaminase levels (principal); K76.0 Fatty (change of) liver, not elsewhere classified; F03.90 Unspecified dementia, unspecified severity, without behavioral disturbance, psychotic disturbance, mood disturbance, and anxiety; I10 Essential (primary) hypertension; E78.00 Pure hypercholesterolemia, unspecified; F32.A Depression, unspecified; Z93.6 Other artificial openings of urinary tract status
CPT/HCPCS: 99284; 76700; 80053; 83690; 85025